=== PATIENT | female | born 1945 | race Caucasian/White ===

== ENCOUNTER 2023-01-18 06:27 | Emergency (ER) | payer MEDICARE, OTHER, SELFPAY ==
[2023-01-18 06:32] VITALS: BP 178/109; PULSE 60; RESP 18; TEMP 36.6; O2SAT 97; BMI 26.5
[2023-01-18 06:35] VITALS: BP 178/109
[2023-01-18 06:49] VITALS: BP 160/70
[2023-01-18] MEDS: ONDANSETRON PF 4 MG/2 ML VIAL IV (07:05)
[2023-01-18] MEDS: MORPHINE SULFATE 4 MG/ML VIAL IV ×2 (07:05→10:03)
--- NOTE | 2023-01-18 07:23 | ED_ITS ---
HPI - General Adult General Chief complaint: Back Pain/Injury Stated complaint: PAIN IN THE BACK RADIATES TO THE FRONT Time Seen by Provider: 01/18/23 06:57 Source: patient Mode of arrival: walk-in History of Present Illness HPI narrative: Patient was as emergency department complaining of low back pain. Patient states the pain starts in her lumbar area and radiates to the front. She states the pain has made her nauseated. She denies any fall or trauma. States she's never had any pain like this before. The pain goes to bilateral sides. She denies any history of kidney stones or gallstones. She denies any fever, or chills. She denies any cough, chest pain, shortness of breath. She denies any hematemesis, melena, hematochezia. She had a normal bowel movement. There is nothing that makes the pain better or worse. There are no sick contacts in the household. Related Data Home Medications Medication Instructions Recorded Confirmed alendronate 70 mg tablet 70 mg PO .every 7 days 01/18/23 01/18/23 allopurinol 100 mg tablet 100 mg PO DAILY 01/18/23 01/18/23 aspirin 81 mg capsule 81 mg PO DAILY 01/18/23 01/18/23 carvedilol 3.125 mg tablet 3.125 mg PO Q12H 01/18/23 01/18/23 cyanocobalamin (vitamin B-12) mcg 01/18/23 1,000 mcg/mL injection solution levothyroxine 75 mcg tablet 75 mcg PO DAILY 01/18/23 01/18/23 magnesium oxide 400 mg (241.3 mg 400 mg PO DAILY 01/18/23 01/18/23 magnesium) tablet Previous Rx's Medication Instructions Recorded cephalexin 500 mg capsule 500 mg PO TID 7 days #21 caps 01/18/23 hydrocodone 5 mg-acetaminophen 325 1 tab PO Q8H PRN pain 3 days #10 01/18/23 mg tablet tabs Allergies Allergy/AdvReac Type Severity Reaction Status Date / Time Penicillins Allergy Unknown Verified 01/18/23 06:36 sulfas Allergy Unknown Uncoded 01/18/23 06:36 Review of Systems ROS Status of ROS 10 or more systems reviewed and unremarkable except as noted in history and below Exam Narrative Exam Narrative: Nurses notes and vital signs reviewed and patient is not hypoxic. General: Nontoxic, Elderly, Well-appearing and in no apparent distress. Skin: Warm, dry, no pallor noted. No Rash Head: Normocephalic, atraumatic. Neck: Supple, non-tender. Eye: Pupils are equal, round and EOMI. No scleral icterus. Ears, Nose, Mouth, and Throat: TM clear, no posterior oropharynx erythema or nasal mucosal hypertrophy, uvula is mid-line Oral mucosa is moist Cardiovascular: Regular Rate and Rhythm without murmur, gallop or rub. Respiratory: No accessory muscle use or respiratory distress. Lungs are clear to auscultation, no wheezing, rales or rhonchi Chest Wall: no tenderness Back: No midline thoracic or lumbar vertebral tenderness.Numbness to bilateral paraspinal lumbars. No CVA tenderness Musculoskeletal: normal ROM, no calf or popliteal tenderness, no lower extremity edema/swelling GI: Abdomen is soft, non-distended. Normal bowel sounds. No masses appreciated.No tenderness to palpation. No rebound, guarding, or rigidity noted. Neurological: A&O x4. No cranial nerve dysfunction observed. No truncal ataxia. Moves all extremities. Sensation intact. Psychiatric: Cooperative and interactive. Normal mood and affect. Constitutional Vital Signs, click to edit/add: Last Vital Signs Temp 97.9 F 01/18/23 06:32 Pulse 55 L 01/18/23 10:12 Resp 18 01/18/23 10:12 BP 154/62 H 01/18/23 10:12 Pulse Ox 95 01/18/23 10:12 O2 Del Method Room Air 01/18/23 06:32 Course Vital Signs Vital signs: Vital Signs Temperature 97.9 F 01/18/23 06:32 Pulse Rate 60 01/18/23 06:32 Respiratory Rate 18 01/18/23 06:32 Blood Pressure 178/109 H 01/18/23 06:32 Pulse Oximetry 97 01/18/23 06:32 Oxygen Delivery Method Room Air 01/18/23 06:32 Temperature 97.9 F 01/18/23 06:32 Pulse Rate 55 L 01/18/23 10:12 Respiratory Rate 18 01/18/23 10:12 Blood Pressure 154/62 H 01/18/23 10:12 Pulse Oximetry 95 01/18/23 10:12 Oxygen Delivery Method Room Air 01/18/23 06:32 Medical Decision Making MDM Narrative Medical decision making narrative: Patient was given IV fluids, Zofran and morphine. Her pain was well controlled while studies were being done. All results were discussed with patient. Patient is not actively having any diarrhea. She complained of pain returning and was given another 4 mg of morphine. With that her symptoms had completely resolved. I advised the patient we would give Rocephin for urinary tract infection give her prescription of an antibiotic and analgesics. She is to follow-up with her primary care doctor. Return to the emergency department if symptoms worsen, she gets fever, pain returns and is not controlled with what we are doing at home or she has any other problems or concerns. No additional indication for emergent studies at this time. I answered all questions. Discussed discharge instructions including standard anticipatory guidance and what should prompt a return to the emergency department, including if they get worse are not getting better or develops any new or concerning symptoms. I've given them specific time frame in which to follow-up, and who to follow-up with. The patient demonstrates understanding. Patient is nontoxic and stable for discharge with outpatient follow-up. This note was created with the assistance of a speech recognition program. Although the intention is to generate documents that actually reflects the content of the visit, no guarantees can be provided that every mistake has been identified and corrected by editing. Lab Data Lab results reviewed: Yes I reviewed the patient's lab results Labs: Lab Results 01/18/23 01/18/23 01/18/23 Range/Units 06:40 08:42 09:47 WBC 10.5 (4.0-11.0) 10^3/uL RBC 3.64 L (4.20-5.40) 10^6/uL Hgb 11.1 L (12.0-16.0) g/dL Hct 32.7 L (36.0-48.0) % MCV 89.8 (81.0-99.0) fL MCH 30.5 (26.7-34.0) pg MCHC 33.9 (29.9-35.2) g/dL RDW 14.5 (11.0-15.0) % Plt Count 192 (150-450) 10^3/uL MPV 11.4 (9.5-13.5) fL Neut % (Auto) 79.0 H (43.0-75.0) % Lymph % (Auto) 12.1 L (20.5-60.0) % [place] % (Auto) 8.5 (1.7-12.0) % Eos % (Auto) 0.0 L (0.9-7.0) % Baso % (Auto) 0.1 L (0.2-2.0) % Neut # (Auto) 8.3 H (1.4-6.5) 10^3/uL Lymph # (Auto) 1.3 (1.2-3.8) 10^3/uL [place] # (Auto) 0.9 H (0.3-0.8) 10^3/uL Eos # (Auto) 0.0 (0.0-0.7) 10^3/uL Baso # (Auto) 0.0 (0.0-0.1) 10^3/uL Abs Immat Gran (auto) 0.03 (0.00-0.03) 10^3/uL Imm/Tot Granulo (auto) 0.3 (0.0-0.5) % Sodium 140 (136-145) mmol/L Potassium 4.7 (3.5-5.1) mmol/L Chloride 106 (98-107) mmol/L Carbon Dioxide 24.9 (21.0-32.0) mmol/L Anion Gap 13.8 BUN 37.0 H (7.0-18.0) mg/dL Creatinine 1.25 H (0.55-1.02) mg/dL Est GFR ( Amer) 50 L (>=60) Est GFR (Non-Af Amer) 41 L (>=60) BUN/Creatinine Ratio 29.6 Glucose 130 H (74-106) mg/dL Lactate 1.7 (0.4-2.0) mmol/L Calcium 9.6 (8.5-10.1) mg/dL Total Bilirubin 0.5 (0.2-1.0) mg/dL AST 16 (15-37) U/L ALT 21 (14-59) U/L Alkaline Phosphatase 83 (46-116) U/L Troponin I High Sens 10.9 10.6 (4.0-51.3) pg/mL Total Protein 6.9 (6.4-8.2) g/dL Albumin 3.6 (3.4-5.0) g/dL Globulin 3.3 g/dL Albumin/Globulin Ratio 1.1 Lipase 175.0 (73.0-393.0) U/L Urine Color Lt. yellow (YELLOW) Urine Clarity Cloudy A (CLEAR) Urine pH 6.0 (5.0-9.0) Ur Specific [place] 1.010 (1.005-1.025) Urine Protein Trace (NEG/TRACE) mg/dL Urine Glucose (UA) Negative (NEGATIVE) mg/dL Urine Ketones Negative (NEGATIVE) mg/dL Urine Occult Blood Small A (NEGATIVE) Urine Nitrite Negative (NEGATIVE) Urine Bilirubin Negative (NEGATIVE) Urine Urobilinogen 0.2 (0.2-1.0) EU/dL Ur Leukocyte Esterase Large A (NEGATIVE) Urine RBC 2-5 A (0-2) #/HPF Urine WBC 75-100 A (NONE SEEN) #/HPF Ur Squamous Epith Cells None seen (NONE/RARE) #/LPF Urine Crystals None seen (None Seen) #/HPF Urine Bacteria Small A (NONE SEEN) #/HPF Urine Casts None seen (NONE SEEN) #/LPF Urine Mucus None seen (NONE SEEN) Ur Culture Indicated? Yes ECG Data Attestation: I personally reviewed and interpreted this ECG as follows: Discharge Plan Discharge Chief Complaint: Back Pain/Injury Clinical Impression: Acute flank pain, Acute UTI, Dehydration Patient Disposition: Home, Self-Care Time of Disposition Decision: 11:16 Condition: Good Mode of Transportation: Private Vehicle Prescriptions / Home Meds: New hydrocodone-acetaminophen 5-325 mg tablet 1 tab PO Q8H PRN (Reason: pain) 3 Days Qty: 10 0RF cephalexin 500 mg capsule 500 mg PO TID 7 Days Qty: 21 0RF No Action alendronate 70 mg tablet 70 mg PO .every 7 days allopurinol 100 mg tablet 100 mg PO DAILY aspirin 81 mg capsule 81 mg PO DAILY carvedilol 3.125 mg tablet 3.125 mg PO Q12H levothyroxine 75 mcg tablet 75 mcg PO DAILY cyanocobalamin (vitamin B-12) 1,000 mcg/mL solution magnesium oxide 400 mg (241.3 mg magnesium) tablet 400 mg PO DAILY Instructions: Dehydration (ED), Urinary Tract Infection in Women (ED), Flank Pain (ED) Stand Alone Forms: Portal Instructions Referrals: Physician,Non-Staff, [Primary Care Provider] - 1 week Discharge Date/Time: 01/18/23 11:30
--- NOTE | 2023-01-18 07:24 | CT_ITS ---
The [address] [address] Patient Name: LUDY MORENO MRN: [id number] date: 1945 Sex: F Assigned Patient Location: ER Current Patient Location: ER Accession/Order Number: [id number] Exam Date: 01/18/2023 07:35 Report Date: 01/18/2023 08:22 At the request of: DENNIS JORDAN Procedure: CT abdomen pelvis wo con CT ABDOMEN AND PELVIS WITHOUT CONTRAST: 01/18/2023 7:35 AM EDT Clinical Data: flank pain Comparison: Enhanced exam 02/15/2022 Unenhanced helically acquired data per protocol. The lack of IV contrast material hampers evaluation of the viscera, for adenopathy, and of the vasculature. The lack of oral contrast medium to some extent hampers evaluation of the bowel. All CT scans at this facility use dose modulation, iterative reconstruction, and/or weight based dosing when appropriate to reduce radiation dose to as low as reasonably achievable. FINDINGS: LOWER THORAX: No change 5 mm nodule at the right base. Areas of slight atelectasis. LIVER: No acute findings. SPLEEN: No acute findings. GB/BILIARY: Again, status post cholecystectomy. Today, there is some air within nondilated biliary tree. Previously demonstrated mild hyperdensity distal CBD is no longer evident. PANCREAS: No acute findings. ADRENALS: No change 18 mm right adrenal mass. This measures 7 Hounsfield units in density. KIDNEYS/URETERS: Symmetric in size and overall density on this unenhanced exam. No perinephric stranding. No hydronephrosis or hydroureter. No ureteral calculi are evident. VESSELS: No AAA ABDOMINAL NODES: No obvious adenopathy. PELVIC NODES: No obvious adenopathy. BLADDER: No acute findings. REPRODUCTIVE: Uterus is absent. If the ovaries are present they are tiny. PERITONEUM: No free air. No free fluid. EXTRAPERITONEUM: No acute finding BOWEL: No acute findings.No GI obstruction. Modest amount stool within aspects of the colon. Several colonic diverticula. Stomach is nearly empty. Small bowel is not dilated. It contains a small amount of debris and fluid. On this study performed without oral contrast medium, no focally thickened loop of bowel is apparent. No peribowel stranding is evident. The appendix is short and contains a mild amount of air. The distal ileum is unremarkable. BODY WALL: Minimal umbilical hernia containing fairly small amount of fat. No change. BONES: No acute findings. OTHER: No acute findings. CT/CT abdomen pelvis wo con IMPRESSION: 1. No GI obstruction. Several colonic diverticula. No focally thickened loop of bowel is evident on this study performed without oral contrast medium. 2. No hydronephrosis or hydroureter. No ureteral calculi are evident. 3. Again, status post cholecystectomy. Interval air in the biliary tree. This is likely postprocedural. Previously demonstrated subtle hyperdensity/calculus in the distal CBD is no longer evident. 4. No interval change right adrenal adenoma.. 5. No change 5 mm nodule right lung base. The lack of interval change is good and favors benignity Electronically authenticated by: RD KEITH Date: 01/18/2023 08:22
[2023-01-18] MEDS: 0.9 % SODIUM CHLORIDE 1,000 ML 1000 ML IV (07:30)
[2023-01-18 07:33] LABS: Basophils Percent Auto 0.1 % (0.2-2.0); Hematocrit 32.7 % (36.0-48.0); Hemoglobin 11.1 g/dL (12.0-16.0); Immature Granulocytes Abs Auto 0.03 10^3/uL (0.00-0.03); Immature Granulocytes Pct Auto 0.3 % (0.0-0.5); Lymphocytes Absolute Auto 1.3 10^3/uL (1.2-3.8); Lymphocytes Percent Auto 12.1 % (20.5-60.0); Mean Corpuscular HGB Conc 33.9 g/dL (29.9-35.2); Mean Corpuscular Hemoglobin 30.5 pg (26.7-34.0); Mean Corpuscular Volume 89.8 fL (81.0-99.0); Mean Platelet Volume 11.4 fL (9.5-13.5); Monocytes Absolute Auto 0.9 10^3/uL (0.3-0.8); Monocytes Percent Auto 8.5 % (1.7-12.0); Neutrophils Absolute Auto 8.3 10^3/uL (1.4-6.5); Platelet Count 192 10^3/uL (150-450); Red Blood Count 3.64 10^6/uL (4.20-5.40); Red Cell Distribution Width 14.5 % (11.0-15.0); White Blood Count 10.5 10^3/uL (4.0-11.0)
[2023-01-18 07:46] LABS: Alanine Aminotransferase 21 U/L (14-59); Albumin Globulin Ratio 1.1; Albumin Level 3.6 g/dL (3.4-5.0); Alkaline Phosphatase 83 U/L (46-116); Anion Gap 13.8; Aspartate Amino Transferase 16 U/L (15-37); BUN Creatinine Ratio 29.6; Bilirubin Total 0.5 mg/dL (0.2-1.0); Calcium 9.6 mg/dL (8.5-10.1); Carbon Dioxide 24.9 mmol/L (21.0-32.0); Chloride 106 mmol/L (98-107); Estimated GFR (African America 50 (>=60); Estimated GFR (Non-African Ame 41 (>=60); Globulin 3.3 g/dL; Glucose 130 mg/dL (74-106); Potassium 4.7 mmol/L (3.5-5.1); Sodium 140 mmol/L (136-145); Total Protein 6.9 g/dL (6.4-8.2); Troponin I High Sensitivity 10.9 pg/mL (4.0-51.3)
[2023-01-18 07:47] LABS: Lactate/Lactic Acid 1.7 mmol/L (0.4-2.0)
[2023-01-18 09:16] LABS: Bilirubin Urine NEGATIVE (NEGATIVE); Blood Urine SMALL (NEGATIVE); Clarity Urine CLOUDY (CLEAR); Color Urine LT. YELLOW (YELLOW); Glucose Urine UA NEGATIVE (NEGATIVE); Ketones Urine NEGATIVE (NEGATIVE); Leukocyte Esterase Urine LARGE (NEGATIVE); Nitrite Urine NEGATIVE (NEGATIVE); Protein Urine TRACE mg/dL (NEG/TRACE); Urine Microscopic Indicated YES; Urobilinogen Urine 0.2 EU/dL (0.2-1.0)
[2023-01-18 09:21] LABS: Bacteria Urine SMALL #/HPF (NONE SEEN); WBC Urine 75-100 #/HPF (NONE SEEN)
[2023-01-18 09:22] LABS: Cast Seen? NONE SEEN #/LPF (NONE SEEN); Crystals Seen? None Seen #/HPF (None Seen); Mucus Urine NONE SEEN (NONE SEEN); Squamous Epithelial Cell Urine NONE SEEN #/LPF (NONE/RARE); Urine Culture Indicated YES
--- NOTE | 2023-01-18 09:31 | ECG_ITS ---
The [facility] Test Date: 2023-01-18 Pat Name: LUDY MORENO Department: Room: - Gender: Female Director Of Assessing: : 1945 Requested By: [id number] Order Number: [id number] Reading MD: KAMILLE PITTMAN Measurements Intervals [place] Rate: 54 P: 51 VT: 168 QRS: 15 QRSD: 70 T: 39 QT: 410 QTc: 395 Interpretive Statements 1100 Sinus rhythm 4068 Nonspecific [place] abnormality 8102 Low QRS voltage in chest leads 9130 borderline ECG No previous ECG available for comparison Electronically Signed On 01-18-2023 18:29:38 EDT by KAMILLE PITTMAN
[2023-01-18] MEDS: CEFTRIAXONE 1,000 MG in 0.9 % SODIUM CHLORIDE 50 ML 100 MG IV (10:03)
[2023-01-18 10:10] VITALS: PULSE 55; RESP 18
[2023-01-18 10:12] VITALS: BP 154/62; PULSE 55; RESP 18; O2SAT 95
[2023-01-18 10:25] LABS: Troponin I High Sensitivity 10.6 pg/mL (4.0-51.3)
== END 2023-01-18 11:30 | disposition home or self-care (01) ==
PROVIDERS: Emergency Provider Emergency Medicine
DX: N39.0 Urinary tract infection, site not specified (principal); R10.9 Unspecified abdominal pain; E86.0 Dehydration; Z79.899 Other long term (current) drug therapy; Z79.890 Hormone replacement therapy; Z79.82 Long term (current) use of aspirin
CPT/HCPCS: 36415; 74176; 80053; 81001; 81003; 83605; 83690; 84484; 85025; 87086; 87150; 87186; 93005; 96365; 96375; 96376; 99285

== ENCOUNTER 2023-06-25 11:30 | Emergency (ER) | payer MEDICARE, OTHER, SELFPAY ==
[2023-06-25 11:41] VITALS: BP 142/118; PULSE 66; RESP 18; TEMP 36.6; O2SAT 100; BMI 26.1
--- NOTE | 2023-06-25 12:15 | ED.ABDPAIN1 ---
HPI - Abdominal Pain General Chief Complaint: Urogenital-Female Stated Complaint: UROGENITAL-FEMALE Time Seen by Provider: 06/25/23 11:48 Source: patient Mode of arrival: Wheelchair Limitations: no limitations History of Present Illness HPI narrative: 78-year-old female presents for suprapubic abdominal pain and the concern that she has a urinary tract infection. Her symptom started today and it's continuous. The pain is severe. No flank pain or gross hematuria. Related Data Home Medications Medication Instructions Recorded Confirmed alendronate 70 mg tablet 70 mg PO .every 7 days 01/18/23 01/18/23 allopurinol 100 mg tablet 100 mg PO DAILY 01/18/23 01/18/23 aspirin 81 mg capsule 81 mg PO DAILY 01/18/23 01/18/23 carvedilol 3.125 mg tablet 3.125 mg PO Q12H 01/18/23 01/18/23 cyanocobalamin (vitamin B-12) mcg 01/18/23 1,000 mcg/mL injection solution levothyroxine 75 mcg tablet 75 mcg PO DAILY 01/18/23 01/18/23 magnesium oxide 400 mg (241.3 mg 400 mg PO DAILY 01/18/23 01/18/23 magnesium) tablet Previous Rx's Medication Instructions Recorded cephalexin 500 mg capsule 500 mg PO TID 7 days #21 caps 01/18/23 hydrocodone 5 mg-acetaminophen 325 1 tab PO Q8H PRN pain 3 days #10 01/18/23 mg tablet tabs cephalexin 500 mg capsule 500 mg PO QID 10 days #40 caps 06/25/23 phenazopyridine 200 mg tablet 200 mg PO Q8H PRN pain #15 tabs 06/25/23 (Pyridium) Allergies Allergy/AdvReac Type Severity Reaction Status Date / Time Penicillins Allergy Unknown Verified 06/25/23 11:41 Sulfa (Sulfonamide Allergy Unknown Verified 06/25/23 11:45 Antibiotics) Review of Systems ROS Narrative A ten point review of systems is negative except as noted above. Exam Narrative Exam Narrative: Nurses note and vital signs reviewed and patient is not hypoxic. General: The patient appears quite uncomfortable Skin: Warm, dry, no pallor noted. There is no rash noted. Head: Normocephalic, atraumatic Eye: Normal conjunctiva, no drainage Ears, Nose, Mouth, and Throat: oral mucosa is moist. Nares patent. Cardiovascular: Regular Rate and Rhythm Respiratory: Patient is in no distress, no accessory muscle use, lungs are clear to auscultation, no wheezing, rales or rhonchi Back: non-tender GI: soft and nondistended. Suprapubic tenderness present. Musculoskeletal: The patient has no evidence of calf tenderness, no pitting edema, symmetrical pulses noted bilaterally Neurological: A&O, normal speech Psychiatric: Cooperative Constitutional Vital Signs, click to edit/add: Last Vital Signs Temp 97.9 F 06/25/23 11:41 Pulse 66 06/25/23 11:41 Resp 18 06/25/23 11:41 BP 142/118 H 06/25/23 11:41 Pulse Ox 100 06/25/23 11:41 O2 Del Method Room Air 06/25/23 11:41 Course Vital Signs Vital signs: Vital Signs Temperature 97.9 F 06/25/23 11:41 Pulse Rate 66 06/25/23 11:41 Respiratory Rate 18 06/25/23 11:41 Blood Pressure 142/118 H 06/25/23 11:41 Pulse Oximetry 100 06/25/23 11:41 Oxygen Delivery Method Room Air 06/25/23 11:41 Temperature 97.9 F 06/25/23 11:41 Pulse Rate 66 06/25/23 11:41 Respiratory Rate 18 06/25/23 11:41 Blood Pressure 142/118 H 06/25/23 11:41 Pulse Oximetry 100 06/25/23 11:41 Oxygen Delivery Method Room Air 06/25/23 11:41 MDM - Abdominal Pain MDM Narrative Medical decision making narrative: urinalysis shows presence of urinary tract infection. She is started on Pyridium and Keflex here and a culture was ordered. Treatment diagnosis and follow-up were discussed with the patient. Differential Diagnosis Differential diagnosis: Likely abdominal pain, constipation and other (urinary tract infection) Lab Data Attestation: I reviewed the patient's lab results. Labs: Lab Results 06/25/23 Range/Units 12:05 Urine Color Yellow (YELLOW) Urine Clarity Cloudy A (CLEAR) Urine pH 5.5 (5.0-9.0) Ur Specific [place] 1.020 (1.005-1.025) Urine Protein 100 A (NEG/TRACE) mg/dL Urine Glucose (UA) Negative (NEGATIVE) mg/dL Urine Ketones Trace A (NEGATIVE) mg/dL Urine Occult Blood Large A (NEGATIVE) Urine Nitrite Negative (NEGATIVE) Urine Bilirubin Negative (NEGATIVE) Urine Urobilinogen 0.2 (0.2-1.0) EU/dL Ur Leukocyte Esterase Small A (NEGATIVE) Urine RBC 75-100 A (0-2) #/HPF Urine WBC 10-20 A (NONE SEEN) #/HPF Ur Squamous Epith Cells Moderate A (NONE/RARE) #/LPF Urine Bacteria Large A (NONE SEEN) #/HPF Urine Mucus None seen (NONE SEEN) Discharge Plan Discharge Chief Complaint: Urogenital-Female Clinical Impression: Acute UTI Patient Disposition: Home, Self-Care Time of Disposition Decision: 12:37 Condition: Good Mode of Transportation: Private Vehicle Prescriptions / Home Meds: New cephalexin 500 mg capsule 500 mg PO QID 10 Days Qty: 40 0RF phenazopyridine [Pyridium] 200 mg tablet 200 mg PO Q8H PRN (Reason: pain) Qty: 15 0RF No Action alendronate 70 mg tablet 70 mg PO .every 7 days allopurinol 100 mg tablet 100 mg PO DAILY aspirin 81 mg capsule 81 mg PO DAILY carvedilol 3.125 mg tablet 3.125 mg PO Q12H levothyroxine 75 mcg tablet 75 mcg PO DAILY cyanocobalamin (vitamin B-12) 1,000 mcg/mL solution magnesium oxide 400 mg (241.3 mg magnesium) tablet 400 mg PO DAILY hydrocodone-acetaminophen 5-325 mg tablet 1 tab PO Q8H PRN (Reason: pain) 3 Days Qty: 10 0RF cephalexin 500 mg capsule 500 mg PO TID 7 Days Qty: 21 0RF Instructions: Urinary Tract Infection in Older Adults (ED) Stand Alone Forms: Portal Instructions Referrals: Livan Agudelo DO [Primary Care Provider] - 1 week
[2023-06-25 12:17] LABS: Bilirubin Urine NEGATIVE (NEGATIVE); Blood Urine LARGE (NEGATIVE); Color Urine YELLOW (YELLOW); Glucose Urine UA NEGATIVE (NEGATIVE); Ketones Urine TRACE mg/dL (NEGATIVE); Leukocyte Esterase Urine SMALL (NEGATIVE); Nitrite Urine NEGATIVE (NEGATIVE); Protein Urine 100 mg/dL (NEG/TRACE); Urobilinogen Urine 0.2 EU/dL (0.2-1.0); pH Urine 5.5 (5.0-9.0)
[2023-06-25 12:21] LABS: Clarity Urine CLOUDY (CLEAR)
[2023-06-25 12:29] LABS: Bacteria Urine LARGE #/HPF (NONE SEEN); Mucus Urine NONE SEEN (NONE SEEN); RBC Urine 75-100 #/HPF (0-2); Squamous Epithelial Cell Urine MODERATE #/LPF (NONE/RARE)
[2023-06-25] MEDS: PHENAZOPYRIDINE 100 MG TABLET PO (12:45)
[2023-06-25] MEDS: CEPHALEXIN 500 MG CAPSULE PO (12:45)
--- NOTE | 2023-06-28 15:28 | PC.NURSE ---
06/28/23 1528 c+s reviewed by Yazan stoll at this time. Adonay Mccann RN
== END 2023-06-25 12:48 | disposition home or self-care (01) ==
PROVIDERS: Emergency Provider Emergency Medicine; PCP Family Medicine
DX: N39.0 Urinary tract infection, site not specified (principal); Z79.82 Long term (current) use of aspirin; Z79.899 Other long term (current) drug therapy; Z79.890 Hormone replacement therapy
CPT/HCPCS: 81001; 87086; 87150; 87186; 99283

== ENCOUNTER 2023-07-03 07:23 | Outpatient (RCR) | payer MEDICARE, OTHER, SELFPAY ==
[2023-06-24 13:05] VITALS: BP 149/79; PULSE 74; RESP 18; O2SAT 98
[2023-06-24] MEDS: IRON SUCROSE COMPLEX 200 MG in 0.9 % SODIUM CHLORIDE 100 ML 220 MG IV (13:21)
--- NOTE | 2023-06-24 13:26 | PC.NURSE ---
Patient is here for Venofer infusion, she denies any complains at this time. IV started with good blood return, she is tolerating infusion well, we will continue to monitor.
--- NOTE | 2023-06-24 13:58 | PC.NURSE ---
Patient tolerated Venofer infusion well without any complaints. She was discharged home ambulatory.
[2023-06-26] MEDS: IRON SUCROSE COMPLEX 200 MG in 0.9 % SODIUM CHLORIDE 100 ML 220 MG IV (13:36)
[2023-06-26 13:40] VITALS: BP 119/76; PULSE 80; RESP 18; TEMP 36.3; O2SAT 97
--- NOTE | 2023-06-26 13:51 | PC.NURSE ---
1315 Arrival ambulatory to chair 4. alert oriented, offers no concerns. #24 IV initiated left ac on 1st attempt,patient tolerated well. 1345 tolerating infusion without difficulty.1405 infusion complete, flushed with NSS, iv dc'd catheter intact. site clear. bandaid and coban applied. Released ambulatory
[2023-06-29 13:05] VITALS: BP 154/81; PULSE 75; RESP 16; TEMP 36.4; O2SAT 98
[2023-06-29] MEDS: IRON SUCROSE COMPLEX 200 MG in 0.9 % SODIUM CHLORIDE 100 ML 220 MG IV (13:18)
--- NOTE | 2023-06-29 13:53 | PC.NURSE ---
Patient is here for venofer infusion, IV started with good blood return, she tolerated infusion well without any isssues. She was discharged home ambulatory.
[2023-07-01] MEDS: IRON SUCROSE COMPLEX 200 MG in 0.9 % SODIUM CHLORIDE 100 ML 220 MG IV (13:26)
[2023-07-01 13:27] VITALS: BP 132/74; PULSE 72; RESP 18; TEMP 36.3; O2SAT 98
--- NOTE | 2023-07-01 14:16 | PC.NURSE ---
1356 infusion completed. tolerated well. IV dc'd catheter intact. Released ambulatory
[2023-07-03] MEDS: IRON SUCROSE COMPLEX 200 MG in 0.9 % SODIUM CHLORIDE 100 ML 220 MG IV (13:21)
[2023-07-03 13:33] VITALS: BP 130/70; BP 130/82; PULSE 70; RESP 16; TEMP 36.9; O2SAT 97
--- NOTE | 2023-07-03 14:16 | PC.NURSE ---
1400 iron infused, flushed line with nss. IV site dc'd catheter intact site clear. cottonball to venipunture site secured with coban, no bleeding noted. 1410 released ambulatory
== END 2023-07-22 23:59 | disposition home or self-care (01) ==
LOC: INF 07:23
PROVIDERS: Visit Provider Internal Medicine
DX: D64.9 Anemia, unspecified (principal); N18.30 Chronic kidney disease, stage 3 unspecified
CPT/HCPCS: 96365; 96366; J1756

== ENCOUNTER 2024-06-09 09:57 | Outpatient (OUT) | payer MEDICARE, OTHER, SELFPAY ==
--- NOTE | 2024-06-09 10:05 | XR_ITS ---
The [address] [address] Patient Name: LUDY MORENO MRN: [id number] date: 1945 Sex: F Assigned Patient Location: [facility] Current Patient Location: Accession/Order Number: [id number] Exam Date: 06/09/2024 10:20 Report Date: 06/10/2024 11:50 At the request of: DEBORA ATKINS Procedure: XR DEXA axial skeleton EXAMINATION: XR DEXA axial skeleton, 06/09/2024 10:20 AM EST HISTORY: Age Related Osteoporosis COMPARISON: None. TECHNIQUE: Dual-energy X-ray absorptiometry (DEXA) bone density study performed for the axial skeleton. FINDINGS: Bone mineral density AP spine L1-L4 measures 1.081 g/sq cm. T score -0.8. Normal. Lowest bone mineral density right femoral neck measures 0.65 g/sq cm. T score -2.7. Osteoporosis XR/XR DEXA axial skeleton IMPRESSION: Osteoporosis. High fracture risk 10 year fracture is not reported because T score below -2.5 Pharmacologic treatment recommendations * No uniform recommendation applies to all patients. Management plans must be individualized. * Consider initiating pharmacologic treatment in postmenopausal women and men >= 50 years of age who have the following: Primary fracture prevention: * T-score <= - 2.5 at the femoral neck, total hip, lumbar spine, 33% radius (some uncertainty with existing data) by DXA. * Low bone mass (osteopenia: T-score between - 1.0 and - 2.5) at the femoral neck or total hip by DXA with a 10-year hip fracture risk >= 3% or a 10-year major osteoporosis-related fracture risk >= 20% (i.e., clinical vertebral, hip, forearm, or proximal humerus) based on the [place]-adapted FRAXregistered model. Secondary fracture prevention: * Fracture of the hip or vertebra regardless of BMD [4, 5]. * Fracture of proximal humerus, pelvis, or distal forearm in persons with low bone mass (osteopenia: T-score between - 1.0 and - 2.5). The decision to treat should be individualized in persons with a fracture of the proximal humerus, pelvis, or distal forearm who do not have osteopenia or low BMD [12, 13]. Pool MS, Anirudh SL, Josh KL, Katelyn EM, Kala KG, Wilcox AJ, Diogenes ES. The clinician's guide to prevention and treatment of osteoporosis. Osteoporos Int. 2021;33(10):4245-7627. doi: 10.1007/e79297-087-76668-v. Epub 2021Oct 17. Erratum in: Osteoporos Int. 2021Jan 16;: PMID: [id number]; PMCID: [id number]. Electronically authenticated by: MARIE PLUMMER Date: 06/10/2024 11:50
--- OUTSIDE RECORDS SUMMARY | 2024-06-09 10:17 | XMS_ITS | CCD ---
Author Organization [facility] CliniSynd Care Team Providers Care Rn Practitioner Name Role Phone ISIDRO SY Attending Unavailable LIVAN ARGUELLO Primary Care Unavailable Unavailable Unavailable Livan Arguello Unavailable Unavailable Unavailable LIVAN ARGUELLO Primary Care Physician [phone] Livan Arguello Unavailable Huy Tierney Unavailable Williams Matta Unavailable [phone] DO Livan Arguello Primary Care Provider MD Williams Matta Attending Provider [phone] Saundra, DO [place] Attending Provider DO Livan Arguello Primary Care Provider MD iWlliams Matta Attending Provider Saundra, DO [place] Attending Provider [phone] MD Huy Tierney Attending Provider DR DEANNA SY Consulting Unavailable TAMI, DR DEANNA Dobbs Attending Unavailable TAMI, DR DEANNA Dobbs Admitting Unavailable SAUNDRA, DR LICONA Primary Care Unavailable SIMA, DR WILLIAM Dobbs Consulting Unavailable BOZENA WESLEY Consulting Unavailable SAUNDRA, DR LICONA Primary Care Unavailable DENNIS JORDAN Admitting Unavailable DENNIS JORDAN Consulting Unavailable DENNIS JORDAN Attending Unavailable SAUNDRA, DR LICONA Primary Care Unavailable TAMI, DR DEANNA Dobbs Consulting Unavailable TAMI, DR DEANNA Dobbs Attending Unavailable TAMI, DR DEANNA Dobbs Admitting Unavailable SAUNDRA, DR LICONA Primary Care Unavailable TAMI, DR DEANNA Dobbs Consulting Unavailable ELVIS, DR CHIQUITA Wray Admitting Unavailable ELVIS, DR CHIQUITA Wray Attending Unavailable ELVIS, DR CHIQUITA Wray Consulting Unavailable SIMA, DR WILLIAM Dobbs Consulting Unavailable USMAN VIGIL Consulting Unavailable LUPIS MINER Consulting Unavaildi wray MISC, DOCTOR Admitting Unavailable MISC, DR ROBERTSON Consulting Unavailable MISC, DOCTOR Attending Unavailable SAUNDRA, DR LICONA Primary Care Unavailable Saundra, DO [place] Primary Care Provider [phone] Saundra, DO [place] Attending Provider Miya Ellitot Attending Unavailable Miya Elliott Referring Unavailable Saundra, Dr. Livan Andrew Primary Care Unavaila Miya Flores Admitting Unavailable MD Ivan Moore Attending Provider [phone] Deon Mckeon Referring Unavailable Mike, Deon Attending Unavailable Saundra, Dr. Livan Andrew Primary Care Unavaila tracy Sy, Ms. Isidro Ward Attending Cynthia Sy, Ms. Isidro Ward Referring Cynthia Arguello, Dr. Livan Andrew Primary Care Unavaila ble Deon Mckeon Referring Unavailable Saundra, Dr. Livan Andrew Primary [facility] Unavaila ble Deon Mckeon Attending Unavailable Saundra, Dr. Livan Andrew Primary Care Unavaila tracy Sy, MsQian Ward Referring Cynthia Sy, Ms. Isidro Ward Attending Cynthia Arguello, Dr. Livan Andrew Primary Care Unavaila tracy Sy, Ms. Isidro Ward Referring Cynthia Sy, Ms. Isidro Ward Attending Cynthia Sy, Ms. Isidro Ward Referring Cynthia Sy, Ms. Isidro Ward Attending Cynthia Arguello, Dr. Livan Andrew Primary Care Unavaila ble Deon Mckeon Referring Unavailable Deon Mckeon Attending Unavailable Saundra, Dr. Livan Andrew Primary Care Unavaila Deon Kirkpatrick Referring Unavailable Deon Mckeon Attending Unavailable Saundra, Dr. Livan Andrew Primary Care Unavaila tracy Arguello, DO [place] Primary Care Provider [phone] MD Huy Tierney Attending Provider [phone] Saundra, DO [place] Attending Provider Kuns, DO Livan Referring Provider MD Chriss Voss Other Provider Chriss Voss Unavailable Kuns, DO Livan Primary Care Provider [phone] Kuns, DO Livan Attending Provider DEON MCKEON Attending Unavailable KUNS, LIVAN KAMRAN Primary Care Unavailable DEON MCKEON Attending Unavailable KUNS, LIVAN KAMRAN Primary Care Unavailable KUNS, LIVAN KAMRAN Primary Care Unavailable DEON MCKEON Referring Unavailable Kuns, DO Livan Primary Care Provider Kuns, DO Livan Attending Provider Cyndi, DO Kerns M Emergency Provider [phone] DO Freddie Nascimento Emergency Provider Unavai greciale Jonathans, DO Livan Primary Care Provider [phone] Kuns, DO Livan Attending Provider Cyndi, DO Arevaloed M Emergency Provider DO Freddie Nascimento M Emergency Provider Unavai lable Kuns DO, Livan Primary Care Provider Livan Arguello DO Attending Provider Cyndi DOLuis F M Emergency Provider Freddie Nascimento DO Emergency Provider Unavai lable Kuns, Livan Primary Care Unavailable Luis F Hanna M Admitting Unavailable Luis F Hanna M Attending Unavailable Freddie Nascimento Admitting Unavailable Freddie Nascimento Attending Unavailable Kuns, Livan Primary Care Unavailable Kuns, Livan Primary Care Unavailable [place]ial[place]i, Jose N Admitting Unavailable [place], Jose N Attending Unavailable Kuns, Livan Primary Care Unavailable Kuns, Livan Attending Unavailable Kuns, Livan Admitting Unavailable Kuns, Livan Primary Care Unavailable Kuns, Livan Attending Unavailable Kuns, Livan Admitting Unavailable Kuns, Livan Attending Unavailable Kuns, Livan Admitting Unavailable Kuns, Livan Primary Care Unavailable Kuns, Livan Attending Unavailable Kuns, Livan Admitting Unavailable Kuns, Livan Primary Care Unavailable Livan Arguello Attending Unavailable Livan Arguello Admitting Unavailable Livan Arguello Primary Care Unavailable Chriss Voss Attending Unavailable Livan Arguello Primary Care Unavailable Chriss Voss Admitting Unavailable Allergies Allergy Classification Reported Allergen(s) Allergy Type Date of Onset Reaction(s) Facility (13 sources) carvedilol; Translations: [Coreg] Drug Allergy Bradycardia [facility] 250 DO Work Phone: (20 sources) Hmg-Coa Reductase Inhibitors (Statins); Translations: [Statins] Allergy to drug (finding) Nausea and vomiting (disorder) [facility] [employer] Other (20 sources) Penicillins; Translations: [Penicillins] Allergy to drug (finding) 021 Hives [facility] (14 sources) Sulfamethoxazole ; Translations: [sulfa] Drug Allergy Rash [facility] 250 DO Work Phone: (20 sources) Acetaminophen / Codeine; Translations: [acetaminophen-c odeine] Drug Allergy Vomiting (disorder) [facility] [employer] Other (20 sources) Penicillins (Antibiotic) Propensity to adverse reactions Unknown [facility] [employer] Other (20 sources) Sulfonamides (Antibiotic) Propensity to adverse reactions vomiting/ rash [facility] [employer] [facility] Other (20 sources) Codeine; Translations: [codeine] Drug Allergy 021 Gastrointestinal Upset, Gastrointestinal Upset, vomiting [facility] (20 sources) Sulfonamides (Antibiotic); Translations: [SULFA (SULFONAMIDE ANTIBIOTICS)] Allergy to substance 021 Rash [facility] (20 sources) Busmyzb-CER-WeL Reductase Inhibitor; Translations: [Freljff-BWC-UuH Reductase Inhibitor] Allergy to substance 021 Vomiting [facility] (1 source) Penicillins Drug allergy (disorder) 017 [facility] (1 source) Sulfonamides (Antibiotic) Drug allergy (disorder) [facility] (13 sources) Acetaminophen / Codeine Drug Allergy vomiting [facility] Other (13 sources) HMG-CoA reductase inhibitor Drug allergy Unknown [facility] Other (13 sources) Penicillin Drug Allergy Unknown [facility] Other (13 sources) Substance with sulfonamide structure and antibacterial mechanism of action (substance) Drug allergy Unknown [facility] Other (1 source) carvedilol; Translations: [CARVEDILOL] Drug Allergy 023 [facility] Repository (1 source) Hmg-Coa Reductase Inhibitors (Statins); Translations: [[id number] REDUCTASE INHIBITORS] Propensity to adverse reactions to drug (disorder) [facility] Repository (2 sources) Acetaminophen; Translations: [acetaminophen] Drug Allergy 023 vomiting [facility] (1 source) Penicillins Drug allergy (disorder) 024 [facility] Repository Medications Current Medications Medication Drug Class(es) Dates Sig (Normalized) Sig (Original) ALPRAZolam 0.5 mg oral tablet (20 sources) Benzodiazepine Start: 03-19-2024 End: 04-04-2024 take 1 tablet by mouth once daily as needed for anxiety Alprazolam (Xanax) 0.5 mg tablet Active 0.5 MG PO Daily as needed for anxiety April 04, 2024 2:07pm Start: 03-09-2023 take 1-2 tablets by mouth ever y hour amitriptyline hydrochloride 10 mg oral tablet (18 sources) Tricyclic Antidepressant Start: 11-21-2021 take 1 tablet by mouth once daily at bedtime amitriptyline 10 mg Tab 10 mg = 1 tab(s), Oral, Once a day (at bedtime), # 30 tab(s), Refills(s) 5 Start Date: 11/21/21 Status: Ordered amLODIPine 5 mg oral tablet (20 sources) Dihydropyridine Calcium Channel Sophia Start: 04-14-2024 take 1 tablet by mouth once daily Amlodipine 5 mg tablet Active 5 MG PO Daily April 13, 2024 11:00pm Start: 11-20-2021 amLODIPine 5 m g Tab Oral, Refills(s) 0 Start Date: 11/20/21 Status: Ordered Start: 08-26-2017 End: 07-12-2018 take 1 tablet by mouth once daily Amlodipine 5 mg Tablet Discontinued 5 MG PO Daily 60 August 26, 2017 12:00am July 12, 2018 2:26pm aspirin 81 mg delayed release oral tablet (20 sources) Platelet Aggregation Inhibitor, Nonsteroidal Anti-inflammatory Drug Start: 09-23-2023 take 1 tablet by mouth once daily Aspirin 81 mg tablet,delayed release (DR/EC) Active 81 MG PO Daily September 22, 2023 11:00pm take 1 tablet by [facility] twenty-four hours Aspirin 81 MG 1 tablet Orally Once a day Active betamethasone 1 mg/ml topical cream (9 sources) Corticosteroid Start: 12-01-2022 Betamethasone Valerate 0.1 % 1 application Externally Once a day Nov, Active chlordiazePOXIDE hydrochloride 5 mg / clidinium bromide 2.5 mg oral capsule (20 sources) Anticholinergic, Benzodiazepine Start: 11-20-2021 Librax 5 mg-2.5 mg Cap cap(s), Oral, QIDACHS, Refill(s) 0 Start Date: 11/20/21 Status: Ordered Start: 11-20-2021 Start: 08-08-2021 take 1 capsule by mo [facility] twice daily as needed chlordiazePOXIDE -Clidinium CAPS Take 1 capsule twice daily Quantity: 0 Refills: 0 Ordered: 04-Sep-2021 DO Active cyanocobalamin 1000 mcg/mL Inj (1 source) Start: 11-20-2021 inject 1 ug by intramuscular injection every month cyanocobalamin 1000 mcg/mL Inj mcg, IntraMuscular, qMonth, Refills(s) 0 Start Date: 11/20/21 Status: Ordered cyclobenzaprine hydrochloride 5 mg oral tablet (20 sources) Muscle Relaxant Start: 04-21-2024 End: 04-26-2024 take 1 tablet by mouth twice daily as needed for muscle spasms Cyclobenzaprine 5 mg tablet Active 5 MG PO Twice daily as needed for muscle spasm 60 April 26, 2024 10:15am Start: 09-23-2023 End: 03-19-2024 take 1 tablet by mouth once daily at bedtime Cyclobenzaprine 5 mg tablet Discontinued 5 MG PO Daily at bedtime September 22, 2023 11:00pm March 19, 2024 7:40am FreeTextSi tablet at bedtime as needed Orally Once a day; Note: Source Status: Start; Provider: Shanika Ruff Start: 04-27-2023 [facility]four [facility] Cyclobenzaprine HCl 5 MG 1 tablet at bedtime as needed Orally Once a day for 30 day(s) Apr, Active Start: 01-06-2020 End: 09-23-2023 take 1 tablet by mouth twice daily as needed for muscle spasms Cyclobenzaprine 10 mg Tablet Discontinued 10 MG PO Twice daily as needed for Muscle Spasm January 05, 2020 11:00pm September 23, 2023 11:36am dicyclomine hydrochloride 20 mg oral tablet (4 sources) Anticholinergic Start: 06-03-2021 take 1 tablet by mouth three times daily at bedtime Dicyclomine HCl 20 MG 1 tablet Orally 3 TIMES A DAY BEFORE MEALS AND AT BEDTIME May, Active fluconazole 150 mg oral tablet (11 sources) Azole Antifungal Start: 03-13-2023 take 1 tablet by mouth once gabapentin 300 mg oral capsule (20 sources) Anti-epileptic Agent Start: 05-09-2024 take 1 capsule by mouth twice daily Gabapentin 300 mg capsule Active 300 MG PO Twice daily May 09, 2024 12:00am Start: 09-23-2023 End: 03-19-2024 Gabapentin 100 mg capsule Discontinued 100 MG PO September 22, 2023 11:00pm March 19, 2024 7:40am Start: 03-26-2023 take 1 capsule by [facility] twice daily Gabapentin 300 MG 1 capsule Orally two times daily for 30 days Mar, Active take 1 capsule by [facility] once daily at bedtime Gabapentin 100 MG 1 capsule Orally Once a day at bedtime for 30 days Active IBgard 90 MG (13 sources) take 90 mg by mouth twice daily take 90 mg by mouth twice daily IBgard 90 MG as directed Orally BID Active meloxicam 15 mg oral tablet (20 sources) Nonsteroidal Anti-inflammatory Drug Start: 04-21-2024 take 1 tablet by mouth once daily Meloxicam 15 mg tablet Active 15 MG PO Daily April 20, 2024 11:00pm Start: 09-23-2023 End: 03-19-2024 take 1 tablet by mouth once daily Meloxicam 15 mg tablet Discontinued 15 MG PO Daily September 23, 2023 11:49am October 26, 2023 1:54pm Start: 01-27-2023 take 1 tablet [facility] every twenty-four hours Meloxicam 15 MG 1 tablet Orally Once a day Jan, Active metFORMIN hydrochloride 500 mg oral tablet (20 sources) Biguanide Start: 04-21-2024 take 1 tablet by mouth twice daily Metformin 500 mg tablet Active 500 MG PO Twice daily April 20, 2024 11:00pm Start: 09-23-2023 End: 03-19-2024 take 1 tablet by mouth twice daily Metformin 500 mg tablet Discontinued 500 MG PO Twice daily January 05, 2024 4:04pm March 19, 2024 7:39am Start: 12-17-2022 take 1 tablet by [facility] every twelve hours metFORMIN HCl 500 MG 1 tablet with a meal Orally Twice a day for 90 days Nov, Active Start: 07-12-2018 End: 01-09-2020 take 1 tablet by mouth twice daily Metformin 500 mg tablet Discontinued 500 MG PO Twice daily July 12, 2018 12:00am January 09, 2020 12:30pm metroNIDAZOLE 250 mg oral tablet (13 sources) Nitroimidazole Antimicrobial Start: 11-21-2021 End: 12-01-2021 take 1 tablet by mouth three times daily Flagyl 250 mg Tab 250 mg = 1 tab(s), Oral, TID, X 10 day(s), # 30 tab(s), Refills(s) 0 Start Date: 11/21/21 Stop Date: 12/01/21 Status: Ordered take 1 tablet by mouth once laurie y metroNIDAZOLE 250 MG Oral Tablet Take 1 tablet daily Quantity: 0 Refills: 0 Ordered: 26-Dec-2021 DO Active mirtazapine 15 mg oral tablet (3 sources) Start: 09-16-2021 take 1 tablet by mouth every twenty-four hours Mirtazapine 15 MG 1 tablet at bedtime Orally Once a day for 30 day(s) Aug, Active olmesartan medoxomil 20 mg oral tablet (10 sources) Angiotensin 2 Receptor Sophia Start: 04-14-2024 take 1 tablet by mouth once daily Olmesartan 20 mg tablet Active 20 MG PO Daily April 13, 2024 11:00pm ondansetron 4 mg oral tablet (20 sources) Serotonin-3 Receptor Antagonist Start: 04-21-2024 take 1 tablet by mouth twice daily as needed for nausea and vomiting Ondansetron Hcl 4 mg tablet Active 4 MG PO Twice daily as needed for nausea and vomiting 6 April 20, 2024 11:00pm Start: 02-06-2021 take 1 tablet by [facility] three times daily as needed Zofran ODT 4 MG 1 tablet on the tongue and allow to dissolve Orally THREE TIMES A DAY NEEDED PRN Jan, Active Start: 10-04-2019 End: 09-23-2023 Ondansetron 4 mg Tablet,Disintegrating Discontinued 4 MG PO every 6 to 8 hours as needed for Nausea October 03, 2019 11:00pm September 23, 2023 11:36am oxyCODONE hydrochloride 5 mg oral tablet (19 sources) Opioid Agonist Start: 05-12-2024 take 1 tablet by mouth twice daily as needed for pain Oxycodone 5 mg tablet Active 5 MG PO Twice daily as needed for severe pain (scale score 7-10) 60 May 12, 2024 Start: 05-02-2024 End: 05-12-2024 take 1 tablet by mouth twice daily as needed for pain Oxycodone 5 mg tablet Discontinued 5 MG PO Twice daily as needed for severe pain (scale score 7-10) 6 May 02, 2024 May 12, 2024 1:43pm Start: 04-21-2024 End: 05-02-2024 take 1 tablet by mouth once daily as needed for pain Oxycodone 5 mg tablet Discontinued 5 MG PO Daily as needed for severe pain (scale score 7-10) 6 April 29, 2024 May 02, 2024 12:08pm probiotic (4 sources) rosuvastatin calcium 5 mg oral tablet (20 sources) HMG-CoA Reductase Inhibitor Start: take 1 tablet by mouth once daily Rosuvastatin 5 mg tablet Active 5 MG PO Daily September 22, 2023 11:00pm take 1 tablet [facility] every twenty-four hours Rosuvastatin Calcium 5 MG 1 tablet Orall y Once a day Active Syringe 22G X 1 3 ML (20 sources) Start: 05-13-2021 Syringe 22G X 1 3 ML as directed as directed monthly Apr, Active Start: 05-13-2021 Start: 05-13-2021 Syringe 22G X 1 3 ML as directed Apr, Not-Taking Start: 05-13-2021 Syringe 22G X 1 3 ML as directed Apr, Active Start: 07-07-2018 Syringe 22G X 1 3 ML once a month for b12 injection IM once a month Jun, Not-Taking Start: 07-07-2018 Syringe 22G X 1 3 ML once a month for b12 injection IM once a month Jun, Active traMADol hydrochloride 50 mg oral tablet (20 sources) Opioid Agonist Start: 04-26-2021 take 1 tablet by mouth every six hours traMADol HCl 50 MG 1 tablet as needed Orally QID Apr, Active Start: 01-06-2020 End: 09-23-2023 take 1 tablet by mouth twice daily as needed for pain Tramadol 50 mg Tablet Discontinued 50 MG PO Twice daily as needed for Pain January 05, 2020 11:00pm September 23, 2023 11:36am Completed/Discontinued Medications Medication Drug Class(es) Dates Sig (Normalized) Sig (Original) alendronic acid 70 mg oral tablet (20 sources) Bisphosphonate Start: 09-23-2023 End: 04-21-2024 Alendronate 70 mg tablet Discontinued 70 MG PO .once a week September 22, 2023 11:00pm April 21, 2024 6:27am FreeTextSi tablet 30 minutes before the first food, beverage or medicine of the day with plain water Orally ONCE A WEEK Start: 12-08-2018 End: 09-23-2023 take 1 tablet by mouth every week Alendronate 70 mg tablet Discontinued 70 MG PO every week December 07, 2018 11:00pm September 23, 2023 11:36am on sundays Alendronate Sodi um 70 MG 1 tablet 30 minutes before the first food, beverage or medicine of the day with plain water Orally ONCE A WEEK Active allopurinol 100 mg oral tablet (20 sources) Xanthine Oxidase Inhibitor Start: 09-23-2023 End: 10-26-2023 take 1 tablet by mouth once daily Allopurinol 100 mg tablet Discontinued 100 MG PO Daily October 26, 2023 1:52pm October 26, 2023 1:54pm Start: 09-20-2020 take 1 tablet by mouth every t wenty-four hours atorvastatin 40 mg oral tablet (20 sources) HMG-CoA Reductase Inhibitor Start: 08-25-2017 End: 12-08-2018 take 1 tablet by mouth at bedtime Atorvastatin 40 mg tablet Discontinued 40 MG PO Bedtime August 25, 2017 12:00am December 08, 2018 1:33pm Start: 03-11-2017 End: 04-10-2017 take 1 tablet by mouth once daily Atorvastatin 40 mg tablet Discontinued 40 MG PO Daily March 10, 2017 11:00pm April 08, 2017 11:00pm April 09, 2017 11:03pm azithromycin 250 mg oral tablet (20 sources) Macrolide Antimicrobial Start: 09-25-2023 End: 03-19-2024 Azithromycin (Zithromax) 250 mg tablet Discontinued 0 PO .COMPLEX September 24, 2023 11:00pm March 19, 2024 7:40am take as directed Start: 02-05-2023 Zithromax Z-Pa k 250 MG as directed Orally Jan, Active Start: 04-14-2022 Zithromax Z-Pa k 250 MG as directed Orally Mar, Active Start: 12-12-2021 Zithromax Z-Pa k 250 MG 2 tablet on the first day, then 1 tablet daily for 4 days Orally Once a day for 5 day(s) Nov, Not-Taking Start: 07-03-2021 Zithromax Z-Pa k 250 MG 2 tablet on the first day, then 1 tablet daily for 4 days Orally DIRECTED for 5 day(s) Jun, Active balsalazide disodium 750 mg oral capsule (11 sources) Aminosalicylate Start: 02-06-2021 take 1 capsule by mouth every eight hours Balsalazide Disodium 750 MG 1 CAPSULE Orally THREE TIMES A DAY Jan, Not-Taking betamethasone 0.5 mg/ml / clotrimazole 10 mg/ml topical cream (20 sources) Azole Antifungal, Corticosteroid Start: 12-31-2023 End: 03-19-2024 Clotrimazole-Beta methasone 1-0.05 % cream Discontinued 1 APPLIC TOPICAL Twice daily February 02, 2024 11:00pm March 19, 2024 7:40am calcium carbonate 1250 mg oral tablet (20 sources) Start: 09-23-2023 End: 03-19-2024 take 1 tablet by mouth once daily at mealtime Calcium Carbonate 500 mg calcium (1,250 mg) tablet Discontinued 1500 MG PO Daily September 22, 2023 11:00pm March 19, 2024 7:40am FreeTextSi tablet with meals Orally Once a day; Note: Source Status: Taking; Provider: Shanika Banerjee ( ) take 1 tablet [facility] every twenty-four hours Calcium 500 MG 1 tablet with meals Orally Once a day Active take 1 tablet [facility] every twenty-four hours Calcium 500 MG 1 tablet with meals Orally Once a day Active calcium carbonate 600 mg / cholecalciferol 0.01 mg oral tablet (20 sources) Vitamin D Start: 12-08-2018 End: 09-23-2023 take 1 tablet by mouth once daily Calcium Carbonate-Vit D3-Min (Calcium 600 + Minerals) 600 mg calcium- 400 unit Tablet Discontinued 1 TAB PO Daily December 07, 2018 11:00pm September 23, 2023 11:36am carvedilol 3.125 mg oral tablet (20 sources) alpha-Adrenerg ic Sophia, beta-Adrenergi c Sophia Start: 09-09-2022 take 1 tablet by mouth twice daily Carvedilol 3.125 MG Oral Tablet take 1 tablet by mouth twice a day Quantity: 180 Refills: 3 Ordered: 09-Sep-2022 Deon Mckeon DO Start : 09-Sep-2022 Active decrease dose Start: 03-11-2017 End: 08-25-2017 take 1 tablet by mouth twice daily at mealtime Carvedilol 3.125 mg Tablet Discontinued 3.125 MG PO Twice daily with meals 60 30 March 10, 2017 11:00pm August 25, 2017 4:22pm take 1 tablet by [facility] every twelve hours Carvedilol 6.25 MG 1 tablet with food Orally Twice a day Active ciprofloxacin 500 mg oral tablet (12 sources) Quinolone Antimicrobial Start: 03-17-2024 End: 03-19-2024 take 1 tablet by mouth twice daily Ciprofloxacin Hcl 500 mg tablet Discontinued 500 MG PO Twice daily March 16, 2024 11:00pm March 19, 2024 7:40am citalopram 10 mg oral tablet (20 sources) Serotonin Reuptake Inhibitor Start: 08-25-2017 End: 07-12-2018 take 1 tablet by mouth once daily Citalopram 10 mg Tablet Discontinued 10 MG PO Daily August 25, 2017 12:00am July 12, 2018 2:29pm cloNIDine hydrochloride 0.1 mg oral tablet (9 sources) Central alpha-2 Adrenergic Agonist Start: 03-31-2022 take 1 tablet by mouth at bedtime cloNIDine HCl - 0.1 MG Oral Tablet TAKE 1 TABLET AT BEDTIME. Quantity: 90 Refills: 1 Ordered: 09-Jun-2022 Isidro Reno Start : 31-Mar-2022 Active Cyanocobalamin 100 MCG/ML SOLN (12 sources) Cyanocobalamin 1 00 MCG/ML SOLN injection once a month Quantity: 0 Refills: 0 Ordered: 04-Sep-2021 DO Active hydroCHLOROthiazide 25 mg oral tablet (20 sources) Thiazide Diuretic Start: 03-25-2022 take 0.5 tablet by mouth once daily hydroCHLOROthiazide 25 MG Oral Tablet TAKE 1/2 TABLET DAILY. Quantity: 15 Refills: 6 Ordered: 25-Mar-2022 Isidro Reno Start : 25-Mar-2022 Active Start: 11-20-2021 hydrochlorothi azide 12.5 mg Cap Oral, Refills(s) 0 Start Date: 11/20/21 Status: Ordered Start: 12-06-2020 [facility]four hours hydroCHLOROthiazide 12.5 MG 1 tablet in the morning Orally Once a day for 90 days Nov, Active Start: 07-12-2018 End: 01-09-2020 take 3 tablets by mouth once daily Hydrochlorothiazide 25 mg Tablet Discontinued 75 MG PO Daily July 12, 2018 12:00am January 09, 2020 12:29pm Start: 07-12-2018 End: 01-09-2020 take 75 mg by mouth once daily Hydrochlorothiazide Discontinued 75 MG PO Daily July 12, 2018 12:00am January 09, 2020 12:29pm take 1 capsule by mo [facility] every other day in the morning hydroCHLOROthiazide 12.5 MG 1 capsule in the morning Orally every other day for 90 day(s) Active hydroCHLOROthiazide 12.5 mg / losartan potassium 50 mg oral tablet (20 sources) Thiazide Diuretic, Angiotensin 2 Receptor Sophia Start: 03-10-2017 End: 03-11-2017 take 1 tablet by mouth once daily Losartan-Hydrochlorothiazide 50-12.5 mg Tablet Discontinued 1 TAB PO Daily March 09, 2017 11:00pm March 11, 2017 2:23pm hydroxychloroquine sulfate 200 mg oral tablet (13 sources) Antimalarial, Antirheumatic Agent Start: 09-23-2023 End: 03-19-2024 take 1 tablet by mouth once daily Hydroxychloroquine 200 mg tablet Discontinued 200 MG PO Daily September 22, 2023 11:00pm March 19, 2024 7:40am ibuprofen 600 mg oral tablet (20 sources) Nonsteroidal Anti-inflammato ry Drug Start: 10-04-2019 End: 09-23-2023 take 4 tablets by mouth every twenty-f our hours for pain Ibuprofen 600 mg Tablet Discontinued 600 MG PO Every 6 hours as needed for Pain October 03, 2019 11:00pm September 23, 2023 11:36am do not exceed 4 doses in a 24 hour period irbesartan 300 mg oral tablet (20 sources) Angiotensin 2 Receptor Sophia Start: 09-23-2023 End: 04-14-2024 take 1 tablet by mouth once daily Irbesartan 300 mg tablet Discontinued 300 MG PO Daily September 22, 2023 11:00pm April 14, 2024 12:44pm Start: 12-26-2021 take 1 tablet by [facility] once daily Irbesartan 150 MG Oral Tablet TAKE 1 TABLET DAILY. Quantity: 90 Refills: 3 Ordered: 26-Dec-2021 Deon Mckeon DO Start : 26-Dec-2021 Active dose decrease Start: 11-20-2021 take 1 tablet by [facility] once daily Irbesartan 300 MG Oral Tablet TAKE 1 TABLET DAILY. Quantity: 90 Refills: 1 Ordered: 25-Mar-2022 Isidro Reno Start : 25-Mar-2022 Active levothyroxine sodium 0.075 mg oral tablet (20 sources) l-Thyroxine Start: 09-23-2023 End: 10-26-2023 take 1 tablet by mouth once daily in the morning Levothyroxine 75 mcg tablet Discontinued 75 MCG PO Daily September 23, 2023 11:49am October 26, 2023 1:54pm 1 tablet in the morning on an empty stomach Orally Once a day Start: 11-20-2021 levothyroxine 75 mcg (0.075 mg) Tab Oral, Refills(s) 0 Start Date: 11/20/21 Status: Ordered Start: 07-12-2018 End: 09-23-2023 Levothyroxine 50 mcg tablet Discontinued 75 MCG PO Daily July 12, 2018 2:28pm September 23, 2023 11:36am Start: 07-12-2018 End: 09-23-2023 take 75 ug by mouth once daily Levothyroxine Discontin ued 75 MCG PO Daily July 12, 2018 2:28pm September 23, 2023 11:36am Start: 04-07-2018 End: 07-12-2018 take 1 tablet by mouth once daily Levothyroxine (Synthroid) 100 mcg Tablet Discontinued 1 TAB PO Daily April 06, 2018 11:00pm July 12, 2018 2:28pm Start: 08-26-2017 End: 07-12-2018 take 1 tablet by mouth once daily Levothyroxine 50 mcg tablet Discontinued 50 MCG PO Daily August 26, 2017 12:00am July 12, 2018 2:29pm Start: 03-10-2017 End: 08-26-2017 take 1 tablet by mouth once daily Levothyroxine (Synthroid) 100 mcg Tablet Discontinued 100 MCG PO Daily at 0730 0 March 10, 2017 11:00pm August 26, 2017 2:59pm take 1 tablet by [facility] once daily in the morning Levothyroxine Sodium 75 MCG 1 tablet in the morning on an empty stomach Orally Once a day Active take 1 tablet by [facility] once daily in the morning Levothyroxine Sodium 75 MCG 1 tablet in the morning on an empty stomach Orally Once a day Active lidocaine 0.05 mg/mg medicated patch (7 sources) Antiarrhythmic, Amide Local Anesthetic Start: 05-13-2021 Lidocaine 5 % 1 patch remove after 12 hours Externally Once a day Apr, Not-Taking lisinopril 10 mg oral tablet (20 sources) Angiotensin Converting Enzyme Inhibitor Start: 08-26-2017 End: 08-26-2017 take 1 tablet by mouth once daily Lisinopril 10 mg tablet Discontinued 10 MG PO Daily August 26, 2017 12:00am August 26, 2017 2:59pm Start: 08-26-2017 End: 09-23-2023 take 1 tablet by mouth twice daily Lisinopril 20 mg tablet Discontinued 20 MG PO Twice daily 60 August 26, 2017 12:00am September 23, 2023 11:36am Start: 03-11-2017 End: 05-10-2017 take 1 tablet by mouth once daily Lisinopril 10 mg tablet Discontinued 10 MG PO Daily 60 60 March 10, 2017 11:00pm May 09, 2017 12:00am May 10, 2017 12:04am losartan potassium 50 mg oral tablet (20 sources) Angiotensin 2 Receptor Sophia Start: 03-10-2017 End: 03-10-2017 take 1 tablet by mouth once daily Losartan (Cozaar) 50 mg Tablet Discontinued 50 MG PO Daily March 09, 2017 11:00pm March 10, 2017 1:43pm lovastatin 20 mg oral tablet (20 sources) HMG-CoA Reductase Inhibitor Start: 03-10-2017 End: 03-11-2017 take 1 tablet by mouth once daily Lovastatin 20 mg Tablet Discontinued 20 MG PO Daily March 09, 2017 11:00pm March 11, 2017 2:23pm magnesium oxide 400 mg oral tablet (20 sources) Start: 09-23-2023 End: 03-19-2024 take 1 tablet by mouth once daily Magnesium Oxide 400 mg (241.3 mg magnesium) tablet Discontinued 400 MG PO Daily September 22, 2023 11:00pm March 19, 2024 7:39am Start: 01-13-2022 take 1 tablet by [facility] once daily Magnesium Oxide 400 MG Oral Tablet TAKE 1 TABLET DAILY. Quantity: 90 Refills: 3 Ordered: 09-Jun-2022 Isidro Reno Start : 13-Jan-2022 Active methylPREDNISolone (20 sources) Corticosteroid Start: 11-29-2012 SOLU-MEDROL UP TO 40 mg Nov, 40 mg metoprolol tartrate 25 mg oral tablet (20 sources) beta-Adrenergic Sophia Start: 01-13-2022 take 0.5 tablet by mouth twice daily Metoprolol Tartrate 25 MG Oral Tablet TAKE 0.5 TABLET Twice daily Quantity: 90 Refills: 3 Ordered: 13-Jan-2022 Deon Mckeon DO Start : 13-Jan-2022 Active Start: 10-16-2017 End: 04-07-2018 take 1 tablet by mouth once daily Metoprolol Succinate 25 mg Tablet Extended Release 24 Hr Discontinued 25 MG PO Daily October 15, 2017 11:00pm April 07, 2018 1:41pm Start: 08-26-2017 End: 09-25-2017 take 2 tablets by mouth once daily Metoprolol Succinate 25 mg tablet extended release 24 hr Discontinued 12.5 MG PO Daily August 26, 2017 12:00am September 23, 2017 11:00pm September 24, 2017 11:01pm Start: 08-26-2017 End: 09-25-2017 take 12.5 mg by mouth once daily Metoprolol Succinate Discontinued 12.5 MG PO Daily August 26, 2017 12:00am September 24, 2017 11:01pm Start: 08-25-2017 End: 08-26-2017 take 1 tablet by mouth once daily Metoprolol Succinate 25 mg tablet extended release 24 hr Discontinued 25 MG PO Daily August 25, 2017 12:00am August 26, 2017 3:00pm Multivitamin preparation (20 sources) Start: 01-06-2020 End: 09-23-2023 take 1 tablet by mouth once daily Multivitamin Discontinued 1 TAB PO Daily January 05, 2020 11:00pm September 23, 2023 11:36am Start: 01-06-2020 End: 09-23-2023 take 1 tablet by mouth once daily Multivitamin Discontinued 1 TAB PO Daily January 06, 2020 12:00am September 23, 2023 12:36pm Start: 01-06-2020 take 1 tablet by [facility] once daily Multivitamin Active 1 TAB PO Daily January 05, 2020 11:00pm Start: 01-06-2020 take 1 tablet by [facility] once daily Multivitamin Active 1 TAB PO Daily January 06, 2020 12:00am take 1 tablet by [facility] once daily Multi Vitamin - 1 tablet Orally Once a day Not-Taking take 1 tablet by [facility] once daily Multi Vitamin - 1 tablet Orally Once a day Active Multivitamin Tablet (5 sources) Start: 01-06-2020 End: 09-23-2023 take 1 tablet by mouth once daily Multivitamin Tablet Discontinued 1 TAB PO Daily January 05, 2020 11:00pm September 23, 2023 11:36am nitroglycerin 0.4 mg sublingual tablet (20 sources) Nitrate Vasodilator Start: 12-08-2018 End: 09-23-2023 Nitroglycerin 0.4 mg tablet, sublingual Discontinued 1 TAB SUBLINGUAL EVERY 5 MINUTES as needed for Chest Pain December 07, 2018 11:00pm September 23, 2023 11:36am Start: 03-11-2017 End: 04-07-2018 Nitroglycerin 0.4 mg Tablet, Sublingual Discontinued 0.4 MG SUBLINGUAL Q5M as needed for Chest Pain March 10, 2017 11:00pm April 07, 2018 1:41pm omeprazole 20 mg delayed release oral capsule (20 sources) Proton Pump Inhibitor Start: 04-07-2018 End: 07-12-2018 take 1 tablet by mouth once daily Omeprazole 20 mg Capsule,Delayed Release(Dr/Ec) Discontinued 1 TAB PO Daily April 06, 2018 11:00pm July 12, 2018 2:29pm pantoprazole 40 mg delayed release oral tablet (12 sources) Proton Pump Inhibitor Start: 03-19-2024 End: 04-21-2024 take 1 tablet by mouth once daily Pantoprazole (Protonix) 40 mg tablet,delayed release (DR/EC) Discontinued 40 MG PO Daily March 18, 2024 11:00pm April 21, 2024 6:27am predniSONE 20 mg oral tablet (20 sources) Start: 04-12-2024 End: 04-21-2024 Prednisone 20 mg tablet Discontinued 20 MG PO .COMPLEX April 11, 2024 11:00pm April 21, 2024 6:26am 20 mg orally BID x 5 days, QD x 5 days; Start: 02-03-2024 End: 03-19-2024 Prednisone 20 mg tablet Disc ontinued 20 MG PO .COMPLEX February 02, 2024 11:00pm March 19, 2024 7:39am 20 mg orally BID X 7 DAYS, QD X 7 DAYS; Start: 09-23-2023 End: 03-19-2024 Prednisone 5 mg tablet Disco ntinued 5 MG PO September 22, 2023 11:00pm March 19, 2024 7:34am Start: 02-05-2023 take 1 tablet by [facility] at mealtime, then take 1 tablet by mouth twice daily, then take 1 tablet by mouth once daily predniSONE 20 MG 1 tablet with food or milk Orally 1 tab Twice a day x 5 days , 1 tab once a day x 5 days Jan, Active Start: 12-01-2022 predniSONE 20 MG 1 tablet with food or milk Orally 1 tab twice a day x 5 days , 1 tab every day x 5 days for 10 days Nov, Active Probiotic PACK (4 sources) Probiotic PACK T ANTOINETTE DIRECTED. Quantity: 0 Refills: 0 Ordered: 25-Mar-2022 DO Active saccharomyces boulardii 250 mg oral capsule (20 sources) Start: 09-23-2023 End: 04-21-2024 take 1 capsule by mouth once daily Saccharomyces Boulardii 250 mg capsule Discontinued 250 MG PO Daily September 22, 2023 11:00pm April 21, 2024 6:27am FreeTextSig: as directed Orally; Note: Source Status: Taking; Provider: Shanika Banerjee ( ) Saccharomyces tamia ulardii 250 MG as directed Orally Active sucralfate 1000 mg oral tablet (12 sources) Aluminum Complex Start: 03-19-2024 End: 04-21-2024 take 1 tablet by mouth every six hours Sucralfate (Carafate) 1 gram tablet Discontinued 1 GM PO Q6H 56 14 March 18, 2024 11:00pm April 21, 2024 6:27am terconazole 80 mg vaginal insert (13 sources) Azole Antifungal Start: 12-31-2023 End: 03-19-2024 Terconazole 80 mg suppository Discontinued 1 SUPP VAGINAL Daily at bedtime 3 December 30, 2023 11:00pm March 19, 2024 7:34am triamcinolone acetonide 40 mg/ml injectable suspension (6 sources) Corticosteroid Start: 04-27-2023 Kenalog-40 Apr, 40 mg vitamin b12 1 mg/ml injectable solution (20 sources) Vitamin B12 Start: 09-23-2023 End: 10-26-2023 inject 1000 ug by intramuscular injection every month Cyanocobalamin (Vitamin B-12) Discontinued 1000 MCG IM every month September 23, 2023 11:49am October 26, 2023 1:54pm Start: 05-13-2021 Cyanocobalamin 1000 MCG/ML 1 ml Injection Apr, Active Start: 03-10-2017 End: 10-26-2023 inject 1000 ug by intramuscular injection every month Cyanocobalamin (Vitamin B-12) 1,000 mcg/mL solution Discontinued 1000 MCG IM every month September 23, 2023 11:49am October 26, 2023 1:54pm Start: 11-03-2016 Cyanocobalamin 1000 MCG/ML 1 ml Injection monthly once a month Apr, Active Vitamin B12 inje ction once a month Active Vitamin B12 Acti ve Vitamin D (10 sources) Vitamin D (Velvet calciferol) 5000 daily Not-Taking Vitamin D (Velvet calciferol) 5000 daily Active Problems Active Problems Problem Classification Problem Date Documented Date Episodic/Chronic Abdominal hernia (20 sources) Hiatal hernia; Translations: [Diaphragmatic hernia without obstruction or gangrene] 12-08-2018 Episodic Administrative/social admission (20 sources) Bereavement; Translations: [Disappearance and of family member] 04-14-2024 Episodic Anxiety disorders (20 sources) Anxiety disorder; Translations: [Anxiety disorder, unspecified] Onset: 4 Chronic Biliary tract disease (20 sources) Biliary calculus; Translations: [Other cholelithiasis without obstruction] Onset: 2 Resolved: 2 Episodic Cardiac dysrhythmias (20 sources) Ventricular premature beats; Translations: [Ventricular premature depolarization] Chronic Cardiac dysrhythmias (13 sources) Sinus bradycardia; Translations: [Other specified cardiac dysrhythmias] 11-20-2021 Episodic Chronic kidney disease (20 sources) Chronic kidney disease stage 3; Translations: [Chronic kidney disease, stage 3 (moderate)] Onset: 1 Resolved: 1 Chronic Chronic kidney disease (20 sources) Chronic kidney disease; Translations: [Chronic kidney disease, stage III (moderate)] Onset: 1 Resolved: 1 Chronic obstructive pulmonary disease and bronchiectasis (1 source) Bronchitis, not specified as acute or chronic; Translations: [BRONCHITIS NOT SPEC ACUTE/CHRON] Onset: 2 Episodic Conditions associated with dizziness or vertigo (11 sources) Dizziness; Translations: [Dizziness and giddiness] Episodic Coronary atherosclerosis and other heart disease (20 sources) Acute coronary syndrome; Translations: [Acute ischemic heart disease, unspecified] 08-26-2017 Chronic Deficiency and other anemia (20 sources) Anemia of renal disease; Translations: [Anemia in chronic kidney disease] 05-05-2024 Chronic Deficiency and other anemia (3 sources) Anemia in chronic kidney disease; Translations: [Anemia in chronic kidney disease] Onset: 1 Resolved: 1 Chronic Deficiency and other anemia (1 source) Anemia, unspecified Episodic Diabetes mellitus with complications (20 sources) Renal disorder due to type 2 diabetes mellitus; Translations: [Type 2 diabetes mellitus with diabetic nephropathy] Onset: 1 Resolved: 2 Chronic Diabetes mellitus without complication (20 sources) Diabetes mellitus; Translations: [Diabetes mellitus without mention of complication, type II or unspecified type, not stated as uncontrolled] Onset: 0 Chronic Diabetes mellitus without complication (11 sources) Prediabetes; Translations: [Prediabetes] Onset: 4 08-26-2017 Episodic Disorders of lipid metabolism (20 sources) Hyperlipidemia, unspecified; Translations: [Hyperlipidemia] Onset: 9 Resolved: 1 11-20-2021 Chronic Diverticulosis and diverticulitis (20 sources) Diverticulitis; Translations: [Diverticular disease of colon] Onset: 0 Resolved: 1 11-20-2021 Chronic Esophageal disorders (20 sources) Diffuse spasm of esophagus; Translations: [Dyskinesia of esophagus] Onset: 2 12-08-2018 Chronic Essential hypertension (20 sources) Essential (primary) hypertension; Translations: [Essential hypertension] Onset: 9 Resolved: 2 11-20-2021 Chronic Fever of unknown origin (1 source) Fever, unspecified; Translations: [FEVER UNSPECIFIED] Onset: 2 Episodic Genitourinary symptoms and ill-defined conditions (5 sources) Hematuria, unspecified; Translations: [Retention of urine, unspecified] Onset: 2 Episodic Gout and other crystal arthropathies (20 sources) Chronic gout without tophus; Translations: [Chronic gout, unspecified, without tophus (tophi)] Onset: 2 Resolved: 2 Chronic Heart valve disorders (1 source) Nonrheumatic tricuspid (valve) insufficiency Onset: 9 Chronic Hypertension with complications and secondary hypertension (20 sources) Hypertensive heart disease without heart failure; Translations: [Chronic kidney disease due to hypertension] Onset: 9 Resolved: 1 Chronic Intestinal infection (1 source) Small bowel bacterial overgrowth syndrome 11-21-2021 Episodic Menopausal disorders (1 source) Menopausal and female climacteric states; Translations: [Menopausal state] Chronic Nausea and vomiting (20 sources) Vomiting; Translations: [Nausea and vomiting] Onset: 1 Resolved: 2 11-20-2021 Episodic Neoplasms of unspecified nature or uncertain behavior (20 sources) Neoplasm of uncertain behavior of skin; Translations: [Neoplasm of uncertain behavior of skin] Onset: 1 Resolved: 1 Episodic Nonspecific chest pain (20 sources) Chest pain; Translations: [Chest pain, unspecified] 08-26-2017 Episodic Nutritional deficiencies (20 sources) Deficiency of other specified B group vitamins; Translations: [Iron deficiency] Onset: 1 Resolved: 1 Episodic Osteoarthritis (20 sources) Arthritis; Translations: [Unspecified osteoarthritis, unspecified site] Onset: 1 Resolved: 1 Chronic Osteoporosis (20 sources) Primary osteoporosis; Translations: [Age-related osteoporosis without current pathological fracture] Onset: 1 Resolved: 2 Chronic Other aftercare (1 source) Other terminal supervisor (current) drug therapy; Translations: [OTH PERFORMANCE IMPROVEMENT COORDINATOR CURRENT DRUG THERAPY] Onset: 2 Episodic Other and ill-defined heart disease (14 sources) Takotsubo cardiomyopathy; Translations: [Takotsubo syndrome] Onset: 4 Chronic Other and ill-defined heart disease (1 source) Takotsubo syndrome; Translations: [Takotsubo syndrome] Onset: 3 Chronic Other diseases of kidney and ureters (20 sources) Secondary hyperparathyroidism; Translations: [Secondary hyperparathyroidism of renal origin] 05-05-2024 Chronic Other diseases of kidney and ureters (9 sources) Secondary hyperparathyroidism of renal origin; Translations: [Secondary hyperparathyroidism (of renal origin)] Onset: 1 Resolved: 1 Chronic Other disorders of stomach and duodenum (20 sources) Disorder of stomach; Translations: [Other diseases of stomach and duodenum] Episodic Other disorders of stomach and duodenum (20 sources) Nonulcer dyspepsia; Translations: [Functional dyspepsia] Episodic Other disorders of stomach and duodenum (20 sources) Indigestion; Translations: [Functional dyspepsia] Episodic Other disorders of stomach and duodenum (3 sources) Functional dyspepsia Onset: 2 Resolved: 2 Episodic Other endocrine disorders (20 sources) Adrenal mass; Translations: [Other specified disorders of adrenal gland] Chronic Other endocrine disorders (20 sources) Disorder of adrenal gland; Translations: [Disorder of adrenal gland, unspecified] Chronic Other endocrine disorders (1 source) Disorder of adrenal gland, unspecified Onset: 1 Resolved: 1 Chronic Other endocrine disorders (20 sources) Hyperparathyroidism; Translations: [Hyperparathyroidism, unspecified] Chronic Other endocrine disorders (1 source) Hyperparathyroidism, unspecified Chronic Other gastrointestinal disorders (1 source) Disorder of intestine; Translations: [Other specified diseases of intestine] Onset: 2 Episodic Other gastrointestinal disorders (20 sources) Dysphagia; Translations: [Dysphagia, unspecified] Episodic Other gastrointestinal disorders (20 sources) Incontinence of feces; Translations: [Full incontinence of feces] Episodic Other gastrointestinal disorders (1 source) Full incontinence of feces Episodic Other gastrointestinal disorders (13 sources) Diarrhea; Translations: [Diarrhea, unspecified] 02-17-2024 Episodic Other hereditary and degenerative nervous system conditions (20 sources) Restless legs; Translations: [Restless legs syndrome] Chronic Other liver diseases (20 sources) Elevated liver enzymes level; Translations: [Abnormal levels of other serum enzymes] Episodic Other nervous system disorders (20 sources) Chronic pain; Translations: [Other chronic pain] 05-09-2024 Chronic Other nervous system disorders (6 sources) Other chronic pain; Translations: [Other chronic pain] Onset: 4 Chronic Other non-traumatic joint disorders (1 source) Pain in unspecified joint Episodic Other non-traumatic joint disorders (20 sources) Hip pain; Translations: [Pain in left hip] 04-18-2024 Episodic Other non-traumatic joint disorders (13 sources) Pain in right hip joint; Translations: [Pain in right hip] Episodic Other non-traumatic joint disorders (2 sources) Pain in left hip Episodic Other non-traumatic joint disorders (2 sources) Pain in right hip Episodic Other nutritional; endocrine; and metabolic disorders (1 source) Overweight Onset: 9 Chronic Other nutritional; endocrine; and metabolic disorders (11 sources) Hypomagnesemia; Translations: [Hypomagnesemia] 05-05-2024 Chronic Other nutritional; endocrine; and metabolic disorders (6 sources) Hypomagnesemia; Translations: [Disorders of magnesium metabolism] Chronic Other nutritional; endocrine; and metabolic disorders (16 sources) Overweight in adulthood with body mass index of 25 or more but less than 30; Translations: [Overweight] Episodic Other nutritional; endocrine; and metabolic disorders (20 sources) Hyperuricemia without signs of inflammatory arthritis and tophaceous disease; Translations: [Hyperuricemia without signs of inflammatory arthritis and tophaceous disease] Episodic Other nutritional; endocrine; and metabolic disorders (13 sources) Hyperuricemia without signs of inflammatory arthritis and tophaceous disease; Translations: [Other abnormal blood chemistry] Onset: 1 Resolved: 2 Episodic Other nutritional; endocrine; and metabolic disorders (20 sources) Hyperuricemia; Translations: [Hyperuricemia without signs of inflammatory arthritis and tophaceous disease] 05-05-2024 Episodic Other nutritional; endocrine; and metabolic disorders (1 source) Abnormal weight loss Episodic Other nutritional; endocrine; and metabolic disorders (2 sources) Body mass index (BMI) 25.0-25.9, adult; Translations: [Body mass index (BMI) 25.0-25.9, adult] Onset: 4 Episodic Other screening for suspected conditions (not mental disorders or infectious disease) (20 sources) Other specified abnormal findings of blood chemistry; Translations: [Abnormal findings on diagnostic imaging of other abdominal regions, including retroperitoneum] Onset: 1 Resolved: 2 Episodic Other skin disorders (15 sources) Actinic keratosis; Translations: [Actinic keratosis] Episodic Other upper respiratory disease (20 sources) Seasonal allergy; Translations: [Other seasonal allergic rhinitis] Chronic Residual codes; unclassified (12 sources) Other specified health status; Translations: [Statin intolerance] Episodic Spondylosis; intervertebral disc disorders; other back problems (20 sources) Solitary sacroiliitis; Translations: [Sacroiliitis, not elsewhere classified] Onset: 4 Chronic Spondylosis; intervertebral disc disorders; other back problems (20 sources) Thoracic back pain; Translations: [Pain in thoracic spine] Onset: 1 Resolved: 1 Episodic Thyroid disorders (20 sources) Hypothyroidism; Translations: [Unspecified acquired hypothyroidism] Onset: 0 Resolved: 2 11-20-2021 Chronic Unclassified (2 sources) COUGH, UNSPECIFIED; Translations: [COUGH, UNSPECIFIED] Onset: 2 Unclassified (1 source) CONTACT W/AND (SUSP) EXPOS COVID-19; Translations: [CONTACT W/AND (SUSP) EXPOS COVID-19] Onset: 2 Viral infection (1 source) Disease caused by 2019-nCoV; Translations: [COVID-19] Past or Other Problems Problem Classification Problem Date Documented Da te Episodic/Chronic Abdominal pain (20 sources) Abdominal pain; Translations: [Unspecified abdominal pain] Onset: 05-21-2021 Resolved: 02-19-2022 Episodic Noninfectious gastroenteritis (1 source) Acute gastroenteritis; Translations: [Noninfective gastroenteritis and colitis, unspecified] Episodic Other bone disease and musculoskeletal deformities (1 source) Osteopenia; Translations: [Other specified disorders of bone density and structure, unspecified site] Episodic Other gastrointestinal disorders (2 sources) Diarrhea, unspecified; Translations: [Diarrhea, unspecified] Onset: 02-24-2024 Episodic Other liver diseases (7 sources) Abnormal levels of other serum enzymes; Translations: [ABNORMAL LEVELS OTHER SERUM ENZYMES] Onset: 04-24-2021 Resolved: 08-08-2021 Episodic Other nutritional; endocrine; and metabolic disorders (1 source) Loss of appetite; Translations: [Anorexia] Episodic Other skin disorders (1 source) Eruption; Translations: [Rash and other nonspecific skin eruption] Episodic Other skin disorders (1 source) Dry skin; Translations: [Xerosis cutis] Episodic Residual codes; unclassified (1 source) Asymptomatic menopausal state Onset: 04-26-2021 Resolved: 04-26-2021 Episodic Residual codes; unclassified (1 source) Acquired absence of other specified parts of digestive tract; Translations: [ACQ ABSENCE OTH PART DIGESTV TRACT] Onset: 02-19-2022 Episodic Unclassified (12 sources) Never smoked tobacco; Translations: [Never a smoker] Unclassified (1 source) Transaminitis R74.01 Onset: 04-23-2021 Resolved: 04-23-2021 Unclassified (1 source) COUGH, UNSPECIFIED; Translations: [COUGH, UNSPECIFIED] Onset: 04-15-2022 Results Test Name Value Interpretation Reference Range Facility XR lumbar spine 6V w bending on 06-06-2024 XR lumbar spine 6V w bending [facility] [place] [address] [place] [address] XRay Report Signed Patient: Ludy Willis MR#: [id number] : 1945 Acct:[id number] Age/Sex: 79 / F ADM Date: 06/06/24 Loc: XD Room: Type: [facility] Attending Dr: Jose De Souza DO Copies to: Jose De Souza DO Ordering Provider: Jose De Souza DO Date of Service: 06/06/24 XR/XR lumbar spine 6V w bending: M47.26 - Other spondylosis with radiculopathy, lumbar region LUMBAR SPINE WITH FLEXION, EXTENSION AND BENDING VIEWS - 6 views: CLINICAL HISTORY: Low back pain on the left with radiation down the leg. COMPARISON: 04/21/2024 Weightbearing AP neutral, right left bending and lateral views in neutral, flexion and extension were obtained. There is osteopenia. Slight levoscoliotic curvature is again noted. No acute compression fractures are identified. There is still a couple millimeters of anterolisthesis of L4 and L5 and approximately 9 mm anterolisthesis of L5 on S1. Alignment does not change significantly with flexion or extension. There is disc space narrowing at L4-5 and the lumbosacral junction. There are tiny endplate spurs. There is mid and lower lumbar facet hypertrophy. The SI joints are intact. There is atherosclerotic disease. XR/XR lumbar spine 6V w bending IMPRESSION: OSTEOPENIA, SCOLIOSIS AND DEGENERATIVE CHANGES, GREATER DISTALLY. Impression dictated by: Madison Maldonado M.D.06/06/2024 7:10 PM Dictation Location: [place] [address] Transcribed By: [facility] 06/06/241909 Dictated By: Madison Maldonado MD 06/06/241906 Signed By: 06/06/241909 [facility] MR lumbar spine wo conon MR lumbar spine wo con [facility] Main [place] [address] [place] [address] MRI Report Signed Patient: Ludy Willis MR#: [id number] : 1945 Acct:[id number] Age/Sex: 79 / F ADM Date: 05/02/24 Loc: MR Room: Type: [facility] Attending Dr: Livan Arguello DO Copies to: Livan Arguello DO Ordering Provider: Livan Arguello DO Date of Service: 05/02/24 MR/MR lumbar spine wo con: M54.9 MRI Lumbar Spine withoutcontrast TECHNIQUE: Multiplanar T1 and T2-weighted imaging of lumbar spine obtained without contrast. HISTORY: Severe low back pain. RIGHT leg pain COMPARISON: 03/24/23 The last fully segmented vertebral pair is operationally defined as L5/S1. POST SURGERY CHANGES: None BONE MARROW INFILTRATION: None BONE MARROW EDEMA: None BONY ALIGNMENT: Adequate bony alignment identified. SPINAL CANAL: No significant central canal narrowing. LUMBAR FRACTURE: None BONY LESIONS: None KIDNEYS: No hydronephrosis is identified. AORTA: No aortic aneurysm is seen. CONUS MEDULLARIS : The distal spinal cord is in adequate position without abnormality. Additional findings CONJOINED NERVE ROOT: None Lower thoracic level: Unremarkable L1-2 :Unremarkable L2-3: Spondylosis with diffuse disc bulge. Mild anterolisthesis. Mild central canal stenosis. Posterior element hypertrophy. Moderate RIGHT and mild LEFT neural foraminal narrowing L3-4: Mild spondylosis. Diffuse disc bulge. Mild central canal stenosis. Posterior element hypertrophy. Moderate bilateral neural foraminal narrowing L4-5: Advanced spondylosis. Diffuse disc bulge. Mild central canal stenosis. Posterior element hypertrophy. Marked bilateral neural foraminal narrowing L5-S1: Moderate spondylosis. Mild anterolisthesis. Diffuse disc bulge. Mild central canal stenosis. Posterior element hypertrophy. Facet diastases. Moderate bilateral neural foraminal narrowing MR/MR lumbar spine wo con IMPRESSION: Similar Multilevel discovertebral degenerative changes. Similar Mild to moderate central canal stenoses. Neural foraminal narrowing as above. No new findings. Pre-MRI plain film assessment: None Impression dictated by: Saroj Arcos M.D.05/02/2024 11:24 PM Dictation Location: [place] [address] Transcribed By: [facility] 05/02/242323 Dictated By: Saroj Arcos DO 05/02/242319 Signed By: 05/02/242323 Normal [facility] Magnetic resonance imaging r eportOrdered By: Saroj Arcos on 05-02-2024 Study report [facility] Main [place] [address] [place] [address] MRI Report Signed Patient: Ludy Willis MR#: [id number] : 1945 Acct:[id number] Age/Sex: 79 / F ADM Date: 4 Loc: MR Room: Type: [facility] Attending Dr: Livan Arguello DO Copies to: Livan Arguello DO~ Ordering Provider: Livan Arguello DO Date of Service: 05/02/24 MR/MR lumbar spine wo con: M54.9 MRI Lumbar Spine withoutcontrast TECHNIQUE: Multiplanar T1 and T2-weighted imaging of lumbar spine obtained without contrast. HISTORY: Severe low back pain. RIGHT leg pain COMPARISON: 03/24/23 The last fully segmented vertebral pair is operationally defined as L5/S1. POST SURGERY CHANGES: None BONE MARROW INFILTRATION: None BONE MARROW EDEMA: None BONY ALIGNMENT: Adequate bony alignment identified. SPINAL CANAL: No significant central canal narrowing. LUMBAR FRACTURE: None BONY LESIONS: None KIDNEYS: No hydronephrosis is identified. AORTA: No aortic aneurysm is seen. CONUS MEDULLARIS : The distal spinal cord is in adequate position without abnormality. Additional findings CONJOINED NERVE ROOT: None Lower thoracic level: Unremarkable L1-2 :Unremarkable L2-3: Spondylosis with diffuse disc bulge. Mild anterolisthesis. Mild centralcanal stenosis. Posterior element hypertrophy. Moderate RIGHT and mild LEFT neural foraminal narrowing L3-4: Mild spondylosis. Diffuse disc bulge. Mild central canal stenosis. Posterior element hypertrophy. Moderate bilateral neural foraminal narrowing L4-5: Advanced spondylosis. Diffuse disc bulge. Mild central canal stenosis. Posterior element hypertrophy. Marked bilateral neural foraminal narrowing L5-S1: Moderate spondylosis. Mild anterolisthesis. Diffuse disc bulge. Mild central canal stenosis. Posterior element hypertrophy. Facet diastases. Moderate bilateral neural foraminal narrowing MR/MR lumbar spine wo con IMPRESSION: Similar Multilevel discovertebral degenerative changes. Similar Mild to moderate central canal stenoses. Neural foraminal narrowing as above. No new findings. Pre-MRI plain film assessment: None Impression dictated by: Saroj Arcos M.D.05/02/2024 11:24 PM Dictation Location: [place] [address] Transcribed By: [facility] 05/02/242323 Dictated By: Saroj Arcos DO 05/02/242319 Signed By: 05/02/242323 [facility] A1C with Estimated Average G delvis 04-26-2024 Glucose [Mass/Vol] 126 mg/dL Normal [facility] Comment on above: Result Comment: PERF ORMED BY: [place] [address] PATHOLOGIST REPAIR WEAVER SHAI OREILLY M.D. Performed By: #### C BC, HEPATIC, BMP, LIPASE #### [address] HbA1c (Bld) [Mass fraction] 6.0 % High 4.3-5.6 [facility] Comment on above: Result Comment: Incr eased risk for diabetes: 5.7 - 6.4 diabetes: >6.4 glycemic control for adults with diabetes: <7.0 Performed By: #### C BC, HEPATIC, BMP, LIPASE #### [address] Alanine aminotransferase [En zymatic activity/volume] in Serum or PlasmaOrdered By: Livan Arguello on 04-26-2024 ALT [Catalytic activity/Vol] 13 U/L Normal [facility] Comment on above: Performed By: #### C BC, HEPATIC, BMP, LIPASE #### [address] ALT [Catalytic activity/Vol] Alanine aminotransferase [Enzymatic activity/volume] in Serum or Plasma [facility] Albumin [Mass/volume] in Ser um or Plasma by Bromocresol green (BCG) dye binding methoOrdered By: Livan Arguello on 04-26-2024 Albumin BCG dye [Mass/Vol] 4.1 g/dL 3.5-5.7 [facility] Albumin BCG dye [Mass/Vol] Albumin [Mass/volume] in Serum or Plasma by Bromocresol green (BCG) dye binding metho 3.5-5.7 [facility] Alkaline phosphatase [Enzyma tic activity/volume] in Serum or PlasmaOrdered By: Livan Arguello on 04-26-2024 ALP [Catalytic activity/Vol] 57 U/L Normal 34-104 [facility] Comment on above: Result Comment: PERF ORMED BY: [place] [address] PATHOLOGIST REPAIR WEAVER SHAI OREILLY M.D. Performed By: #### C BC, HEPATIC, BMP, LIPASE #### [address] ALP [Catalytic activity/Vol] Alkaline phosphatase [Enzymatic activity/volume] in Serum or Plasma 34- [facility] Aspartate aminotransferase [ Enzymatic activity/volume] in Serum or PlasmaOrdered By: Livan Arguello on 04-26-2024 AST [Catalytic activity/Vol] 15 U/L Normal 13-39 [facility] Comment on above: Performed By: #### C BC, HEPATIC, BMP, LIPASE #### [address] AST [Catalytic activity/Vol] Aspartate aminotransferase [Enzymatic activity/volume] in Serum or Plasma 13- [facility] Automated basophil %Ordered By: Livan Arguello on 04-26-2024 Basophils/100 WBC (Bld) 0.2 % Normal . [facility] Comment on above: Performed By: #### C BC, HEPATIC, BMP, LIPASE #### [facility] [address] [place] [address] Automated basophil countOrde red By: Livan Arguello on 04-26-2024 Basophils (Bld) [#/Vol] 0.0 10*3/uL Normal 0.0-0.2 [facility] Comment on above: Result Comment: PERF ORMED BY: [place] [address] PATHOLOGIST REPAIR WEAVER SHAI OREILLY M.D. Performed By: #### C BC, HEPATIC, BMP, LIPASE #### [address] Automated blood monocyte cou ntOrdered By: Livan Arguello on 04-26-2024 Monocytes (Bld) [#/Vol] 0.8 10*3/uL Normal 0.0-0.8 [facility] Comment on above: Performed By: #### C BC, HEPATIC, BMP, LIPASE #### [address] Automated eosinophil %Ordere d By: Livan Arguello on 04-26-2024 Eosinophils/100 WBC (Bld) 0.0 % Normal . [facility] Comment on above: Performed By: #### C BC, HEPATIC, BMP, LIPASE #### [address] Automated eosinophil countOr dered By: Livan Arguello on 04-26-2024 Eosinophils (Bld) [#/Vol] 0.0 10*3/uL Normal 0.0-0.45 [facility] Comment on above: Performed By: #### C BC, HEPATIC, BMP, LIPASE #### [address] Automated monocyte %Ordered By: Livan Arguello on 04-26-2024 Monocytes/100 WBC (Bld) 7.7 % Normal . [facility] Comment on above: Performed By: #### C BC, HEPATIC, BMP, LIPASE #### [address] Automated neutrophil %Ordere d By: Livan Arguello on 04-26-2024 Neutrophils/100 WBC (Bld) 78.6 % Normal . [facility] Comment on above: Performed By: #### C BC, HEPATIC, BMP, LIPASE #### [address] Basophils Auto (Bld) [#/Vol] Ordered By: Livan Arguello on 04-26-2024 Basophils (Bld) [#/Vol] Automated basophil count 0.0-0.2 [facility] Basophils/100 WBC Auto (Bld) Ordered By: Livan Arguello on 04-26-2024 Basophils/100 WBC (Bld) Automated basophil % . [facility] Bilirubin.total [Mass/volume ] in Serum or PlasmaOrdered By: Livan Arguello on 04-26-2024 Bilirubin [Mass/Vol] 0.6 mg/dL Normal 0.3-1.0 [facility] Comment on above: Performed By: #### C BC, HEPATIC, BMP, LIPASE #### [facility] [address] Bilirubin [Mass/Vol] Bilirubin.total [Mass/volume] in Serum or Plasma 0.3-1.0 [facility] Blood estimated average gluc ose determination by estimation from glycated hemoglobinOrdered By: Livan Arguello on 04-26-2024 Average glucose Estimated from glycated hemoglobin (Bld) [Mass/Vol] Glucose mean value [Mass/volume] in Blood Estimated from glycated hemoglobin [facility] Calcium [Mass/volume] in Ser um or PlasmaOrdered By: Livan Arguello on 04-26-2024 Calcium [Mass/Vol] 9.3 mg/dL Normal 8.6-10.3 [facility] Comment on above: Performed By: #### C BC, HEPATIC, BMP, LIPASE #### [facility] [address] [place] [address] [place] Calcium [Mass/Vol] Calcium [Mass/volume ] in Serum or Plasma 8.6-10.3 [facility] Carbon dioxide, total [Moles /volume] in Serum or PlasmaOrdered By: Livan Arguello on 04-26-2024 CO2 [Moles/Vol] 27.4 mmol/L Normal 21.0-31.0 [facility] Comment on above: Performed By: #### C BC, HEPATIC, BMP, LIPASE #### [facility] [address] [place] [address] [place] CO2 [Moles/Vol] Carbon dioxide, tota l [Moles/volume] in Serum or Plasma 21.0-31.0 [facility] Chloride [Moles/volume] in S sandip or PlasmaOrdered By: Livan Arguello on 04-26-2024 Chloride [Moles/Vol] 107 mmol/L Normal 98-107 [facility] Comment on above: Performed By: #### C BC, HEPATIC, BMP, LIPASE #### [facility] [address] [place] [id number] [facility] Chloride [Moles/Vol] Chloride [Moles/vol ume] in Serum or Plasma 98-107 [facility] Cholesterol [Mass/volume] in Serum or PlasmaOrdered By: Livan Arguello on 04-26-2024 Cholesterol [Mass/Vol] 143 mg/dL Normal 140-200 [facility] Comment on above: Chol less than 200 m g/dl low riskChol 201-239 mg/dl borderline riskChol 240 mg/dl and greater high risk Result Comment: Chol less than 200 mg/dl low risk Chol 201-239 mg/dl borderline risk Chol 240 mg/dl and greater high risk Performed By: #### C BC, HEPATIC, BMP, LIPASE #### [facility] [address] Cholesterol [Mass/Vol] Cholesterol [Mass /volume] in Serum or Plasma 140-200 [facility] Comment on above: Chol less than 200 m g/dl low riskChol 201-239 mg/dl borderline riskChol 240 mg/dl and greater high risk Cholesterol in HDL [Mass/vol ume] in Serum or PlasmaOrdered By: Livan Arguello on 04-26-2024 Cholesterol in HDL [Mass/Vol] Serum or plasma high density lipoprotein (HDL) cholesterol measurement 23-92 [facility] Comment on above: HDL CHOL ATP-III CLA SSIFICATION Cardiovascular RiskHDL > or equal to 60 mg/dL LOWHDL < 40 mg/dL HIGH Cholesterol in LDL Calc [Mas s/Vol]Ordered By: Livan Arguello on 04-26-2024 Cholesterol in LDL [Mass/Vol] 65 mg/dL 0-100 [facility] Comment on above: LDL ATP III CLASSIFI CATIONLDL less than 100 mg/dL OptimalLDL 100-129 mg/dL Near or above optimalLDL 130-159 mg/dL Borderline highLDL 160-189 mg/dL HighLDL greater than 189 mg/dL Very high Cholesterol in LDL [Mass/Vol] Cholesterol in LDL [Mass/volume] in Serum or Plasma by calculation 0-100 [facility] Comment on above: LDL ATP III CLASSIFI CATIONLDL less than 100 mg/dL OptimalLDL 100-129 mg/dL Near or above optimalLDL 130-159 mg/dL Borderline highLDL 160-189 mg/dL HighLDL greater than 189 mg/dL Very high Cholesterol in VLDL Calc [Ma ss/Vol]Ordered By: Livan Arguello on 04-26-2024 Cholesterol in VLDL [Mass/Vol] 23 mg/dL [facility] Cholesterol in VLDL [Mass/Vol] Cholesterol in VLDL [Mass/volume] in Serum or Plasma by calculation [facility] Complete Blood Count Auto Di ffon 04-26-2024 Mean Corpuscular HGB Conc 33.2 g/dL Normal 32.0-35.0 [facility] Comment on above: Performed By: #### C BC, HEPATIC, BMP, LIPASE #### [facility] [address] [place] [address] NRBC% 0.1 /100{WBC} Normal 0-0.5 [facility] Comment on above: Performed By: #### C BC, HEPATIC, BMP, LIPASE #### [facility] [address] [place] [address] Comprehensive Metabolic Pane derek 04-26-2024 Albumin [Mass/Vol] 4.1 g/dL Normal 3.5-5.7 [facility] Comment on above: Performed By: #### C BC, HEPATIC, BMP, LIPASE #### [address] GFR/1.73 sq M.predicted MDRD (S/P/Bld) [Vol rate/Area] 41.312 mL/min/{1.73_m2} Normal [facility] Comment on above: Performed By: #### C BC, HEPATIC, BMP, LIPASE #### [address] Creatinine [Mass/volume] in Serum or PlasmaOrdered By: Livan Arguello on 04-26-2024 Creatinine [Mass/Vol] 1.30 mg/dL High 0.60-1.20 [facility] Comment on above: Performed By: #### C BC, HEPATIC, BMP, LIPASE #### [facility] [address] Creatinine [Mass/Vol] Creatinine [Mass/v olume] in Serum or Plasma High 0.60-1.20 [facility] Creatinine [Mass/volume] in UrineOrdered By: Huy Tierney on 04-26-2024 Creatinine (U) [Mass/Vol] 160.00 mg/dL [facility] Comment on above: No reference range e stablished Creatinine (U) [Mass/Vol] Creatinine [Mass/volume] in Urine [facility] Comment on above: No reference range e stablished Eosinophils Auto (Bld) [#/Vo l]Ordered By: Livan Arguello on 04-26-2024 Eosinophils (Bld) [#/Vol] Automated eosinophil count 0.0-0.45 [facility] Eosinophils/100 WBC Auto (Bl d)Ordered By: Livan Arguello on 04-26-2024 Eosinophils/100 WBC (Bld) Automated eosinophil % . [facility] Erythrocyte distribution wid th Auto (RBC) [Ratio]Ordered By: Livan Arguello on 04-26-2024 Erythrocyte distribution width (RBC) [Ratio] Erythrocyte distribution width [Ratio] by Automated count 11.9-15.3 [facility] Erythrocyte distribution wid th [Ratio] by Automated countOrdered By: Livan Arguello on 04-26-2024 Erythrocyte distribution width (RBC) [Ratio] 15.2 % Normal 11.9-15.3 [facility] Comment on above: Performed By: #### C BC, HEPATIC, BMP, LIPASE #### [facility] [address] Erythrocytes [#/volume] in B lood by Automated countOrdered By: Livan Arguello on 04-26-2024 RBC (Bld) [#/Vol] 3.98 10*6/uL Normal 3.60-5.00 [facility] Comment on above: Performed By: #### C BC, HEPATIC, BMP, LIPASE #### [facility] [address] [place] [address] [facility] Ferritin [Mass/volume] in Se rum or PlasmaOrdered By: Huy Tierney on 04-26-2024 Ferritin [Mass/Vol] 92.8 ng/mL Normal 11.0-306.8 [facility] Comment on above: Performed By: #### C BC, HEPATIC, BMP, LIPASE #### [facility] [address] [place] [id number] [facility] Ferritin [Mass/Vol] Ferritin [Mass/volum e] in Serum or Plasma 11.0-306.8 [facility] Globulin Calc (S) [Mass/Vol] Ordered By: Livan Arguello on 04-26-2024 Globulin (S) [Mass/Vol] Serum globulin measurement by calculation (mass/volume) [facility] Glucose [Mass/volume] in Ser um or PlasmaOrdered By: Livan Arguello on 04-26-2024 Glucose [Mass/Vol] 91 mg/dL Normal 70-100 [facility] Comment on above: ADA recommended refe rence rangeRandom Glucose Reference Range is dependent on time and content of last meal. Glucose of more than 200 mg/dL in a nonstressed, ambulatory subject supports the diagnosis of Diabetes Mellitus. Result Comment: [place] Glucose Reference Range is dependent on time and content of last meal. Glucose of more than 200 mg/dL in a nonstressed, ambulatory subject supports the diagnosis of Diabetes Mellitus. ADA recommended reference range Performed By: #### C BC, HEPATIC, BMP, LIPASE #### [facility] [address] [place] [id number] [facility] Glucose [Mass/Vol] Glucose [Mass/volume ] in Serum or Plasma 70-100 [facility] Comment on above: ADA recommended refe rence rangeRandom Glucose Reference Range is dependent on time and content of last meal. Glucose of more than 200 mg/dL in a nonstressed, ambulatory subject supports the diagnosis of Diabetes Mellitus. Hematocrit Auto (Bld) [Volum e fraction]Ordered By: Livan Arguello on 04-26-2024 Hematocrit (Bld) [Volume fraction] Hematocrit [Volume Fraction] of Blood by Automated count 34.0-46.4 [facility] Hematocrit [Volume Fraction] of Blood by Automated countOrdered By: Livan Arguello on 04-26-2024 Hematocrit (Bld) [Volume fraction] 37.2 % Normal 34.0-46.4 [facility] Comment on above: Performed By: #### C BC, HEPATIC, BMP, LIPASE #### [facility] [address] [place] [id number] [facility] Hemoglobin A1c/Hemoglobin.to david in BloodOrdered By: Livan Arguello on 04-26-2024 HbA1c (Bld) [Mass fraction] Hemoglobin A1c percentage High 4.3-5.6 [facility] Comment on above: Increased risk for d iabetes: 5.7 - 6.4diabetes: >6.4glycemic control for adults with diabetes: <7.0 Hemoglobin [Mass/volume] in BloodOrdered By: Livan Arguello on 04-26-2024 Hemoglobin (Bld) [Mass/Vol] 12.4 g/dL Normal 11.8-15.4 [facility] Comment on above: Performed By: #### C BC, HEPATIC, BMP, LIPASE #### [facility] [address] [place] [address] Hemoglobin (Bld) [Mass/Vol] Hemoglobin [Mass/volume] in Blood 11.8-15.4 [facility] Iron [Mass/volume] in Serum or PlasmaOrdered By: Huy Tierney on 04-26-2024 Iron [Mass/Vol] 74 ug/dL Normal 50-212 [facility] Comment on above: Performed By: #### C BC, HEPATIC, BMP, LIPASE #### [facility] [address] [place], [place] [id number] [facility] Iron [Mass/Vol] Iron [Mass/volume] i n Serum or Plasma 50-212 [facility] Iron and TIBC Profileon % Iron Saturation 22.8 % Normal 20-50 [facility] Comment on above: Performed By: #### C BC, HEPATIC, BMP, LIPASE #### [facility] [address] [place] [id number] [facility] Total Iron Binding Capacity 325 ug/dL Normal 255-450 [facility] Comment on above: Performed By: #### C BC, HEPATIC, BMP, LIPASE #### [facility] [address] Iron binding capacity [Mass/ volume] in Serum or PlasmaOrdered By: Huy Tierney on 04-26-2024 Iron binding capacity [Mass/Vol] 325 ug/dL 255-450 [facility] Iron saturation [Mass Fracti on] in Serum or PlasmaOrdered By: Huy Tierney on 04-26-2024 Iron saturation [Mass fraction] 22.8 % 20-50 [facility] Leukocytes [#/volume] correc adri for nucleated erythrocytes in Blood by Automated counOrdered By: Livan Arguello on 04-26-2024 WBC corrected for nucl RBC Auto (Bld) [#/Vol] 10.8 10*3/uL 3.8-11.6 [facility] WBC corrected for nucl RBC Auto (Bld) [#/Vol] Leukocytes [#/volume] corrected for nucleated erythrocytes in Blood by Automated coun 3.8-11.6 [facility] Leukocytes [#/volume] in Blo od by Automated countOrdered By: Livan Arguello on 04-26-2024 WBC (Bld) [#/Vol] 10.8 10*3/uL Normal 3.8-11.6 [facility] Comment on above: Performed By: #### C BC, HEPATIC, BMP, LIPASE #### [facility] [address] Lipid Panelon 04-26-2024 LDL Cholesterol,Calculated 65 mg/dL Normal 0-100 [facility] Comment on above: Result Comment: LDL ATP III CLASSIFICATION LDL less than 100 mg/dL Optimal LDL 100-129 mg/dL Near or above optimal LDL 130-159 mg/dL Borderline high LDL 160-189 mg/dL High LDL greater than 189 mg/dL Very high Performed By: #### C BC, HEPATIC, BMP, LIPASE #### [facility] [address] Triglyceride w/Reflex 119 mg/dL Normal 0-149 [facility] Comment on above: Result Comment: TRIG ATP III CLASSIFICATION TRIG less than 150 mg/dL Normal TRIG 150-199 mg/dL Borderline high TRIG 200-500 mg/dL High TRIG greater than 500 mg/dL Very high Standard traceable to the Center for Disease Conrtrol and Prevention (CDC) test method. Performed By: #### C BC, HEPATIC, BMP, LIPASE #### [address] VLDL CHOLESTEROL 23 mg/dL Normal [facility] Comment on above: Performed By: #### C BC, HEPATIC, BMP, LIPASE #### [address] Lymphocytes Auto (Bld) [#/Vo l]Ordered By: Livan Arguello on 04-26-2024 Lymphocytes (Bld) [#/Vol] Lymphocytes [#/volume] in Blood by Automated count 1.00-4.8 [facility] Lymphocytes [#/volume] in Bl ood by Automated countOrdered By: Livan Arguello on 04-26-2024 Lymphocytes (Bld) [#/Vol] 1.4 10*3/uL Normal 1.00-4.8 [facility] Comment on above: Performed By: #### C BC, HEPATIC, BMP, LIPASE #### [address] Lymphocytes/100 WBC Auto (Bl d)Ordered By: Livan Arguello on 04-26-2024 Lymphocytes/100 WBC (Bld) Lymphocytes/100 leukocytes in Blood by Automated count . [facility] Lymphocytes/100 leukocytes i n Blood by Automated countOrdered By: Livan Arguello on 04-26-2024 Lymphocytes/100 WBC (Bld) 13.5 % Normal . [facility] Comment on above: Performed By: #### C BC, HEPATIC, BMP, LIPASE #### [address] MCH Auto (RBC) [Entitic mass ]Ordered By: Livan Arguello on 04-26-2024 MCH (RBC) [Entitic mass] MCH [Entitic mass] by Automated count 24.7-34.3 [facility] MCH [Entitic mass] by Automa adri countOrdered By: Livan Arguello on 04-26-2024 MCH (RBC) [Entitic mass] 31.0 pg Normal 24.7-34.3 [facility] Comment on above: Performed By: #### C BC, HEPATIC, BMP, LIPASE #### [facility] [address] [place] [address] MCHC Auto (RBC) [Mass/Vol]Or dered By: Livan Arguello on 04-26-2024 MCHC (RBC) [Mass/Vol] 33.2 g/dL 32.0-35.0 [facility] [facility] MCHC (RBC) [Mass/Vol] MCHC [Mass/volume] by Automated count 32.0-35.0 [facility] MCV Auto (RBC) [Entitic vol] Ordered By: Livan Arguello on 04-26-2024 MCV (RBC) [Entitic vol] MCV [Entitic volume] by Automated count 80-100 [facility] MCV [Entitic volume] by Auto mated countOrdered By: Livan Arguello on 04-26-2024 MCV (RBC) [Entitic vol] 93.4 fL Normal 80-100 [facility] Comment on above: Performed By: #### C BC, HEPATIC, BMP, LIPASE #### [facility] [address] [place] [address] Magnesium [Mass/volume] in S sandip or PlasmaOrdered By: Huy Tierney on 04-26-2024 Magnesium [Mass/Vol] 1.5 mg/dL Low 1.9-2.7 [facility] [place] Comment on above: Performed By: #### C BC, HEPATIC, BMP, LIPASE #### [facility] [address] [place] [address] Magnesium [Mass/Vol] Magnesium [Mass/vol ume] in Serum or Plasma Low 1.9-2.7 [facility] Monocytes Auto (Bld) [#/Vol] Ordered By: Livan Arguello on 04-26-2024 Monocytes (Bld) [#/Vol] Automated blood monocyte count 0.0-0.8 [facility] Monocytes/100 WBC Auto (Bld) Ordered By: Livan Arguello on 04-26-2024 Monocytes/100 WBC (Bld) Automated monocyte % . [facility] Neutrophils Auto (Bld) [#/Vo l]Ordered By: Livan Arguello on 04-26-2024 Neutrophils (Bld) [#/Vol] Neutrophils [#/volume] in Blood by Automated count High 1.8-7.7 [facility] Neutrophils [#/volume] in Bl ood by Automated countOrdered By: Livan Arguello on 04-26-2024 Neutrophils (Bld) [#/Vol] 8.5 10*3/uL High 1.8-7.7 [facility] Comment on above: Performed By: #### C BC, HEPATIC, BMP, LIPASE #### [facility] [address] Neutrophils/100 WBC Auto (Bl d)Ordered By: Livan Arguello on 04-26-2024 Neutrophils/100 WBC (Bld) Automated neutrophil % . [facility] No Panel InformationOrdered By: Livan Arguello on 04-26-2024 Estimated GFR (CKD-EPI) 41.312 mL/Min [facility] Creatinine Clearance (Chem N/A [facility] Nucleated erythrocytes [Pres ence] in Blood by Automated countOrdered By: Livan Arguello on 04-26-2024 Nucleated RBC Auto Ql (Bld) 0.1 /100{WBC} 0-0.5 [facility] Nucleated RBC Auto Ql (Bld) Nucleated erythrocytes [Presence] in Blood by Automated count 0-0.5 [facility] Parathyrin.intact [Mass/volu me] in Serum or PlasmaOrdered By: Huy Tierney on 04-26-2024 Parathyrin.intact [Mass/Vol] 79.2 pg/mL [facility] Parathyrin.intact [Mass/Vol] Parathyrin.intact [Mass/volume] in Serum or Plasma [facility] Parathyroid Hormone Intacton 04-26-2024 Parathyroid Hormone Intact 79.2 pg/mL Normal [facility] Comment on above: Result Comment: PERF ORMED BY: [facility] [address] [place] [address] PATHOLOGIST REPAIR WEAVER JIANLAN SUN M.D. Performed By: #### P HOS, MG, URIC, FE and TIBC, HAKEEM, [id number], PROCRERAT, PTH #### [facility] [address] [place] [address] [place] Phosphate [Mass/volume] in S sandip or PlasmaOrdered By: Huy Tierney on 04-26-2024 Phosphate [Mass/Vol] 3.7 mg/dL Normal 2.5-4.5 [facility] [place] Comment on above: Performed By: #### C BC, HEPATIC, BMP, LIPASE #### [facility] [address] [place] [address] [place] Phosphate [Mass/Vol] Phosphate [Mass/vol ume] in Serum or Plasma 2.5-4.5 [facility] Platelet mean volume Auto (B ld) [Entitic vol]Ordered By: Livan Arguello on 04-26-2024 Platelet mean volume (Bld) [Entitic vol] Platelet mean volume [Entitic volume] in Blood by Automated count 6.3-10.7 [facility] Platelet mean volume [Entiti c volume] in Blood by Automated countOrdered By: Livan Arguello on 04-26-2024 Platelet mean volume (Bld) [Entitic vol] 9.7 fL Normal 6.3-10.7 [facility] Comment on above: Performed By: #### C BC, HEPATIC, BMP, LIPASE #### [facility] [address] [place] [address] [place] Platelets Auto (Bld) [#/Vol] Ordered By: Livan Arguello on 04-26-2024 Platelets (Bld) [#/Vol] Platelets [#/volume] in Blood by Automated count 150-450 [facility] Platelets [#/volume] in Bloo d by Automated countOrdered By: Livan Arguello on 04-26-2024 Platelets (Bld) [#/Vol] 196 10*3/uL Normal 150-450 [facility] Comment on above: Performed By: #### C BC, HEPATIC, BMP, LIPASE #### [facility] [address] [place] [address] [place] Potassium [Moles/volume] in Serum or PlasmaOrdered By: Livan Arguello on 04-26-2024 Potassium [Moles/Vol] 4.4 mmol/L Normal 3.5-5.1 [facility] Comment on above: Performed By: #### C BC, HEPATIC, BMP, LIPASE #### [address] Potassium [Moles/Vol] Potassium [Moles/v olume] in Serum or Plasma 3.5-5.1 [facility] Protein Creat Ratio Ur Rando mon 04-26-2024 Creatinine, Urine (Random) 160.00 mg/dL Normal [facility] Comment on above: Result Comment: No r eference range established Performed By: #### P HOS, MG, URIC, FE and TIBC, HAKEEM, [id number], PROCRERAT, PTH #### [address] Urine Protein/Creatinine Ratio 188 mg/g{Cre} Normal 0-200 [facility] Comment on above: Result Comment: PERF ORMED BY: [place] [address] PATHOLOGIST REPAIR WEAVER SHAI OREILLY M.D. Performed By: #### P HOS, MG, URIC, FE and TIBC, HAKEEM, [id number], PROCRERAT, PTH #### [address] Protein [Mass/volume] in Ser um or PlasmaOrdered By: Livan Arguello on 04-26-2024 Protein [Mass/Vol] 6.0 g/dL Low 6.4-8.9 [facility] Comment on above: Performed By: #### C BC, HEPATIC, BMP, LIPASE #### [facility] [address] [place] [address] [place] Protein [Mass/Vol] Protein [Mass/volume ] in Serum or Plasma Low 6.4-8.9 [facility] Protein [Mass/volume] in Uri neOrdered By: Huy Tierney on 04-26-2024 Protein (U) [Mass/Vol] 30 mg/dL High 0-9 [facility] Comment on above: Performed By: #### P HOS, MG, URIC, FE and TIBC, HAKEEM, [id number], PROCRERAT, PTH #### [address] Protein (U) [Mass/Vol] Protein [Mass/vol ume] in Urine High 0-9 [facility] RBC Auto (Bld) [#/Vol]Ordere d By: Livan Arguello on 04-26-2024 RBC (Bld) [#/Vol] Erythrocytes [#/volu me] in Blood by Automated count 3.60-5.00 [facility] Serum globulin measurement b y calculation (mass/volume)Ordered By: Livan Arguello on 04-26-2024 Globulin (S) [Mass/Vol] 1.9 g/dL Normal [facility] Comment on above: Performed By: #### C BC, HEPATIC, BMP, LIPASE #### [address] Serum or plasma albumin/glob ulin mass ratioOrdered By: Livan Arguello on 04-26-2024 Albumin/Globulin [Mass ratio] 2.2 {ratio} Normal [facility] Comment on above: Performed By: #### C BC, HEPATIC, BMP, LIPASE #### [address] Albumin/Globulin [Mass ratio] Serum or plasma albumin/globulin mass ratio [facility] Serum or plasma anion gap de terminationOrdered By: Livan Arguello on 04-26-2024 Anion gap [Moles/Vol] 12.0 mmol/L Normal 6.0-15.0 [facility] Comment on above: Performed By: #### C BC, HEPATIC, BMP, LIPASE #### [address] Anion gap [Moles/Vol] Serum or plasma an ion gap determination 6.0-15.0 [facility] Serum or plasma high density lipoprotein (HDL) cholesterol measurementOrdered By: Livan Arguello on 04-26-2024 Cholesterol in HDL [Mass/Vol] 54 mg/dL Normal 23-92 [facility] Comment on above: HDL CHOL ATP-III CLA SSIFICATION Cardiovascular RiskHDL > or equal to 60 mg/dL LOWHDL < 40 mg/dL HIGH Result Comment: HDL CHOL ATP-III CLASSIFICATION Cardiovascular Risk HDL > or equal to 60 mg/dL LOW HDL < 40 mg/dL HIGH Performed By: #### C BC, HEPATIC, BMP, LIPASE #### [facility] [address] Serum or plasma iron binding capacity measurement (mass/volume)Ordered By: Huy Tierney on 04-26-2024 Iron binding capacity [Mass/Vol] Iron binding capacity [Mass/volume] in Serum or Plasma 255-450 [facility] Serum or plasma iron saturat ion measurement (mass fraction)Ordered By: Huy Tierney on 04-26-2024 Iron saturation [Mass fraction] Iron saturation [Mass Fraction] in Serum or Plasma 20-50 [facility] Serum or plasma total choles terol/high density lipoprotein (HDL) cholesterol mass ratOrdered By: Livan Arguello on 04-26-2024 Cholesterol.total/Chol esterol in HDL [Mass ratio] 2.6 {ratio} Normal <5.0 [facility] Comment on above: Performed By: #### C BC, HEPATIC, BMP, LIPASE #### [facility] [address] Cholesterol.total/Chol esterol in HDL [Mass ratio] Serum or plasma total cholesterol/high density lipoprotein (HDL) cholesterol mass rat <5.0 [facility] Sodium [Moles/volume] in Ser um or PlasmaOrdered By: Livan Arguello on 04-26-2024 Sodium [Moles/Vol] 142 mmol/L Normal 136-145 [facility] Comment on above: Performed By: #### C BC, HEPATIC, BMP, LIPASE #### [facility] [address] Sodium [Moles/Vol] Sodium [Moles/volume ] in Serum or Plasma 136-145 [facility] Thyrotropin [Units/volume] i n Serum or PlasmaOrdered By: Livan Arguello on 04-26-2024 TSH Qn 8.29 m[IU]/L High 0.45-5.33 [facility] Comment on above: Result Comment: PERF ORMED BY: [place] [address] PATHOLOGIST REPAIR WEAVER SHAI OREILLY M.D. Performed By: #### C BC, HEPATIC, BMP, LIPASE #### [facility] [address] TSH Qn Thyrotropin [Units/volume] in Serum or Plasma High 0.45-5.33 [facility] Transferrin [Mass/volume] in Serum or PlasmaOrdered By: Huy Tierney on 04-26-2024 Transferrin [Mass/Vol] 232 mg/dL Normal 203-362 [facility] Comment on above: Performed By: #### C BC, HEPATIC, BMP, LIPASE #### [address] Transferrin [Mass/Vol] Transferrin [Mass /volume] in Serum or Plasma 203-362 [facility] Triglyceride [Mass/volume] i n Serum or PlasmaOrdered By: Livan Arguello on 04-26-2024 Triglyceride [Mass/Vol] 119 mg/dL 0-149 [facility] Comment on above: TRIG ATP III CLASSIF ICATIONTRIG less than 150 mg/dL NormalTRIG 150-199 mg/dL Borderline highTRIG 200-500 mg/dL High TRIG greater than 500 mg/dL Very highStandard traceable to the Center for Disease Conrtrol and Prevention (CDC) test method. Triglyceride [Mass/Vol] Triglyceride [Mass/volume] in Serum or Plasma 0-149 [facility] Comment on above: TRIG ATP III CLASSIF ICATIONTRIG less than 150 mg/dL NormalTRIG 150-199 mg/dL Borderline highTRIG 200-500 mg/dL High TRIG greater than 500 mg/dL Very highStandard traceable to the Center for Disease Conrtrol and Prevention (CDC) test method. Urate [Mass/volume] in Serum or PlasmaOrdered By: Huy Kelsy on 04-26-2024 Urate [Mass/Vol] 5.2 mg/dL Normal 2.3-6.6 [facility] Comment on above: Performed By: #### C BC, HEPATIC, BMP, LIPASE #### [facility] [address] [place] [address] [facility] Urate [Mass/Vol] Urate [Mass/volume] in Serum or Plasma 2.3-6.6 [facility] Urea nitrogen [Mass/volume] in Serum or PlasmaOrdered By: Livan Arguello on 04-26-2024 Urea nitrogen [Mass/Vol] 34 mg/dL [facility] Comment on above: Performed By: #### C BC, HEPATIC, BMP, LIPASE #### [facility] [address] [place] [address] [facility] Urea nitrogen [Mass/Vol] Urea nitrogen [Mass/volume] in Serum or Plasma [facility] Urine protein/creatinine rat ioOrdered By: Huy Tierney on 04-26-2024 Protein/Creatinine (U) [Ratio] 188 mg/g{Cre} 0-200 [facility] Protein/Creatinine (U) [Ratio] Urine protein/creatinine ratio 0-200 [facility] Vitamin D 25 Hydroxy Totalon 04-26-2024 Vitamin D 25 Hydroxy Total 30.8 ng/mL Normal 30-100 [facility] Comment on above: Result Comment: DAX MIN D STATUS 25([place])VITAMIN D RANGE (ng/mL) Deficient <20 Insufficient 20 to <30 Sufficient 30 to 100 Reference: Marito MF,Chris NC, [place] BAINS, et al. Evaluation,treatment, and prevention of vitamin D deficiency; an Endocrine Society clinical practice guideline. JCEM. 2010; 96(7):1911-30. PERFORMED BY: [place] [id number] PATHOLOGIST REPAIR WEAVER SHAI OREILLY M.D. Performed By: #### C BC, HEPATIC, BMP, LIPASE #### [facility] [address] [place] [id number] [facility] Vitamin D+Metabolites [Mass/ volume] in Serum or PlasmaOrdered By: Huy Teirney on 04-26-2024 Vitamin D+Metabolites [Mass/Vol] 30.8 ng/mL 30-100 [facility] Comment on above: VITAMIN D STATUS 25( [place])VITAMIN D RANGE (ng/mL) Deficient <20 Insufficient 20 to <30Sufficient 30 to 100Reference: Chris Ornelas, [place] BAINS, et al. Evaluation,treatment, and prevention of vitamin D deficiency; an Endocrine Society clinical practice guideline. EM. 2010; 96(7):1911-30. Vitamin D+Metabolites [Mass/Vol] Vitamin D+Metabolites [Mass/volume] in Serum or Plasma 30-100 [facility] Comment on above: VITAMIN D STATUS 25( [place])VITAMIN D RANGE (ng/mL) Deficient <20 Insufficient 20 to <30Sufficient 30 to 100Reference: Chris Ornelas, [place] BAINS, et al. Evaluation,treatment, and prevention of vitamin D deficiency; an Endocrine Society clinical practice guideline. EM. 2010; 96(7):1911-30. WBC Auto (Bld) [#/Vol]Ordere d By: Livan Arguello on 04-26-2024 WBC (Bld) [#/Vol] Leukocytes [#/volume ] in Blood by Automated count 3.8-11.6 [facility] Basic Metabolic Panelon 03-24 Creatinine Clr Calc Pharmacy 28.12 Normal [facility] Comment on above: Result Comment: PERF ORMED BY: [place] [address] PATHOLOGIST REPAIR WEAVER SHAI OREILLY M.D. Performed By: #### C BC, HEPATIC, BMP, LIPASE #### [facility] [address] [place] [address] GFR/1.73 sq M.predicted MDRD (S/P/Bld) [Vol rate/Area] 42.087 mL/min/{1.73_m2} Normal [facility] Comment on above: Performed By: #### C BC, HEPATIC, BMP, LIPASE #### [facility] [address] [place], [place] [id number] [facility] Calcium [Mass/volume] in Ser um or PlasmaOrdered By: Freddie Nascimento on 04-21-2024 Calcium [Mass/Vol] 9.2 mg/dL Normal 8.6-10.3 [facility] Comment on above: Performed By: #### C BC, HEPATIC, BMP, LIPASE #### [facility] [address] Calcium [Mass/Vol] Calcium [Mass/volume ] in Serum or Plasma 8.6-10.3 [facility] Carbon dioxide, total [Moles /volume] in Serum or PlasmaOrdered By: Freddie Nascimento on 04-21-2024 CO2 [Moles/Vol] 25.1 mmol/L Normal 21.0-31.0 [facility] Comment on above: Performed By: #### C BC, HEPATIC, BMP, LIPASE #### [facility] [address] CO2 [Moles/Vol] Carbon dioxide, tota l [Moles/volume] in Serum or Plasma 21.0-31.0 [facility] Chloride [Moles/volume] in S sandip or PlasmaOrdered By: Freddie Nascimento on 04-21-2024 Chloride [Moles/Vol] 107 mmol/L Normal 98-107 [facility] Comment on above: Performed By: #### C BC, HEPATIC, BMP, LIPASE #### [facility] [address] [place] [id number] [facility] Chloride [Moles/Vol] Chloride [Moles/vol ume] in Serum or Plasma 98-107 [facility] Creatinine [Mass/volume] in Serum or PlasmaOrdered By: Freddie Nascimento on 04-21-2024 Creatinine [Mass/Vol] 1.28 mg/dL High 0.60-1.20 [facility] Comment on above: Performed By: #### C BC, HEPATIC, BMP, LIPASE #### [facility] [address] [place] [address] [place] Creatinine [Mass/Vol] Creatinine [Mass/v olume] in Serum or Plasma High 0.60-1.20 [facility] Glucose [Mass/volume] in Ser um or PlasmaOrdered By: Freddie Nascimento on 04-21-2024 Glucose [Mass/Vol] 83 mg/dL Normal 70-100 [facility] Comment on above: ADA recommended refe rence rangeRandom Glucose Reference Range is dependent on time and content of last meal. Glucose of more than 200 mg/dL in a nonstressed, ambulatory subject supports the diagnosis of Diabetes Mellitus. Result Comment: [place] Glucose Reference Range is dependent on time and content of last meal. Glucose of more than 200 mg/dL in a nonstressed, ambulatory subject supports the diagnosis of Diabetes Mellitus. ADA recommended reference range Performed By: #### C BC, HEPATIC, BMP, LIPASE #### [facility] [address] Glucose [Mass/Vol] Glucose [Mass/volume ] in Serum or Plasma 70-100 [facility] Comment on above: ADA recommended refe rence rangeRandom Glucose Reference Range is dependent on time and content of last meal. Glucose of more than 200 mg/dL in a nonstressed, ambulatory subject supports the diagnosis of Diabetes Mellitus. No Panel InformationOrdered By: Freddie Nascimento on 04-21-2024 Estimated GFR (CKD-EPI) 42.087 mL/Min [facility] Creatinine Clearance (Chem 28.12 [facility] Potassium [Moles/volume] in Serum or PlasmaOrdered By: Freddie Nascimento on 04-21-2024 Potassium [Moles/Vol] 4.2 mmol/L Normal 3.5-5.1 [facility] Comment on above: Performed By: #### C BC, HEPATIC, BMP, LIPASE #### [facility] [address] Potassium [Moles/Vol] Potassium [Moles/v olume] in Serum or Plasma 3.5-5.1 [facility] Serum or plasma anion gap de terminationOrdered By: Freddie Nascimento on 04-21-2024 Anion gap [Moles/Vol] 12.1 mmol/L Normal 6.0-15.0 [facility] Comment on above: Performed By: #### C BC, HEPATIC, BMP, LIPASE #### [facility] [address] [place] [id number] [facility] Anion gap [Moles/Vol] Serum or plasma an ion gap determination 6.0-15.0 [facility] Sodium [Moles/volume] in Ser um or PlasmaOrdered By: Freddie Nascimento on 04-21-2024 Sodium [Moles/Vol] 140 mmol/L Normal 136-145 [facility] Comment on above: Performed By: #### C BC, HEPATIC, BMP, LIPASE #### [address] Sodium [Moles/Vol] Sodium [Moles/volume ] in Serum or Plasma 136-145 [facility] Urea nitrogen [Mass/volume] in Serum or PlasmaOrdered By: Freddie Nascimento on 04-21-2024 Urea nitrogen [Mass/Vol] 42 mg/dL High 725 [facility] Comment on above: Performed By: #### C BC, HEPATIC, BMP, LIPASE #### [facility] [address] [place], [place] [phone] [facility] Urea nitrogen [Mass/Vol] Urea nitrogen [Mass/volume] in Serum or Plasma [address] XR hip LT min 2V(w/wo pelvis )*on 04-21-2024 XR hip LT min 2V(w/wo pelvis)* [facility] [place] [address] [place] [address] XRay Report Signed Patient: Ludy Willis MR#: [id number] : 1945 Acct:[id number] Age/Sex: 79 / F ADM Date: 04/21/24 Loc: ER Room: Type: [facility] ER Attending Dr: Copies to: Freddie Nascimento DO Ordering Provider: Freddie Nascimento DO Date of Service: 04/21/24 XR/XR lumbar spine 2-3V*: Extremity Injury, Lower ([id number]) XR/XR hip LT min 2V(w/wo pelvis)*: Extremity Injury, Lower CLINICAL DATA: Low back pain this week radiating to the left hip and leg. No injury. LUMBAR SPINE - 3 views COMPARISON: 05/02/2021 and MRI 03/24/2023 Recumbent AP and lateral lumbar and lumbosacral views were obtained. There is subtle levoscoliotic curvature. There are no acute compression fractures. There is subtle anterolisthesis of L4 and L5 and approximately 4 mm of anterolisthesis of L5 on S1, similar to the comparison. There is moderate to severe disc space narrowing at L4-5. There is also mild disc space narrowing at the lumbosacral junction. There is endplate spurring, most prominent the lower thoracic spine. There is mid and lower lumbar facet hypertrophy, greatest at the lumbosacral junction. The SI joints are intact. There is mild atherosclerotic plaque at the aorta. XR/XR lumbar spine 2-3V* IMPRESSION: DISCOVERTEBRAL DEGENERATIVE CHANGES, GREATEST AT L4-5. LEFT HIP WITH AP PELVIS - 3 views COMPARISON: 11/27/2022 AP view of the pelvis as well as AP and frog-lateral views of the left hip were obtained. No fracture or dislocation is identified. The hip joint spaces are maintained. There is no significant arthritic disease. No soft tissue abnormalities are present. IMPRESSION: NO ACUTE BONY FINDINGS. Impression dictated by: Madison Maldonado M.D.04/21/2024 9:55 AM Dictation Location: [place] [address] Transcribed By: [facility] 04/21/24 0955 Dictated By: Madison Maldonado MD 04/21/24 0932 Signed By: 04/21/24 0955 Normal [facility] Laboratory - Chemistry and C hemistry - challengeon 04-15-2024 Bilirubin Ql (U) Negative [facility] Glucose (U) [Mass/Vol] [facility] Ketones Ql (U) trace [facility] pH (U) 5.5 [pH] [facility] Specific gravity (U) [Rel density] 1.020 [facility] Urobilinogen (U) [Mass/Vol] 0.2 mg/dL [facility] - Microbiology an d Antimicrobial susceptibilityOrdered By: Livan Arguello on 04-15-2024 Bacteria identified Cx Nom (U) Escherichia coli Abnormal [facility] Bacteria identified Cx Nom (U) Escherichia coli Abnormal [facility] - Urinalysison Leukocyte esterase Test strip Ql (U) Negative [facility] Nitrite Ql (U) Negative [facility] Protein Ql (U) trace [facility] No Panel Informationon 04-15 Urine Occult Blood Negative [facility] Urine Cultureon 04-15-2024 Bacteria identified Cx Nom (U) ORGANISM: Escherichia coli (O:ESCCOL) [place] Count 40,000 Aerobic PARI Charge ([id number]) SUSCEPTIBILITY ORGANISM: O:ESCCOL ANTIBIOTIC INTERPRETATION PARI Amikacin S <16 Amoxacillin/K Clavulanate S <8 Ampicillin S <8 Ampicillin/Sulbactam S <4 Aztreonam S <4 Cefazolin S <2 Cefepime S <2 Ceftazidime S <1 Ceftazidime/Avibactam S <4 Ceftolozane/Tazobactam S <2 Ceftriaxone S <1 Cefuroxime S <4 Ciprofloxacin S <0.25 Ertapenem S <0.5 Gentamicin S <2 Levofloxacin S <0.5 Meropenem S <1 Meropenem/Vaborbactam S <2 Nitrofurantoin S <32 Piperacillin/Tazobactam S <8 Tetracycline S <4 Tigecycline S <2 Tobramycin S <2 Trimethoprim/Sulfamethoxa zole S <0.5 S = SUSCEPTIBLE I = INTERMEDIATE R = RESISTANT BLANK = DATA NOT AVAILABLE, OR DRUG NOT ADVISABLE OR TESTED R* = RESISTANCE DUE TO EXTENDED SPECTRUM BETA-LACTAMASES ESBL = EXTENDED SPECTRUM BETA-LACTAMASE TFG = THYMIDINE-DEPENDENT STRAIN RADHA = BETA-LACTAMASE POSITIVE IB = INDUCIBLE BETA-LACTAMASE. APPEARS IN PLACE OF 'S' WITH SPECIES KNOWN TO POSSESS INDUCIBLE BETA-LACTAMASES. POTENTIALLY THEY MAY BECOME RESISTANT TO ALL B-LACTAM DRUGS. PERFORMED BY: [place] [address] PATHOLOGIST REPAIR WEAVER SHAI OREILLY M.D. Normal [facility] Comment on above: Performed By: #### C UU #### [address] Urine cultureOrdered By: Jose Arguello on 04-15-2024 Bacteria identified Cx Nom (U) Escherichia coli Abnormal [facility] Alanine aminotransferase [En zymatic activity/volume] in Serum or PlasmaOrdered By: Luis F Hanna on 03-19-2024 ALT [Catalytic activity/Vol] 15 U/L Normal [facility] Comment on above: Performed By: #### C BC, HEPATIC, BMP, LIPASE #### [facility] [facility] [address] ALT [Catalytic activity/Vol] Alanine aminotransferase [Enzymatic activity/volume] in Serum or Plasma [facility] Albumin [Mass/volume] in Ser um or Plasma by Bromocresol green (BCG) dye binding methoOrdered By: Luis F Hanna on 03-19-2024 Albumin BCG dye [Mass/Vol] 3.8 g/dL 3.5-5.7 [facility] Albumin BCG dye [Mass/Vol] Albumin [Mass/volume] in Serum or Plasma by Bromocresol green (BCG) dye binding metho 3.5-5.7 [facility] Alkaline phosphatase [Enzyma tic activity/volume] in Serum or PlasmaOrdered By: Luis F Hanna on 03-19-2024 ALP [Catalytic activity/Vol] 53 U/L Normal [facility] Comment on above: Performed By: #### C BC, HEPATIC, BMP, LIPASE #### [facility] [address] [place] [address] ALP [Catalytic activity/Vol] Alkaline phosphatase [Enzymatic activity/volume] in Serum or Plasma [facility] Appearance of UrineOrdered B y: Luis F Hanna on 03-19-2024 Appearance (U) Urine appearance Clear [facility] Aspartate aminotransferase [ Enzymatic activity/volume] in Serum or PlasmaOrdered By: Luis F Hanna on 03-19-2024 AST [Catalytic activity/Vol] 15 U/L Normal [facility] Comment on above: Performed By: #### C BC, HEPATIC, BMP, LIPASE #### [facility] [address] [place], [place] [id number] [facility] AST [Catalytic activity/Vol] Aspartate aminotransferase [Enzymatic activity/volume] in Serum or Plasma [facility] Automated basophil %Ordered By: Luis F Hanna on 03-19-2024 Basophils/100 WBC (Bld) 0.4 % Normal . [facility] Comment on above: Performed By: #### C BC, HEPATIC, BMP, LIPASE #### [address] Automated basophil countOrde red By: Luis F Hanna on 03-19-2024 Basophils (Bld) [#/Vol] 0.0 10*3/uL Normal 0.0-0.2 [facility] Comment on above: Result Comment: PERF ORMED BY: [place] [address] PATHOLOGIST REPAIR WEAVER SHAI OREILLY M.D. Performed By: #### C BC, HEPATIC, BMP, LIPASE #### [address] Automated blood monocyte cou ntOrdered By: Luis F Hanna on 03-19-2024 Monocytes (Bld) [#/Vol] 0.6 10*3/uL Normal 0.0-0.8 [facility] Comment on above: Performed By: #### C BC, HEPATIC, BMP, LIPASE #### [address] Automated eosinophil %Ordere d By: Luis F Hanna on 03-19-2024 Eosinophils/100 WBC (Bld) 0.0 % Normal . [facility] Comment on above: Performed By: #### C BC, HEPATIC, BMP, LIPASE #### [address] Automated eosinophil countOr dered By: Luis F Hanna on 03-19-2024 Eosinophils (Bld) [#/Vol] 0.0 10*3/uL Normal 0.0-0.45 [facility] Comment on above: Performed By: #### C BC, HEPATIC, BMP, LIPASE #### [address] Automated monocyte %Ordered By: Luis F Hanna on 03-19-2024 Monocytes/100 WBC (Bld) 9.5 % Normal . [facility] Comment on above: Performed By: #### C BC, HEPATIC, BMP, LIPASE #### [address] Automated neutrophil %Ordere d By: Luis F Hanna on 03-19-2024 Neutrophils/100 WBC (Bld) 69.6 % Normal . [facility] Comment on above: Performed By: #### C BC, HEPATIC, BMP, LIPASE #### [address] BNP ser/plasOrdered By: Christiana Hanna on 03-19-2024 Natriuretic peptide B (Bld) [Mass/Vol] 111.0 pg/mL High 5-100 [facility] Comment on above: Result Comment: PERF ORMED BY: [place] [address] PATHOLOGIST REPAIR WEAVER SHAI OREILLY M.D. Performed By: #### C BC, HEPATIC, BMP, LIPASE #### [address] Basic Metabolic Panelon 02-21 Creatinine Clr Calc Pharmacy 30.23 Normal [facility] Comment on above: Performed By: #### C BC, HEPATIC, BMP, LIPASE #### [address] GFR/1.73 sq M.predicted MDRD (S/P/Bld) [Vol rate/Area] 49.710 mL/min/{1.73_m2} Normal [facility] Comment on above: Performed By: #### C BC, HEPATIC, BMP, LIPASE #### [address] Basophils Auto (Bld) [#/Vol] Ordered By: Luis F Hanna on 03-19-2024 Basophils (Bld) [#/Vol] Automated basophil count 0.0-0.2 [facility] Basophils/100 WBC Auto (Bld) Ordered By: Luis F Hanna on 03-19-2024 Basophils/100 WBC (Bld) Automated basophil % . [facility] Bilirubin Test strip Ql (U)O rdered By: Luis F Hanna on 03-19-2024 Bilirubin Ql (U) Negative Negative [facility] Bilirubin Ql (U) Bilirubin.total [Presence] in Urine by Test strip Negative [facility] Bilirubin.direct [Mass/volum e] in Serum or PlasmaOrdered By: Luis F Hanna on 03-19-2024 Bilirubin.direct [Mass/Vol] 0.10 mg/dL 0.03-0.18 [facility] Bilirubin.direct [Mass/Vol] Bilirubin.direct [Mass/volume] in Serum or Plasma 0.03-0.18 [facility] Bilirubin.total [Mass/volume ] in Serum or PlasmaOrdered By: Luis F Hanna on 03-19-2024 Bilirubin [Mass/Vol] 0.7 mg/dL Normal 0.3-1.0 [facility] Comment on above: Performed By: #### C BC, HEPATIC, BMP, LIPASE #### [address] Bilirubin [Mass/Vol] Bilirubin.total [Mass/volume] in Serum or Plasma 0.3-1.[address] [facility] [address] abdomen pelvis w conon CT abdomen pelvis w con [facility] [place] [address] [place] [address] CT Scan Report Signed Patient: Ludy Willis MR#: [id number] : 1945 Acct:[id number] Age/Sex: 78 / F ADM Date: 03/19/24 Loc: ER Room: Type: [facility] ER Attending Dr: Copies to: Luis F Hanna DO Ordering Provider: Luis F Hanna DO Date of Service: 03/19/24 CT/CT abdomen pelvis w con: abd pain CT Abdomen and Pelvis withcontrast TECHNIQUE: Axial imaging with 2-D reconstruction.90 cc of Isovue-300. The CT exam was performed using one or more the following dose reduction techniques: Automated exposure control, adjustment of the MA and/or Kv according to patient size, or use of the iterative reconstruction technique. COMPARISON: 02/24/24 History: Upper abdominal pain. Possible UTI. LIMITATIONS: None LOWER THORAX mild atelectasis. LIVER: Unremarkable GALLBLADDER: Cholecystectomy clips identified. BILE DUCTS: No dilatation subtle pneumobilia. SPLEEN: Unremarkable PANCREAS: Unremarkable ADRENAL GLANDS: Stable 14 mm RIGHT adrenal nodule. KIDNEYS:Unremarkable AORTA: No abdominal aortic aneurysm identified. RETROPERITONEUM: No significant retroperitoneal abnormalities identified. MESENTERY:Unremarkable SMALL BOWEL: The small bowel loops are nondistended. APPENDIX: The appendix is normal. COLON: Similar diverticulosis. URINARY BLADDER: Urinary bladder is unremarkable. REPRODUCTIVE SYSTEM: The uterus is absent. PNEUMOPERITONEUM: None PERITONEAL FLUID:None BONY STRUCTURES: Similar degenerative changes. ABDOMINAL WALL: Unremarkable CT/CT abdomen pelvis w con IMPRESSION: No acute findings. Stable RIGHT adrenal gland nodule. Colonic diverticulosis. No obstructive uropathy. Impression dictated by: Saroj Arcos M.D.03/19/2024 9:57 AM Dictation Location: [place] [address] Transcribed By: [facility] 03/19/24956 Dictated By: aSroj Arcos DO 03/19/24 0950 Signed By: 03/19/2457 Normal [facility] Calcium [Mass/volume] in Ser um or PlasmaOrdered By: Luis F Hanna on 03-19-2024 Calcium [Mass/Vol] 9.4 mg/dL Normal 8.6-10.3 [facility] Comment on above: Performed By: #### C BC, HEPATIC, BMP, LIPASE #### [facility] [address] [place] [address] Calcium [Mass/Vol] Calcium [Mass/volume ] in Serum or Plasma 8.6-10.3 [facility] Carbon dioxide, total [Moles /volume] in Serum or PlasmaOrdered By: Luis F Hanna on 03-19-2024 CO2 [Moles/Vol] 23.2 mmol/L Normal 21.0-31.0 [facility] Comment on above: Performed By: #### C BC, HEPATIC, BMP, LIPASE #### [facility] [address] CO2 [Moles/Vol] Carbon dioxide, tota l [Moles/volume] in Serum or Plasma 21.0-31.0 [facility] Chloride [Moles/volume] in S sandip or PlasmaOrdered By: Luis F Hanna on 03-19-2024 Chloride [Moles/Vol] 108 mmol/L High 98-107 [facility] Comment on above: Performed By: #### C BC, HEPATIC, BMP, LIPASE #### [address] Chloride [Moles/Vol] Chloride [Moles/vol ume] in Serum or Plasma High 98-107 [facility] Color Auto (U)Ordered By: Michael Hanna on 03-19-2024 Color (U) Color of Urine by Auto Yellow [facility] Color of Urine by AutoOrdere d By: Luis F Hanna on 03-19-2024 Color (U) Light-yellow Normal Yellow [facility] Comment on above: Order Comment: Name Collection Type:: Clean-Voided Midstream Performed By: #### C BC, HEPATIC, BMP, LIPASE #### [address] Complete Blood Count Auto Di ffon 03-19-2024 Mean Corpuscular HGB Conc 34.0 g/dL Normal 32.0-35.0 [facility] Comment on above: Performed By: #### C BC, HEPATIC, BMP, LIPASE #### [place] [address] [place] Monocytes/100 WBC (Bld) 21.44 % High 0.00-20.00 [facility] Comment on above: Result Comment: For adults in ED, MDW > 20.0 may be associated with a higher risk of sepsis during the first 12 hrs of hospital admission Performed By: #### C BC, HEPATIC, BMP, LIPASE #### [address] NRBC% 0.2 /100{WBC} Normal 0-0.5 [facility] Comment on above: Performed By: #### C BC, HEPATIC, BMP, LIPASE #### [place] [address] [place] Creatinine [Mass/volume] in Serum or PlasmaOrdered By: Luis F Hanna on 03-19-2024 Creatinine [Mass/Vol] 1.12 mg/dL Normal 0.60-1.20 [facility] Comment on above: Performed By: #### C BC, HEPATIC, BMP, LIPASE #### [address] Creatinine [Mass/Vol] Creatinine [Mass/v olume] in Serum or Plasma 0.60-1.20 [facility] ECG 12 lead ECGon 03-19-2024 ECG 12 lead ECG [facility] [place] [address] [place] [address] Electrocardiograph Report Signed Patient: Ludy Willis MR#: [id number] : 1945 Acct:[id number] Age/Sex: 78 / F ADM Date: 03/19/24 Loc: ER Room: Type: [facility] ER Attending Dr: Ordering Provider: Luis F Hanna DO Date of Service: 03/19/24 ECG/ECG 12 lead ECG: Abdominal Pain Copies to: Test Reason : Blood Pressure : 224/89 mmHG Vent. Rate : 55 BPM Atrial Rate : 55 BPM P-R Int : 174 ms QRS Dur : 74 ms QT Int : 452 ms P-R-T Axes : 66 25 26 degrees QTcB Int : 432 ms Sinus bradycardia Low voltage QRS Borderline ECG When compared with ECG of 08-Dec-2018 14:04, premature ventricular complexes are no longer present premature atrial complexes are no longer present Minimal criteria for Anteroseptal infarct are no longer present Nonspecific T wave abnormality no longer evident in Anterior leads Confirmed by Luis F Hanna DO ([id number]) on 03/19/2024 1:26:57 PM Referred By: Electronically Signed By: Luis F Hanna DO Transcribed By: MUS Signed By Luis F Hanna DO 4 1327 Normal [facility] Eosinophils Auto (Bld) [#/Vo l]Ordered By: Lius F Hanna on 03-19-2024 Eosinophils (Bld) [#/Vol] Automated eosinophil count 0.0-0.45 [facility] Eosinophils/100 WBC Auto (Bl d)Ordered By: Luis F Hanna on 03-19-2024 Eosinophils/100 WBC (Bld) Automated eosinophil % . [facility] Erythrocyte distribution wid th Auto (RBC) [Ratio]Ordered By: Luis F Hanna on 03-19-2024 Erythrocyte distribution width (RBC) [Ratio] Erythrocyte distribution width [Ratio] by Automated count 11.9-15.3 [facility] Erythrocyte distribution wid th [Ratio] by Automated countOrdered By: Luis F Hanna on 03-19-2024 Erythrocyte distribution width (RBC) [Ratio] 14.6 % Normal 11.9-15.3 [facility] Comment on above: Performed By: #### C BC, HEPATIC, BMP, LIPASE #### [facility] [address] Erythrocytes [#/volume] in B lood by Automated countOrdered By: Luis F Hanna on 03-19-2024 RBC (Bld) [#/Vol] 3.98 10*6/uL Normal 3.60-5.00 [facility] Comment on above: Performed By: #### C BC, HEPATIC, BMP, LIPASE #### [facility] [address] Globulin Calc (S) [Mass/Vol] Ordered By: Luis F Hanna on 03-19-2024 Globulin (S) [Mass/Vol] Serum globulin measurement by calculation (mass/volume) [facility] Glucose [Mass/volume] in Ser um or PlasmaOrdered By: Luis F Hanna on 03-19-2024 Glucose [Mass/Vol] 102 mg/dL High 70-100 [facility] Comment on above: ADA recommended refe rence rangeRandom Glucose Reference Range is dependent on time and content of last meal. Glucose of more than 200 mg/dL in a nonstressed, ambulatory subject supports the diagnosis of Diabetes Mellitus. Result Comment: [place] om Glucose Reference Range is dependent on time and content of last meal. Glucose of more than 200 mg/dL in a nonstressed, ambulatory subject supports the diagnosis of Diabetes Mellitus. ADA recommended reference range Performed By: #### C BC, HEPATIC, BMP, LIPASE #### [facility] [address] Glucose [Mass/Vol] Glucose [Mass/volume ] in Serum or Plasma High 70-100 [facility] Comment on above: ADA recommended refe rence rangeRandom Glucose Reference Range is dependent on time and content of last meal. Glucose of more than 200 mg/dL in a nonstressed, ambulatory subject supports the diagnosis of Diabetes Mellitus. Glucose [Mass/volume] in Uri ne by Test stripOrdered By: Luis F Hanna on 03-19-2024 Glucose Test strip (U) [Mass/Vol] Normal mg/dL Normal [facility] Glucose Test strip (U) [Mass/Vol] Glucose [Mass/volume] in Urine by Test strip Normal [facility] Hematocrit Auto (Bld) [Volum e fraction]Ordered By: Luis F Hanna on 03-19-2024 Hematocrit (Bld) [Volume fraction] Hematocrit [Volume Fraction] of Blood by Automated count 34.0-46.4 [facility] Hematocrit [Volume Fraction] of Blood by Automated countOrdered By: Luis F Hanna on 03-19-2024 Hematocrit (Bld) [Volume fraction] 35.4 % Normal 34.0-46.4 [facility] Comment on above: Performed By: #### C BC, HEPATIC, BMP, LIPASE #### [facility] [address] Hemoglobin Test strip Ql (U) Ordered By: Luis F Hanna on 03-19-2024 Hemoglobin Ql (U) Negative Negative [facility] Hemoglobin Ql (U) Hemoglobin [Presence ] in Urine by Test strip Negative [facility] Hemoglobin [Mass/volume] in BloodOrdered By: Luis F Hanna on 03-19-2024 Hemoglobin (Bld) [Mass/Vol] 12.0 g/dL Normal 11.8-15.4 [facility] Comment on above: Performed By: #### C BC, HEPATIC, BMP, LIPASE #### [facility] [address] Hemoglobin (Bld) [Mass/Vol] Hemoglobin [Mass/volume] in Blood 11.8-15.4 [facility] Hepatic Panelon 03-19-2024 Albumin [Mass/Vol] 3.8 g/dL Normal 3.5-5.7 [facility] Comment on above: Performed By: #### C BC, HEPATIC, BMP, LIPASE #### [facility] [address] Bilirubin,Indirect 0.6 mg/dL Normal [facility] Comment on above: Performed By: #### C BC, HEPATIC, BMP, LIPASE #### [facility] [address] Bilirubin.indirect [Mass/Vol] 0.10 mg/dL Normal 0.03-0.18 [facility] Comment on above: Performed By: #### C BC, HEPATIC, BMP, LIPASE #### [address] Ketones Test strip Ql (U)Ord ered By: Luis F Hanna on 03-19-2024 Ketones Ql (U) Ketones [Presence] i n Urine by Test strip Negative [facility] Ketones [Presence] in Urine by Test stripOrdered By: Luis F Hanna on 03-19-2024 Ketones Ql (U) Negative Normal Negative [facility] Comment on above: Order Comment: Name Collection Type:: Clean-Voided Midstream Performed By: #### C BC, HEPATIC, BMP, LIPASE #### [facility] [address] [place] [address] Leukocyte esterase [Presence ] in Urine by Test stripOrdered By: Luis F Hanna on 03-19-2024 Leukocyte esterase Test strip Ql (U) Negative Normal Negative [facility] Comment on above: Order Comment: Name Collection Type:: Clean-Voided Midstream Performed By: #### C BC, HEPATIC, BMP, LIPASE #### [facility] [address] [place] [address] Leukocyte esterase Test strip Ql (U) Leukocyte esterase [Presence] in Urine by Test strip Negative [facility] Leukocytes [#/volume] correc adri for nucleated erythrocytes in Blood by Automated counOrdered By: Luis F Hanna on 03-19-2024 WBC corrected for nucl RBC Auto (Bld) [#/Vol] 6.0 10*3/uL 3.8-11.6 [facility] WBC corrected for nucl RBC Auto (Bld) [#/Vol] Leukocytes [#/volume] corrected for nucleated erythrocytes in Blood by Automated coun 3.8-11.6 [facility] Leukocytes [#/volume] in Blo od by Automated countOrdered By: Luis F Hanna on 03-19-2024 WBC (Bld) [#/Vol] 6.0 10*3/uL Normal 3.8-11.6 [facility] Comment on above: Performed By: #### C BC, HEPATIC, BMP, LIPASE #### [facility] [address] [place] [address] Lipase [Enzymatic activity/v olume] in Serum or PlasmaOrdered By: Luis F Hanna on 03-19-2024 Lipase [Catalytic activity/Vol] 45.0 U/L Normal 11.0-82.0 [facility] Comment on above: Result Comment: PERF ORMED BY: [place] [address] PATHOLOGIST REPAIR WEAVER SHAI OREILLY M.D. Performed By: #### C BC, HEPATIC, BMP, LIPASE #### [address] Lipase [Catalytic activity/Vol] Lipase [Enzymatic activity/volume] in Serum or Plasma 11.0-82.0 [facility] Lymphocytes Auto (Bld) [#/Vo l]Ordered By: Luis F Hanna on 03-19-2024 Lymphocytes (Bld) [#/Vol] Lymphocytes [#/volume] in Blood by Automated count 1.00-4.8 [facility] Lymphocytes [#/volume] in Bl ood by Automated countOrdered By: Luis F Hanna on 03-19-2024 Lymphocytes (Bld) [#/Vol] 1.2 10*3/uL Normal 1.00-4.8 [facility] Comment on above: Performed By: #### C BC, HEPATIC, BMP, LIPASE #### [address] Lymphocytes/100 WBC Auto (Bl d)Ordered By: Luis F Hanna on 03-19-2024 Lymphocytes/100 WBC (Bld) Lymphocytes/100 leukocytes in Blood by Automated count . [facility] Lymphocytes/100 leukocytes i n Blood by Automated countOrdered By: Luis F Hanna on 03-19-2024 Lymphocytes/100 WBC (Bld) 20.5 % Normal . [facility] Comment on above: Performed By: #### C BC, HEPATIC, BMP, LIPASE #### [address] MCH Auto (RBC) [Entitic mass ]Ordered By: Luis F Hanna on 03-19-2024 MCH (RBC) [Entitic mass] MCH [Entitic mass] by Automated count 24.7-34.3 [facility] MCH [Entitic mass] by Automa adri countOrdered By: Luis F Hanna on 03-19-2024 MCH (RBC) [Entitic mass] 30.2 pg Normal 24.7-34.3 [facility] Comment on above: Performed By: #### C BC, HEPATIC, BMP, LIPASE #### [facility] [address] [place] [address] MCHC Auto (RBC) [Mass/Vol]Or dered By: Luis F Hanna on 03-19-2024 MCHC (RBC) [Mass/Vol] 34.0 g/dL 32.0-35.0 [facility] MCHC (RBC) [Mass/Vol] MCHC [Mass/volume] by Automated count 32.0-35.0 [facility] MCV Auto (RBC) [Entitic vol] Ordered By: Luis F Hanna on 03-19-2024 MCV (RBC) [Entitic vol] MCV [Entitic volume] by Automated count 80-100 [facility] MCV [Entitic volume] by Auto mated countOrdered By: Luis F Hanna on 03-19-2024 MCV (RBC) [Entitic vol] 88.8 fL Normal 80-100 [facility] Comment on above: Performed By: #### C BC, HEPATIC, BMP, LIPASE #### [facility] [address] [place] [address] Monocyte distribution width [Entitic volume] in Blood by AutomatedOrdered By: Luis F Hanna on 03-19-2024 Monocyte distribution width Auto (Bld) [Entitic vol] 21.44 % High 0.00-20.00 [facility] Comment on above: For adults in ED, MD W > 20.0 may be associated with a higher risk of sepsis during the first 12 hrs of hospital admission Monocyte distribution width Auto (Bld) [Entitic vol] Monocyte distribution width [Entitic volume] in Blood by Automated High 0.00-20.00 [facility] Comment on above: For adults in ED, MD W > 20.0 may be associated with a higher risk of sepsis during the first 12 hrs of hospital admission Monocytes Auto (Bld) [#/Vol] Ordered By: Luis F Hanna on 03-19-2024 Monocytes (Bld) [#/Vol] Automated blood monocyte count 0.0-0.8 [facility] Monocytes/100 WBC Auto (Bld) Ordered By: Luis F Hanna on 03-19-2024 Monocytes/100 WBC (Bld) Automated monocyte % . [facility] Natriuretic peptide B [Mass/ Vol]Ordered By: Luis F Hanna on 03-19-2024 Natriuretic peptide B (Bld) [Mass/Vol] BNP ser/plas High 5-100 [facility] Neutrophils Auto (Bld) [#/Vo l]Ordered By: Luis F Hanna on 03-19-2024 Neutrophils (Bld) [#/Vol] Neutrophils [#/volume] in Blood by Automated count 1.8-7.7 [facility] Neutrophils [#/volume] in Bl ood by Automated countOrdered By: Luis F Hanna on 03-19-2024 Neutrophils (Bld) [#/Vol] 4.2 10*3/uL Normal 1.8-7.7 [facility] Comment on above: Performed By: #### C BC, HEPATIC, BMP, LIPASE #### [facility] [address] Neutrophils/100 WBC Auto (Bl d)Ordered By: Luis F Hanna on 03-19-2024 Neutrophils/100 WBC (Bld) Automated neutrophil % . [facility] Nitrite Test strip Ql (U)Ord ered By: Luis F Hanna on 03-19-2024 Nitrite Ql (U) Negative Negative [facility] Nitrite Ql (U) Nitrite [Presence] i n Urine by Test strip Negative [facility] No Panel InformationOrdered By: Luis F Hanna on 03-19-2024 Estimated GFR (CKD-EPI) 49.710 mL/Min [facility] Creatinine Clearance (Chem 30.23 [facility] Nucleated erythrocytes [Pres ence] in Blood by Automated countOrdered By: Luis F Hanna on 03-19-2024 Nucleated RBC Auto Ql (Bld) 0.2 /100{WBC} 0-0.5 [facility] Nucleated RBC Auto Ql (Bld) Nucleated erythrocytes [Presence] in Blood by Automated count 0-0.5 [facility] Platelet mean volume Auto (B ld) [Entitic vol]Ordered By: Luis F Hanna on 03-19-2024 Platelet mean volume (Bld) [Entitic vol] Platelet mean volume [Entitic volume] in Blood by Automated count 6.3-10.7 [facility] Platelet mean volume [Entiti c volume] in Blood by Automated countOrdered By: Luis F Hanna on 03-19-2024 Platelet mean volume (Bld) [Entitic vol] 8.9 fL Normal 6.3-10.7 [facility] Comment on above: Performed By: #### C BC, HEPATIC, BMP, LIPASE #### [facility] [address] [place] [address] [place] Platelets Auto (Bld) [#/Vol] Ordered By: Luis F Hanna on 03-19-2024 Platelets (Bld) [#/Vol] Platelets [#/volume] in Blood by Automated count 150-450 [facility] Platelets [#/volume] in Bloo d by Automated countOrdered By: Luis F Hanna on 03-19-2024 Platelets (Bld) [#/Vol] 183 10*3/uL Normal 150-450 [facility] Comment on above: Performed By: #### C BC, HEPATIC, BMP, LIPASE #### [facility] [address] [place] [address] [place] Potassium [Moles/volume] in Serum or PlasmaOrdered By: Luis F Hanna on 03-19-2024 Potassium [Moles/Vol] 4.1 mmol/L Normal 3.5-5.1 [facility] Comment on above: Performed By: #### C BC, HEPATIC, BMP, LIPASE #### [facility] [address] Potassium [Moles/Vol] Potassium [Moles/v olume] in Serum or Plasma 3.5-5.1 [facility] Protein Test strip (U) [Mass /Vol]Ordered By: Luis F Hanna on 03-19-2024 Protein (U) [Mass/Vol] Negative Negative [facility] Protein (U) [Mass/Vol] Protein [Mass/vol ume] in Urine by Test strip Negative [facility] Protein [Mass/volume] in Ser um or PlasmaOrdered By: Luis F Hanna on 03-19-2024 Protein [Mass/Vol] 5.8 g/dL Low 6.4-8.9 [facility] Comment on above: Performed By: #### C BC, HEPATIC, BMP, LIPASE #### [address] Protein [Mass/Vol] Protein [Mass/volume ] in Serum or Plasma Low 6.4-8.9 [facility] RBC Auto (Bld) [#/Vol]Ordere d By: Luis F Hanna on 03-19-2024 RBC (Bld) [#/Vol] Erythrocytes [#/volu me] in Blood by Automated count 3.60-5.00 [facility] Serum globulin measurement b y calculation (mass/volume)Ordered By: Luis F Hanna on 03-19-2024 Globulin (S) [Mass/Vol] 2.0 g/dL Normal [facility] Comment on above: Performed By: #### C BC, HEPATIC, BMP, LIPASE #### [facility] [address] [place] [address] Serum or plasma albumin/glob ulin mass ratioOrdered By: Luis F Hanna on 03-19-2024 Albumin/Globulin [Mass ratio] 1.9 {ratio} Normal [facility] Comment on above: Performed By: #### C BC, HEPATIC, BMP, LIPASE #### [facility] [address] [place] [address] Albumin/Globulin [Mass ratio] Serum or plasma albumin/globulin mass ratio [facility] Serum or plasma anion gap de terminationOrdered By: Luis F Hanna on 03-19-2024 Anion gap [Moles/Vol] 11.9 mmol/L Normal 6.0-15.0 [facility] Comment on above: Performed By: #### C BC, HEPATIC, BMP, LIPASE #### [facility] [address] Anion gap [Moles/Vol] Serum or plasma an ion gap determination 6.0-15.0 [facility] Serum or plasma non-glucuron idated bilirubin measurement (mass/volume)Ordered By: Luis F Hanna on 03-19-2024 Bilirubin.indirect [Mass/Vol] 0.6 mg/dL [facility] Bilirubin.indirect [Mass/Vol] Serum or plasma non-glucuronidated bilirubin measurement (mass/volume) [facility] Sodium [Moles/volume] in Ser um or PlasmaOrdered By: Luis F Hanna on 03-19-2024 Sodium [Moles/Vol] 139 mmol/L Normal 136-145 [facility] Comment on above: Performed By: #### C BC, HEPATIC, BMP, LIPASE #### [address] Sodium [Moles/Vol] Sodium [Moles/volume ] in Serum or Plasma 136-145 [facility] Specific gravity Test strip (U) [Rel density]Ordered By: Luis F Hanna on 03-19-2024 Specific gravity (U) [Rel density] 1.013 1.001-1.03 0 [facility] Specific gravity (U) [Rel density] Specific gravity of Urine by Test strip 1.001-1.03 0 [facility] Troponin I High Sensitivityo n 03-19-2024 Troponin I High Sensitivity 9.7 pg/mL Normal 0.0-15.0 [facility] Comment on above: Result Comment: PERF ORMED BY: [place] [address] PATHOLOGIST REPAIR WEAVER SHAI OREILLY M.D. Performed By: #### C BC, HEPATIC, BMP, LIPASE #### [address] Troponin I.cardiac [Mass/vol ume] in Serum or Plasma by Detection limit <= 0.01 ng/Ordered By: Luis F Hanna on 03-19-2024 Troponin I.cardiac DL <= 0.01 ng/mL [Mass/Vol] 9.7 pg/mL 0.0-15.0 [facility] Troponin I.cardiac DL <= 0.01 ng/mL [Mass/Vol] Troponin I.cardiac [Mass/volume] in Serum or Plasma by Detection limit <= 0.01 ng/ 0.0-15.0 [facility] Urea nitrogen [Mass/volume] in Serum or PlasmaOrdered By: Luis F Hanna on 03-19-2024 Urea nitrogen [Mass/Vol] 22 mg/dL Normal 01-13 [facility] Comment on above: Performed By: #### C BC, HEPATIC, BMP, LIPASE #### [facility] [address] Urea nitrogen [Mass/Vol] Urea nitrogen [Mass/volume] in Serum or Plasma 01-13 [facility] Urinalysison 03-19-2024 Bilirubin,Urine Negative Normal Negative [facility] Comment on above: Order Comment: Name Collection Type:: Clean-Voided Midstream Performed By: #### C BC, HEPATIC, BMP, LIPASE #### [facility] [address] Glucose Ql (U) Normal Normal Normal [facility] Comment on above: Order Comment: Name Collection Type:: Clean-Voided Midstream Performed By: #### C BC, HEPATIC, BMP, LIPASE #### [facility] [address] [place] [id number] [place] Nitrite,Urine Negative Normal Negative [facility] Comment on above: Order Comment: Name Collection Type:: Clean-Voided Midstream Performed By: #### C BC, HEPATIC, BMP, LIPASE #### [facility] [address] [place] [id number] [place] Occult Blood,Urine Negative Normal Negative [facility] Comment on above: Order Comment: Name Collection Type:: Clean-Voided Midstream Result Comment: PERF ORMED BY: [place] [address] PATHOLOGIST REPAIR WEAVER SHAI OREILLY M.D. Performed By: #### C BC, HEPATIC, BMP, LIPASE #### [address] Protein,Urine Negative Normal Negative [facility] Comment on above: Order Comment: Name Collection Type:: Clean-Voided Midstream Performed By: #### C BC, HEPATIC, BMP, LIPASE #### [address] Specificy [place],Urine 1.013 Normal 1.001-1.03 0 [facility] Comment on above: Order Comment: Name Collection Type:: Clean-Voided Midstream Performed By: #### C BC, HEPATIC, BMP, LIPASE #### [address] Urobilinogen,Urine Normal Normal Normal [facility] Comment on above: Order Comment: Name Collection Type:: Clean-Voided Midstream Performed By: #### C BC, HEPATIC, BMP, LIPASE #### [address] Urine appearanceOrdered By: Luis F Hanna on 03-19-2024 Appearance (U) Clear Normal Clear [facility] Comment on above: Order Comment: Name Collection Type:: Clean-Voided Midstream Performed By: #### C BC, HEPATIC, BMP, LIPASE #### [address] Urobilinogen Test strip (U) [Mass/Vol]Ordered By: Luis F Hanna on 03-19-2024 Urobilinogen (U) [Mass/Vol] Normal mg/dL Normal [facility] Urobilinogen (U) [Mass/Vol] Urobilinogen [Mass/volume] in Urine by Test strip Normal [facility] WBC Auto (Bld) [#/Vol]Ordere d By: Luis F Hanna on 03-19-2024 WBC (Bld) [#/Vol] Leukocytes [#/volume ] in Blood by Automated count 3.8-11.6 [facility] pH Test strip (U)Ordered By: Luis F Hanna on 03-19-2024 pH (U) pH of Urine by Test strip 5.0-9.0 [facility] pH of Urine by Test stripOrd ered By: Luis F Hanna on 03-19-2024 pH (U) 5.5 [pH] Normal 5.0-9.0 [facility] Comment on above: Order Comment: Name Collection Type:: Clean-Voided Midstream Performed By: #### C BC, HEPATIC, BMP, LIPASE #### [address] abdomen pelvis w conon CT abdomen pelvis w [facility] [place] [address] [place] [address] CT Scan Report Signed Patient: Ludy Willis MR#: [id number] : 1945 Acct:[id number] Age/Sex: 78 / F ADM Date: 02/24/24 Loc: CT Room: Type: [facility] Attending Dr: Livan Arguello DO Copies to: Livan Arguello DO Ordering Provider: Livan Arguello DO Date of Service: 02/24/24 CT/CT abdomen pelvis w con: R10.9 - Unspecified abdominal pain CT ABDOMEN AND PELVIS WITH INTRAVENOUS CONTRAST: CLINICAL HISTORY: Generalized abdominal pain for 5 weeks with soft stool. COMPARISON: CT abdomen and pelvis 09/04/2022. TECHNIQUE: Spiral images were obtained through the abdomen and pelvis following the administration of intravenous contrast. This CT exam was performed using one or more following dose reduction techniques: Automated exposure control, adjustment of the mA and/or kV according to patient size, or use of iterative reconstruction technique. FINDINGS: Lung Bases: [Minimal atelectasis/scarring.] Organs:Gallbladder has been removed. Liver portal vein pancreas spleen and left adrenal gland appears unremarkable. Stable nodule right adrenal gland measuring 14 mm. No enhancing renal mass or hydronephrosis. Abdominal aorta appears normal in caliber.[ GI: Stomach is grossly unremarkable. Small bowel appears nondilated. No acute colonic abnormality. Colonic diverticulosis. Appendix is normal.[ Pelvis:[Urinary bladder is grossly unremarkable. Uterus has been removed. No adnexal mass.] Peritoneum/Retroperitoneu m:No free air, free fluid or lymphadenopathy.[ Abd wall/Bones:Abdominal wall demonstrates no acute findings. Osseous structures demonstrate degenerative change.[ CT/CT abdomen pelvis w con IMPRESSION: No acute process. Stable indeterminate nodule right adrenal gland. Colonic diverticulosis. Impression dictated by: Matthew Valero Jr., DQianOQian02/24/2024 2:25 PM Dictation Location: [place] [address] Transcribed By: [facility] 02/24/24 142 Dictated By: Matthew Valero Jr, DO 02/24/24 142 Signed By: 02/24/24 142 Normal [facility] Creatinineon 02-24-2024 GFR/1.73 sq M.predicted MDRD (S/P/Bld) [Vol rate/Area] 56.276 mL/min/{1.73_m2} Normal [facility] Comment on above: Order Comment: STAT FOR CT Result Comment: PERF ORMED BY: [place] [address] PATHOLOGIST REPAIR WEAVER SHAI OREILLY M.D. Performed By: #### B UN, CREAT #### [facility] [address] [place] [address] Creatinine [Mass/volume] in Serum or PlasmaOrdered By: Livan Arguello on 02-24-2024 Creatinine [Mass/Vol] 1.01 mg/dL Normal 0.60-1.20 [facility] Comment on above: Order Comment: STAT FOR CT Performed By: #### B UN, CREAT #### [facility] [address] [place] [address] Creatinine [Mass/Vol] Creatinine [Mass/v olume] in Serum or Plasma 0.60-1.20 [facility] No Panel InformationOrdered By: Livan Arguello on 02-24-2024 Estimated GFR (CKD-EPI) 56.276 mL/Min [facility] Creatinine Clearance (Chem N/A [facility] Urea nitrogen [Mass/volume] in Serum or PlasmaOrdered By: Livan Arguello on 09-04-2024 Urea nitrogen [Mass/Vol] 22 mg/dL Normal 01-13 [facility] Comment on above: Order Comment: STAT FOR CT Performed By: #### B UN, CREAT #### [facility] [address] Urea nitrogen [Mass/Vol] Urea nitrogen [Mass/volume] in Serum or Plasma 01-13 [facility] A1C with Estimated Average G luon 07-29-2023 Glucose [Mass/Vol] 120 mg/dL Normal [facility] Comment on above: Order Comment: 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;Hyperlipidemia Result Comment: Incr eased risk for diabetes: 5.7 - 6.4 diabetes: >6.4 glycemic control for adults with diabetes: <7.0 Performed By: #### A 1C [facility] eA #### [address] Alanine aminotransferase [En zymatic activity/volume] in Serum or PlasmaOrdered By: Livan Arguello on 07-29-2023 ALT [Catalytic activity/Vol] 12 U/L Normal [facility] Comment on above: Order Comment: Reaso n for Exam Diabetes mellitus with chronic kidney disease;Hyperlipidemia Reason for Exam Anemia of renal disease Performed By: #### C BC, HEPATIC, BMP, LIPASE #### [facility] [address] [place] [address] [place] Albumin [Mass/volume] in Ser um or Plasma by Bromocresol green (BCG) dye binding methoOrdered By: Livan Arguello on 07-29-2023 Albumin BCG dye [Mass/Vol] 4.2 g/dL 3.5-5.7 [facility] Alkaline phosphatase [Enzyma tic activity/volume] in Serum or PlasmaOrdered By: Livan Arguello on 07-29-2023 ALP [Catalytic activity/Vol] 71 U/L Normal 34-104 [facility] Comment on above: Order Comment: Reaso n for Exam Diabetes mellitus with chronic kidney disease;Hyperlipidemia Reason for Exam Anemia of renal disease Performed By: #### C BC, HEPATIC, BMP, LIPASE #### [facility] [address] Aspartate aminotransferase [ Enzymatic activity/volume] in Serum or PlasmaOrdered By: Livan Arguello on 07-29-2023 AST [Catalytic activity/Vol] 15 U/L Normal 13-39 [facility] Comment on above: Order Comment: Reaso n for Exam Diabetes mellitus with chronic kidney disease;Hyperlipidemia Reason for Exam Anemia of renal disease Performed By: #### C BC, HEPATIC, BMP, LIPASE #### [facility] [address] [place] [address] Automated basophil %Ordered By: Livan Arguello on 07-29-2023 Basophils/100 WBC (Bld) 0.2 % Normal . [facility] Comment on above: Order Comment: Reaso n for Exam Diabetes mellitus with chronic kidney disease;Hyperlipidemia Performed By: #### C BC, HEPATIC, BMP, LIPASE #### [facility] [address] [place] [address] Automated basophil countOrde red By: Livan Arguello on 07-29-2023 Basophils (Bld) [#/Vol] 0.0 10*3/uL Normal 0.0-0.2 [facility] Comment on above: Order Comment: 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 Performed By: #### C BC, HEPATIC, BMP, LIPASE #### [facility] [address] [place] [address] Automated blood monocyte cou ntOrdered By: Livan Arguello on 07-29-2023 Monocytes (Bld) [#/Vol] 0.5 10*3/uL Normal 0.0-0.8 [facility] Comment on above: Order Comment: Reaso n for Exam Diabetes mellitus with chronic kidney disease;Hyperlipidemia Performed By: #### C BC, HEPATIC, BMP, LIPASE #### [facility] [address] Automated eosinophil %Ordere d By: Livan Arguello on 07-29-2023 Eosinophils/100 WBC (Bld) 0.0 % Normal . [facility] Comment on above: Order Comment: Reaso n for Exam Diabetes mellitus with chronic kidney disease;Hyperlipidemia Performed By: #### C BC, HEPATIC, BMP, LIPASE #### [facility] [address] [place] [address] Automated eosinophil countOr dered By: Livan Arguello on 07-29-2023 Eosinophils (Bld) [#/Vol] 0.0 10*3/uL Normal 0.0-0.45 [facility] Comment on above: Order Comment: Reaso n for Exam Diabetes mellitus with chronic kidney disease;Hyperlipidemia Performed By: #### C BC, HEPATIC, BMP, LIPASE #### [facility] [address] [place] [address] Automated monocyte %Ordered By: Livan Arguello on 07-29-2023 Monocytes/100 WBC (Bld) 9.6 % Normal . [facility] Comment on above: Order Comment: Reaso n for Exam Diabetes mellitus with chronic kidney disease;Hyperlipidemia Performed By: #### C BC, HEPATIC, BMP, LIPASE #### [facility] [address] Automated neutrophil %Ordere d By: Livan Arguello on 07-29-2023 Neutrophils/100 WBC (Bld) 64.9 % Normal . [facility] Comment on above: Order Comment: Reaso n for Exam Diabetes mellitus with chronic kidney disease;Hyperlipidemia Performed By: #### C BC, HEPATIC, BMP, LIPASE #### [facility] [address] [place] [address] Bilirubin.total [Mass/volume ] in Serum or PlasmaOrdered By: Livan Arguello on 07-29-2023 Bilirubin [Mass/Vol] 0.5 mg/dL Normal 0.3-1.0 [facility] Comment on above: Order Comment: Reaso n for Exam Diabetes mellitus with chronic kidney disease;Hyperlipidemia Reason for Exam Anemia of renal disease Performed By: #### C BC, HEPATIC, BMP, LIPASE #### [facility] [address] [place] [address] [place] Calcium [Mass/volume] in Ser um or PlasmaOrdered By: Livan Arguello on 07-29-2023 Calcium [Mass/Vol] 9.6 mg/dL Normal 8.6-10.3 [facility] Comment on above: Order Comment: Reaso n for Exam Diabetes mellitus with chronic kidney disease;Hyperlipidemia Reason for Exam Anemia of renal disease Performed By: #### C BC, HEPATIC, BMP, LIPASE #### [facility] [address] Carbon dioxide, total [Moles /volume] in Serum or PlasmaOrdered By: Livan Arguello on 07-29-2023 CO2 [Moles/Vol] 28.0 mmol/L Normal 21.0-31.0 [facility] Comment on above: Order Comment: Reaso n for Exam Diabetes mellitus with chronic kidney disease;Hyperlipidemia Reason for Exam Anemia of renal disease Performed By: #### C BC, HEPATIC, BMP, LIPASE #### [facility] [address] [place] [address] [place] Chloride [Moles/volume] in S sandip or PlasmaOrdered By: Livan Arguello on 07-29-2023 Chloride [Moles/Vol] 107 mmol/L Normal 98-107 [facility] Comment on above: Order Comment: Reaso n for Exam Diabetes mellitus with chronic kidney disease;Hyperlipidemia Reason for Exam Anemia of renal disease Performed By: #### C BC, HEPATIC, BMP, LIPASE #### [facility] [address] [place] [address] [place] Cholesterol [Mass/volume] in Serum or PlasmaOrdered By: Livan Arguello on 07-29-2023 Cholesterol [Mass/Vol] 134 mg/dL Low 140-200 [facility] Comment on above: Chol less than 200 m g/dl low riskChol 201-239 mg/dl borderline riskChol 240 mg/dl and greater high risk Order Comment: Reaso n for Exam Diabetes mellitus with chronic kidney disease;Hyperlipidemia Reason for Exam Anemia of renal disease Result Comment: Chol less than 200 mg/dl low risk Chol 201-239 mg/dl borderline risk Chol 240 mg/dl and greater high risk Performed By: #### C BC, HEPATIC, BMP, LIPASE #### [facility] [address] Cholesterol in LDL Calc [Mas s/Vol]Ordered By: Livna Arguello on 07-29-2023 Cholesterol in LDL [Mass/Vol] 62 mg/dL 0-100 [facility] Comment on above: LDL ATP III CLASSIFI CATIONLDL less than 100 mg/dL OptimalLDL 100-129 mg/dL Near or above optimalLDL 130-159 mg/dL Borderline highLDL 160-189 mg/dL HighLDL greater than 189 mg/dL Very high Cholesterol in VLDL Calc [Ma ss/Vol]Ordered By: Livan Arguello on 07-29-2023 Cholesterol in VLDL [Mass/Vol] 16 mg/dL [facility] Complete Blood Count Auto Di ffon 07-29-2023 Mean Corpuscular HGB Conc 33.0 g/dL Normal 32.0-35.0 [facility] Comment on above: Order Comment: Reaso n for Exam Diabetes mellitus with chronic kidney disease;Hyperlipidemia Performed By: #### C BC, HEPATIC, BMP, LIPASE #### [address] NRBC% 0.1 /100{WBC} Normal 0-0.5 [facility] Comment on above: Order Comment: Reaso n for Exam Diabetes mellitus with chronic kidney disease;Hyperlipidemia Performed By: #### C BC, HEPATIC, BMP, LIPASE #### [facility] [address] Comprehensive Metabolic Pane derek 07-29-2023 Albumin [Mass/Vol] 4.2 g/dL Normal 3.5-5.7 [facility] Comment on above: Order Comment: Reaso n for Exam Diabetes mellitus with chronic kidney disease;Hyperlipidemia Reason for Exam Anemia of renal disease Performed By: #### C BC, HEPATIC, BMP, LIPASE #### [facility] [address] GFR/1.73 sq M.predicted MDRD (S/P/Bld) [Vol rate/Area] 51.356 mL/min/{1.73_m2} Normal [facility] Comment on above: Order Comment: Reaso n for Exam Diabetes mellitus with chronic kidney disease;Hyperlipidemia Reason for Exam Anemia of renal disease Performed By: #### C BC, HEPATIC, BMP, LIPASE #### [facility] [address] Creatinine [Mass/volume] in Serum or PlasmaOrdered By: Livan Arguello on 07-29-2023 Creatinine [Mass/Vol] 1.09 mg/dL Normal 0.60-1.20 [facility] Comment on above: Order Comment: Reaso n for Exam Diabetes mellitus with chronic kidney disease;Hyperlipidemia Reason for Exam Anemia of renal disease Performed By: #### C BC, HEPATIC, BMP, LIPASE #### [facility] [address] [place] [address] Erythrocyte distribution wid th [Ratio] by Automated countOrdered By: Livan Arguello on 07-29-2023 Erythrocyte distribution width (RBC) [Ratio] 18.6 % High 11.9-15.3 [facility] Comment on above: Order Comment: Reaso n for Exam Diabetes mellitus with chronic kidney disease;Hyperlipidemia Performed By: #### C BC, HEPATIC, BMP, LIPASE #### [address] Erythrocytes [#/volume] in B lood by Automated countOrdered By: Livan Arguello on 07-29-2023 RBC (Bld) [#/Vol] 3.92 10*6/uL Normal 3.60-5.00 [facility] Comment on above: Order Comment: Reaso n for Exam Diabetes mellitus with chronic kidney disease;Hyperlipidemia Performed By: #### C BC, HEPATIC, BMP, LIPASE #### [place] [address] [place] Ferritin [Mass/volume] in Se rum or PlasmaOrdered By: Livan Arguello on 07-29-2023 Ferritin [Mass/Vol] 169.8 ng/mL Normal 11.0-306.8 [facility] Comment on above: Order Comment: Reaso n for Exam Diabetes mellitus with chronic kidney disease;Hyperlipidemia Reason for Exam Anemia of renal disease Performed By: #### C BC, HEPATIC, BMP, LIPASE #### [facility] [address] [place] [address] [place] Glucose [Mass/volume] in Ser um or PlasmaOrdered By: Livan Arguello on 07-29-2023 Glucose [Mass/Vol] 103 mg/dL High 70-100 [facility] Comment on above: ADA recommended refe rence rangeRandom Glucose Reference Range is dependent on time and content of last meal. Glucose of more than 200 mg/dL in a nonstressed, ambulatory subject supports the diagnosis of Diabetes Mellitus. Order Comment: Reaso n for Exam Diabetes mellitus with chronic kidney disease;Hyperlipidemia Reason for Exam Anemia of renal disease Result Comment: [place] om Glucose Reference Range is dependent on time and content of last meal. Glucose of more than 200 mg/dL in a nonstressed, ambulatory subject supports the diagnosis of Diabetes Mellitus. ADA recommended reference range Performed By: #### C BC, HEPATIC, BMP, LIPASE #### [facility] [address] [place] [address] [place] Hematocrit [Volume Fraction] of Blood by Automated countOrdered By: Livan Arguello on 07-29-2023 Hematocrit (Bld) [Volume fraction] 35.1 % Normal 34.0-46.4 [facility] Comment on above: Order Comment: Reaso n for Exam Diabetes mellitus with chronic kidney disease;Hyperlipidemia Performed By: #### C BC, HEPATIC, BMP, LIPASE #### [facility] [address] [place] [address] [place] Hemoglobin [Mass/volume] in BloodOrdered By: Livan Arguello on 07-29-2023 Hemoglobin (Bld) [Mass/Vol] 11.6 g/dL Low 11.8-15.4 [facility] Comment on above: Order Comment: Reaso n for Exam Diabetes mellitus with chronic kidney disease;Hyperlipidemia Performed By: #### C BC, HEPATIC, BMP, LIPASE #### [facility] [address] [place] [address] [place] Iron [Mass/volume] in Serum or PlasmaOrdered By: Livan Arguello on 07-29-2023 Iron [Mass/Vol] 93 ug/dL Normal 50-212 [facility] Comment on above: Order Comment: Reaso n for Exam Diabetes mellitus with chronic kidney disease;Hyperlipidemia Reason for Exam Anemia of renal disease Performed By: #### C BC, HEPATIC, BMP, LIPASE #### [facility] [address] [place] [id number] [facility] Iron and TIBC Profileon % Iron Saturation 33.2 % Normal 20-50 [facility] Comment on above: Order Comment: Reaso n for Exam Diabetes mellitus with chronic kidney disease;Hyperlipidemia Reason for Exam Anemia of renal disease Performed By: #### C BC, HEPATIC, BMP, LIPASE #### [facility] [address] Total Iron Binding Capacity 280 ug/dL Normal 255-450 [facility] Comment on above: Order Comment: Reaso n for Exam Diabetes mellitus with chronic kidney disease;Hyperlipidemia Reason for Exam Anemia of renal disease Performed By: #### C BC, HEPATIC, BMP, LIPASE #### [facility] [address] [id number] [facility] Iron binding capacity [Mass/ volume] in Serum or PlasmaOrdered By: Livan Arguello on 07-29-2023 Iron binding capacity [Mass/Vol] 280 ug/dL 255-450 [facility] Iron saturation [Mass Fracti on] in Serum or PlasmaOrdered By: Livan Arguello on 07-29-2023 Iron saturation [Mass fraction] 33.2 % 20-50 [facility] Leukocytes [#/volume] correc adri for nucleated erythrocytes in Blood by Automated counOrdered By: Livan Arguello on 07-29-2023 WBC corrected for nucl RBC Auto (Bld) [#/Vol] 5.4 10*3/uL 3.8-11.6 [facility] Leukocytes [#/volume] in Blo od by Automated countOrdered By: Livan Arguello on 07-29-2023 WBC (Bld) [#/Vol] 5.4 10*3/uL Normal 3.8-11.6 [facility] Comment on above: Order Comment: Reaso n for Exam Diabetes mellitus with chronic kidney disease;Hyperlipidemia Performed By: #### C BC, HEPATIC, BMP, LIPASE #### [facility] [address] Lipid Panelon 07-29-2023 LDL Cholesterol,Calculated 62 mg/dL Normal 0-100 [facility] Comment on above: Order Comment: Reaso n for Exam Diabetes mellitus with chronic kidney disease;Hyperlipidemia Reason for Exam Anemia of renal disease Result Comment: LDL ATP III CLASSIFICATION LDL less than 100 mg/dL Optimal LDL 100-129 mg/dL Near or above optimal LDL 130-159 mg/dL Borderline high LDL 160-189 mg/dL High LDL greater than 189 mg/dL Very high Performed By: #### C BC, HEPATIC, BMP, LIPASE #### [address] Triglyceride w/Reflex 81 mg/dL Normal 0-149 [facility] Comment on above: Order Comment: Reaso n for Exam Diabetes mellitus with chronic kidney disease;Hyperlipidemia Reason for Exam Anemia of renal disease Result Comment: TRIG ATP III CLASSIFICATION TRIG less than 150 mg/dL Normal TRIG 150-199 mg/dL Borderline high TRIG 200-500 mg/dL High TRIG greater than 500 mg/dL Very high Standard traceable to the Center for Disease Conrtrol and Prevention (CDC) test method. Performed By: #### C BC, HEPATIC, BMP, LIPASE #### [address] VLDL CHOLESTEROL 16 mg/dL Normal [facility] Comment on above: Order Comment: Reaso n for Exam Diabetes mellitus with chronic kidney disease;Hyperlipidemia Reason for Exam Anemia of renal disease Performed By: #### C BC, HEPATIC, BMP, LIPASE #### [address] Lymphocytes [#/volume] in Bl ood by Automated countOrdered By: Livan Arguello on 07-29-2023 Lymphocytes (Bld) [#/Vol] 1.4 10*3/uL Normal 1.00-4.8 [facility] Comment on above: Order Comment: Reaso n for Exam Diabetes mellitus with chronic kidney disease;Hyperlipidemia Performed By: #### C BC, HEPATIC, BMP, LIPASE #### [facility] [address] [place] [address] Lymphocytes/100 leukocytes i n Blood by Automated countOrdered By: Livan Arguello on 07-29-2023 Lymphocytes/100 WBC (Bld) 25.3 % Normal . [facility] Comment on above: Order Comment: Reaso n for Exam Diabetes mellitus with chronic kidney disease;Hyperlipidemia Performed By: #### C BC, HEPATIC, BMP, LIPASE #### [facility] [address] [place] [address] MCH [Entitic mass] by Automa adri countOrdered By: Livan Arguello on 07-29-2023 MCH (RBC) [Entitic mass] 29.6 pg Normal 24.7-34.3 [facility] Comment on above: Order Comment: Reaso n for Exam Diabetes mellitus with chronic kidney disease;Hyperlipidemia Performed By: #### C BC, HEPATIC, BMP, LIPASE #### [address] MCHC Auto (RBC) [Mass/Vol]Or dered By: Livan Arguello on 07-29-2023 MCHC (RBC) [Mass/Vol] 33.0 g/dL 32.0-35.0 [facility] MCV [Entitic volume] by Auto mated countOrdered By: Livan Arguello on 07-29-2023 MCV (RBC) [Entitic vol] 89.7 fL Normal 80-100 [facility] Comment on above: Order Comment: Reaso n for Exam Diabetes mellitus with chronic kidney disease;Hyperlipidemia Performed By: #### C BC, HEPATIC, BMP, LIPASE #### [facility] [address] [place] [address] Neutrophils [#/volume] in Bl ood by Automated countOrdered By: Livan Arguello on 07-29-2023 Neutrophils (Bld) [#/Vol] 3.5 10*3/uL Normal 1.8-7.7 [facility] Comment on above: Order Comment: Reaso n for Exam Diabetes mellitus with chronic kidney disease;Hyperlipidemia Performed By: #### C BC, HEPATIC, BMP, LIPASE #### [facility] [address] [place] [address] No Panel InformationOrdered By: Livan Arguello on 07-29-2023 Estimated GFR (CKD-EPI) 51.356 mL/Min [facility] Creatinine Clearance (Chem N/A [facility] Nucleated erythrocytes [Pres ence] in Blood by Automated countOrdered By: Livan Arguello on 07-29-2023 Nucleated RBC Auto Ql (Bld) 0.1 /100{WBC} 0-0.5 [facility] Platelet mean volume [Entiti c volume] in Blood by Automated countOrdered By: Livan Arguello on 07-29-2023 Platelet mean volume (Bld) [Entitic vol] 10.0 fL Normal 6.3-10.7 [facility] Comment on above: Order Comment: Reaso n for Exam Diabetes mellitus with chronic kidney disease;Hyperlipidemia Performed By: #### C BC, HEPATIC, BMP, LIPASE #### [facility] [address] [place] [address] [place] Platelets [#/volume] in Bloo d by Automated countOrdered By: Livan Arguello on 07-29-2023 Platelets (Bld) [#/Vol] 212 10*3/uL Normal 150-450 [facility] Comment on above: Order Comment: Reaso n for Exam Diabetes mellitus with chronic kidney disease;Hyperlipidemia Performed By: #### C BC, HEPATIC, BMP, LIPASE #### [facility] [address] [id number] [place] Potassium [Moles/volume] in Serum or PlasmaOrdered By: Livan Arguello on 07-29-2023 Potassium [Moles/Vol] 4.5 mmol/L Normal 3.5-5.1 [facility] Comment on above: Order Comment: Reaso n for Exam Diabetes mellitus with chronic kidney disease;Hyperlipidemia Reason for Exam Anemia of renal disease Performed By: #### C BC, HEPATIC, BMP, LIPASE #### [facility] [address] [id number] [place] Protein [Mass/volume] in Ser um or PlasmaOrdered By: Livan Arguello on 07-29-2023 Protein [Mass/Vol] 6.2 g/dL Low 6.4-8.9 [facility] Comment on above: Order Comment: Reaso n for Exam Diabetes mellitus with chronic kidney disease;Hyperlipidemia Reason for Exam Anemia of renal disease Performed By: #### C BC, HEPATIC, BMP, LIPASE #### [facility] [address] Serum globulin measurement b y calculation (mass/volume)Ordered By: Livan Arguello on 07-29-2023 Globulin (S) [Mass/Vol] 2.0 g/dL [facility] Comment on above: Order Comment: Reaso n for Exam Diabetes mellitus with chronic kidney disease;Hyperlipidemia Reason for Exam Anemia of renal disease Performed By: #### C BC, HEPATIC, BMP, LIPASE #### [facility] [address] [place] [address] Serum or plasma albumin/glob ulin mass ratioOrdered By: Livan Arguello on 07-29-2023 Albumin/Globulin [Mass ratio] 2.1 {ratio} [facility] Comment on above: Order Comment: Reaso n for Exam Diabetes mellitus with chronic kidney disease;Hyperlipidemia Reason for Exam Anemia of renal disease Performed By: #### C BC, HEPATIC, BMP, LIPASE #### [facility] [address] [place] [address] Serum or plasma anion gap de terminationOrdered By: Livan Arguello on 07-29-2023 Anion gap [Moles/Vol] 11.5 mmol/L Normal 6.0-15.0 [facility] Comment on above: Order Comment: Reaso n for Exam Diabetes mellitus with chronic kidney disease;Hyperlipidemia Reason for Exam Anemia of renal disease Performed By: #### C BC, HEPATIC, BMP, LIPASE #### [facility] [address] [place] [address] Serum or plasma high density lipoprotein (HDL) cholesterol measurementOrdered By: Livan Arguello on 07-29-2023 Cholesterol in HDL [Mass/Vol] 56 mg/dL Normal 23-92 [facility] Comment on above: HDL CHOL ATP-III CLA SSIFICATION Cardiovascular RiskHDL > or equal to 60 mg/dL LOWHDL < 40 mg/dL HIGH Order Comment: Reaso n for Exam Diabetes mellitus with chronic kidney disease;Hyperlipidemia Reason for Exam Anemia of renal disease Result Comment: HDL CHOL ATP-III CLASSIFICATION Cardiovascular Risk HDL > or equal to 60 mg/dL LOW HDL < 40 mg/dL HIGH Performed By: #### C BC, HEPATIC, BMP, LIPASE #### [facility] [address] Serum or plasma total choles terol/high density lipoprotein (HDL) cholesterol mass ratOrdered By: Livan Arguello on 07-29-2023 Cholesterol.total/Chol esterol in HDL [Mass ratio] 2.4 {ratio} Normal <5.0 [facility] Comment on above: Order Comment: Reaso n for Exam Diabetes mellitus with chronic kidney disease;Hyperlipidemia Reason for Exam Anemia of renal disease Performed By: #### C BC, HEPATIC, BMP, LIPASE #### [facility] [address] [place] [address] Sodium [Moles/volume] in Ser um or PlasmaOrdered By: Livan Arguello on 07-29-2023 Sodium [Moles/Vol] 142 mmol/L Normal 136-145 [facility] Comment on above: Order Comment: Reaso n for Exam Diabetes mellitus with chronic kidney disease;Hyperlipidemia Reason for Exam Anemia of renal disease Performed By: #### C BC, HEPATIC, BMP, LIPASE #### [facility] [address] [place] [address] Thyrotropin [Units/volume] i n Serum or PlasmaOrdered By: Livan Arguello on 07-29-2023 TSH Qn 2.89 m[IU]/L Normal 0.45-5.33 [facility] Comment on above: Order Comment: Reaso n for Exam Diabetes mellitus with chronic kidney disease;Hyperlipidemia Reason for Exam Anemia of renal disease Result Comment: PERF ORMED BY: [place] [address] PATHOLOGIST [employer] SHAI OREILLY M.D. Performed By: #### C BC, HEPATIC, BMP, LIPASE #### [facility] [address] [place] [address] Thyroxine (T4) free [Mass/vo lume] in Serum or PlasmaOrdered By: Livan Arguello on 07-29-2023 Free T4 [Mass/Vol] 0.98 ng/dL Normal 0.61-1.12 [facility] Comment on above: Order Comment: Reaso n for Exam Diabetes mellitus with chronic kidney disease;Hyperlipidemia Reason for Exam Anemia of renal disease Performed By: #### C BC, HEPATIC, BMP, LIPASE #### [facility] [address] [place] [address] [place] Transferrin [Mass/volume] in Serum or PlasmaOrdered By: Livan Arguello on 07-29-2023 Transferrin [Mass/Vol] 200 mg/dL Low 203-362 [facility] Comment on above: Order Comment: Reaso n for Exam Diabetes mellitus with chronic kidney disease;Hyperlipidemia Reason for Exam Anemia of renal disease Performed By: #### C BC, HEPATIC, BMP, LIPASE #### [facility] [address] Triglyceride [Mass/volume] i n Serum or PlasmaOrdered By: Livan Arguello on 07-29-2023 Triglyceride [Mass/Vol] 81 mg/dL 0-149 [facility] Comment on above: TRIG ATP III CLASSIF ICATIONTRIG less than 150 mg/dL NormalTRIG 150-199 mg/dL Borderline highTRIG 200-500 mg/dL High TRIG greater than 500 mg/dL Very highStandard traceable to the Center for Disease Conrtrol and Prevention (CDC) test method. Urea nitrogen [Mass/volume] in Serum or PlasmaOrdered By: Livan Arguello on 07-29-2023 Urea nitrogen [Mass/Vol] 22 mg/dL Normal 7-25 [facility] Comment on above: Order Comment: Reaso n for Exam Diabetes mellitus with chronic kidney disease;Hyperlipidemia Reason for Exam Anemia of renal disease Performed By: #### C BC, HEPATIC, BMP, LIPASE #### [facility] [address] [place] [address] [place] Albumin [Mass/volume] in Ser um or Plasma by Bromocresol green (BCG) dye binding methoOrdered By: Huy Tierney on 03-20-2023 Albumin BCG dye [Mass/Vol] 3.7 g/dL 3.5-5.7 [facility] Automated erythrocytes count in urine sediment (number/area)Ordered By: Huy Tierney on 03-20-2023 RBC Auto (Urine sed) [#/Area] None seen [HPF] 0-4 [facility] Automated leukocytes count i n urine sediment (number/area)Ordered By: Huy Tierney on 03-20-2023 WBC Auto (Urine sed) [#/Area] 20-49 [HPF] 0-4 [facility] Bilirubin Test strip Ql (U)O rdered By: Huy Tierney on 03-20-2023 Bilirubin Ql (U) Negative Negative [facility] Calcium [Mass/volume] in Ser um or PlasmaOrdered By: Huy Tierney on 03-20-2023 Calcium [Mass/Vol] 8.9 mg/dL 8.6-10.3 [facility] Carbon dioxide, total [Moles /volume] in Serum or PlasmaOrdered By: Huy Tierney on 03-20-2023 CO2 [Moles/Vol] 22.9 mmol/L 21.0-31.0 [facility] Chloride [Moles/volume] in S sandip or PlasmaOrdered By: Huy Tierney on 03-20-2023 Chloride [Moles/Vol] 110 mmol/L 98-107 [facility] Color Auto (U)Ordered By: Ab luis Tierney on 03-20-2023 Color (U) Yellow Yellow [facility] Creatinine [Mass/volume] in Serum or PlasmaOrdered By: Huy Tierney on 03-20-2023 Creatinine [Mass/Vol] 1.19 mg/dL 0.60-1.20 [facility] Creatinine [Mass/volume] in UrineOrdered By: Huy Tierney on 03-20-2023 Creatinine (U) [Mass/Vol] 63.0 mg/dL 11.0-20.0 [facility] Erythrocyte distribution wid th Auto (RBC) [Ratio]Ordered By: Huy Tierney on 03-20-2023 Erythrocyte distribution width (RBC) [Ratio] 15.8 % 11.9-15.3 [facility] Glucose [Mass/volume] in Ser um or PlasmaOrdered By: Huy Tierney on 03-20-2023 Glucose [Mass/Vol] 106 mg/dL 70-100 [facility] Comment on above: ADA recommended refe rence rangeRandom Glucose Reference Range is dependent on time and content of last meal. Glucose of more than 200 mg/dL in a nonstressed, ambulatory subject supports the diagnosis of Diabetes Mellitus. Hematocrit Auto (Bld) [Volum e fraction]Ordered By: Huy Tierney on 03-20-2023 Hematocrit (Bld) [Volume fraction] 29.5 % 34.0-46.4 [facility] Hemoglobin [Mass/volume] in BloodOrdered By: Huy Tierney on 03-20-2023 Hemoglobin (Bld) [Mass/Vol] 9.9 g/dL 11.8-15.4 [facility] Ketones Auto test strip (U) [Mass/Vol]Ordered By: Huy Tierney on 03-20-2023 Ketones (U) [Mass/Vol] Negative Negative [facility] - UrinalysisOrder ed By: Huy Tierney on 03-20-2023 Hyaline casts LM Ql (Urine sed) 0-8 [LPF] 0-8 [facility] Leukocytes [#/volume] correc adri for nucleated erythrocytes in Blood by Automated counOrdered By: Huy Tierney on 03-20-2023 WBC corrected for nucl RBC Auto (Bld) [#/Vol] 4.5 10*3/uL 3.8-11.6 [facility] MCH Auto (RBC) [Entitic mass ]Ordered By: Huy Tierney on 03-20-2023 MCH (RBC) [Entitic mass] 30.2 pg 24.7-34.3 [facility] MCHC Auto (RBC) [Mass/Vol]Or dered By: Huy Tierney on 03-20-2023 MCHC (RBC) [Mass/Vol] 33.5 g/dL 32.0-35.0 [facility] MCV Auto (RBC) [Entitic vol] Ordered By: Huy Tierney on 03-20-2023 MCV (RBC) [Entitic vol] 90.3 fL 80-100 [facility] Magnesium [Mass/volume] in S sandip or PlasmaOrdered By: Huy Tierney on 03-20-2023 Magnesium [Mass/Vol] 1.5 mg/dL 1.9-2.7 [facility] Nitrite Test strip Ql (U)Ord ered By: Huy Tierney on 03-20-2023 Nitrite Ql (U) Positive Negative [facility] No Panel InformationOrdered By: Huy Tierney on 03-20-2023 Estimated GFR (CKD-EPI) 46.511 mL/Min [facility] Creatinine Clearance (Chem N/A [facility] Phosphate [Mass/volume] in S sandip or PlasmaOrdered By: Huy Tierney on 03-20-2023 Phosphate [Mass/Vol] 3.4 mg/dL 3.7-7.2 [facility] Platelet mean volume Auto (B ld) [Entitic vol]Ordered By: Huy Tierney on 03-20-2023 Platelet mean volume (Bld) [Entitic vol] 9.1 fL 6.3-10.7 [facility] Platelets Auto (Bld) [#/Vol] Ordered By: Huy Tierney on 03-20-2023 Platelets (Bld) [#/Vol] 214 10*3/uL 150-450 [facility] Potassium [Moles/volume] in Serum or PlasmaOrdered By: Huy Tierney on 03-20-2023 Potassium [Moles/Vol] 4.6 mmol/L 3.5-5.1 [facility] Protein Auto test strip (U) [Mass/Vol]Ordered By: Huy Tierney on 03-20-2023 Protein (U) [Mass/Vol] Negative Negative [facility] Protein [Mass/volume] in Uri neOrdered By: Huy Tierney on 03-20-2023 Protein (U) [Mass/Vol] 9 mg/dL 0-9 [facility] RBC Auto (Bld) [#/Vol]Ordere d By: Huy Tierney on 03-20-2023 RBC (Bld) [#/Vol] 3.27 10*6/uL 3.60-5.00 [facility] Serum or plasma anion gap de terminationOrdered By: Huy Tierney on 03-20-2023 Anion gap [Moles/Vol] 11.7 mmol/L 6.0-15.0 [facility] Sodium [Moles/volume] in Ser um or PlasmaOrdered By: Huy Tierney on 03-20-2023 Sodium [Moles/Vol] 140 mmol/L 136-145 [facility] Specific gravity Auto test s trip (U) [Rel density]Ordered By: Huy Tierney on 03-20-2023 Specific gravity (U) [Rel density] 1.012 1.001-1.03 0 [facility] Squamous epithelial cells de tection in urine sediment by light microscopyOrdered By: Huy Tierney on 03-20-2023 Epithelial cells.squamous LM Ql (Urine sed) None seen [HPF] 0-2 [facility] Urate [Mass/volume] in Serum or PlasmaOrdered By: Huy Tierney on 03-20-2023 Urate [Mass/Vol] 5.2 mg/dL 2.3-6.6 [facility] Urea nitrogen [Mass/volume] in Serum or PlasmaOrdered By: Huy Tierney on 03-20-2023 Urea nitrogen [Mass/Vol] 26 mg/dL 7-25 [facility] Urine bacteria detection by automated methodOrdered By: Huy Tierney on 03-20-2023 Bacteria Auto Ql (U) 3+ None Seen [facility] Urine clarity by refractomet ry automatedOrdered By: Huy Tierney on 03-20-2023 Clarity Refractometry automated (U) Clear Clear [facility] Urine culture routineOrdered By: Huy Tierney on 03-20-2023 Bacteria identified Cx Nom (U) Klebsiella pneumoniae [facility] Urine glucose measurement by automated test strip (mass/volume)Ordered By: Huy Tierney on 03-20-2023 Glucose Auto test strip (U) [Mass/Vol] Normal mg/dL Normal [facility] Urine hemoglobin detection b y automated test stripOrdered By: Huy Teirney on 03-20-2023 Hemoglobin Auto test strip Ql (U) Negative Negative [facility] Urine leukocyte esterase det ection by automated test stripOrdered By: Huy Tierney on 03-20-2023 Leukocyte esterase Auto test strip Ql (U) 3+ Negative [facility] Urine protein/creatinine rat ioOrdered By: Huy Tierney on 03-20-2023 Protein/Creatinine (U) [Ratio] 143 mg/g{Cre} 0-200 [facility] Urobilinogen Auto test strip (U) [Mass/Vol]Ordered By: Huy Tierney on 03-20-2023 Urobilinogen (U) [Mass/Vol] Normal mg/dL Normal [facility] Vitamin D+Metabolites [Mass/ volume] in Serum or PlasmaOrdered By: Huy Tierney on 03-20-2023 Vitamin D+Metabolites [Mass/Vol] 34.5 ng/mL 30-100 [facility] Comment on above: VITAMIN D STATUS 25( [place])VITAMIN D RANGE (ng/mL) Deficient <20 Insufficient 20 to <30Sufficient 30 to 100Reference: Marito MF,Chris LARSON, Philly BAINS, et al. Evaluation,treatment, and prevention of vitamin D deficiency; an Endocrine Society clinical practice guideline. JCEM. 2010; 96(7):1911-30. pH Auto test strip (U)Ordere d By: Huy Tierney on 03-20-2023 pH (U) 5.5 [pH] 5.0-9.0 [facility] Office Visit (Cardiology)on 11-26-2022 Follow-up visit Diagnoses/Problems Assessed Essential hypertension (401.9) (I10) Sinus bradycardia (427.89) (R00.1) PVC (premature ventricular contraction) (427.69) (I49.3) Takotsubo syndrome (429.83) (I51.81) Hyperlipidemia (272.4) (E78.5) Overweight with body mass index (BMI) of 27 to 27.9 in adult (278.02,V85.23) (E66.3,Z68.27) Orders Overweight with body mass index (BMI) of 27 to 27.9 in adult Healthy Weight Tips; Status:Complete; Done: 26Nov2022 Patient Instructions Please bring all medicines, vitamins, and herbal supplements with you when you come to the office. Prescriptions will not be filled unless you are compliant with your follow up appointments or have a follow up appointment scheduled as per instruction of your physician. Refills should be requested at the time of your visit. PLAN: Through informed decision making process incorporating patients unique circumstances, the following treatment plan will be initiated: 1. Prescription drug management of cardiovascular medication for efficacy, adherence to treatment, side effect assessment and polypharmacy. Current treatment clinically warranted and to continue without modifications. 2. Take blood pressure 2 hours after morning medications. Goal is top number below 140 3. Return for follow-up; in the interim, contact the office if new symptoms arise. Dr. Mckeon as scheduled Chief Complaint 1 month f/u for medication change and testing results: 'doing ok' LUDY WILLIS is being seen for a 3 month follow-up of a medication change. Patient presents to the office ambulatory with steady gait, accompanied by her . Last evaluated in clinic Dr. Mckeon August 2022. At that time dose of carvedilol decreased due to bradycardia. Repeat echocardiogram shows normalization of EF and wall motion abnormalities-results reviewed with patient. She presents today were overall reports doing okay . Her heart rate at home remains 45-57 despite reduction in carvedilol. 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 She otherwise remains aerobically active working on the boat, doing yard work and cleaning her house. She denies any type of exertional symptoms. On lower dose of carvedilol blood pressure remained stable. Patient and are both significantly relieved with echocardiogram findings. Otherwise, patient denies any change in overall cardiovascular status since last evaluation in clinic. History of Present Illness The patient states she has been generally doing well since the last visit. Comorbid Illnesses: hypertension and hyperlipidemia. Symptoms: denies chest pain at rest, denies exertional chest pain, denies dyspnea, stable fatigue, denies exercise intolerance, denies palpitations, denies edema, denies orthopnea, denies dizziness and denies orthostatic dizziness. Associated symptoms: no syncope. Her symptoms do not limit her activities. Disease Monitoring: The patient has had a stable weight. Medications: the patient is adherent with her medication regimen. She denies medication side effects. Surgical History Problems History of Bile duct stone removal History of Cardiac catheterization History of Cataract surgery History of Complete colonoscopy History of Esophagogastroduodenoscop y History of Hysterectomy Current Meds Medication NameInstruction Allopurinol 100 MG Oral TabletTAKE 1 TABLET DAILY. Aspirin EC 81 MG TBECTAKE 1 TABLET DAILY. Carvedilol 3.125 MG Oral Tablettake 1 tablet by mouth twice a day Crestor 5 MG Oral TabletTAKE 1 TABLET DAILY. Cyanocobalamin 100 MCG/ML SOLNinjection once a month Florastor 250 MG Oral CapsuleTAKE 1 CAPSULE Daily Irbesartan 300 MG Oral TabletTAKE 1 TABLET DAILY. Levothyroxine Sodium 75 MCG Oral TabletTAKE 1 TABLET DAILY. Magnesium Oxide 400 MG Oral TabletTAKE 1 TABLET DAILY. Nitroglycerin 0.4 MG Sublingual Tablet SublingualPLACE 1 TABLET UNDER THE TONGUE EVERY 5 MINUTES FOR UP TO 3 DOSES NEEDED FOR CHEST PAIN.CALL 911 IF PAIN PERSISTS. Allergies Medication Coreg Adverse Reaction; Bradycardia;; Recorded By: Teagan Sheffield; 07/31/2021 3:57:39 PM Penicillins Allergy; Hives;; Recorded By: Teagan Sheffield; 07/31/2021 3:57:39 PM Statins Adverse Reaction; Nausea; Recorded By: Teagan Sheffield; 07/31/2021 3:57:39 PM sulfa Adverse Reaction; Rash; Recorded By: Teagan Sheffield; 07/31/2021 3:57:39 PM Social History Problems Daily caffeine consumption 1 CUP OF COFFEE DAILY Never a smoker No illicit drug use Occasional alcohol use Wine occasionally Review of Systems Constitutional: not feeling tired. Cardiovascular: no chest pain, no palpitations and no lower extremity edema. Respiratory: no shortness of breath during exertion, no orthopnea and no PND. Vitals Vital Signs Re (more content not included)... Normal [employer] Tobacco Screening.on 023 Adult depression screening assessment No [facility] [employer] y 250 DO Work Phone: Fall risk assessment a) No falls within the last year [facility] [employer] y 250 DO Work Phone: Tobacco use status CPHS b) No [facility] [employer] [address] 250 DO Work Phone: Alanine aminotransferase [En zymatic activity/volume] in Serum or PlasmaOrdered By: Ivan Moore on 04-25-2023 ALT [Catalytic activity/Vol] 11 U/L 7-52 [facility] Albumin [Mass/volume] in Ser um or Plasma by Bromocresol green (BCG) dye binding methoOrdered By: Ivan Moore on 10-14-2022 Albumin BCG dye [Mass/Vol] 4.0 g/dL 3.5-5.7 [facility] Alkaline phosphatase [Enzyma tic activity/volume] in Serum or PlasmaOrdered By: Ivan Moore on 10-14-2022 ALP [Catalytic activity/Vol] 89 U/L 34-104 [facility] Aspartate aminotransferase [ Enzymatic activity/volume] in Serum or PlasmaOrdered By: Ivan Moore on 10-14-2022 AST [Catalytic activity/Vol] 14 U/L 13-39 [facility] Basophils Auto (Bld) [#/Vol] Ordered By: Ivan Moore on 10-14-2022 Basophils (Bld) [#/Vol] 0.0 10*3/uL 0.0-0.2 [facility] Basophils/100 WBC Auto (Bld) Ordered By: Ivan Moore on 10-14-2022 Basophils/100 WBC (Bld) 0.1 % . [facility] Bilirubin.total [Mass/volume ] in Serum or PlasmaOrdered By: Ivan Moore on 10-14-2022 Bilirubin [Mass/Vol] 0.6 mg/dL 0.3-1.0 [facility] C reactive protein [Mass/vol ume] in Serum or PlasmaOrdered By: Ivan Moore on 10-14-2022 CRP [Mass/Vol] < 0.5 mg/dL 0.0-0.5 [facility] Calcium [Mass/volume] in Ser um or PlasmaOrdered By: Ivan Moore on 10-14-2022 Calcium [Mass/Vol] 8.9 mg/dL 8.6-10.3 [facility] Carbon dioxide, total [Moles /volume] in Serum or PlasmaOrdered By: Ivan Moore on 10-14-2022 CO2 [Moles/Vol] 26.1 mmol/L 21.0-31.0 [facility] Chloride [Moles/volume] in S sandip or PlasmaOrdered By: Ivan Moore on 10-14-2022 Chloride [Moles/Vol] 109 mmol/L 98-107 [facility] Creatinine [Mass/volume] in Serum or PlasmaOrdered By: Ivan Moore on 10-14-2022 Creatinine [Mass/Vol] 1.25 mg/dL 0.60-1.20 [facility] Eosinophils Auto (Bld) [#/Vo l]Ordered By: Ivan Moore on 10-14-2022 Eosinophils (Bld) [#/Vol] 0.0 10*3/uL 0.0-0.45 [facility] Eosinophils/100 WBC Auto (Bl d)Ordered By: Ivan Moore on 10-14-2022 Eosinophils/100 WBC (Bld) 0.0 % . [facility] Erythrocyte distribution wid th Auto (RBC) [Ratio]Ordered By: Ivan Moore on 10-14-2022 Erythrocyte distribution width (RBC) [Ratio] 14.4 % 11.9-15.3 [facility] Erythrocyte sedimentation ra te by Photometric methodOrdered By: Ivan Moore on 10-14-2022 ESR Photometric method (Bld) [Velocity] 7 mm/hr 0-29 [facility] Globulin Calc (S) [Mass/Vol] Ordered By: Ivan Moore on 10-14-2022 Globulin (S) [Mass/Vol] 2.4 g/dL [facility] Glucose [Mass/volume] in Ser um or PlasmaOrdered By: Ivan Moore 10-14-2022 Glucose [Mass/Vol] 96 mg/dL 70-100 [facility] Comment on above: ADA recommended refe rence rangeRandom Glucose Reference Range is dependent on time and content of last meal. Glucose of more than 200 mg/dL in a nonstressed, ambulatory subject supports the diagnosis of Diabetes Mellitus. Hematocrit Auto (Bld) [Volum e fraction]Ordered By: Ivan Moore on 10-14-2022 Hematocrit (Bld) [Volume fraction] 34.1 % 34.0-46.4 [facility] Hemoglobin [Mass/volume] in BloodOrdered By: Ivan Moore on 10-14-2022 Hemoglobin (Bld) [Mass/Vol] 11.4 g/dL 11.8-15.4 [facility] Leukocytes [#/volume] correc adri for nucleated erythrocytes in Blood by Automated counOrdered By: Ivan Moore on 10-14-2022 WBC corrected for nucl RBC Auto (Bld) [#/Vol] 5.2 10*3/uL 3.8-11.6 [facility] Lymphocytes Auto (Bld) [#/Vo l]Ordered By: Ivan Moore on 10-14-2022 Lymphocytes (Bld) [#/Vol] 1.4 10*3/uL 1.00-4.8 [facility] Lymphocytes/100 WBC Auto (Bl d)Ordered By: Ivan Moore on 10-14-2022 Lymphocytes/100 WBC (Bld) 27.7 % . [facility] MCH Auto (RBC) [Entitic mass ]Ordered By: Ivan Moore on 10-14-2022 MCH (RBC) [Entitic mass] 30.3 pg 24.7-34.3 [facility] MCHC Auto (RBC) [Mass/Vol]Or dered By: Ivan Moore on 10-14-2022 MCHC (RBC) [Mass/Vol] 33.4 g/dL 32.0-35.0 [facility] MCV Auto (RBC) [Entitic vol] Ordered By: Ivan Moore on 10-14-2022 MCV (RBC) [Entitic vol] 90.8 fL 80-100 [facility] Monocytes Auto (Bld) [#/Vol] Ordered By: Ivan Moore on 10-14-2022 Monocytes (Bld) [#/Vol] 0.5 10*3/uL 0.0-0.8 [facility] Monocytes/100 WBC Auto (Bld) Ordered By: Ivan Moore on 10-14-2022 Monocytes/100 WBC (Bld) 10.4 % . [facility] Neutrophils Auto (Bld) [#/Vo l]Ordered By: Ivan Moore on 10-14-2022 Neutrophils (Bld) [#/Vol] 3.2 10*3/uL 1.8-7.7 [facility] Neutrophils/100 WBC Auto (Bl d)Ordered By: Ivan Moore on 10-14-2022 Neutrophils/100 WBC (Bld) 61.8 % . [facility] No Panel InformationOrdered By: Ivan Moore on 10-14-2022 Estimated GFR (CKD-EPI) 43.844 mL/Min [facility] Creatinine Clearance (Chem N/A [facility] Nucleated erythrocytes [Pres ence] in Blood by Automated countOrdered By: Ivan Moore on 10-14-2022 Nucleated RBC Auto Ql (Bld) 0.2 /100{WBC} 0-0.5 [facility] Platelet mean volume Auto (B ld) [Entitic vol]Ordered By: Ivan Moore on 10-14-2022 Platelet mean volume (Bld) [Entitic vol] 9.3 fL 6.3-10.7 [facility] Platelets Auto (Bld) [#/Vol] Ordered By: Ivan Moore on 10-14-2022 Platelets (Bld) [#/Vol] 176 10*3/uL 150-450 [facility] Potassium [Moles/volume] in Serum or PlasmaOrdered By: Ivan Moore on 10-14-2022 Potassium [Moles/Vol] 4.6 mmol/L 3.5-5.1 [facility] Protein [Mass/volume] in Ser um or PlasmaOrdered By: Ivan Moore on 10-14-2022 Protein [Mass/Vol] 6.4 g/dL 6.4-8.9 [facility] RBC Auto (Bld) [#/Vol]Ordere d By: Ivan Moore on 10-14-2022 RBC (Bld) [#/Vol] 3.76 10*6/uL 3.60-5.00 [facility] Serum nuclear antibody titer Ordered By: Ivan Moore on 10-14-2022 Nuclear Ab (S) [Titer] Negative . [facility] Comment on above: Negative <1:80 Borde rline 1:80 Positive >1:80ICAP nomenclature: AC-0For more information about Hep-2 cell patterns useANApatterns.org, the official website for theInternational Consensus on Antinuclear Antibody (MERCEDES)Patterns (ICAP).Performed at: [facility] [place], [place] [id number] Director: Charlie Rubin PhD, Phone: [phone] Serum or plasma albumin/glob ulin mass ratioOrdered By: Ivan Moore on 10-14-2022 Albumin/Globulin [Mass ratio] 1.7 {ratio} [facility] Serum or plasma anion gap de terminationOrdered By: Ivan Moore on 10-14-2022 Anion gap [Moles/Vol] 11.5 mmol/L 6.0-15.0 [facility] Sodium [Moles/volume] in Ser um or PlasmaOrdered By: Ivan Moore on 10-14-2022 Sodium [Moles/Vol] 142 mmol/L 136-145 [facility] Urea nitrogen [Mass/volume] in Serum or PlasmaOrdered By: Ivan Moore on 10-14-2022 Urea nitrogen [Mass/Vol] 27 mg/dL 7-25 [facility] WBC Auto (Bld) [#/Vol]Ordere d By: Ivan Moore on 10-14-2022 WBC (Bld) [#/Vol] 5.2 10*3/uL 3.8-11.6 [facility] Office Visit (Cardiology)on 09-09-2022 Follow-up visit Diagnoses/Problems Assessed Takotsubo syndrome (429.83) (I51.81) Essential hypertension (401.9) (I10) Sinus bradycardia (427.89) (R00.1) Overweight with body mass index (BMI) of 27 to 27.9 in adult (278.02,V85.23) (E66.3,Z68.27) Never a smoker Orders Essential hypertension Start: Carvedilol 3.125 MG Oral Tablet (Coreg); take 1 tablet by mouth twice a day Essential hypertension, Sinus bradycardia, Takotsubo syndrome Echocardiogram; Status:Hold For - Scheduling,Retrospective Authorization; Requested for:09Sep2022; Overweight with body mass index (BMI) of 27 to 27.9 in adult Healthy Weight Tips; Status:Complete - Retrospective Authorization; Done: 09Sep2022 Some eating tips that can help you lose weight.; Status:Complete - Retrospective Authorization; Done: 09Sep2022 SocHx: Never a smoker Tobacco Use Screening; Status:Complete; Done: 09Sep2022 Unlinked Stop: Carvedilol 6.25 MG Oral Tablet Patient Instructions Please bring all medicines, vitamins, and herbal supplements with you when you come to the office. Prescriptions will not be filled unless you are compliant with your follow up appointments or have a follow up appointment scheduled as per instruction of your physician. Refills should be requested at the time of your visit. Follow up in 8 months Chief Complaint LUDY WILLIS is being seen for chest pain. 77-year-old female who returns from [place] this past June where her sustained cardiac arrest and was hospitalized for 10 days. The , my patient currently sustained another ACS event and was diagnosed with second Takotsubo/stress cardiomyopathy event as evidenced by cardiac CT. The results and report and consultation all reviewed as she provided them. Currently she is doing well with mild bradycardia and normotensive. She has no symptoms of heart failure or angina or recurrent events since June. She has had no follow-up imaging, she remains on appropriate therapies from her initial Takotsubo event in 2016 at that time with normal coronary arteries. Cardiac CT imaging revealed minimal atherosclerosis, preserved basal segment contractility and mild hypokinesis of the anteroapical and inferoapical segments with ejection fraction of 45% Recommendations: Decrease Coreg to 3.125 twice daily, obtain echocardiogram for LV functional assessment, conversation in regards to recurrent Takotsubo cardiomyopathy and education, and follow-up in 6 to 8 months Surgical History Problems History of Bile duct stone removal History of Cardiac catheterization History of Cataract surgery History of Complete colonoscopy History of Esophagogastroduodenoscop y History of Hysterectomy Current Meds Medication NameInstruction Allopurinol 100 MG Oral TabletTAKE 1 TABLET DAILY. Aspirin EC 81 MG Oral Tablet Delayed ReleaseTAKE 1 TABLET DAILY. Carvedilol 6.25 MG Oral TabletTAKE 1 TABLET TWICE DAILY WITH MEALS. Crestor 5 MG Oral TabletTAKE 1 TABLET DAILY. Cyanocobalamin 100 MCG/ML SOLNinjection once a month Florastor 250 MG Oral CapsuleTAKE 1 CAPSULE Daily Fosamax 70 MG Oral TabletTAKE 1 TABLET Weekly Irbesartan 300 MG Oral TabletTAKE 1 TABLET DAILY. Levothyroxine Sodium 75 MCG Oral TabletTAKE 1 TABLET DAILY. Magnesium Oxide 400 MG Oral TabletTAKE 1 TABLET DAILY. Nitroglycerin 0.4 MG Sublingual Tablet SublingualPLACE 1 TABLET UNDER THE TONGUE EVERY 5 MINUTES FOR UP TO 3 DOSES NEEDED FOR CHEST PAIN.CALL 911 IF PAIN PERSISTS. Allergies Medication Coreg Adverse Reaction; Bradycardia;; Recorded By: Teagan Sheffield; 07/31/2021 3:57:39 PM Penicillins Allergy; Hives;; Recorded By: Teagan Sheffield; 07/31/2021 3:57:39 PM Statins Adverse Reaction; Nausea; Recorded By: Teagan Sheffield; 07/31/2021 3:57:39 PM sulfa Adverse Reaction; Rash; Recorded By: Teagan Sheffield; 07/31/2021 3:57:39 PM Social History Problems Daily caffeine consumption 1 CUP OF COFFEE DAILY Never a smoker No illicit drug use Occasional alcohol use Wine occasionally Review of Systems Constitutional: not feeling tired. Cardiovascular: chest pain, but no intermittent leg claudication and as noted in HPI. Respiratory: no cough and no shortness of breath. Gastrointestinal: no change in bowel habits and no blood in stools. Integumentary: no skin rashes. Neurological: no seizures and no frequent falls. All other systems have been reviewed and are negative for complaint. Vitals Vital Signs Recorded: 09Sep2022 10:45AM Heart Rate52, L Radial [id number], LUE, Sitting [id number], LUE, Sitting Height5 ft 1 in Zebfsn481 lb BMI Bzofxdzind96.96 kg/m2 BSA Calculated1.66 Tobacco Useb) No PHQ-2 #1. Over the last 2 weeks have you felt down, depressed or hopeless? (If yes, answer PHQ-9 below)No PHQ-2 #2. Over the last 2 weeks have you felt little interest or pleasure in doing things? (If yes, answer PHQ-9 below)No Falls Screening (Age 18+)a) No falls within the last year Physical Exam Constitutional: (more content not included)... Normal [employer] Tobacco Screening.on 023 Adult depression screening assessment No [facility] y 250 DO Work Phone: Fall risk assessment a) No falls within the last year [facility] y 250 DO Work Phone: Tobacco use status CP b) No [facility] 250 DO Work Phone: A1C with Estimated Average G delvis 09-04-2022 HbA1c (Bld) [Mass fraction] 6.000 % High 4.3-5.6 % [employer] Other HbA1c (Bld) [Mass fraction] 126 mg/dL [facility] Other [facility] Antinuclear Antibodieson 09-04-2022 [facility] Antinuclear Antibodies Negative . [facility] Other Alanine aminotransferase [En zymatic activity/volume] in Serum or PlasmaOrdered By: Livan Arguello on 09-04-2022 ALT [Catalytic activity/Vol] 13 U/L 7-52 [facility] Albumin [Mass/volume] in Ser um or Plasma by Bromocresol green (BCG) dye binding methoOrdered By: Livan Arguello on 09-04-2022 Albumin BCG dye [Mass/Vol] 4.1 g/dL 3.5-5.7 [facility] Alkaline phosphatase [Enzyma tic activity/volume] in Serum or PlasmaOrdered By: Livan Arguello on 09-04-2022 ALP [Catalytic activity/Vol] 83 U/L 34-104 [facility] Aspartate aminotransferase [ Enzymatic activity/volume] in Serum or PlasmaOrdered By: Livan Arguello on 09-04-2022 AST [Catalytic activity/Vol] 16 U/L 13-39 [facility] Basophils Auto (Bld) [#/Vol] Ordered By: Livan Arguello on 09-04-2022 Basophils (Bld) [#/Vol] 0.0 10*3/uL 0.0-0.2 [facility] Basophils/100 WBC Auto (Bld) Ordered By: Livan Arguello on 09-04-2022 Basophils/100 WBC (Bld) 0.3 % . [facility] Bilirubin.total [Mass/volume ] in Serum or PlasmaOrdered By: Livan Arguello on 09-04-2022 Bilirubin [Mass/Vol] 0.6 mg/dL 0.3-1.0 [facility] C reactive protein [Mass/vol ume] in Serum or PlasmaOrdered By: Livan Arguello on 09-04-2022 CRP [Mass/Vol] < 0.5 mg/dL 0.0-0.4 [facility] C-Reactive Proteinon 023 CRP [Mass/Vol] mg/L High 0.0-0.4 [facility] Other CT abdomen pelvis w conon CT abdomen pelvis w con [facility] Other CT abdomen pelvis w con [facility] [employer] Other CT abdomen pelvis w con [address] [facility] Other CT abdomen pelvis w con [place] [id number] [address] abdomen pelvis w con CT Scan Report [facility] Other CT abdomen pelvis w con Signed [facility] Other CT abdomen pelvis w con Patient: Ludy Willis MR#: [id number] [facility] [address] abdomen pelvis w con [id number] [facility] Other CT abdomen pelvis w con : 1945 Acct:[id number] [facility] Other CT abdomen pelvis w con Age/Sex: 77 / F ADM Date: 09/04/[address] [address] abdomen pelvis w con Loc: CT Room: Type: [facility] Other CT abdomen pelvis w con Attending Dr: Livan Arguello DO [facility] Other CT abdomen pelvis w con Copies to: Livan Arguello, [facility] Other CT abdomen pelvis w con Ordering Provider: Livan Arguello DO [facility] Other CT abdomen pelvis w con Date of Service: 09/04/[address] [facility] [address] abdomen pelvis w con CT/CT abdomen pelvis w con: Functional dyspepsia;Bowel [facility] Other CT abdomen pelvis w con incontinence;Diarrhea;Roberto ght loss [facility] Other CT abdomen pelvis w con CT ABDOMEN AND PELVIS WITH INTRAVENOUS CONTRAST: [facility] Other CT abdomen pelvis w con CLINICAL HISTORY: Lower abdominal pain for [address] [facility] [address] abdomen pelvis w con COMPARISON: CT abdomen and pelvis 05/28/[address] [facility] [address] abdomen pelvis w con TECHNIQUE: Spiral images were obtained through the abdomen and pelvis following the administration [facility] Other CT abdomen pelvis w con of intravenous contrast. This CT exam was performed using one or more following dose reduction [facility] Other CT abdomen pelvis w con techniques: Automated exposure control, adjustment of the mA and/or kV according to patient size, or [facility] Other CT abdomen pelvis w con use of iterative reconstruction technique. [facility] Other CT abdomen pelvis w con FINDINGS: [facility] Other CT abdomen pelvis w con Lung Bases: [Minimal atelectasis.] [facility] Other CT abdomen pelvis w con Organs:Gallbladder has been removed. A few droplets of pneumobilia is seen. Portal vein spleen [facility] Other CT abdomen pelvis w con pancreas and left adrenal gland appear unremarkable. 1.8 cm indeterminate nodule right adrenal [facility] Other CT abdomen pelvis w con gland unchanged from prior study. No enhancing renal mass or hydronephrosis. Abdominal aorta is [facility] Other CT abdomen pelvis w con normal in caliber.[ [facility] Other CT abdomen pelvis w con GI: Stomach is grossly remarkable. Small bowel appears nondilated. Colonic diverticulosis. [facility] Other CT abdomen pelvis w con Appendix is normal.[ [facility] Other CT abdomen pelvis w con Pelvis:[Urinary bladder is grossly unremarkable. Uterus has been removed. No adnexal mass.] [facility] Other CT abdomen pelvis w con Peritoneum/Retroperitoneu m:No free air, free fluid or lymphadenopathy.[ [facility] Other CT abdomen pelvis w con Abd wall/Bones:Abdominal wall demonstrates no acute findings. Osseous structures demonstrate [facility] Other CT abdomen pelvis w con degenerative change.[ [employer] Other CT abdomen pelvis w con CT/CT abdomen pelvis w con [facility] Other CT abdomen pelvis w con IMPRESSION: [facility] Other CT abdomen pelvis w con No acute findings. [facility] Other CT abdomen pelvis w con Few droplets of pneumobilia is seen. Finding is nonspecific. [facility] Other CT abdomen pelvis w con Colonic diverticulosis. [employer] Other CT abdomen pelvis w con Stable 1.8 cm indeterminate nodule right adrenal gland. [facility] Other CT abdomen pelvis w con Impression dictated by: Matthew Valero Jr., D.OQian09/04/2022 1:[address] [facility] [address] abdomen pelvis w con Dictation Location: [facility]--[address] [facility] [address] abdomen pelvis w con Transcribed By: PWS 09/04/[address] [address] abdomen pelvis w con Dictated By: Matthew Valero Jr, DO 09/04/[address] [facility] [address] abdomen pelvis w con Signed By: [facility] Other CT abdomen pelvis w con 09/04/22 1351 [facility] Other Calcium [Mass/volume] in Ser um or PlasmaOrdered By: Livan Arguello on 09-04-2022 Calcium [Mass/Vol] 9.3 mg/dL 8.6-10.3 [facility] Carbon dioxide, total [Moles /volume] in Serum or PlasmaOrdered By: Livan Arguello on 09-04-2022 CO2 [Moles/Vol] 26.4 mmol/L 21.0-31.0 [facility] Chloride [Moles/volume] in S sandip or PlasmaOrdered By: Livan Arguello on 09-04-2022 Chloride [Moles/Vol] 109 mmol/L 98-107 [facility] Cholesterol [Mass/volume] in Serum or PlasmaOrdered By: Livan Arguello on 09-04-2022 Cholesterol [Mass/Vol] 136 mg/dL 140-200 [facility] Comment on above: Chol less than 200 m g/dl low riskChol 201-239 mg/dl borderline riskChol 240 mg/dl and greater high risk Cholesterol in LDL Calc [Mas s/Vol]Ordered By: Livan Arguello on 09-04-2022 Cholesterol in LDL [Mass/Vol] 71 mg/dL 0-100 [facility] Comment on above: LDL ATP III CLASSIFI CATIONLDL less than 100 mg/dL OptimalLDL 100-129 mg/dL Near or above optimalLDL 130-159 mg/dL Borderline highLDL 160-189 mg/dL HighLDL greater than 189 mg/dL Very high Cholesterol in VLDL Calc [Ma ss/Vol]Ordered By: Livan Arguello on 09-04-2022 Cholesterol in VLDL [Mass/Vol] 17 mg/dL [facility] Complete Blood Count Auto Di ffon 09-04-2022 Basophils (Bld) [#/Vol] 0.028890146 10*3/uL Normal 0.0-0.2 10*3/uL [facility] Other Basophils/100 WBC (Bld) 0.300 % . % [facility] Other Eosinophils (Bld) [#/Vol] 0.119524281 10*3/uL Normal 0.0-0.45 10*3/uL [facility] Other Eosinophils/100 WBC (Bld) 0.000 % . % [facility] Other Erythrocyte distribution width (RBC) [Ratio] 15.200 % Normal 11.9-15.3 % [facility] Other Hematocrit (Bld) [Volume fraction] 35.200 % Normal 34.0-46.4 % [facility] Other Hemoglobin (Bld) [Mass/Vol] 11.090360 g/dL Normal 11.8-15.4 g/dL [facility] Other Lymphocytes (Bld) [#/Vol] 1.446684572 10*3/uL Normal 1.00-4.8 10*3/uL [facility] Other Lymphocytes/100 WBC (Bld) 21.700 % . % [facility] Other MCH (RBC) [Entitic mass] 30.3000 pg Normal 24.7-34.3 pg [facility] Other MCV (RBC) [Entitic vol] 89.8000 fL Normal 80-100 fL [facility] Other Monocytes (Bld) [#/Vol] 0.757233095 10*3/uL Normal 0.0-0.8 10*3/uL [facility] Other Monocytes/100 WBC (Bld) 9.100 % . % [facility] Other Neutrophils (Bld) [#/Vol] 4.582044524 10*3/uL Normal 1.8-7.7 10*3/uL [facility] Other Neutrophils/100 WBC (Bld) 68.900 % . % [facility] Other Platelet mean volume (Bld) [Entitic vol] 9.0000 fL Normal 6.3-10.7 fL [facility] Other WBC (Bld) [#/Vol] 5.321837602 10*3/uL Normal 3.8 -11.6 10*3/uL [facility] Other Complete Blood Count Auto Diff 5.8 10*3/uL Normal 3.8-11.6 10*3/uL [facility] Other Complete Blood Count Auto Diff 33.7 g/dL Normal 32.0-35.0 g/dL [facility] Other Complete Blood Count Auto Diff 0.1 /100{WBC} Normal 0-0.5 /100{WBC} [facility] Other Comprehensive Metabolic Pane derek 09-04-2022 Albumin [Mass/Vol] 4.371882 g/dL Normal 3.5-5.7 g/dL [facility] Other Bilirubin [Mass/Vol] 0.5926385 mg/dL Normal 0.3- 1.0 mg/dL [facility] Other Calcium [Mass/Vol] 9.6235683 mg/dL Normal 8.6-10 .3 mg/dL [facility] Other CO2 [Moles/Vol] 26.19952422 mmol/L Normal 21.0-3 1.0 mmol/L [facility] Other Creatinine [Mass/Vol] 1.78343318 mg/dL Normal 0. 60-1.20 mg/dL [facility] Other Potassium [Moles/Vol] 4.50194586 mmol/L Normal 3 .5-5.1 mmol/L [facility] Other Protein [Mass/Vol] 6.554952 g/dL Normal 6.4-8.9 g/dL [facility] Other Comprehensive Metabolic Panel 2.4 g/dL [facility] Other Creatinine (Bld) [Mass/Vol]O rdered By: Livan Arguello on 09-04-2022 Creatinine [Mass/Vol] 1.2 mg/dL 0.6-1.3 [facility] Comment on above: ER/ESD physician is notified/shown all ISTAT results.Critical values may be confirmed by laboratory testing ifdeemed necessary by ER attending doctor. Creatinine [Mass/volume] in Serum or PlasmaOrdered By: Livan Arguello on 09-04-2022 Creatinine [Mass/Vol] 1.19 mg/dL 0.60-1.20 [facility] Eosinophils Auto (Bld) [#/Vo l]Ordered By: Livan Arguello on 09-04-2022 Eosinophils (Bld) [#/Vol] 0.0 10*3/uL 0.0-0.45 [facility] Eosinophils/100 WBC Auto (Bl d)Ordered By: Livan Arguello on 09-04-2022 Eosinophils/100 WBC (Bld) 0.0 % . [facility] Erythrocyte Sedimentation Ra jorge 09-04-2022 ESR (Bld) [Velocity] 10 mm/h Normal 0-29 [facility] [employer] Other Erythrocyte distribution wid th Auto (RBC) [Ratio]Ordered By: Livan Arguello on 09-04-2022 Erythrocyte distribution width (RBC) [Ratio] 15.2 % 11.9-15.3 [facility] Erythrocyte sedimentation ra te by Photometric methodOrdered By: Livan Arguello on 09-04-2022 ESR Photometric method (Bld) [Velocity] 10 mm/hr 0-29 [facility] Erythrocytes [#/volume] in B lood by Automated countOrdered By: Livan Arguello on 09-04-2022 RBC (Bld) [#/Vol] 3.92 10*6/uL 3.60-5.00 [facility] Ferritinon 09-04-2022 Ferritin [Mass/Vol] 15.2731425 ng/mL Normal 11.0 -306.8 ng/mL [place] [employer] Other Ferritin [Mass/volume] in Se rum or PlasmaOrdered By: Livan Arguello on 09-04-2022 Ferritin [Mass/Vol] 15.4 ng/mL 11.0-306.8 [facility] Free T4 (Free Thyroxine)on 0 09-04-2022 Free T4 [Mass/Vol] 0.40224270 ng/dL Normal 0.61- 1.12 ng/dL [facility] [employer] Other Globulin Calc (S) [Mass/Vol] Ordered By: Livan Arguello on 09-04-2022 Globulin (S) [Mass/Vol] 2.4 g/dL [facility] Glucose [Mass/volume] in Ser um or PlasmaOrdered By: Livan Arguello on 09-04-2022 Glucose [Mass/Vol] 108 mg/dL 74-109 [facility] Comment on above: ADA recommended refe rence rangeRandom Glucose Reference Range is dependent on time and content of last meal. Glucose of more than 200 mg/dL in a nonstressed, ambulatory subject supports the diagnosis of Diabetes Mellitus. Glucose mean value [Mass/vol ume] in Blood Estimated from glycated hemoglobinOrdered By: Livan Arguello on 09-04-2022 Average glucose Estimated from glycated hemoglobin (Bld) [Mass/Vol] 126 mg/dL [facility] Hematocrit Auto (Bld) [Volum e fraction]Ordered By: Livan Arguello on 09-04-2022 Hematocrit (Bld) [Volume fraction] 35.2 % 34.0-46.4 [facility] Hemoglobin A1c percentageOrd ered By: Livan Arguello on 09-04-2022 HbA1c (Bld) [Mass fraction] 6.0 % 4.3-5.6 [facility] Comment on above: Increased risk for d iabetes: 5.7 - 6.4diabetes: >6.4glycemic control for adults with diabetes: <7.0 Hemoglobin [Mass/volume] in BloodOrdered By: Livan Arguello on 09-04-2022 Hemoglobin (Bld) [Mass/Vol] 11.9 g/dL 11.8-15.4 [facility] Iron [Mass/volume] in Serum or PlasmaOrdered By: Livan Arguello on 09-04-2022 Iron [Mass/Vol] 96 ug/dL 50-212 [facility] Iron and TIBC Profileon 08-20 Iron and TIBC Profile 24.3 % Normal 20-50 % [facility] [employer] Other Iron binding capacity [Mass/ volume] in Serum or PlasmaOrdered By: Livan Arguello on 09-04-2022 Iron binding capacity [Mass/Vol] 395 ug/dL 255-450 [facility] Iron saturation [Mass Fracti on] in Serum or PlasmaOrdered By: Livan Arguello on 09-04-2022 Iron saturation [Mass fraction] 24.3 % 20-50 [facility] Laboratory - Chemistry and C hemistry - challengeOrdered By: Livan Arguello on 09-04-2022 GFR/1.73 sq M.predicted MDRD (S/P/Bld) [Vol rate/Area] 46.511 mL/min/{1.73_m2} [facility] Leukocytes [#/volume] correc adri for nucleated erythrocytes in Blood by Automated counOrdered By: Livan Arguello on 09-04-2022 WBC corrected for nucl RBC Auto (Bld) [#/Vol] 5.8 10*3/uL 3.8-11.6 [facility] Lipid Panelon 09-04-2022 Cholesterol in LDL Elph Qn 71 mg/dL Normal 0-100 mg/dL [facility] [employer] Other Lipid Panel 85 mg/dL Normal 0-149 mg/dL [facility] [employer] Other Lipid Panel 17 mg/dL [facility] [employer] Other Lymphocytes Auto (Bld) [#/Vo l]Ordered By: Livan Arguello on 09-04-2022 Lymphocytes (Bld) [#/Vol] 1.3 10*3/uL 1.00-4.8 [facility] Lymphocytes/100 WBC Auto (Bl d)Ordered By: Livan Arguello on 09-04-2022 Lymphocytes/100 WBC (Bld) 21.7 % . [facility] MCH Auto (RBC) [Entitic mass ]Ordered By: Livan Arguello on 09-04-2022 MCH (RBC) [Entitic mass] 30.3 pg 24.7-34.3 [facility] MCHC Auto (RBC) [Mass/Vol]Or dered By: Livan Arguello on 09-04-2022 MCHC (RBC) [Mass/Vol] 33.7 g/dL 32.0-35.0 [facility] MCV Auto (RBC) [Entitic vol] Ordered By: Livan Arguello on 09-04-2022 MCV (RBC) [Entitic vol] 89.8 fL 80-100 [facility] Monocytes Auto (Bld) [#/Vol] Ordered By: Livan Arguello on 09-04-2022 Monocytes (Bld) [#/Vol] 0.5 10*3/uL 0.0-0.8 [facility] Monocytes/100 WBC Auto (Bld) Ordered By: Livan Arguello on 09-04-2022 Monocytes/100 WBC (Bld) 9.1 % . [facility] Neutrophils Auto (Bld) [#/Vo l]Ordered By: Livan Arguello on 09-04-2022 Neutrophils (Bld) [#/Vol] 4.0 10*3/uL 1.8-7.7 [facility] Neutrophils/100 WBC Auto (Bl d)Ordered By: Livan Arguello on 09-04-2022 Neutrophils/100 WBC (Bld) 68.9 % . [facility] No Panel InformationOrdered By: Livan Arguello on 09-04-2022 Pharmacy Creatinine Clearance (Chem N/A [facility] Nucleated erythrocytes [Pres ence] in Blood by Automated countOrdered By: Livan Arguello on 09-04-2022 Nucleated RBC Auto Ql (Bld) 0.1 /100{WBC} 0-0.5 [facility] Parathyrin.intact [Mass/volu me] in Serum or PlasmaOrdered By: Livan Arguello on 09-04-2022 Parathyrin.intact [Mass/Vol] 105.1 pg/mL 12-88 [facility] Parathyroid Hormone [place] 03-16-2023 Parathyroid Hormone Intact 105.1 pg/mL High 12-88 pg/mL [employer] Other Platelet mean volume Auto (B ld) [Entitic vol]Ordered By: Livan Arguello on 09-04-2022 Platelet mean volume (Bld) [Entitic vol] 9.0 fL 6.3-10.7 [facility] Platelets [#/volume] in Bloo d by Automated countOrdered By: Livan Arguello on 09-04-2022 Platelets (Bld) [#/Vol] 184 10*3/uL 150-450 [facility] Potassium [Moles/volume] in Serum or PlasmaOrdered By: Livan Arguello on 09-04-2022 Potassium [Moles/Vol] 4.4 mmol/L 3.5-5.1 [facility] Protein [Mass/volume] in Ser um or PlasmaOrdered By: Livan Arguello on 09-04-2022 Protein [Mass/Vol] 6.5 g/dL 6.4-8.9 [facility] Rheumatoid Factoron 09-05-19 Rheumatoid Factor <10.0 <14.0 [employer] Other Serum homogeneous pattern an tinuclear antibody (MERCEDES) titerOrdered By: Livan Arguello on 09-04-2022 Homogenous nuclear Ab pattern (S) [Titer] N/A [facility] Serum nuclear antibody titer Ordered By: Livan Arguello on 09-04-2022 Nuclear Ab (S) [Titer] Negative . [facility] Comment on above: Negative <1:80 Sybilde terrance 1:80 Positive >1:80ICAP nomenclature: AC-0For more information about Hep-2 cell patterns useANApatterns.org, the official website for theInternational Consensus on Antinuclear Antibody (MERCEDES)Patterns (ICAP).Performed at: [facility] [id number] Director: Charlie Rubin PhD, Phone: [phone] Serum or plasma albumin/glob ulin mass ratioOrdered By: Livan Arguello on 09-04-2022 Albumin/Globulin [Mass ratio] 1.7 {ratio} [facility] Serum or plasma anion gap de terminationOrdered By: Livan Arguello on 09-04-2022 Anion gap [Moles/Vol] 11.0 mmol/L 6.0-15.0 [facility] Serum or plasma high density lipoprotein (HDL) cholesterol measurementOrdered By: Livan Arguello on 09-04-2022 Cholesterol in HDL [Mass/Vol] 48 mg/dL 35-85 [facility] Comment on above: HDL CHOL ATP-III CLA SSIFICATION Cardiovascular RiskHDL > or equal to 60 mg/dL LOWHDL < 40 mg/dL HIGH Serum or plasma rheumatoid f actor measurement (units/volume)Ordered By: Livan Arguello on 09-04-2022 Rheumatoid factor Qn [IU]/mL <14.0 [facility] Comment on above: Performed at: [place] [id number] Director: Charlie Rubin PhD, Phone: [phone] Serum or plasma total choles terol/high density lipoprotein (HDL) cholesterol mass ratOrdered By: Livan Arguello on 09-04-2022 Cholesterol.total/Chol esterol in HDL [Mass ratio] 2.8 {ratio} <5.0 [facility] Sodium [Moles/volume] in Ser um or PlasmaOrdered By: Livan Arguello on 09-04-2022 Sodium [Moles/Vol] 142 mmol/L 136-145 [facility] Thyroid Stimulating Hormoneo n 09-04-2022 TSH Qn 0.20390492360 m[IU]/L Normal 0.45-5 .33 u[iU]/mL [employer] Other Thyrotropin [Units/volume] i n Serum or PlasmaOrdered By: Livan Arguello on 09-04-2022 TSH Qn 0.96 m[IU]/L 0.45-5.33 [facility] Thyroxine (T4) free [Mass/vo lume] in Serum or PlasmaOrdered By: Livan Arguello on 09-04-2022 Free T4 [Mass/Vol] 0.97 ng/dL 0.61-1.12 [facility] Transferrin [Mass/volume] in Serum or PlasmaOrdered By: Livan Arguello on 09-04-2022 Transferrin [Mass/Vol] 282 mg/dL 203-362 [facility] Triglyceride [Mass/volume] i n Serum or PlasmaOrdered By: Livan Arguello on 09-04-2022 Triglyceride [Mass/Vol] 85 mg/dL 0-149 [facility] Comment on above: TRIG ATP III CLASSIF ICATIONTRIG less than 150 mg/dL NormalTRIG 150-199 mg/dL Borderline highTRIG 200-500 mg/dL High TRIG greater than 500 mg/dL Very highStandard traceable to the Center for Disease Conrtrol and Prevention (CDC) test method. Urate [Mass/volume] in Serum or PlasmaOrdered By: Livan Arguello on 09-04-2022 Urate [Mass/Vol] 5.1 mg/dL 2.3-6.6 [facility] Urea nitrogen [Mass/volume] in Serum or PlasmaOrdered By: Livan Arguello on 09-04-2022 Urea nitrogen [Mass/Vol] 29 mg/dL 7-25 [facility] Uric Acidon 09-04-2022 Urate [Mass/Vol] 5.5920726 mg/dL Normal 2.3-6.6 mg/dL [employer] Other WBC Auto (Bld) [#/Vol]Ordere d By: Livan Arguello on 09-04-2022 WBC (Bld) [#/Vol] 5.8 10*3/uL 3.8-11.6 [facility] XR chest 2V*on 09-04-2022 XR chest 2V* XRay Report [employer] Other XR chest 2V* XR/XR chest 2V*: Thoracic spine pain;Chest pain;Joint ache;Weight loss [employer] Other XR chest 2V* Plain film chest2 view [employer] Other XR chest 2V* HISTORY:Mid dorsal s pine pain with radiation of the chest [employer] Other XR chest 2V* COMPARISON:05/08/2020 [employer] Other XR chest 2V* SUPPORT DEVICES: None [facility] [employer] Other XR chest 2V* POSTSURGICAL CHANGES:None [employer] Other XR chest 2V* HEART: Within normal limits [employer] Other XR chest 2V* PULMONARY CHARO:Withi n normal limits [employer] Other XR chest 2V* MEDIASTINUM:Unremarkable [employer] Other XR chest 2V* LUNGS AND PLEURA: No acute lung process, pleural effusion or pneumothorax identified. [employer] Other XR chest 2V* BONY STRUCTURES: The thoracic spondylosis. [employer] Other XR chest 2V* ADDITIONAL FINDINGS None [employer] Other XR chest 2V* X R/XR chest 2V* [employer] Other XR chest 2V* IMPRESSION: No acute process. [employer] Other XR chest 2V* Impression dictated by: Saroj Arcos M.D.09/04/2022 12:23 PM [facility] Other XR chest 2V* Dictation Location: [facility]--03 [employer] Other XR chest 2V* Transcribed By: PWS 09/04/22 [facility] [employer] Other XR chest 2V* Dictated By: Sohail Arcos DO 09/04/22 [facility] [employer] Other XR chest 2V* Signed By: [employer] Other XR chest 2V* 09/04/22 [facility] [employer] Other XR thoracic spine 3V*on 08-20 XR thoracic spine 3V* XR/XR thoracic spine 3V*: Thoracic spine pain;Joint ache [employer] Other XR thoracic spine 3V* 3 views of thoracic spine [employer] Other XR thoracic spine 3V* COMPARISON:05/02/2021 [employer] Other XR thoracic spine 3V* HISTORY:Mid dorsal spine pain with radiation of the chest for one year. Weight loss. [employer] Other XR thoracic spine 3V* The thoracic kypho sis is adequate. [employer] Other XR thoracic spine 3V* The disc spaces ar e maintained. [employer] Other XR thoracic spine 3V* Multilevel thoraci c spondylosis identified. [employer] Other XR thoracic spine 3V* No compression def ormity identified [employer] Other XR thoracic spine 3V* The bony mineraliz ation is adequate. [employer] Other XR thoracic spine 3V* No paraspinal abno rmality seen. [employer] Other XR thoracic spine 3V* XR/XR thoracic spine 3V* [employer] Other XR thoracic spine 3V* IMPRESSION:Multile rosa thoracic spondylosis. No acute bony findings. [employer] Other XR thoracic spine 3V* Impression dictate d by: Saroj Arcos M.D.09/04/2022 12:25 PM [employer] Other XR thoracic spine 3V* Transcribed By: BRITTNEE Durand 09/04/22 1225 [employer] Other XR thoracic spine 3V* Dictated By: Saroj Arcos DO 09/04/22 1223 [employer] Other XR thoracic spine 3V* 09/04/22 1225 [employer] Other Albumin [Mass/volume] in Ser um or PlasmaOrdered By: Huy Tierney on 04-28-2022 Albumin [Mass/Vol] 3.5 g/dL 3.2-5.5 [facility] Automated erythrocytes count in urine sediment (number/area)Ordered By: Huy Tierney on 04-28-2022 RBC Auto (Urine sed) [#/Area] None seen [HPF] 0-4 [facility] Automated leukocytes count i n urine sediment (number/area)Ordered By: Huy Tierney on 04-28-2022 WBC Auto (Urine sed) [#/Area] None seen [HPF] 0-4 [facility] Bilirubin Test strip Ql (U)O rdered By: Huy Tierney on 04-28-2022 Bilirubin Ql (U) Negative Negative [facility] CT biopsyOrdered By: Julian mixon on 04-28-2022 Transferrin [Mass/Vol] 263 mg/dL 180-380 [facility] Color Auto (U)Ordered By: Ab luis Tierney on 04-28-2022 Color (U) Yellow Yellow [facility] Creatinine and Glomerular fi ltration rate.predicted panel (S/P/Bld)Ordered By: Huy Tierney on 04-28-2022 Creatinine [Mass/Vol] 1.32 mg/dL 0.44-1.03 [facility] Erythrocyte distribution wid th Auto (RBC) [Ratio]Ordered By: Huy Tierney on 04-28-2022 Erythrocyte distribution width (RBC) [Ratio] 14.4 % 11.9-15.3 [facility] Estimated glomerular filtrat ion rate (GFR) non- AmericanOrdered By: Huy Tierney on 04-28-2022 GFR/1.73 sq M.predicted among non-blacks MDRD (S/P/Bld) [Vol rate/Area] 39 mL/Min [facility] Ferritin [Mass/volume] in Se rum or PlasmaOrdered By: Huy Tierney on 04-28-2022 Ferritin [Mass/Vol] 16.5 ng/mL 11-306.8 [facility] Hematocrit Auto (Bld) [Volum e fraction]Ordered By: Huy Tierney on 04-28-2022 Hematocrit (Bld) [Volume fraction] 37.6 % 34.0-46.4 [facility] Hemoglobin [Mass/volume] in BloodOrdered By: Huy Tierney on 04-28-2022 Hemoglobin (Bld) [Mass/Vol] 12.4 g/dL 11.8-15.4 [facility] Iron [Mass/volume] in Serum or PlasmaOrdered By: Huy Tierney on 04-28-2022 Iron [Mass/Vol] 70 ug/dL 40-150 [facility] Iron binding capacity [Mass/ volume] in Serum or PlasmaOrdered By: Huy Tierney on 04-28-2022 Iron binding capacity [Mass/Vol] 368 ug/dL 255-450 [facility] Iron saturation [Mass Fracti on] in Serum or PlasmaOrdered By: Huy Tierney on 04-28-2022 Iron saturation [Mass fraction] 19.0 % 20-50 [facility] Ketones Auto test strip (U) [Mass/Vol]Ordered By: Huy Tierney on 04-28-2022 Ketones (U) [Mass/Vol] Negative Negative [facility] Laboratory - Chemistry and C hemistry - challengeOrdered By: Huy Tierney on 04-28-2022 Magnesium [Mass/Vol] 2.0 mg/dL 1.6-2.6 [facility] Laboratory - UrinalysisOrder ed By: Huy Tierney on 04-28-2022 Hyaline casts LM Ql (Urine sed) 0-8 [LPF] 0-8 [facility] MCH Auto (RBC) [Entitic mass ]Ordered By: Huy Tierney on 04-28-2022 MCH (RBC) [Entitic mass] 29.2 pg 24.7-34.3 [facility] MCHC Auto (RBC) [Mass/Vol]Or dered By: Huy Tierney on 04-28-2022 MCHC (RBC) [Mass/Vol] 32.9 g/dL 32.0-35.0 [facility] MCV Auto (RBC) [Entitic vol] Ordered By: Huy Tierney on 04-28-2022 MCV (RBC) [Entitic vol] 88.6 fL 80-100 [facility] Nitrite Test strip Ql (U)Ord ered By: Huy Tierney on 04-28-2022 Nitrite Ql (U) Negative Negative [facility] No Panel InformationOrdered By: Huy Tierney on 04-28-2022 25-Hydroxy Vitamin D Total 56.5 ng/mL 30-100 [facility] Comment on above: VITAMIN D STATUS 25( [place])VITAMIN D RANGE (ng/mL) Deficient <20 Insufficient 20 to <30Sufficient 30 to 100Reference: Marito MF,Chris NC, Philly BAINS, et al. Evaluation,treatment, and prevention of vitamin D deficiency; an Endocrine Society clinical practice guideline. JCEM. 2010; 96(7):1911-30. Estimated GFR () 47 mL/Min [facility] Comment on above: GFR estimated refere nce range: According to KDOQI guidelines, <60 ml/min/1.73m2 is sufficient to diagnose a patient with chronic kidney disease. Pharmacy Creatinine Clearance (Chem N/A [facility] Phosphate [Mass/volume] in S sandip or PlasmaOrdered By: Huy Tierney on 04-28-2022 Phosphate [Mass/Vol] 3.3 mg/dL 2.5-4.6 [facility] Platelet mean volume Auto (B ld) [Entitic vol]Ordered By: Huy Tierney on 04-28-2022 Platelet mean volume (Bld) [Entitic vol] 9.7 fL 6.3-10.7 [facility] Platelets Auto (Bld) [#/Vol] Ordered By: Huy Tierney on 04-28-2022 Platelets (Bld) [#/Vol] 205 10*3/uL 150-450 [facility] Protein Auto test strip (U) [Mass/Vol]Ordered By: Huy Tierney on 04-28-2022 Protein (U) [Mass/Vol] Negative Negative [facility] RBC Auto (Bld) [#/Vol]Ordere d By: Huy Tierney on 04-28-2022 RBC (Bld) [#/Vol] 4.24 10*6/uL 3.60-5.00 [facility] Serum or plasma anion gap de terminationOrdered By: Huy Tierney on 04-28-2022 Anion gap [Moles/Vol] 11.7 mmol/L 6.0-15.0 [facility] Serum or plasma calcium hamida urement (mass/volume)Ordered By: Huy Tierney on 04-28-2022 Calcium [Mass/Vol] 9.0 mg/dL 8.2-10.2 [facility] Serum or plasma chloride naz surement (moles/volume)Ordered By: Huy Tierney on 04-28-2022 Chloride [Moles/Vol] 105 mmol/L 95-114 [facility] Serum or plasma glucose hamida urement (mass/volume)Ordered By: Huy Tierney on 04-28-2022 Glucose [Mass/Vol] 105 mg/dL 70-100 [facility] Comment on above: ADA recommended refe rence rangeRandom Glucose Reference Range is dependent on time and content of last meal. Glucose of more than 200 mg/dL in a nonstressed, ambulatory subject supports the diagnosis of Diabetes Mellitus. Serum or plasma intact parat hyroid hormone measurement (mass/volume)Ordered By: Huy Tierney on 04-28-2022 Parathyrin.intact [Mass/Vol] 89.0 pg/mL 12-88 [facility] Serum or plasma potassium me asurement (moles/volume)Ordered By: Huy Tierney on 04-28-2022 Potassium [Moles/Vol] 4.7 mmol/L 3.5-5.1 [facility] Serum or plasma sodium measu rement (moles/volume)Ordered By: Huy Tierney on 04-28-2022 Sodium [Moles/Vol] 136 mmol/L 136-146 [facility] Serum or plasma total carbon dioxide measurement (moles/volume)Ordered By: Huy Tierney on 04-28-2022 CO2 [Moles/Vol] 24.0 mmol/L 22.0-30.0 [facility] Serum or plasma urea nitroge n measurement (mass/volume)Ordered By: Huy Tierney on 04-28-2022 Urea nitrogen [Mass/Vol] 23 mg/dL 9 [facility] Serum or plasma uric acid me asurement (mass/volume)Ordered By: Huy Tierney on 04-28-2022 Urate [Mass/Vol] 8.4 mg/dL 2.6-7.2 [facility] Specific gravity Auto test s trip (U) [Rel density]Ordered By: Huy Tierney on 04-28-2022 Specific gravity (U) [Rel density] 1.013 1.001-1.03 0 [facility] Squamous epithelial cells de tection in urine sediment by light microscopyOrdered By: Huy Tierney on 04-28-2022 Epithelial cells.squamous LM Ql (Urine sed) 1-2 [HPF] 0-2 [facility] Urine bacteria detection by automated methodOrdered By: Huy Tierney on 04-28-2022 Bacteria Auto Ql (U) None seen None Seen [facility] Urine clarity by refractomet ry automatedOrdered By: Huy Tierney on 04-28-2022 Clarity Refractometry automated (U) Clear Clear [facility] Urine glucose measurement by automated test strip (mass/volume)Ordered By: Huy Tierney on 04-28-2022 Glucose Auto test strip (U) [Mass/Vol] Normal mg/dL Normal [facility] Urine hemoglobin detection b y automated test stripOrdered By: Huy Tierney on 04-28-2022 Hemoglobin Auto test strip Ql (U) Negative Negative [facility] Urine leukocyte esterase det ection by automated test stripOrdered By: Huy Tierney on 04-28-2022 Leukocyte esterase Auto test strip Ql (U) Negative Negative [facility] Urobilinogen Auto test strip (U) [Mass/Vol]Ordered By: Huy Tierney on 04-28-2022 Urobilinogen (U) [Mass/Vol] Normal mg/dL Normal [facility] WBC Auto (Bld) [#/Vol]Ordere d By: Huy Tierney on 04-28-2022 WBC (Bld) [#/Vol] 5.4 10*3/uL 3.8-11.6 [facility] pH Auto test strip (U)Ordere d By: Huy Tierney on 04-28-2022 pH (U) 7.5 [pH] 5.0-9.0 [facility] Office Visit (Cardiology)on 04-23-2022 Follow-up visit Diagnoses/Problems Assessed Essential hypertension (401.9) (I10) PVC (premature ventricular contraction) (427.69) (I49.3) Overweight with body mass index (BMI) of 27 to 27.9 in adult (278.02,V85.23) (E66.3,Z68.27) Orders Overweight with body mass index (BMI) of 27 to 27.9 in adult Healthy Weight Tips; Status:Complete; Done: 23Apr2022 PVC (premature ventricular contraction) IO Holter Monitor up to 48 Hrs; Status:Complete; Done: 23Apr2022 Patient Instructions Please bring all medicines, vitamins, and herbal supplements with you when you come to the office. Prescriptions will not be filled unless you are compliant with your follow up appointments or have a follow up appointment scheduled as per instruction of your physician. Refills should be requested at the time of your visit. PLAN: Through informed decision making process incorporating patients unique circumstances, the following treatment plan will be initiated: 1. Prescription drug management of cardiovascular medication for efficacy, adherence to treatment, side effect assessment and polypharmacy. Current treatment clinically warranted and to continue without modifications. 2. 24 hour holter f/u PVC burden 3. Return for follow-up; in the interim, contact the office if new symptoms arise. Dr. Mckeon as scheduled Chief Complaint Blood pressure management: 'seem to be getting better' LUDY WILLIS is being seen for a 2-3 week follow-up of hypertension. Patient presents to the office today ambulatory with steady gait. Last evaluated in clinic by myself April 02, 2022. At that time discontinued hydrochlorothiazide (no benefit) and Lopressor (complains of extreme fatigue and not feeling well since starting the medication). She presents to the office today were overall she reports doing much better off of the medication . She continues to follow her blood pressure at home, it is occasionally elevated at approximately 9 PM but she is due for her dose of clonidine at that time. She is utilize clonidine at at bedtime and takes her irbesartan in the morning. She otherwise reports remaining aerobically active and feels like I have more energy with increased heart rate . Beta-blockers were initiated due to December 2021 Holter monitor showing 15% PVC burden. She denies any palpitations, no dizziness lightheadedness no syncopal episodes. Prior Takotsubo cardiomyopathy with normalized ejection fraction. At this time, blood pressure remains optimal on current treatment. Will repeat Holter monitor to reassess PVC burden with treatment adjustments if warranted. Patient understands and is in agreement with plan. History of Present Illness The patient presents for follow-up of essential hypertension. The patient states she has been doing well with her blood pressure control since the last visit. Symptoms: denies impaired vision, denies dyspnea, denies chest pain, denies intermittent leg claudication and denies lower extremity edema. Associated symptoms include no headache. Home monitoring: The patient checks her blood pressure regularly. Blood pressure control has been good. Medications: the patient is adherent with her medication regimen. She denies medication side effects. Surgical History Problems History of Bile duct stone removal History of Cardiac catheterization History of Cataract surgery History of Complete colonoscopy History of Esophagogastroduodenoscop y History of Hysterectomy Current Meds Medication NameInstruction cloNIDine HCl - 0.1 MG Oral TabletTAKE 1 TABLET AT BEDTIME. Cyanocobalamin 100 MCG/ML SOLNinjection once a month Fosamax 70 MG Oral TabletTake 1 tablet daily Irbesartan 300 MG Oral TabletTAKE 1 TABLET DAILY. Levothyroxine Sodium 75 MCG Oral TabletTAKE 1 TABLET DAILY. Magnesium Oxide 400 MG Oral TabletTAKE 1 TABLET DAILY. Nitroglycerin 0.4 MG Sublingual Tablet SublingualPLACE 1 TABLET UNDER THE TONGUE EVERY 5 MINUTES FOR UP TO 3 DOSES NEEDED FOR CHEST PAIN.CALL 911 IF PAIN PERSISTS. Probiotic PACKTAKE DIRECTED. Allergies Medication Coreg Adverse Reaction; Bradycardia;; Recorded By: Teagan Sheffield; 07/31/2021 3:57:39 PM Penicillins Allergy; Hives;; Recorded By: Teagan Sheffield; 07/31/2021 3:57:39 PM Statins Adverse Reaction; Nausea; Recorded By: Teagan Sheffield; 07/31/2021 3:57:39 PM sulfa Adverse Reaction; Rash; Recorded By: Teagan Sheffield; 07/31/2021 3:57:39 PM Social History Problems Daily caffeine consumption 1 CUP OF COFFEE DAILY Never a smoker No illicit drug use Occasional alcohol use Wine occasionally Review of Systems Constitutional: not feeling tired. Cardiovascular: no chest pain, no palpitations and no lower extremity edema. Respiratory: no shortness of breath during exertion, no orthopnea and no PND. Vitals Vital Signs Recorded: 23Apr2022 12:37PM Heart Rate60, R Radial [id number], RUE, Sitting [id number], RUE, Sitting Height5 ft 1 in [id number] lb BMI [id number] (more content not included)... Normal [employer] CTA CHEST WO W CONon 022 CTA CHEST WO W CON EXAMINATION: CTA ROEM ST WO W CON HISTORY: Shortness of breath COMPARISON: CT abdomen and pelvis 02/15/2022 and 03/24/2020 TECHNIQUE: CT angiography of the pulmonary arteries following the administration of intravenous contrast. Coronal and sagittal MIP (maximum intensity projection) images were performed. 3-D image processing performed. Dose reduction techniques were achieved by using automated exposure control and/or adjustment of mA and/or kV according to patient size and/or use of iterative reconstruction technique. FINDINGS: The study is technically adequate for the diagnosis of pulmonary embolism, with good contrast bolus to the pulmonary arteries. TUBES AND IMPLANTS: None. CHEST WALL AND LOWER NECK: Unremarkable. BONES: Osteopenia. No suspicious lesions. Multilevel degenerative changes of the spine. UPPER ABDOMEN: Pneumobilia is noted. 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 MEDIASTINUM AND CHARO: Small hiatal hernia. No lymphadenopathy by CT size criteria AORTA: No dissection or aneurysm. PULMONARY ARTERIES: No embolism HEART: Mild cardiomegaly CORONARY ARTERIES: No coronary artery calcifications. LUNG AND AIRWAYS: Stable right lower lobe nodule measuring 4 millimeters compared to 03/24/2020 PLEURA: Unremarkable. IMPRESSION: 1. No evidence for pulmonary embolism. No aortic dissection. 2. New nonspecific pneumobilia which may be related to sphincter of Oddi dysfunction or may be iatrogenic. 3. Other chronic findings as described above. Electronically authenticated by: BOZENA WESLEY Date: 2022-04-16 01:11 Normal [facility] CBC AUTO DIFFon 04-15-2022 BASO # 0.0 103/ul Normal 0.0-0.1 [facility] Comment on above: Performed By: #### A MY LIPA, CMP #### [facility] [address] [place] [address] Dr. Aashish Mckeon Basophils/100 WBC (Bld) 0.1 % Critically low 0.2-2.0 [facility] Comment on above: Performed By: #### A MY LIPA, CMP #### [facility] [address] [place] [address] Dr. Aashish Mckeon EO # 0.0 103/ul Normal 0.0-0.7 [facility] Comment on above: Performed By: #### A ROSALBA LIPA, CMP #### [facility] [address] [place] [address] Dr. Aashish Mckeon Eosinophils/100 WBC (Bld) 0.0 % Critically low 0.9-7.0 [facility] Comment on above: Performed By: #### A ROSALBA LIPA, CMP #### [facility] [address] [place] [address] Dr. Aashish Mckeon Erythrocyte distribution width (RBC) [Ratio] 13.7 % Normal 11.0-15.0 [facility] Comment on above: Performed By: #### A SID NAVARRETEA, CMP #### [facility] [address] [place] [address] Dr. Aashsih Mckeon Hematocrit (Bld) [Volume fraction] 36.5 % Normal 36.0-48.0 [facility] Comment on above: Performed By: #### A ROSALBA LIPA, CMP #### [facility] [address] [place] [address] Dr. Aashish Mckeon Hemoglobin (Bld) [Mass/Vol] 12.1 g/dL Normal 12.0-16.0 [facility] Comment on above: Performed By: #### A MY LIPA, CMP #### [facility] [address] [place] [address] Dr. Aashish Mckeon IG # 0.01 10e3/ul Normal 0.00-0.03 [facility] Comment on above: Performed By: #### A ROSALBA LIPA, CMP #### [facility] [address] [address] [address] Aashish Mckeon IG % 0.1 % Normal 0.0-0.5 [facility] Comment on above: Performed By: #### A MY, LIPA, CMP #### [facility] [address] [address] [address] Aashish Mckeon LYMPH # 1.0 103/ul Critically low 1.2-3.8 [facility] Comment on above: Performed By: #### A MY, LIPA, CMP #### [facility] [address] [address] [address] Aashish Mckeon Lymphocytes/100 WBC (Bld) 14.8 % Critically low 20.5-60.0 [facility] Comment on above: Performed By: #### A MY LIPA, CMP #### [facility] [address] [place] [address] Dr. Aashish Mckeon MANUAL DIFF REQ NO Normal [facility] Comment on above: Performed By: #### A MY, LIPA, CMP #### [facility] [address] [place] [address] Dr. Aashish Mckeon MCH (RBC) [Entitic mass] 29.3 pg Normal 26.7-34.0 [facility] Comment on above: Performed By: #### A MY LIPA, CMP #### [facility] [address] [place] [address] Dr. Aashish Mckeon MCHC (RBC) [Mass/Vol] 33.2 g/dL Normal 29.9-35.2 [facility] Comment on above: Performed By: #### A MY LIPA, CMP #### [facility] [address] [address] [address] Aashish Mckeon MCV (RBC) [Entitic vol] 88.4 fL Normal 81.0-99.0 [facility] Comment on above: Performed By: #### A MY, LIPA, CMP #### [facility] [address] [address] [address] Aashish Mckeon MONO # 0.8 103/ul Normal 0.3-0.8 [facility] Comment on above: Performed By: #### A ROSALBA LIPA, CMP #### [facility] [address] [place] [address] Dr. Aashish Mckeon Monocytes/100 WBC (Bld) 10.9 % Normal 1.7-12.0 [facility] Comment on above: Performed By: #### A MY LIPA, CMP #### [facility] [address] [place] [address] Dr. Aashish Mckeon NEUT # 5.1 103/ul Normal 1.4-6.5 [facility] Comment on above: Performed By: #### A ROSALBA LIPA, CMP #### [facility] [address] [place] [address] Dr. Aashish Mckeon Neutrophils/100 WBC (Bld) 74.1 % Normal 43.0-75.0 [facility] Comment on above: Performed By: #### A ROSALBA LIPA, CMP #### [facility] [address] [place] [address] Dr. Aashish Mckeon Platelet mean volume (Bld) [Entitic vol] 11.4 fL Normal 9.5-13.5 [facility] Comment on above: Performed By: #### A ROSALBA LIPA, CMP #### [facility] [address] [place] [address] Dr. Aashish Mckeon PLT 163 103/ul Normal 150-450 [facility] Comment on above: Performed By: #### A ROSALBA LIPA, CMP #### [facility] [address] [place] [address] Dr. Aashish Mckeon RBC 4.13 106/ul Critically low 4.20-5.[address] [facility] Comment on above: Performed By: #### A MY LIPA, CMP #### [facility] [address] [place] [address] Dr. Aashish Mckeon WBC 7.0 103/ul Normal 4.0-11.0 [facility] Comment on above: Performed By: #### A MY LIPA, CMP #### [facility] [address] [place] [address] Dr. Aashish Mckeon CULTURE BLOODon 04-15-2022 Microscopic examination of blood, culture Culture Observations: NO GROWTH AT 5 DAYS Isolate 1 [id number] Normal [facility] Comment on above: Performed By: #### C BC #### [facility] [address] [address] [address] Aashish Mckeon Microscopic examination of blood, culture Culture Observations: NO GROWTH AT 5 DAYS Normal [facility] Comment on above: Performed By: #### C BC #### [facility] [address] [address] [address] Aashish Mckeon Covid-19 PCR (CVDTB)on 03-23 SARS-CoV-2 (COVID-19) RNA AMBREEN+probe Ql (Unsp spec) Not detected Normal NOT DETECTED [facility] Comment on above: Result Comment: When diagnostic testing is negative, the possibility of a false negative should be considered in the context of a patient's recent exposures and the presence of clinical signs and symptoms consistent with SARS-CoV-2. This test is not yet approved or cleared by the [place] FDA. When there are no FDA-approved or cleared tests available, and other criteria are met, FDA can make tests available under an emergency access mechanism called an Emergency Use Authorization (EUA). The EUA for this test is supported by the [place] Supervisor of Health and Human Service's declaration that circumstances exist to justify the emergency use of in vitro diagnostics for the detection and/or diagnosis of the virus that causes COVID-19. This EUA will remain in effect for the duration of the COVID-19 declaration justifying emergency of IVDs, unless it is terminated or revoked by the FDA (after which the test may no longer be used). Performed By: #### C VDTBH #### [facility] [address] [address] [address] Aashish Mckeon D-DIMERon 04-15-2022 D-DIMER 2.22 mg/L FEU Critically high <=0.59 [facility] Comment on above: Performed By: #### C BC #### [facility] [address] [address] [address] Aashish Mckeon D-DIMER COMMENTS SEE BELOW Normal [facility] Comment on above: Result Comment: Incr eases in D-Dimer concentration observed with thromboembolic events can be variable due to localization, size, and age of the thrombus. Therefore, a thromboembolic event cannot be diagnosed with certainty on the basis of the reference range. D-Dimers may also be elevated for a variety of disorders including: advanced age, , coronary disease, cancer, liver disease, infection, inflammation, hematoma, DIC, trauma, post-surgery, diabetes, thrombolytic or anticoagulant therapy, stress, and generalized hospitalization. Performed By: #### C BC #### [facility] [address] [place] [address] Dr. Aashish Mckeon INFLUENZA A AND B AGon 03-23 [facility] SEE BELOW Normal [facility] Comment on above: Result Comment: Nega tive for Flu B protein antigen. Infection due to Flu B cannot be ruled out. Flu B antigen in the sample may be below the detection limit of the test. Performed By: #### I NFLUAB #### [facility] [address] [place] [address] Dr. Aashish Mckeon INFLUENZA A AG Negative Normal NEGATIVE SEE COMMENT [facility] Comment on above: Performed By: #### I NFLUAB #### [facility] [address] [place] [address] Dr. Aashish Mckeon INFLUENZA B AG Negative Normal NEGATIVE SEE COMMENT [facility] Comment on above: Performed By: #### I NFLUAB #### [facility] [address] [place] [address] Dr. Aashish Mckeon INTERNAL CONTROLS Within Normal Limits Normal Wi thin Normal Limits [facility] Comment on above: Performed By: #### I NFLUAB #### [facility] [address] [place] [address] Dr. Aashish Mckeon LACTATE/LACTIC ACIDon 2021 Lactate [Moles/Vol] 1.8 mmol/L Normal 0.4-1.9 [facility] Comment on above: Performed By: #### A MY, LIPA, CMP #### [facility] [address] [place] [address] Dr. Aashish Mckeon PROF 14(COMP METB)on 022 Albumin [Mass/Vol] 3.5 g/dL Normal 3.4-5.0 [facility] Comment on above: Performed By: #### C MP #### [facility] [address] [place] [address] Dr. Aashish Mckeon Albumin/Globulin [Mass ratio] 1.1 {ratio} Normal [facility] Comment on above: Performed By: #### C MP #### [facility] [address] [place] [address] Dr. Aashish Mckeon ALP [Catalytic activity/Vol] 112 U/L Normal 46-116 [facility] Comment on above: Performed By: #### C MP #### [facility] [address] [place] [address] Dr. Aashish Mckeon ALT [Catalytic activity/Vol] 17 U/L Normal 14-59 [facility] Comment on above: Performed By: #### C MP #### [facility] [address] [place] [address] Dr. Aashish Mckeon Anion gap [Moles/Vol] 12.8 mmol/L Normal [facility] Comment on above: Performed By: #### C MP #### [facility] [address] [place] [address] Dr. Aashish Mckeon AST [Catalytic activity/Vol] 15 U/L Normal 15-37 [facility] Comment on above: Performed By: #### C MP #### [facility] [address] [place] [address] Dr. Aashish Mckeon Bilirubin [Mass/Vol] 0.6 mg/dL Normal 0.2-1.0 [facility] Comment on above: Performed By: #### C MP #### [facility] [address] [place] [address] Dr. Aashish Mckeon Calcium [Mass/Vol] 8.6 mg/dL Normal 8.5-10.1 [facility] Comment on above: Performed By: #### C MP #### [facility] [address] [place] [address] Dr. Aashish Mckeon Chloride [Moles/Vol] 102 mmol/L Normal 98-107 [facility] Comment on above: Performed By: #### C MP #### [facility] [address] [address] [address] Aashish Mckeon CO2 [Moles/Vol] 22.2 mmol/L Normal 21.0-32.0 [facility] Comment on above: Performed By: #### C MP #### [facility] [address] [address] [address] Aashish Mckeon Creatinine [Mass/Vol] 1.35 mg/dL Critically high 0.55-1.02 [facility] Comment on above: Performed By: #### C MP #### [facility] [address] [address] [address] Aashish Mckeon EGFR-AF MONTENEGRIN 46 mL/min/1.73m2 Critically low >=60 [facility] Comment on above: Performed By: #### C MP #### [facility] [address] [address] [address] Aashish Mckeon EGFR-NON AF MONTENEGRIN 38 mL/min/1.73m2 Critically low >=60 [facility] Comment on above: Performed By: #### C MP #### [facility] [address] [place] [address] Dr. Aashish Mckeon Globulin (S) [Mass/Vol] 3.3 g/dL Normal [facility] Comment on above: Performed By: #### C MP #### [facility] [address] [address] [address] Aashish Mckeon Glucose [Mass/Vol] 144 mg/dL Critically high 74-106 [facility] Comment on above: Performed By: #### C MP #### [facility] [address] [address] [address] Aashish Mckeon Potassium [Moles/Vol] 4.0 mmol/L Normal 3.5-5.1 [facility] Comment on above: Performed By: #### C MP #### [facility] [address] [address] [address] Aashish Mckeon Protein [Mass/Vol] 6.8 g/dL Normal 6.4-8.2 [facility] Comment on above: Performed By: #### C MP #### [facility] [address] [address] [address] Aashish Mckeon Sodium [Moles/Vol] 133 mmol/L Critically low 136-145 [facility] Comment on above: Performed By: #### C MP #### [facility] [address] [address] [address] Aashish Mckeon Urea nitrogen [Mass/Vol] 24.0 mg/dL Critically high 7.0-18.0 [facility] Comment on above: Performed By: #### C MP #### [facility] [address] [address] [address] Aashish Mckeon Urea nitrogen/Creatinine [Mass ratio] 17.8 mg/mg Normal [facility] Comment on above: Performed By: #### C MP #### [facility] [address] [address] [address] Aashish Mckeon XR CHEST 1 Von 04-15-2022 XR CHEST 1 V EXAMINATION: XR CHES T 1 V HISTORY: COUGH COMPARISON: XR abdomen with PA chest 04/18/2019 FINDINGS: LUNGS: No significant pulmonary parenchymal abnormalities. VASCULATURE: No increased pulmonary vasculature. PLEURA: No pneumothorax, effusion, or pleural thickening. CARDIAC: No cardiomegaly or cardiac silhouette abnormality. MEDIASTINUM: No visible mass or adenopathy. BONES: No fracture or visible bone lesion. OTHER: Negative. IMPRESSION: 1. Low lung volume examination. No acute cardiopulmonary process. Electronically authenticated by: WILLIAM GAO Date: 2022-04-15 20:55 Normal [facility] Office Visit (Cardiology)on 04-02-2022 Follow-up visit Diagnoses/Problems Assessed Essential hypertension (401.9) (I10) Overweight with body mass index (BMI) of 27 to 27.9 in adult (278.02,V85.23) (E66.3,Z68.27) Orders Overweight with body mass index (BMI) of 27 to 27.9 in adult Healthy Weight Tips; Status:Complete; Done: 02Apr2022 Patient Instructions Please bring all medicines, vitamins, and herbal supplements with you when you come to the office. Prescriptions will not be filled unless you are compliant with your follow up appointments or have a follow up appointment scheduled as per instruction of your physician. Refills should be requested at the time of your visit. PLAN: Through informed decision making process incorporating patients unique circumstances, the following treatment plan will be initiated: 1. Prescription drug management of cardiovascular medication for efficacy, adherence to treatment, side effect assessment and polypharmacy. Current treatment clinically warranted and to continue with following modifications: - Stop lopressor and HCTZ (not helping blood pressure and you are not feeling good on them) 2. Give clonidine 0.1mg at bedtime one more week if after that time blood pressure remains > 140 2 hours after morning medications will add additional clonidine 0.1mg at noon 3. Return for follow-up; in the interim, contact the office if new symptoms arise. 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 Presents today ambulatory with steady gait, is accompanied by her . Last evaluated by myself 2 weeks ago. At that time resumed prior dose of hydrochlorothiazide. She called into the office earlier this week with continued systolic blood pressures greater than 160, clonidine 0.1 mg added at bedtime she is taken approximately 2 doses. She has noted benefit from clonidine. She presents today with multiple complaints of simply not feeling right . Lopressor was added in December 2021 due to 15% PVC burden on Holter monitor. Since that time she has complained of fatigue, is worried about bradycardia. Denies any dizziness or lightheadedness. She also complains of mild headaches, not necessarily noted with elevated systolic blood pressure. She is concerned about restless leg syndrome. Both she and are concerned that she is taking too much medication . At December 2021 follow-up with Dr. Mckeon she was mildly hypotensive - Norvasc and hydrochlorothiazide were discontinued and irbesartan was reduced. A December 2021 Holter showed 50% PVC burden and she was initiated on Lopressor 12.5 mg twice daily. March 25, 2022 I placed her back on her prior dose of irbesartan 300 and hydrochlorothiazide 12.5 and combination with Lopressor 12.5 mg twice daily. These changes have not made any significant impact on her hypertension. Last blood pressure control was on irbesartan 300, hydrochlorothiazide 12.5 and amlodipine 5 mg daily. Repeat labs potassium 4.5, creatinine 1.2. She is tearful in the office and very anxious. 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 Nonetheless, she continues to have multiple complaints most notably with initiation of Lopressor. Today we will try to simplify polypharmacy. Will stop Lopressor to see if complaints of fatigue improve; likely will need Cardizem to suppress PVCs with repeat Holter monitor. Addition of hydrochlorothiazide had no impact on blood pressure, she has resulted in restless leg syndrome. We will discontinue. She is taken 2 doses of clonidine and blood pressure starting to come down nicely. Plan at this time will be to continue with clonidine, Lopressor and hydrochlorothiazide. Continue to monitor blood pressure. History of Present Illness The patient presents for follow-up of essential hypertension. The patient states she has been stable with her blood pressure control since the last visit. Symptoms: denies impaired vision, denies dyspnea, denies chest pain, denies intermittent leg claudication and denies lower extremity edema. Associated symptoms include no headache. Home monitoring: The patient checks her blood pressure regularly. Blood pressure control has been poor. Medications: the patient is adherent with her medication regimen. She denies medication side effects. Surgical History Problems History of Bile duct stone removal History of Cardiac catheterization History of Cataract surgery History of Complete colonoscopy History of Esophagogastroduodenoscop y History of Hysterectomy Current Meds Medication NameInstruction Allopurinol 100 MG Oral TabletTAKE 1 TABLET DAILY. cloNIDine HCl - 0.1 MG Oral TabletTAKE 1 TABLET AT BEDTIME. Cyanocobalamin 100 MCG/ML SOLNinjection once a month Fosamax 70 MG Oral TabletTake 1 tablet daily hydroCHLOROthiazide 25 MG Oral Table (more content not included)... [facility] Pres[facility] 1 Office Visit Presurgical Diagnoses/Problems Assessed Essential hypertension (401.9) (I10) Overweight with body mass index (BMI) of 27 to 27.9 in adult (278.02,V85.23) (E66.3,Z68.27) Orders Overweight with body mass index (BMI) of 27 to 27.9 in adult Healthy Weight Tips; Status:Complete; Done: 02Apr2022 Patient Instructions Please bring all medicines, vitamins, and herbal supplements with you when you come to the office. Prescriptions will not be filled unless you are compliant with your follow up appointments or have a follow up appointment scheduled as per instruction of your physician. Refills should be requested at the time of your visit. PLAN: Through informed decision making process incorporating patients unique circumstances, the following treatment plan will be initiated: 1. Prescription drug management of cardiovascular medication for efficacy, adherence to treatment, side effect assessment and polypharmacy. Current treatment clinically warranted and to continue with following modifications: - Stop lopressor and HCTZ (not helping blood pressure and you are not feeling good on them) 2. Give clonidine 0.1mg at bedtime one more week if after that time blood pressure remains > 140 2 hours after morning medications will add additional clonidine 0.1mg at noon 3. Return for follow-up; in the interim, contact the office if new symptoms arise. 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 Presents today ambulatory with steady gait, is accompanied by her . Last evaluated by myself 2 weeks ago. At that time resumed prior dose of hydrochlorothiazide. She called into the office earlier this week with continued systolic blood pressures greater than 160, clonidine 0.1 mg added at bedtime she is taken approximately 2 doses. She has noted benefit from clonidine. She presents today with multiple complaints of simply not feeling right . Lopressor was added in December 2021 due to 15% PVC burden on Holter monitor. Since that time she has complained of fatigue, is worried about bradycardia. Denies any dizziness or lightheadedness. She also complains of mild headaches, not necessarily noted with elevated systolic blood pressure. She is concerned about restless leg syndrome. Both she and are concerned that she is taking too much medication . At December 2021 follow-up with Dr. Mckeon she was mildly hypotensive - Norvasc and hydrochlorothiazide were discontinued and irbesartan was reduced. A December 2021 Holter showed 50% PVC burden and she was initiated on Lopressor 12.5 mg twice daily. March 25, 2022 I placed her back on her prior dose of irbesartan 300 and hydrochlorothiazide 12.5 and combination with Lopressor 12.5 mg twice daily. These changes have not made any significant impact on her hypertension. Last blood pressure control was on irbesartan 300, hydrochlorothiazide 12.5 and amlodipine 5 mg daily. Repeat labs potassium 4.5, creatinine 1.2. She is tearful in the office and very anxious. 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 Nonetheless, she continues to have multiple complaints most notably with initiation of Lopressor. Today we will try to simplify polypharmacy. Will stop Lopressor to see if complaints of fatigue improve; likely will need Cardizem to suppress PVCs with repeat Holter monitor. Addition of hydrochlorothiazide had no impact on blood pressure, she has resulted in restless leg syndrome. We will discontinue. She is taken 2 doses of clonidine and blood pressure starting to come down nicely. Plan at this time will be to continue with clonidine, Lopressor and hydrochlorothiazide. Continue to monitor blood pressure. History of Present Illness The patient presents for follow-up of essential hypertension. The patient states she has been stable with her blood pressure control since the last visit. Symptoms: denies impaired vision, denies dyspnea, denies chest pain, denies intermittent leg claudication and denies lower extremity edema. Associated symptoms include no headache. Home monitoring: The patient checks her blood pressure regularly. Blood pressure control has been poor. Medications: the patient is adherent with her medication regimen. She denies medication side effects. Surgical History Problems History of Bile duct stone removal History of Cardiac catheterization History of Cataract surgery History of Complete colonoscopy History of Esophagogastroduodenoscop y History of Hysterectomy Current Meds Medication NameInstruction Allopurinol 100 MG Oral TabletTAKE 1 TABLET DAILY. cloNIDine HCl - 0.1 MG Oral TabletTAKE 1 TABLET AT BEDTIME. Cyanocobalamin 100 MCG/ML SOLNinjection once a month Fosamax 70 MG Oral TabletTake 1 tablet daily hydroCHLOROthiazide 25 MG Oral Table (more content not included)... Normal [employer] Tobacco Screening.on 022 Fall risk assessment a) No falls within the last year [facility] DO Work Phone: Tobacco use status CP b) No [facility] 250 DO Work Phone: Tobacco Screening. Yes [facility] 250 DO Work Phone: Basophils Auto (Bld) [#/Vol] Ordered By: Livan Arguello on 03-31-2022 Basophils (Bld) [#/Vol] 0.0 10*3/uL 0.0-0.2 [facility] Basophils/100 WBC Auto (Bld) Ordered By: Livan Arguello on 03-31-2022 Basophils/100 WBC (Bld) 0.2 % . [facility] Blood hemoglobin measurement (mass/volume)Ordered By: Livan Arguello on 03-31-2022 Hemoglobin (Bld) [Mass/Vol] 12.4 g/dL 11.8-15.4 [facility] Blood leukocytes automated c ount (number/volume)Ordered By: Livan Arguello on 03-31-2022 WBC (Bld) [#/Vol] 5.2 10*3/uL 4.5-11.0 [facility] Body fluid albumin measureme nt (mass/volume)Ordered By: Livan Arguello on 03-31-2022 Albumin (Body fld) [Mass/Vol] 3.7 g/dL 3.2-5.5 [facility] Cholesterol [Mass/volume] in Serum or PlasmaOrdered By: Livan Arguello on 03-31-2022 Cholesterol [Mass/Vol] 231 mg/dL 140-200 [facility] Comment on above: Chol less than 200 m g/dl low riskChol 201-239 mg/dl borderline riskChol 240 mg/dl and greater high risk Cholesterol in LDL Calc [Mas s/Vol]Ordered By: Livan Arguello on 03-31-2022 Cholesterol in LDL [Mass/Vol] 159 mg/dL 0-100 [facility] Comment on above: LDL ATP III CLASSIFI CATIONLDL less than 100 mg/dL OptimalLDL 100-129 mg/dL Near or above optimalLDL 130-159 mg/dL Borderline highLDL 160-189 mg/dL HighLDL greater than 189 mg/dL Very high Cholesterol in VLDL Calc [Ma ss/Vol]Ordered By: Livan Arguello on 03-31-2022 Cholesterol in VLDL [Mass/Vol] 24 mg/dL [facility] Creatinine and Glomerular fi ltration rate.predicted panel (S/P/Bld)Ordered By: Livan Arguello on 03-31-2022 Creatinine [Mass/Vol] 1.21 mg/dL 0.44-1.03 [facility] Eosinophils Auto (Bld) [#/Vo l]Ordered By: Livan Arguello on 03-31-2022 Eosinophils (Bld) [#/Vol] 0.0 10*3/uL 0.0-0.45 [facility] Eosinophils/100 WBC Auto (Bl d)Ordered By: Livan Arguello on 03-31-2022 Eosinophils/100 WBC (Bld) 0.0 % . [facility] Erythrocyte distribution wid th Auto (RBC) [Ratio]Ordered By: Livan Arguello on 03-31-2022 Erythrocyte distribution width (RBC) [Ratio] 14.9 % 11.9-15.3 [facility] Estimated glomerular filtrat ion rate (GFR) non- AmericanOrdered By: Livan Arguello on 03-31-2022 GFR/1.73 sq M.predicted among non-blacks MDRD (S/P/Bld) [Vol rate/Area] 43 mL/Min [facility] Globulin Calc (S) [Mass/Vol] Ordered By: Livan Arguello on 03-31-2022 Globulin (S) [Mass/Vol] 2.1 g/dL [facility] Glucose mean value [Mass/vol ume] in Blood Estimated from glycated hemoglobinOrdered By: Livan Arguello on 03-31-2022 Average glucose Estimated from glycated hemoglobin (Bld) [Mass/Vol] 134 mg/dL [facility] Hematocrit Auto (Bld) [Volum e fraction]Ordered By: Livan Arguello on 03-31-2022 Hematocrit (Bld) [Volume fraction] 37.2 % 34.0-46.4 [facility] Hemoglobin A1c percentageOrd ered By: Livan Arguello on 03-31-2022 HbA1c (Bld) [Mass fraction] 6.3 % 4.3-5.6 [facility] Comment on above: Increased risk for d iabetes: 5.7 - 6.4diabetes: >6.4glycemic control for adults with diabetes: <7.0 Laboratory - Hematology and Cell countsOrdered By: Livan Arguello on 03-31-2022 Nucleated RBC/100 WBC (Bld) [Ratio] 0.0 % 0-0.5 [facility] Lymphocytes Auto (Bld) [#/Vo l]Ordered By: Livan Arguello on 03-31-2022 Lymphocytes (Bld) [#/Vol] 1.5 10*3/uL 1.00-4.8 [facility] Lymphocytes/100 WBC Auto (Bl d)Ordered By: Livan Arguello on 03-31-2022 Lymphocytes/100 WBC (Bld) 28.5 % . [facility] MCH Auto (RBC) [Entitic mass ]Ordered By: Livan Arguello on 03-31-2022 MCH (RBC) [Entitic mass] 29.7 pg 24.7-34.3 [facility] MCHC Auto (RBC) [Mass/Vol]Or dered By: Livan Arguello on 03-31-2022 MCHC (RBC) [Mass/Vol] 33.3 g/dL 32.0-35.0 [facility] MCV Auto (RBC) [Entitic vol] Ordered By: Livan Arguello on 03-31-2022 MCV (RBC) [Entitic vol] 89.2 fL 80-100 [facility] Monocytes Auto (Bld) [#/Vol] Ordered By: Livan Arguello on 03-31-2022 Monocytes (Bld) [#/Vol] 0.5 10*3/uL 0.0-0.8 [facility] Monocytes/100 WBC Auto (Bld) Ordered By: Livan Arguello on 03-31-2022 Monocytes/100 WBC (Bld) 8.7 % . [facility] Neutrophils Auto (Bld) [#/Vo l]Ordered By: Livan Arguello on 03-31-2022 Neutrophils (Bld) [#/Vol] 3.3 10*3/uL 1.8-7.7 [facility] Neutrophils/100 WBC Auto (Bl d)Ordered By: Livan Arguello on 03-31-2022 Neutrophils/100 WBC (Bld) 62.6 % . [facility] No Panel InformationOrdered By: Livan Arguello on 03-31-2022 Estimated GFR () 52 mL/Min [facility] Comment on above: GFR estimated refere nce range: According to KDOQI guidelines, <60 ml/min/1.73m2 is sufficient to diagnose a patient with chronic kidney disease. Pharmacy Creatinine Clearance (Chem N/A [facility] Platelet mean volume Auto (B ld) [Entitic vol]Ordered By: Livan Arguello on 03-31-2022 Platelet mean volume (Bld) [Entitic vol] 9.9 fL 6.3-10.7 [facility] Platelets Auto (Bld) [#/Vol] Ordered By: Livan Arguello on 03-31-2022 Platelets (Bld) [#/Vol] 194 10*3/uL 150-450 [facility] Protein [Mass/volume] in Ser um or PlasmaOrdered By: Livan Arguello on 03-31-2022 Protein [Mass/Vol] 5.8 g/dL 6.1-7.9 [facility] RBC Auto (Bld) [#/Vol]Ordere d By: Livan Arguello on 03-31-2022 RBC (Bld) [#/Vol] 4.16 10*6/uL 3.60-5.00 [facility] Serum or plasma alanine weeks otransferase measurement without P-5'-P (enzymatic activiOrdered By: Livan Arguello on 03-31-2022 ALT No additional P-5'-P [Catalytic activity/Vol] 14 U/L 10-60 [facility] Serum or plasma albumin/glob ulin mass ratioOrdered By: Livan Arguello on 03-31-2022 Albumin/Globulin [Mass ratio] 1.8 {ratio} [facility] Serum or plasma alkaline rodger sphatase measurement (enzymatic activity/volume)Ordered By: Livan Arguello on 03-31-2022 ALP [Catalytic activity/Vol] 92 U/L 32-92 [facility] Serum or plasma anion gap de terminationOrdered By: Livan Arguello on 03-31-2022 Anion gap [Moles/Vol] 17.5 mmol/L 6.0-15.0 [facility] Serum or plasma aspartate am inotransferase measurement (enzymatic activity/volume)Ordered By: Livan Arguello on 03-31-2022 AST [Catalytic activity/Vol] 16 U/L 10-42 [facility] Serum or plasma calcium hamida urement (mass/volume)Ordered By: Livan Arguello on 03-31-2022 Calcium [Mass/Vol] 9.4 mg/dL 8.2-10.2 [facility] Serum or plasma chloride naz surement (moles/volume)Ordered By: Livan Arguello on 03-31-2022 Chloride [Moles/Vol] 103 mmol/L 95-114 [facility] Serum or plasma glucose hamida urement (mass/volume)Ordered By: Livan Arguello on 03-31-2022 Glucose [Mass/Vol] 118 mg/dL 70-100 [facility] Comment on above: ADA recommended refe rence rangeRandom Glucose Reference Range is dependent on time and content of last meal. Glucose of more than 200 mg/dL in a nonstressed, ambulatory subject supports the diagnosis of Diabetes Mellitus. Serum or plasma high density lipoprotein (HDL) cholesterol measurementOrdered By: Livan Arguello on 03-31-2022 Cholesterol in HDL [Mass/Vol] 48 mg/dL 35-85 [facility] Comment on above: HDL CHOL ATP-III CLA SSIFICATION Cardiovascular RiskHDL > or equal to 60 mg/dL LOWHDL < 40 mg/dL HIGH Serum or plasma potassium me asurement (moles/volume)Ordered By: Livan Arguello on 03-31-2022 Potassium [Moles/Vol] 4.5 mmol/L 3.5-5.1 [facility] Serum or plasma sodium measu rement (moles/volume)Ordered By: Livan Arguello on 03-31-2022 Sodium [Moles/Vol] 141 mmol/L 136-146 [facility] Serum or plasma total biliru bin measurement (mass/volume)Ordered By: Livan Arguello on 03-31-2022 Bilirubin [Mass/Vol] 0.7 mg/dL 0.3-1.2 [facility] Serum or plasma total carbon dioxide measurement (moles/volume)Ordered By: Livan Arguello on 03-31-2022 CO2 [Moles/Vol] 25.0 mmol/L 22.0-30.0 [facility] Serum or plasma total choles terol/high density lipoprotein (HDL) cholesterol mass ratOrdered By: Livan Arguello on 03-31-2022 Cholesterol.total/Chol esterol in HDL [Mass ratio] 4.8 {ratio} <5.0 [facility] Serum or plasma urea nitroge n measurement (mass/volume)Ordered By: Livan Arguello on 03-31-2022 Urea nitrogen [Mass/Vol] 22 mg/dL 9-23 [facility] TSH DL <= 0.005 mIU/L QnOrde red By: Livan Arguello on 03-31-2022 TSH Qn 1.58 m[IU]/L 0.45-5.33 [facility] Thyroxine (T4) free [Mass/vo lume] in Serum or PlasmaOrdered By: Livan Arguello on 03-31-2022 Free T4 [Mass/Vol] 1.02 ng/dL 0.61-1.12 [facility] Triglyceride [Mass/volume] i n Serum or PlasmaOrdered By: Livan Arguello on 03-31-2022 Triglyceride [Mass/Vol] 120 mg/dL 35-149 [facility] Comment on above: TRIG ATP III CLASSIF ICATIONTRIG less than 150 mg/dL NormalTRIG 150-199 mg/dL Borderline highTRIG 200-500 mg/dL High TRIG greater than 500 mg/dL Very highStandard traceable to the Center for Disease Conrtrol and Prevention (CDC) test method. Office Visit (Cardiology)on 03-25-2022 Follow-up visit Diagnoses/Problems Assessed Essential hypertension (401.9) (I10) Elevated Dizziness (780.4) (R42) resolved Overweight with body mass index (BMI) of 27 to 27.9 in adult (278.02,V85.23) (E66.3,Z68.27) Reviewed the merits of healthy lifestyle choices on overall cardiovascular health. Orders Essential hypertension Start: hydroCHLOROthiazide 25 MG Oral Tablet; TAKE 1/2 TABLET DAILY Basic Metabolic Panel; Status:Active; Requested for:08Apr2022; Start: Irbesartan 300 MG Oral Tablet; TAKE 1 TABLET DAILY Overweight with body mass index (BMI) of 27 to 27.9 in adult Healthy Weight Tips; Status:Complete; Done: [id number] Patient Instructions Please bring all medicines, vitamins, and herbal supplements with you when you come to the office. Prescriptions will not be filled unless you are compliant with your follow up appointments or have a follow up appointment scheduled as per instruction of your physician. Refills should be requested at the time of your visit. PLAN: Through informed decision making process incorporating patients unique circumstances, the following treatment plan will be initiated: 1. Prescription drug management of cardiovascular medication for efficacy, adherence to treatment, side effect assessment and polypharmacy. Current treatment clinically warranted and to continue with following modifications: - Resume HCTZ 12.5mg daily - Increase irbesartan 300mg daily (can take 2 of what you have at home) 2. Chem6 in 10 days 3. Return for follow-up; in the interim, contact the office if new symptoms arise. [employer]ESS MANAGEMENT ARCHITECT in 2 weeks 4. Please check BP 2 hours after taking morning medications: call me if top number does not start to go down (goal top number below 140) Chief Complaint f/u medication changes: my blood pressure is high LUDY WILLIS is being seen for a 3 month follow-up of dizziness and a medication change. Patient is ambulatory with steady gait, accompanied by . Evaluated in clinic Dr. Mckeon December 2021. At that time, norvasc and HCTZ d/c'd, irbesartan reduced. A subsequent holter with 15% PVC burden - started on Magnesium and lopressor. Presents today with concerns re: elevated blood pressure. Home blood pressure 160-180. She is 'tired and worn out' No dizziness or lightheadedness Home HR mid 40s. In past, difficult time obtaining optimal BP. Will resume HCTZ (recent K+ 4.2, CR 1.17) Reports Mar 03, 2022 ECRP with post-op hypertension. Will need to repeat holter once BP controlled. 2017 negative cath, Takotsubo 2019 Echo EF 60-65%, MR trace/mild, RVSP 18 January 2022 Holter 15.8% PVC burden History of Present Illness The patient presents for follow-up of essential hypertension. The patient states she has been doing poorly with her blood pressure control since the last visit. Symptoms: denies impaired vision, denies dyspnea, denies chest pain, denies intermittent leg claudication and denies lower extremity edema. Associated symptoms include headache. Home monitoring: The patient checks her blood pressure regularly. Blood pressure control has been poor. Medications: the patient is adherent with her medication regimen. She denies medication side effects. Surgical History Problems History of Bile duct stone removal History of Cardiac catheterization History of Cataract surgery History of Complete colonoscopy History of Esophagogastroduodenoscop y History of Hysterectomy Current Meds Medication NameInstruction Allopurinol 100 MG Oral TabletTAKE 1 TABLET DAILY. Cyanocobalamin 100 MCG/ML SOLNinjection once a month Fosamax 70 MG Oral TabletTake 1 tablet daily Irbesartan 150 MG Oral TabletTAKE 1 TABLET DAILY. Levothyroxine Sodium 75 MCG Oral TabletTAKE 1 TABLET DAILY. Magnesium Oxide 400 MG Oral TabletTAKE 1 TABLET DAILY. Metoprolol Tartrate 25 MG Oral TabletTAKE 0.5 TABLET Twice daily Nitroglycerin 0.4 [address] Sub[address] Tablet Subling[address]PL[address] 1 TABLET UNDER THE TONGUE EVERY 5 MINUTES FOR UP TO 3 DOSES NEEDED FOR CHEST PAIN.CALL 911 IF PAIN PERSISTS. Probiotic PACKTAKE DIRECTED. Allergies Medication Coreg Adverse Reaction; Bradycardia;; Recorded By: Teagan Sheffield; 07/31/2021 3:57:39 PM Penicillins Allergy; Hives;; Recorded By: Teagan Sheffield; 07/31/2021 3:57:39 PM Statins Adverse Reaction; Nausea; Recorded By: Teagan Sheffield; 07/31/2021 3:57:39 PM sulfa Adverse Reaction; Rash; Recorded By: Teagan Sheffield; 07/31/2021 3:57:39 PM Social History Problems Daily caffeine consumption 1 CUP OF COFFEE DAILY Never a smoker No illicit drug use Occasional alcohol use Wine occasionally Review of Systems Constitutional: not feeling tired. Cardiovascular: no chest pain, no palpitations and no lower extremity edema. Respiratory: no shortness of breath during exertion, no orthopnea and no PND. Vitals Vital Signs Recorded: 25Mar2022 12:43PMRecorded: [id number] 12:38PM [id number], LUE, Aratign797, RUE, Sitting [id number], LUE, S (more content not included)... Normal [employer] Tobacco Screening.on 022 Fall risk assessment a) No falls within the last year [facility] 250 DO Work Phone: Tobacco use status [facility] b) No [facility] 250 DO Work Phone: Tobacco Screening. Yes [facility] 250 DO Work Phone: Albumin [Mass/volume] in Ser um or PlasmaOrdered By: Williams Matta on 03-24-2022 Albumin [Mass/Vol] 3.4 g/dL 3.2-5.5 [facility] Basophils Auto (Bld) [#/Vol] Ordered By: Williams Matta on 03-24-2022 Basophils (Bld) [#/Vol] 0.0 10*3/uL 0.0-0.2 [facility] Basophils/100 WBC Auto (Bld) Ordered By: Williams Matta on 03-24-2022 Basophils/100 WBC (Bld) 0.2 % . [facility] Blood hemoglobin measurement (mass/volume)Ordered By: Williams Matta on 03-24-2022 Hemoglobin (Bld) [Mass/Vol] 11.9 g/dL 11.8-15.4 [facility] Blood leukocytes automated c ount (number/volume)Ordered By: Williams Matta on 03-24-2022 WBC (Bld) [#/Vol] 5.2 10*3/uL 4.5-11.0 [facility] Creatinine and Glomerular fi ltration rate.predicted panel (S/P/Bld)Ordered By: Williams Matta on 03-24-2022 Creatinine [Mass/Vol] 1.17 mg/dL 0.44-1.03 [facility] Eosinophils Auto (Bld) [#/Vo l]Ordered By: Williams Matta on 03-24-2022 Eosinophils (Bld) [#/Vol] 0.0 10*3/uL 0.0-0.45 [facility] Eosinophils/100 WBC Auto (Bl d)Ordered By: Williams Matta on 03-24-2022 Eosinophils/100 WBC (Bld) 0.0 % . [facility] Erythrocyte distribution wid th Auto (RBC) [Ratio]Ordered By: Williams Matta on 03-24-2022 Erythrocyte distribution width (RBC) [Ratio] 15.1 % 11.9-15.3 [facility] Estimated glomerular filtrat ion rate (GFR) non- AmericanOrdered By: Williams Matta on 03-24-2022 GFR/1.73 sq M.predicted among non-blacks MDRD (S/P/Bld) [Vol rate/Area] 45 mL/Min [facility] Globulin Calc (S) [Mass/Vol] Ordered By: Williams Matta on 03-24-2022 Globulin (S) [Mass/Vol] 2.6 g/dL [facility] Hematocrit Auto (Bld) [Volum e fraction]Ordered By: Williams Matta on 03-24-2022 Hematocrit (Bld) [Volume fraction] 36.2 % 34.0-46.4 [facility] Laboratory - CoagulationOrde red By: Williams Matta on 03-24-2022 PT Coag (PPP) [Time] 11.6 s 9.0-12.9 [facility] Laboratory - Hematology and Cell countsOrdered By: Williams Matta on 03-24-2022 Nucleated RBC/100 WBC (Bld) [Ratio] 0.1 % 0-0.5 [facility] Lymphocytes Auto (Bld) [#/Vo l]Ordered By: Williams Matta on 03-24-2022 Lymphocytes (Bld) [#/Vol] 1.3 10*3/uL 1.00-4.8 [facility] Lymphocytes/100 WBC Auto (Bl d)Ordered By: Williams Matta on 03-24-2022 Lymphocytes/100 WBC (Bld) 24.1 % . [facility] MCH Auto (RBC) [Entitic mass ]Ordered By: Williams Matta on 03-24-2022 MCH (RBC) [Entitic mass] 29.5 pg 24.7-34.3 [facility] MCHC Auto (RBC) [Mass/Vol]Or dered By: Williams Matta on 03-24-2022 MCHC (RBC) [Mass/Vol] 32.9 g/dL 32.0-35.0 [facility] MCV Auto (RBC) [Entitic vol] Ordered By: Williams Matta on 03-24-2022 MCV (RBC) [Entitic vol] 89.9 fL 80-100 [facility] Monocytes Auto (Bld) [#/Vol] Ordered By: Willaims Matta on 03-24-2022 Monocytes (Bld) [#/Vol] 0.5 10*3/uL 0.0-0.8 [facility] Monocytes/100 WBC Auto (Bld) Ordered By: Williams Matta on 03-24-2022 Monocytes/100 WBC (Bld) 9.0 % . [facility] Neutrophils Auto (Bld) [#/Vo l]Ordered By: Williams Matta on 03-24-2022 Neutrophils (Bld) [#/Vol] 3.5 10*3/uL 1.8-7.7 [facility] Neutrophils/100 WBC Auto (Bl d)Ordered By: Williams Matta on 03-24-2022 Neutrophils/100 WBC (Bld) 66.7 % . [facility] No Panel InformationOrdered By: Williams Matta on 03-24-2022 Estimated GFR () 54 mL/Min [facility] Comment on above: GFR estimated refere nce range: According to KDOQI guidelines, <60 ml/min/1.73m2 is sufficient to diagnose a patient with chronic kidney disease. Pharmacy Creatinine Clearance (Chem N/A [facility] Platelet mean volume Auto (B ld) [Entitic vol]Ordered By: Williams Matta on 03-24-2022 Platelet mean volume (Bld) [Entitic vol] 9.9 fL 6.3-10.7 [facility] Platelet poor plasma interna tional normalized ratio (INR) by coagulation assay (relatOrdered By: Williams Matta on 03-24-2022 INR Coag (PPP) [Relative time] 1.0 {INR} [facility] Comment on above: INR Therapeutic Rang e A) Pre- and Peroperative OAT started two weeks before surgery. NOT HIP SURGERY: 1.5 - 2.5 HIP SURGERY: 2 - 3B) Primary and secondary prevention of venous THROMBOSIS: 2 - 3C) Active venous thrombosis, pulmonary embolismand prevention of recurrent venous thrombosis: 2 - 3D) Prevention of arterial thromboembolismincluding patients with mechanical heart valves: 3 - 4.5 Platelets Auto (Bld) [#/Vol] Ordered By: Williams Matta on 03-24-2022 Platelets (Bld) [#/Vol] 187 10*3/uL 150-450 [facility] Protein [Mass/volume] in Ser um or PlasmaOrdered By: Williams Matta on 03-24-2022 Protein [Mass/Vol] 6.0 g/dL 6.1-7.9 [facility] RBC Auto (Bld) [#/Vol]Ordere d By: Williams Matta on 03-24-2022 RBC (Bld) [#/Vol] 4.03 10*6/uL 3.60-5.00 [facility] Serum or plasma alanine weeks otransferase measurement without P-5'-P (enzymatic activiOrdered By: Williams Matta on 03-24-2022 ALT No additional P-5'-P [Catalytic activity/Vol] 14 U/L 1060 [facility] Serum or plasma albumin/glob ulin mass ratioOrdered By: Williams Matta on 03-24-2022 Albumin/Globulin [Mass ratio] 1.3 {ratio} [facility] Serum or plasma alkaline rodger sphatase measurement (enzymatic activity/volume)Ordered By: Williams Matta on 03-24-2022 ALP [Catalytic activity/Vol] 89 U/L 32-92 [facility] Serum or plasma anion gap de terminationOrdered By: Williams Matta on 03-24-2022 Anion gap [Moles/Vol] 12.4 mmol/L 6.0-15.0 [facility] Serum or plasma aspartate am inotransferase measurement (enzymatic activity/volume)Ordered By: Williams Matta on 03-24-2022 AST [Catalytic activity/Vol] 17 U/L 10-42 [facility] Serum or plasma calcium hamida urement (mass/volume)Ordered By: Williams Matta on 03-24-2022 Calcium [Mass/Vol] 8.9 mg/dL 8.2-10.2 [facility] Serum or plasma chloride naz surement (moles/volume)Ordered By: Williams Matta on 03-24-2022 Chloride [Moles/Vol] 107 mmol/L 95-114 [facility] Serum or plasma glucose hamida urement (mass/volume)Ordered By: Williams Matta on 03-24-2022 Glucose [Mass/Vol] 115 mg/dL 70-100 [facility] Comment on above: ADA recommended refe rence rangeRandom Glucose Reference Range is dependent on time and content of last meal. Glucose of more than 200 mg/dL in a nonstressed, ambulatory subject supports the diagnosis of Diabetes Mellitus. Serum or plasma potassium me asurement (moles/volume)Ordered By: Williams Matta on 03-24-2022 Potassium [Moles/Vol] 4.2 mmol/L 3.5-5.1 [facility] Serum or plasma sodium measu rement (moles/volume)Ordered By: Williams Matta on 03-24-2022 Sodium [Moles/Vol] 141 mmol/L 136-146 [facility] Serum or plasma total biliru bin measurement (mass/volume)Ordered By: Williams Matta on 03-24-2022 Bilirubin [Mass/Vol] 0.7 mg/dL 0.3-1.2 [facility] Serum or plasma total carbon dioxide measurement (moles/volume)Ordered By: Williams Matta on 03-24-2022 CO2 [Moles/Vol] 25.8 mmol/L 22.0-30.0 [facility] Serum or plasma urea nitroge n measurement (mass/volume)Ordered By: Williams Matta on 03-24-2022 Urea nitrogen [Mass/Vol] 19 mg/dL 9-23 [facility] ERCPon 03-03-2022 ERCP PATIENTNAME Patient Name: Ludy Willis EXAMDATE Procedure Date: 03/03/2022 8:51 AM PATIENTID PATIENTACCOUNTNUM PATIENTDOB Date of : 1945 ADMITTYPE Admit Type: Outpatient PATIENTROOM Site: [facility] 1 ETHNICITY Ethnicity: Not or RACE Race: White PROVDR Attending MD: Miya Elliott MD ENDOPROCEDURENAME Procedure: ERCP INDICATION Indications: Abdominal pain of suspected biliary origin, Bile duct stone(s), For therapy of bile duct stone(s), Elevated liver enzymes PTPROFILE Patient Profile: This is a 76 year old female. Refer to note in patient chart for documentation of history and physical. PRIMARYPROVIDER Providers: Miya Elliott MD (Doctor), Angelica Alfaro RN (Nurse), Ingris Rodgers, Speed Belt Sander Tender EDREFPROVIDER Referring: Livan Arguello, CURRENT_MEDS Medicines: General Anesthesia, Indomethacin 100 mg TN COMPLIC Complications: No immediate complications. ENDOPROCEDURETEXT Procedure: Pre-Anesthesia Assessment: - Prior to the procedure, a History and Physical was performed, and patient medications and allergies were reviewed. The patient is competent. The risks and benefits of the procedure and the sedation options and risks were discussed with the patient. All questions were answered and informed consent was obtained. Patient identification and proposed procedure were verified by the physician, the nurse, the anesthesiologist, the boiler engineer and the furniture repair technician in the procedure room. Mental Status Examination: alert and oriented. Airway Examination: normal oropharyngeal airway and neck mobility. Respiratory Examination: clear to auscultation. CV Examination: normal. Prophylactic Antibiotics: The patient does not require prophylactic antibiotics. Prior Anticoagulants: The patient has taken no anticoagulant or antiplatelet agents except for aspirin. ASA Grade Assessment: III - A patient with severe systemic disease. After reviewing the risks and benefits, the patient was deemed in satisfactory condition to undergo the procedure. The anesthesia plan was to use general anesthesia. Immediately prior to administration of medications, the patient was re-assessed for adequacy to receive sedatives. The heart rate, respiratory rate, oxygen saturations, blood pressure, adequacy of pulmonary ventilation, and response to care were monitored throughout the procedure. The physical status of the patient was re-assessed after the procedure. After obtaining informed consent, the scope was passed under direct vision. Throughout the procedure, the patient's blood pressure, pulse, and oxygen saturations were monitored continuously. The duodenoscope was introduced through the mouth, and advanced to the duodenum and used to inject contrast into the bile duct. The ERCP was accomplished without difficulty. The patient tolerated the procedure well. FINDING Findings: A furniture repair technician film of the abdomen was obtained. Surgical clips, consistent with a previous cholecystectomy, were seen in the area of the right upper quadrant of the abdomen. The esophagus was successfully intubated under direct vision. The scope was advanced from the mouth to the duodenum. The pharynx, larynx and associated structures, as well as the upper GI tract, were normal. The major papilla was normal. A 0.025 inch x 270 cm angled Visiglide wire was passed into the biliary tree. The Autotome sphincterotome was passed over the guidewire and the bile duct was then deeply cannulated. Contrast was injected. I personally interpreted the bile duct images. Ductal flow of contrast was adequate. Image quality was adequate. Contrast extended to the entire biliary tree. The lower third of the main bile duct contained one stone, which was 6 mm in diameter. A 6 mm biliary sphincterotomy was made with a monofilament Autotome sphincterotome using ERBE electrocautery. There was no post-sphincterotomy bleeding. The biliary tree was swept with an 11.5 mm balloon starting at the bifurcation. One stone was removed. No stones remained. EBL Estimated Blood Loss: Estimated blood loss: none. IMPRESS Impression: - The major papilla appeared normal. - Choledocholithiasis was found. Complete removal was accomplished by biliary sphincterotomy and balloon extraction. - A biliary sphincterotomy was performed. - The biliary tree was swept. ENDORECOMMENDATION Recommendation: - The patient will be observed post-procedure, until all discharge criteria are met. - Patient has a contact number available for emergencies. The signs and symptoms of potential delayed complications were discussed with the patient. Return to normal activities tomorrow. Written discharge instructions were provided to the patient. - Written discharge instructions were provided to the patient. - Resume previous diet. - Co (more content not included)... Normal [facility] No Panel Informationon 03-03 [email or web address] ={[email or web address] [facility] [address] DO Work Phone: -[facility] DO Work Phone: Order Reconciliationon 03-03 Order Reconciliation Page 1 Discharge Reconciliation Document Reconciliation Type: Discharge requested on behalf of Miya Elliott (Physician) done by Miya Elliott () Discharge - Reconciliation: 03-Mar-2022 08:51 by: Miya Ellitot) Home Medications EnteredHOME MEDICATIONS AT DISCHARGE DateReconciliation Comment/ Additional Information ALENDRONATE 70MG TAB TAKE 1 TABLET BY MOUTH ONCE A WEEK 03-Mar-2022 08:16 ALENDRONATE 70MG TAB TAKE 1 TABLET BY MOUTH ONCE A WEEK 03-Mar-2022 08:16 ALENDRONATE 70MG TAB is continued as ALENDRONATE 70MG TAB allopurinol 100 mg tablet TAKE 1 TABLET BY MOUTH ONCE DAILY 03-Mar-2022 08:16 allopurinol 100 mg tablet TAKE 1 TABLET BY MOUTH ONCE DAILY 03-Mar-2022 08:16 allopurinol 100 mg tablet is continued as allopurinol 100 mg tablet amitriptyline 10 mg tablet TAKE 1 TABLET BY MOUTH AT BEDTIME 03-Mar-2022 08:16 amitriptyline 10 mg tablet TAKE 1 TABLET BY MOUTH AT BEDTIME 03-Mar-2022 08:16 amitriptyline 10 mg tablet is continued as amitriptyline 10 mg tablet amlodipine 5 mg tablet TAKE 1 TABLET BY MOUTH ONCE DAILY 03-Mar-2022 08:16 amlodipine 5 mg tablet TAKE 1 TABLET BY MOUTH ONCE DAILY 03-Mar-2022 08:16 amlodipine 5 mg tablet is continued as amlodipine 5 mg tablet chlordiazepoxide-clidiniu m 5 mg-2.5 mg capsule TAKE 1 CAPSULE BY MOUTH TWICE DAILY NEEDED 03-Mar-2022 08:16 chlordiazepoxide-clidiniu m 5 mg-2.5 mg capsule TAKE 1 CAPSULE BY MOUTH TWICE DAILY NEEDED 03-Mar-2022 08:16 chlordiazepoxide-clidiniu m 5 mg-2.5 mg capsule is continued as chlordiazepoxide-clidiniu m 5 mg-2.5 mg capsule cyanocobalamin (vit B-12) 1,000 mcg/mL injection solution INJECT 1 (ONE) ml EVERY month 03-Mar-2022 08:16 cyanocobalamin (vit B-12) 1,000 mcg/mL injection solution INJECT 1 (ONE) ml EVERY month 03-Mar-2022 08:16 cyanocobalamin (vit B-12) 1,000 mcg/mL injection solution is continued as cyanocobalamin (vit B-12) 1,000 mcg/mL injection solution hydrochlorothiazide 12.5 mg tablet TAKE 1 TABLET BY MOUTH IN THE MORNING 03-Mar-2022 08:16 hydrochlorothiazide 12.5 mg tablet TAKE 1 TABLET BY MOUTH IN THE MORNING 03-Mar-2022 08:16 hydrochlorothiazide 12.5 mg tablet is continued as hydrochlorothiazide 12.5 mg tablet hyoscyamine 0.125 mg sublingual tablet TAKE 1 TABLET UNDER THE TONGUE EVERY 4 HOURS NEEDED FOR ABDOMINAL pain 03-Mar-2022 08:16 hyoscyamine 0.125 mg sublingual tablet TAKE 1 TABLET UNDER THE TONGUE EVERY 4 HOURS NEEDED FOR ABDOMINAL pain 03-Mar-2022 08:16 hyoscyamine 0.125 mg sublingual tablet is continued as hyoscyamine 0.125 mg sublingual tablet irbesartan 300 mg tablet TAKE 1 TABLET BY MOUTH ONCE DAILY 03-Mar-2022 08:16 irbesartan 300 mg tablet TAKE 1 TABLET BY MOUTH ONCE DAILY 03-Mar-2022 08:16 irbesartan 300 mg tablet is continued as irbesartan 300 mg tablet levothyroxine 75 mcg tablet TAKE 1 TABLET BY MOUTH IN THE MORNING ON AN EMPTY STOMACH 03-Mar-2022 08:16 levothyroxine 75 mcg tablet TAKE 1 TABLET BY MOUTH IN THE MORNING ON AN EMPTY STOMACH 03-Mar-2022 08:16 levothyroxine 75 mcg tablet is continued as levothyroxine 75 mcg tablet magnesium oxide 400 mg (241.3 mg magnesium) tablet TAKE 1 TABLET BY MOUTH DAILY 03-Mar-2022 08:16 magnesium oxide 400 mg (241.3 mg magnesium) tablet TAKE 1 TABLET BY MOUTH DAILY 03-Mar-2022 08:16 magnesium oxide 400 mg (241.3 mg magnesium) tablet is continued as magnesium oxide 400 mg (241.3 mg magnesium) tablet metoprolol tartrate 25 mg tablet TAKE 1/2 (ONE-HALF) OF A TABLET BY MOUTH TWICE DAILY 03-Mar-2022 08:16 metoprolol tartrate 25 mg tablet TAKE 1/2 (ONE-HALF) OF A TABLET BY MOUTH TWICE DAILY 03-Mar-2022 08:16 metoprolol tartrate 25 mg tablet is continued as metoprolol tartrate 25 mg tablet METRONIDAZOLE 250MG TAB 03-Mar-2022 08:16 METRONIDAZOLE 250MG TAB 03-Mar-2022 08:16 METRONIDAZOLE 250MG TAB is continued as METRONIDAZOLE 250MG TAB MIRTAZAPINE 15MG TAB 03-Mar-2022 08:16 MIRTAZAPINE 15MG TAB 03-Mar-2022 08:16 MIRTAZAPINE 15MG TAB is continued as MIRTAZAPINE 15MG TAB NITROGLYCERIN 0.[address] 1 tablet under the tongue if needed every 5 minutes for rome... (REFER TO PRESCRIPTION NOTES). 03-Mar-2022 08:16 NITROGLYCERIN 0.[address] 1 tablet under the tongue if needed every 5 minutes for rome... (REFER TO PRESCRIPTION NOTES). 03-Mar-2022 08:16 NITROGLYCERIN 0.4 MG TABLET SL is continued as NITROGLYCERIN 0.4 MG TABLET SL TRAMADOL 50MG TAB TAKE 1 TABLET BY MOUTH 4 TIMES DAILY NEEDED 03-Mar-2022 08:16 TRAMADOL 50MG TAB TAKE 1 TABLET BY MOUTH 4 TIMES DAILY NEEDED 03-Mar-2022 08:16 TRAMADOL 50MG TAB is continued as TRAMADOL 50MG TAB All Active Home Medications at time of Discharge Reconciliation: 03-Mar-2022 08:51 ALENDRONATE 70MG TAB TAKE 1 TABLET BY MOUTH ONCE A WEEK allopurinol 100 mg tablet TAKE 1 TABLET BY MOUTH ONCE DAILY amitriptyline 10 mg tablet TAKE 1 TABLET BY MOUTH AT BEDTIME amlodipine 5 mg tablet TAKE 1 TABLET BY MOUTH ONCE DAILY chlordiazepoxide-clidiniu m 5 mg-2.5 mg caps (more content not included)... Normal [facility] Radiologyon 03-03-2022 Fluoroscopy duration Please click on the link to view the study images Normal -[facility] DO Work Phone: Covid-19 PCR (CVDTBH)on SARS-CoV-2 (COVID-19) RNA AMBREEN+probe Ql (Unsp spec) Not detected Normal NOT DETECTED [facility] Comment on above: Result Comment: This test is not yet approved or cleared by the [place] FDA. When there are no FDA-approved or cleared tests available, and other criteria are met, FDA can make tests available under an emergency access mechanism called an Emergency Use Authorization (EUA). The EUA for this test is supported by the [place] of Health and Human Service's (HHS's) declaration that circumstances exist to justify the emergency use of in vitro diagnostics for the detection and/or diagnosis of the virus that causes COVID-19. This EUA will remain in effect (meaning this test can be used) for the duration of the COVID-19 declaration justifying emergency of IVDs, unless it is terminated or revoked by FDA (after which the test may no longer be used). When diagnostic testing is negative, the possibility of a false negative should be considered in the context of a patient's recent exposures and the presence of clinical signs and symptoms consistent with SARS-CoV-2. Performed By: #### A MY, LIPA, CMP #### [facility] [address] [place] [address] Dr. Aashish Mckeon ED Note-Physicianon 02-19-20 ED Note-Physician [id number]:12 7 Normal [facility] Lab Reportson 02-18-2022 Lab Reports [id number]:1 27 Normal [facility] RAD - CT Reporton 02-18-2022 RAD - CT Report [id number]:12 7 Normal [facility] RAD - Ultrasound Reporton RAD - Ultrasound Report [id number]:12 7 Normal [facility] AMYLASEon 02-16-2022 Amylase [Catalytic activity/Vol] 38 U/L Normal 25-115 [facility] Comment on above: Performed By: #### C BC #### [facility] [address] [place] [address] Dr. Aashish Mckeon CBC AUTO DIFFon 02-16-2022 BASO # 0.0 103/ul Normal 0.0-0.1 [facility] Comment on above: Performed By: #### C BC #### [facility] [address] [place] [address] Dr. Aashish Mckeon Basophils/100 WBC (Bld) 0.1 % Critically low 0.2-2.0 [facility] Comment on above: Performed By: #### C BC #### [facility] [address] [place] [address] Dr. Aashish Mckeon EO # 0.0 103/ul Normal 0.0-0.7 [facility] Comment on above: Performed By: #### C BC #### [facility] [address] [place] [address] Dr. Aashish Mckeon Eosinophils/100 WBC (Bld) 0.0 % Critically low 0.9-7.0 [facility] Comment on above: Performed By: #### C BC #### [facility] [address] [place] [address] Dr. Aashish Mckeon Erythrocyte distribution width (RBC) [Ratio] 13.8 % Normal 11.0-15.0 [facility] Comment on above: Performed By: #### C BC #### [facility] [address] [place] [address] Dr. Aashish Mckeon Hematocrit (Bld) [Volume fraction] 38.4 % Normal 36.0-48.0 [facility] Comment on above: Performed By: #### C BC #### [facility] [address] [place] [address] Dr. Aashish Mckeon Hemoglobin (Bld) [Mass/Vol] 13.0 g/dL Normal 12.0-16.0 [facility] Comment on above: Performed By: #### C BC #### [facility] [address] [place] [address] Dr. Aashish Mckeon IG # 0.01 10e3/ul Normal 0.00-0.03 [facility] Comment on above: Performed By: #### C BC #### [facility] [address] [place] [address] Dr. Aashish Mckeon IG % 0.1 % Normal 0.0-0.5 [facility] Comment on above: Performed By: #### C BC #### [facility] [address] [place] [address] Dr. Aashish Mckeon LYMPH # 1.5 103/ul Normal 1.2-3.8 [facility] Comment on above: Performed By: #### C BC #### [facility] [address] [place] [address] Dr. Aashish Mckeon Lymphocytes/100 WBC (Bld) 19.5 % Critically low 20.5-60.0 [facility] Comment on above: Performed By: #### C BC #### [facility] [address] [place] [address] Dr. Aashish Mckeon MANUAL DIFF REQ NO Normal [facility] Comment on above: Performed By: #### C BC #### [facility] [address] [place] [address] Dr. Aashish Mckeon MCH (RBC) [Entitic mass] 29.7 pg Normal 26.7-34.0 [facility] Comment on above: Performed By: #### C BC #### [facility] [address] [place] [address] Dr. Aashish Mckeon MCHC (RBC) [Mass/Vol] 33.9 g/dL Normal 29.9-35.2 [facility] Comment on above: Performed By: #### C BC #### [facility] [address] [place] [address] Dr. Aashish Mckeon MCV (RBC) [Entitic vol] 87.9 fL Normal 81.0-99.0 [facility] Comment on above: Performed By: #### C BC #### [facility] [address] [place] [address] Dr. Aashish Mckeon MONO # 0.7 103/ul Normal 0.3-0.8 [facility] Comment on above: Performed By: #### C BC #### [facility] [address] [place] [address] Dr. Aashish Mckeon Monocytes/100 WBC (Bld) 9.8 % Normal 1.7-12.0 [facility] Comment on above: Performed By: #### C BC #### [facility] [address] [place] [address] Dr. Aashish Mckeon NEUT # 5.3 103/ul Normal 1.4-6.5 [facility] Comment on above: Performed By: #### C BC #### [facility] [address] [place] [address] Dr. Aashish Mckeon Neutrophils/100 WBC (Bld) 70.5 % Normal 43.0-75.0 [facility] Comment on above: Performed By: #### C BC #### [facility] [address] [place] [address] Dr. Aashish Mckeon Platelet mean volume (Bld) [Entitic vol] 11.1 fL Normal 9.5-13.5 [facility] Comment on above: Performed By: #### C BC #### [facility] [address] [place] [address] Dr. aAshish Mckeon PLT 182 103/ul Normal 150-450 [facility] Comment on above: Performed By: #### C BC #### [facility] [address] [place] [address] Dr. Aashish Mckeon RBC 4.37 106/ul Normal 4.20-5.40 [facility] Comment on above: Performed By: #### C BC #### [facility] [address] [place] [address] Dr. Aashish Mckeon WBC 7.5 103/ul Normal 4.0-11.0 [facility] Comment on above: Performed By: #### C BC #### [facility] [address] [place] [address] Dr. Aashish Mckeon LIPASEon 02-16-2022 Lipase [Catalytic activity/Vol] 70.0 U/L Critically low 73.0-393.0 [facility] Comment on above: Performed By: #### C BC #### [facility] [address] [place] [address] Dr. Aashish Mckeon PROF 14(COMP METB)on 022 Albumin [Mass/Vol] 3.6 g/dL Normal 3.4-5.0 [facility] Comment on above: Performed By: #### C BC #### [facility] [address] [place] [address] Dr. Aashish Mckeon Albumin/Globulin [Mass ratio] 1.1 {ratio} Normal [facility] Comment on above: Performed By: #### C BC #### [facility] [address] [address] [address] Aashish Mckeon ALP [Catalytic activity/Vol] 424 U/L Critically high 46-116 [facility] Comment on above: Performed By: #### C BC #### [facility] [address] [address] [address] Aashish Mckeon ALT [Catalytic activity/Vol] 236 U/L Critically high 14-59 [facility] Comment on above: Performed By: #### C BC #### [facility] [address] [address] [address] Aashish Mckeon Anion gap [Moles/Vol] 14.1 mmol/L Normal [facility] Comment on above: Performed By: #### C BC #### [facility] [address] [address] [address] Aashish Mckeon AST [Catalytic activity/Vol] 171 U/L Critically high 15-37 [facility] Comment on above: Performed By: #### C BC #### [facility] [address] [address] [address] Aashish Mckeon Bilirubin [Mass/Vol] 1.6 mg/dL Critically high 0.2-1.0 [facility] Comment on above: Performed By: #### C BC #### [facility] [address] [address] [address] Aashish Mckeon Calcium [Mass/Vol] 9.1 mg/dL Normal 8.5-10.1 [facility] Comment on above: Performed By: #### C BC #### [facility] [address] [address] [address] Aashish Mckeon Chloride [Moles/Vol] 100 mmol/L Normal 98-107 [facility] Comment on above: Performed By: #### C BC #### [facility] [address] [address] [address] Aashish Mckeon CO2 [Moles/Vol] 23.9 mmol/L Normal 21.0-32.0 [facility] Comment on above: Performed By: #### C BC #### [facility] [address] [address] [address] Aashish Mckeon Creatinine [Mass/Vol] 1.21 mg/dL Critically high 0.55-1.02 [facility] Comment on above: Performed By: #### C BC #### [facility] [address] [address] [address] Aashish Mckeon EGFR-AF MONTENEGRIN 52 mL/min/1.73m2 Critically low >=60 [facility] Comment on above: Performed By: #### C BC #### [facility] [address] [address] [address] Aashish Mckeon EGFR-NON AF MONTENEGRIN 43 mL/min/1.73m2 Critically low >=60 [facility] Comment on above: Performed By: #### C BC #### [facility] [address] [address] [address] Aashish Mckeon Globulin (S) [Mass/Vol] 3.3 g/dL Normal [facility] Comment on above: Performed By: #### C BC #### [facility] [address] [address] [address] Aashish Mckeon Glucose [Mass/Vol] 127 mg/dL Critically high 74-106 [facility] Comment on above: Performed By: #### C BC #### [facility] [address] [address] [address] Aashish Mckeon Potassium [Moles/Vol] 4.0 mmol/L Normal 3.5-5.1 [facility] Comment on above: Performed By: #### C BC #### [facility] [address] [address] [address] Aashish Mckeon Protein [Mass/Vol] 6.9 g/dL Normal 6.4-8.2 [facility] Comment on above: Performed By: #### C BC #### [facility] [address] [address] [address] Aashish Mckeon Sodium [Moles/Vol] 134 mmol/L Critically low 136-145 [facility] Comment on above: Performed By: #### C BC #### [facility] [address] [address] [address] Aashish Mckeon Urea nitrogen [Mass/Vol] 14.0 mg/dL Normal 7.0-18.0 [facility] Comment on above: Performed By: #### C BC #### [facility] [address] [place] [address] Dr. Aashish Mckeon Urea nitrogen/Creatinine [Mass ratio] 11.6 mg/mg Normal [facility] Comment on above: Performed By: #### C BC #### [facility] [address] [place] [address] Dr. Aashish Mckeon AMYLASEon 02-15-2022 Amylase [Catalytic activity/Vol] 54 U/L Normal 25-115 [facility] Comment on above: Performed By: #### A MY LIPA, CMP #### [facility] [facility] [address] [place] [address] Dr. Aashish Mckeon CBC AUTO DIFFon 02-15-2022 BASO # 0.0 103/ul Normal 0.0-0.1 [facility] Comment on above: Performed By: #### A MY, LIPA, CMP #### [facility] [address] [place] [address] Dr. Aashish Mckeon Basophils/100 WBC (Bld) 0.2 % Normal 0.2-2.0 [facility] Comment on above: Performed By: #### A MY LIPA, CMP #### [facility] [address] [place] [address] Dr. Aashish Mckeon EO # 0.0 103/ul Normal 0.0-0.7 [facility] Comment on above: Performed By: #### A MY, LIPA, CMP #### [facility] [address] [place] [address] Dr. Aashish Mckeon Eosinophils/100 WBC (Bld) 0.0 % Critically low 0.9-7.0 [facility] Comment on above: Performed By: #### A MY, LIPA, CMP #### [facility] [address] [place] [address] Dr. Aashish Mckeon Erythrocyte distribution width (RBC) [Ratio] 14.4 % Normal 11.0-15.0 [facility] Comment on above: Performed By: #### A MY LIPA, CMP #### [facility] [address] [place] [address] Dr. Aashish Mckeon Hematocrit (Bld) [Volume fraction] 34.2 % Critically low 36.0-48.0 [facility] Comment on above: Performed By: #### A MY LIPA, CMP #### [facility] [address] [place] [address] Dr. Aashish Mckeon Hemoglobin (Bld) [Mass/Vol] 11.0 g/dL Critically low 12.0-16.0 [facility] Comment on above: Performed By: #### A MY LIPA, CMP #### [facility] [address] [place] [address] Dr. Aashish Mckeon IG # 0.01 10e3/ul Normal 0.00-0.03 [facility] Comment on above: Performed By: #### A ROSALBA LIPA, CMP #### [facility] [address] [place] [address] Dr. Aashish Mckeon IG % 0.2 % Normal 0.0-0.5 [facility] Comment on above: Performed By: #### A ROSALBA LIPA, CMP #### [facility] [address] [place] [address] Dr. Aashish Mckeon LYMPH # 1.1 103/ul Critically low 1.2-3.8 [facility] Comment on above: Performed By: #### A MY LIPA, CMP #### [facility] [address] [place] [address] Dr. Aashish Mckeon Lymphocytes/100 WBC (Bld) 24.8 % Normal 20.5-60.0 [facility] Comment on above: Performed By: #### A MY LIPA, CMP #### [facility] [address] [place] [address] Dr. Aashish Mckeon MANUAL DIFF REQ NO Normal [facility] Comment on above: Performed By: #### A MY LIPA, CMP #### [facility] [address] [place] [address] Dr. Aashish Mckeon MCH (RBC) [Entitic mass] 29.3 pg Normal 26.7-34.0 [facility] Comment on above: Performed By: #### A MY LIPA, CMP #### [facility] [address] [place] [address] Dr. Aashish Mckeon MCHC (RBC) [Mass/Vol] 32.2 g/dL Normal 29.9-35.2 [facility] Comment on above: Performed By: #### A MY LIPA, CMP #### [facility] [address] [place] [address] Dr. Aashish Mckeon MCV (RBC) [Entitic vol] 91.0 fL Normal 81.0-99.0 [facility] Comment on above: Performed By: #### A MY, LIPA, CMP #### [facility] [address] [place] [address] Dr. Aashish Mckeon MONO # 0.4 103/ul Normal 0.3-0.8 [facility] Comment on above: Performed By: #### A MY, LIPA, CMP #### [facility] [address] [place] [address] Dr. Aashish Mckeon Monocytes/100 WBC (Bld) 9.3 % Normal 1.7-12.0 [facility] Comment on above: Performed By: #### A MY, LIPA, CMP #### [facility] [address] [place] [address] Dr. Aashish Mckeon NEUT # 2.9 103/ul Normal 1.4-6.5 [facility] Comment on above: Performed By: #### A MY, LIPA, CMP #### [facility] [address] [place] [address] Dr. Aashish Mckeon Neutrophils/100 WBC (Bld) 65.5 % Normal 43.0-75.0 [facility] Comment on above: Performed By: #### A MY, LIPA, CMP #### [facility] [address] [place] [address] Dr. Aashish Mckeon Platelet mean volume (Bld) [Entitic vol] 10.9 fL Normal 9.5-13.5 [facility] Comment on above: Performed By: #### A MY, LIPA, CMP #### [facility] [address] [address] [address] Aashish Mckeon PLT 152 103/ul Normal 150-450 [facility] Comment on above: Performed By: #### A MY, LIPA, CMP #### [facility] [address] [address] [address] Aashish Mckeon RBC 3.76 106/ul Critically low 4.20-5.40 [facility] Comment on above: Performed By: #### A MY, LIPA, CMP #### [facility] [address] [place] [address] Dr. Aashish Mckeon WBC 4.4 103/ul Normal 4.0-11.0 [facility] Comment on above: Performed By: #### A MY, LIPA, CMP #### [facility] [address] [place] [address] Dr. Aashish Mckeon BASO # 0.0 103/ul Normal 0.0-0.1 [facility] Comment on above: Performed By: #### C BC #### [facility] [address] [place] [address] Dr. Aashish Mckeon Basophils/100 WBC (Bld) 0.1 % Critically low 0.2-2.0 [facility] Comment on above: Performed By: #### C BC #### [facility] [address] [place] [address] Dr. Aashish Mckeon EO # 0.0 103/ul Normal 0.0-0.7 [facility] Comment on above: Performed By: #### C BC #### [facility] [address] [place] [address] Dr. Aashish Mckeon Eosinophils/100 WBC (Bld) 0.0 % Critically low 0.9-7.0 [facility] Comment on above: Performed By: #### C BC #### [facility] [address] [place] [address] Dr. Aashish Mckeon Erythrocyte distribution width (RBC) [Ratio] 14.3 % Normal 11.0-15.0 [facility] Comment on above: Performed By: #### C BC #### [facility] [address] [place] [address] Dr. Aashish Mckeon Hematocrit (Bld) [Volume fraction] 36.2 % Normal 36.0-48.0 [facility] Comment on above: Performed By: #### C BC #### [facility] [address] [place] [address] Dr. Aashish Mckeon Hemoglobin (Bld) [Mass/Vol] 12.0 g/dL Normal 12.0-16.0 [facility] Comment on above: Performed By: #### C BC #### [facility] [address] [place] [address] Dr. Aashish Mckeon IG # 0.02 10e3/ul Normal 0.00-0.03 [facility] Comment on above: Performed By: #### C BC #### [facility] [address] [place] [address] Dr. Aashish Mckeon IG % 0.3 % Normal 0.0-0.5 [facility] Comment on above: Performed By: #### C BC #### [facility] [address] [place] [address] Dr. Aashish Mckeon LYMPH # 2.0 103/ul Normal 1.2-3.8 [facility] Comment on above: Performed By: #### C BC #### [facility] [address] [place] [address] Dr. Aashish Mckeon Lymphocytes/100 WBC (Bld) 26.5 % Normal 20.5-60.0 [facility] Comment on above: Performed By: #### C BC #### [facility] [address] [place] [address] Dr. Aashish Mckeon MANUAL DIFF REQ NO Normal [facility] Comment on above: Performed By: #### C BC #### [facility] [address] [place] [address] Dr. Aashish Mckeon MCH (RBC) [Entitic mass] 29.3 pg Normal 26.7-34.0 [facility] Comment on above: Performed By: #### C BC #### [facility] [address] [address] [address] Aashish Mckeon MCHC (RBC) [Mass/Vol] 33.1 g/dL Normal 29.9-35.2 [facility] Comment on above: Performed By: #### C BC #### [facility] [address] [place] [address] Dr. Aashish Mckeon MCV (RBC) [Entitic vol] 88.3 fL Normal 81.0-99.0 [facility] Comment on above: Performed By: #### C BC #### [facility] [address] [place] [address] Dr. Aashish Mckeon MONO # 0.8 103/ul Normal 0.3-0.8 [facility] Comment on above: Performed By: #### C BC #### [facility] [address] [place] [address] Dr. Aashish Mckeon Monocytes/100 WBC (Bld) 10.4 % Normal 1.7-12.0 [facility] Comment on above: Performed By: #### C BC #### [facility] [address] [place] [address] Dr. Aashish Mckeon NEUT # 4.8 103/ul Normal 1.4-6.5 [facility] Comment on above: Performed By: #### C BC #### [facility] [address] [place] [address] Dr. Aashish Mckeon Neutrophils/100 WBC (Bld) 62.7 % Normal 43.0-75.0 [facility] Comment on above: Performed By: #### C BC #### [facility] [address] [place] [address] Dr. Aashish Mckeon Platelet mean volume (Bld) [Entitic vol] 10.8 fL Normal 9.5-13.5 [facility] Comment on above: Performed By: #### C BC #### [facility] [address] [place] [address] Dr. Aashish Mckeon PLT 168 103/ul Normal 150-450 [facility] Comment on above: Performed By: #### C BC #### [facility] [address] [place], [place] [address] Dr. Aashish Mckeon RBC 4.10 106/ul Critically low 4.20-5.[address] [facility] Comment on above: Performed By: #### C BC #### [facility] [address] [place], [place] [address] Dr. Aashish Mckeon WBC 7.7 103/ul Normal 4.0-11.0 [facility] Comment on above: Performed By: #### C BC #### [facility] [address] [place], [place] [address] ABD/PELV W CONon 02-16-20 CT ABD/PELV W CON CT ABD/PELV W CON: 02/14/2022 11:36 PM EDT CLINICAL HISTORY: 76 years old Female with GENERALIZED ABDOMINAL PAIN. TECHNIQUE: Axial CT images through the abdomen and pelvis are obtained after the intravenous administration of contrast. Coronal and sagittal reformations are also obtained. Dose reduction techniques were achieved by using automated exposure control and/or adjustment of mA and/or kV according to patient size and/or use of iterative reconstruction technique. COMPARISON: CT abdomen pelvis performed 04/21/2020. FINDINGS: Mild apparent interstitial infiltrates at the lower lobes bilaterally. Persistent nodule at the right lung base measures 5 mm (series 3 image 5). No basilar effusion. The spleen, pancreas and bilateral adrenal glands are unremarkable. Cholecystectomy clips are present with the gallbladder surgically absent. There is persistent mild intrahepatic and extra hepatic biliary ductal dilatation with the common bile duct measuring 8.7 mm. 6mm calcific density in the distalmost common bile duct (series 3 image 53 and series 5 image 41) suggests possible choledocholithiasis The prior study. The bilateral kidneys demonstrate normal enhancement without hydronephrosis. The bilateral ureters demonstrate no gross abnormality or obstruction. Fluid is present within the distal esophagus suggesting possible reflux. The stomach and small bowel are unremarkable. The appendix is visualized without inflammatory change. Numerous diverticula of the colon are present without focal inflammatory change. The bladder appears unremarkable. There is no evidence of aortic aneurysm present. Calcific atherosclerosis is again present. No enlarged lymph nodes are seen. No free air or free fluid is seen. Uterus is surgically absent. Grade 1 anterolisthesis of L4 relation to L5 is again present with vacuum disc phenomena and lower lumbar facet arthropathy. Additional discogenic degenerative change most significant L4-L5 with loss of intervertebral disc space sclerosis and spurring as well as neural foraminal narrowings. No acute compression fracture deformity or suspicious osseous abnormality identified.1 IMPRESSION: 1. Interval development of interstitial infiltrate versus atelectasis at the dependent lungs bilaterally. 2. 5 mm right lower lobe pulmonary nodule persists. 3. Mild intrahepatic and extrahepatic biliary ductal dilatation with interval development of a 6 mm calcification at the distal common bile duct suggesting choledocholithiasis. ERCP may be of added benefit. 4. Fluid within the distal esophagus suggests gastroesophageal reflux. 5. Diverticulosis without diverticulitis. Electronically authenticated by: USMAN VIGIL Date: 2022-02-15 01:34 Normal [facility]on 01-21 SARS-CoV-2 (COVID-19) RNA AMBREEN+probe Ql (Unsp spec) Not detected Normal NOT DETECTED [facility] Comment on above: Result Comment: When diagnostic testing is negative, the possibility of a false negative should be considered in the context of a patient's recent exposures and the presence of clinical signs and symptoms consistent with SARS-CoV-2. This test is not yet approved or cleared by the [place] FDA. When there are no FDA-approved or cleared tests available, and other criteria are met, FDA can make tests available under an emergency access mechanism called an Emergency Use Authorization (EUA). The EUA for this test is supported by the [place] Supervisor of Health and Human Service's declaration that circumstances exist to justify the emergency use of in vitro diagnostics for the detection and/or diagnosis of the virus that causes COVID-19. This EUA will remain in effect for the duration of the COVID-19 declaration justifying emergency of IVDs, unless it is terminated or revoked by the FDA (after which the test may no longer be used). Performed By: #### C BC #### [facility] [address] [place] [address] Dr. Aashish Mckeon LIPASEon 02-15-2022 Lipase [Catalytic activity/Vol] 256.0 U/L Normal 73.0-393.0 [facility] Comment on above: Performed By: #### A MY, LIPA, CMP #### [facility] [address] [address] [address] Aashish Mckeon PROF 14(COMP METB)on 022 Albumin [Mass/Vol] 3.1 g/dL Critically low 3.4-5.0 [facility] Comment on above: Performed By: #### C MP #### [facility] [address] [address] [address] Aashish Mckeon Albumin/Globulin [Mass ratio] 1.1 {ratio} Normal [facility] Comment on above: Performed By: #### C MP #### [facility] [address] [place] [address] Dr. Aashish Mckeon ALP [Catalytic activity/Vol] 294 U/L Critically high 46-116 [facility] Comment on above: Performed By: #### C MP #### [facility] [address] [place] [address] Dr. Aashish Mckeon ALT [Catalytic activity/Vol] 297 U/L Critically high 14-59 [facility] Comment on above: Performed By: #### C MP #### [facility] [address] [place] [address] Dr. Aashish Mckeon Anion gap [Moles/Vol] 12.8 mmol/L Normal [facility] Comment on above: Performed By: #### C MP #### [facility] [address] [place] [address] Dr. Aashish Mckeon AST [Catalytic activity/Vol] 252 U/L Critically high 15-37 [facility] Comment on above: Performed By: #### C MP #### [facility] [address] [place] [address] Dr. Aashish Mckeon Bilirubin [Mass/Vol] 0.8 mg/dL Normal 0.2-1.0 [facility] Comment on above: Performed By: #### C MP #### [facility] [address] [place] [address] Dr. Aashish Mckeon Calcium [Mass/Vol] 7.9 mg/dL Critically low 8.5-10.1 [facility] Comment on above: Performed By: #### C MP #### [facility] [address] [address] [address] Aashish Mckeon Chloride [Moles/Vol] 107 mmol/L Normal 98-107 [facility] Comment on above: Performed By: #### C MP #### [facility] [address] [address] [address] Aashish Mckeon CO2 [Moles/Vol] 23.7 mmol/L Normal 21.0-32.0 [facility] Comment on above: Performed By: #### C MP #### [facility] [address] [address] [address] Aashish Mckeon Creatinine [Mass/Vol] 1.18 mg/dL Critically high 0.55-1.02 [facility] Comment on above: Performed By: #### C MP #### [facility] [address] [address] [address] Aashish Mckeon EGFR-AF MONTENEGRIN 54 mL/min/1.73m2 Critically low >=60 [facility] Comment on above: Performed By: #### C MP #### [facility] [address] [address] [address] Aashish Mckeon EGFR-NON AF MONTENEGRIN 44 mL/min/1.73m2 Critically low >=60 [facility] Comment on above: Performed By: #### C MP #### [facility] [address] [address] [address] Aashish Mckeon Globulin (S) [Mass/Vol] 2.7 g/dL Normal [facility] Comment on above: Performed By: #### C MP #### [facility] [address] [address] [address] Aashish Mckeon Glucose [Mass/Vol] 141 mg/dL Critically high 74-106 T [facility] Comment on above: Performed By: #### C MP #### [facility] [address] [address] [address] Aashish Mckeon Potassium [Moles/Vol] 4.5 mmol/L Normal 3.5-5.1 [facility] Comment on above: Performed By: #### C MP #### [facility] [address] [address] [address] Aashish Mckeon Protein [Mass/Vol] 5.8 g/dL Critically low 6.4-8.2 [facility] Comment on above: Performed By: #### C MP #### [facility] [address] [address] [address] Aashish Mckeon Sodium [Moles/Vol] 139 mmol/L Normal 136-145 [facility] Comment on above: Performed By: #### C MP #### [facility] [address] [address] [address] Aasihsh Mckeon Urea nitrogen [Mass/Vol] 17.0 mg/dL Normal 7.0-18.0 [facility] Comment on above: Performed By: #### C MP #### [facility] [address] [address] [address] Aashish Mckeon Urea nitrogen/Creatinine [Mass ratio] 14.4 mg/mg Normal [facility] Comment on above: Performed By: #### C MP #### [facility] [address] [address] [address] Aashish Mckeon Albumin [Mass/Vol] 3.5 g/dL Normal 3.4-5.0 [facility] Comment on above: Performed By: #### A CAMPBELL NAVARRETE, CMP #### [facility] [address] [address] [address] Aashish cMkeon Albumin/Globulin [Mass ratio] 1.1 {ratio} Normal [facility] Comment on above: Performed By: #### A ROSALBA LIPA, CMP #### [facility] [address] [address] [address] Aashish Mckeon ALP [Catalytic activity/Vol] 306 U/L Critically high 46-116 [facility] Comment on above: Performed By: #### A ROSALBA LIPA, CMP #### [facility] [address] [address] [address] Aashish Mckeon ALT [Catalytic activity/Vol] 156 U/L Critically high 14-59 [facility] Comment on above: Performed By: #### A ROSALBA LIPA, CMP #### [facility] [address] [address] [address] Aashish Mckeon Anion gap [Moles/Vol] 12.1 mmol/L Normal [facility] Comment on above: Performed By: #### A MY, LIPA, CMP #### [facility] [address] [address] [address] Aashish Mckeon AST [Catalytic activity/Vol] 239 U/L Critically high 15-37 [facility] Comment on above: Performed By: #### A MY, LIPA, CMP #### [facility] [address] [address] [address] Aashish Mckeon Bilirubin [Mass/Vol] 0.8 mg/dL Normal 0.2-1.0 [facility] Comment on above: Performed By: #### A MY, LIPA, CMP #### [facility] [address] [address] [address] Aashish Mckeon Calcium [Mass/Vol] 8.8 mg/dL Normal 8.5-10.1 [facility] Comment on above: Performed By: #### A MY, LIPA, CMP #### [facility] [address] [address] [address] Aashish Mckeon Chloride [Moles/Vol] 105 mmol/L Normal 98-107 [facility] Comment on above: Performed By: #### A MY, LIPA, CMP #### [facility] [address] [address] [address] Aashish Mckeon CO2 [Moles/Vol] 25.2 mmol/L Normal 21.0-32.0 [facility] Comment on above: Performed By: #### A MY, LIPA, CMP #### [facility] [address] [address] [address] Aashish Mckeon Creatinine [Mass/Vol] 1.24 mg/dL Critically high 0.55-1.02 [facility] Comment on above: Performed By: #### A MY, LIPA, CMP #### [facility] [address] [address] [address] Aashish Mckeon EGFR-AF MONTENEGRIN 51 mL/min/1.73m2 Critically low >=60 [facility] Comment on above: Performed By: #### A SID NAVARRETEA, CMP #### [facility] [address] [place] [address] Dr. Aashish Mckeon EGFR-NON AF MONTENEGRIN 42 mL/min/1.73m2 Critically low >=60 [facility] Comment on above: Performed By: #### A ROSALBA LIPA, CMP #### [facility] [address] [place] [address] Dr. Aashish Mckeon Globulin (S) [Mass/Vol] 3.1 g/dL Normal [facility] Comment on above: Performed By: #### A SID NAVARRETEA, CMP #### [facility] [address] [place] [address] Dr. Aashish Mckeon Glucose [Mass/Vol] 128 mg/dL Critically high 74-106 T [facility] Comment on above: Performed By: #### A SID NAVARRETEA, CMP #### [facility] [address] [place] [address] Dr. Aashish Mckeon Potassium [Moles/Vol] 4.3 mmol/L Normal 3.5-5.1 [facility] Comment on above: Performed By: #### A SID NAVARRETEA, CMP #### [facility] [address] [place] [address] Dr. Aashish Mckeon Protein [Mass/Vol] 6.6 g/dL Normal 6.4-8.2 [facility] Comment on above: Performed By: #### A ROSALBA LIPA, CMP #### [facility] [address] [place] [address] Dr. Aashish Mckeon Sodium [Moles/Vol] 138 mmol/L Normal 136-145 [facility] Comment on above: Performed By: #### A SID NAVARRETEA, CMP #### [facility] [address] [place] [address] Dr. Aashish Mckeon Urea nitrogen [Mass/Vol] 23.0 mg/dL Critically high 7.0-18.0 [facility] Comment on above: Performed By: #### A SID NAVARRETEA, CMP #### [facility] [address] [place], [place] [address] Dr. Aashish Mckeon Urea nitrogen/Creatinine [Mass ratio] 18.5 mg/mg Normal [facility] Comment on above: Performed By: #### A CAMPBELL NAVARRETE, CMP #### [facility] [address] [place], [place] [address] Dr. Aashish Mckeon TROPONIN, HIGH SENSITIVITYon 02-15-2022 HSTROP 13.2 pg/mL Normal 4.0-51.3 [facility] Comment on above: Result Comment: CUT- OFF POINTS HAVE BEEN ESTABLISHED BASED ON THE FOURTH UNIVERSAL DEFINITIONS OF MYOCARDIAL INFARCTION. THE UPPER REFERENCE LIMIT (URL) OF TROPONIN, DEFINED THE 99TH PERCENTILE OF cTnI DISTRIBUTION IN A REFERENCE POPULATION, HAS BEEN CONFIRMED THE DECISION THRESHOLD FOR VT DIAGNOSIS. Performed By: #### H STROPN #### [facility] [address], [place] [address] Dr. Aashish Mckeon US SINGLE QUAD RT UPPERon US SINGLE QUAD RT UPPER EXAMINATION: US SINGLE QUAD RT UPPER HISTORY: GENERALIZED ABDOMINAL PAIN COMPARISON:, CT abdomen pelvis 02/15/2022 Ultrasound right upper quadrant 03/24/2020 TECHNIQUE: Transabdominal evaluation of the right upper quadrant. FINDINGS: LIVER: Normal size and echotexture. Color Doppler demonstrates patent hepatic veins. PORTAL VEIN: Duplex Doppler demonstrates normal hepatopetal flow pattern with flow velocity averaging 25 cm/s. GALLBLADDER: Cholecystectomy. No free fluid. BILIARY: No abnormal dilation or stones. Common bile duct diameter is within normal limits for patient age and postcholecystectomy; 6 mm. PANCREASE: Partially obscured by bowel gas. No visible mass, abnormal atrophy, or duct dilation. KIDNEY: No hydronephrosis. No visible mass or stones. Size: 8.0 x 4.5 x 4.5 cm IMPRESSION: 1. No acute or suspicious findings to account for patient's symptoms. 2. Common bile duct is within normal limits in diameter. The calcification seen within the distal common bile duct on today's CT study could not be identified via ultrasound. Electronically authenticated by: WILLIAM GAO Date: 2022-02-15 09:18 Normal [facility] Cardiovasc Arrhythmia Result son 12-30-2021 Cardiovasc Arrhythmia Results Reason For Visit Reason for Visit: Holter Monitor: 24-hour Holter monitor is reviewed with good recording and 1 diary event of shortness of breath that occurred at 1230. A total of 98,703 QRS complexes are evaluable, with a minimum heart rate of 47 and average heart rate 69 and maximum heart rate of 121 beats a minute that occurred at 7:53 PM. There is moderate volume ventricular ectopy, 15,000 1568 events or 15.8% of the time there is rare supraventricular ectopy the longest R-R interval was 1.5 seconds. There were 755 by and 1897 trigeminal events. There was 426 couplets and 9 triplets there were no significant ventricular runs. The baseline rhythm is sinus rhythm. There was no evidence of atrial fibrillation or ventricular arrhythmias LUDY is here for the application of a 24 hour Holter monitor. Ordering Physician: Dr. 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 LUDY understands monitor is to be returned on: 12/31/2021 Monitor number [id number] applied. Holter monitor returned and downloaded. Procedure Holter monitor printed and placed on Dr. Mckeon desk to dictate. Diagnosis/Problems Assessed PVC (premature ventricular contraction) (427.69) (I49.3) Sinus bradycardia (427.89) (R00.1) Future Appointments Date/TimeProviderSpecialt [facility] 03/26/2022 09:30 Isidro Segovia APRN-[id number] [facility] [address] DO Signatures Electronically signed by : Melisa Nath L.P.N.; Jan 01 2022 12:55PM EST (Author) Electronically signed by : Deon Mckeon DO; Jan 07 2022 6:33PM EST (Author) Normal [facility] Office Visit (Cardiology)on 12-26-2021 Follow-up visit Diagnoses/Problems Assessed Dizziness (780.4) (R42) Takotsubo syndrome (429.83) (I51.81) Essential hypertension (401.9) (I10) Hyperlipidemia (272.4) (E78.5) Sinus bradycardia (427.89) (R00.1) Statin intolerance (995.27) (Z78.9) Diabetes mellitus (250.00) (E11.9) Hypothyroidism (244.9) (E03.9) Overweight with body mass index (BMI) of 26 to 26.9 in adult (278.02,V85.22) (E66.3,Z68.26) Never a smoker PVC (premature ventricular contraction) (427.69) (I49.3) Orders Dizziness IO Holter Monitor up to 48 Hrs; Status:Active - Perform Order,Retrospective Authorization; Requested for:[id number]; Essential hypertension Start: Irbesartan 150 MG Oral Tablet; TAKE 1 TABLET DAILY Overweight with body mass index (BMI) of 26 to 26.9 in adult Healthy Weight Tips; Status:Complete - Retrospective Authorization; Done: [id number] Some eating tips that can help you lose weight.; Status:Complete - Retrospective Authorization; Done: [id number] SocHx: Never a smoker Tobacco Use Screening; Status:Complete; Done: [id number] Unlinked Stop: amLODIPine Besylate 5 MG Oral Tablet Stop: hydroCHLOROthiazide 12.5 MG Oral Capsule Patient Instructions By signing my name below, IElvie LPN, Scribe, attest that this documentation has been prepared under the direction and in the presence of Dr. Deon Mckeon DO. Please bring all medicines, vitamins, and herbal supplements with you when you come to the office. Prescriptions will not be filled unless you are compliant with your follow up appointments or have a follow up appointment scheduled as per instruction of your physician. Refills should be requested at the time of your visit. Follow up in 3 months with IDENTITY ACCESS MANAGEMENT ARCHITECT Chief Complaint LUDY WILLIS is being seen for PATIENTS REQUEST DIZZINESS LIGHTHEADED. 76-year-old female who returns with complaints of orthostasis/dizziness that are worsening over the early summer time. Especially with kneeling and arising specifically in her boat. She has had no true syncope. She has a number of other noncardiac related GI issues that GI and primary care are addressing. She is been treated for hypertension and remotely treated for Takotsubo cardiomyopathy with normalized left ventricular function. She also has underlying mild bradycardia her is concerned because he has a cardia gnee and performed brief telemetry on her revealing a PVC and evidence of bradycardia but sinus rhythm. Patient has a history of normal coronary arteries by heart catheterization in 2017 Patient had a 16 mmHg systolic drop in blood pressure in our office today with symptoms of dizziness and orthostasis Recommendations: Discontinue amlodipine and hydrochlorothiazide, drop irbesartan down to 150 mg daily, perform Holter monitoring for 24 hours follow-up with nurse practitioner in 3 months, otherwise follow-up with primary care. Surgical History Problems History of Cardiac catheterization History of Cataract surgery History of Complete colonoscopy History of Esophagogastroduodenoscop y History of Hysterectomy Current Meds Medication NameInstruction Allopurinol 100 MG Oral TabletTAKE 1 TABLET DAILY. Amitriptyline HCl - 10 MG Oral TabletTAKE 1 TABLET AT BEDTIME. amLODIPine Besylate 5 MG Oral TabletTAKE 1 TABLET DAILY. chlordiazePOXIDE-Clidiniu m CAPSTake 1 capsule twice daily Cyanocobalamin 100 MCG/ML SOLNinjection once a month Fosamax 70 MG Oral TabletTake 1 tablet daily hydroCHLOROthiazide 12.5 MG Oral CapsuleTAKE 1 CAPSULE ONCE DAILY. Irbesartan 300 MG Oral TabletTAKE 1 TABLET DAILY. Levothyroxine Sodium 75 MCG Oral TabletTAKE 1 TABLET DAILY. metroNIDAZOLE 250 MG Oral TabletTake 1 tablet daily Nitroglycerin 0.4 MG Sub[address] Tablet SublingualPL[address] 1 TABLET UNDER THE TONGUE EVERY 5 MINUTES FOR UP TO 3 DOSES NEEDED FOR CHEST PAIN.CALL 911 IF PAIN PERSISTS. Allergies Medication Coreg Adverse Reaction; Bradycardia;; Recorded By: Teagan Sheffield; 07/31/2021 3:57:39 PM Penicillins Allergy; Hives;; Recorded By: Teagan Sheffield; 07/31/2021 3:57:39 PM Statins Adverse Reaction; Nausea; Recorded By: Teagan Sheffield; 07/31/2021 3:57:39 PM sulfa Adverse Reaction; Rash; Recorded By: Teagan Sheffield; 07/31/2021 3:57:39 PM Social History Problems Daily caffeine consumption 1 CUP OF COFFEE DAILY Never a smoker No illicit drug use Occasional alcohol use Wine occasionally Review of Systems Constitutional: not feeling tired. Cardiovascular: no intermittent leg claudication and as noted in HPI. Respiratory: shortness of breath, but no cough. Gastrointestinal: no change in bowel habits and no blood in stools. Integumentary: no skin rashes. Neurological: dizziness, but no seizures and no frequent falls. All other systems have been reviewed and are negative for complaint. Vitals Vital Signs Recorded: [id number] 09:28AM Height5 ft 1 in Dekcaz178 lb BMI Ssjvlqpabn18.45 kg/m2 BSA Calculated1.62 Tobacco Useb) No Falls Screening (more content not included)... Normal [facility] Tobacco Screening.on 022 Fall risk assessment a) No falls within the last year [facility] DO Work Phone: Tobacco use status CP b) No -[facility] DO Work Phone: Gastroenterology Office/Clin ic Noteon 11-25-2021 Gastroenterology Office/Clinic Note Chief Complaint IDENTITY ACCESS MANAGEMENT ARCHITECT Abdominal pain HPI Staff IDENTITY ACCESS MANAGEMENT ARCHITECT Ludy is a 76 y.o. female here for abdominal pain. Previously treated by Dr. Padgett. She is having bilateral side pain that wraps around stomach. She then starts to have back ache. She has hx of vomiting due to pain. She was given Mirtazapine at bed time but this is not helping. She had also tried Librium and Remeron without success. She also tried dicyclomine without success. Balsalazine and Zofran History of Present Illness Ludy is a 76-year-old white female who presents today for a second opinion for abdominal pain. She is accompanied by an adult male. The patient reports that she has had abdominal pain for 3 days in a row. She states that the pain starts in the right and left flanks and then progressed to generalized abdominal pain and back pain. She reports that she has had this pain for approximately 2 years. She has gone as long as 2 weeks without the pain and then it will return. There is nothing specific, such as eating, that triggers the pain, although she does admit to being more gassy during the episodes. She notes that she has been under more stress this past year; however, she does not feel that is what causes her to have pain. The adult male reports that he is going through cancer treatments and they may be attributing to her anxiety. She does sleep well most of the times. She does admit to occasional acid reflux. She denies any blood in her stools. She reports that she was told that she has a hiatal hernia. Her last EGD and colonoscopy were done approximately [address] Padgett. She did have her esophagus dilated due to it narrowing but she denies ever having any dysphagia. Her colonoscopy revealed diverticulosis. She reports that she had a normal gastric emptying scan. She has been prescribed Librax for the last 3 months and states that it has been helpful Dr. Matta prescribed her mirtazapine. She reports that she has at least 1 to 3 bowel movements a day. She has had a cholecystectomy in the past. She does still have her appendix. She reports occasional constipation and diarrhea. She reports that she has diabetes. She reports that her last hemoglobin A1c was 5.something percent. Review of Systems PHQ Score Initial Depression Screen Score: 0 Constitutional: no fever, no chills, no sweats, no weakness Skin: no jaundice, no rash, no lesions, no petechiae ENMT: no ear pain, no sore throat, no congestion, no hoarseness Respiratory: no shortness of breath, no cough, no orthopnea, no wheezing Cardiovascular: no chest pain, no palpitations, no edema Gastrointestinal: no nausea, no vomiting, no diarrhea, no constipation, no GI bleeding, no dysphagia, no heartburn. Positive for abdominal pain and bloating. Genitourinary: no dysuria, no hematuria, no discharge, no pain Musculoskeletal: no back pain, no trauma Neurologic: no numbness, no sleeping problems Additional ROS info: Except as noted in the above Review of Systems and in the History of Present Illness all other systems have been reviewed and are negative or noncontributory. Physical Exam Vitals & Measurements HR: 65(Peripheral) BP: 156/79 HT: 154 cm HT: 154.0 cm WT: 65 kg WT: 65.0 kg BMI: 27.41 Constitutional: Appearance: well developed Skin: Inspection: no rashes, ulcers, icterus, or telangiectasias. Eyes: Conjunctivae/lids: normal conjunctivae and lids. ENMT: Hearing: within normal limits. Lips/Teeth/Gums: normal oral mucosa Neck: Neck: normal motion, central trachea Respiratory: Percussion: thorax normoresonant. Auscultation: normal breath sounds; no rubs, wheezes, rale or rhonchi. Cardiovascular: Auscultation: normal rhythm, S1 and S2; no rubs, murmurs or gallop. Peripheral: no edema Gastrointestinal/Abdomen: Abdomen: normal consistency and bowel sounds; no tenderness or masses. Liver/Spleen: normal size and consistency, not palpable. Rectal: deferred Musculoskeletal: Gait/station: normal gait Assessment/Plan 1. 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 She has a history of cholecystectomy. She had a normal gastric emptying scan. She had a normal CBC and CMP. She was diagnosed with irritable bowel syndrome. She continues to report sporadic abdominal pain and bloating. At this point, I will start her on amitriptyline 10 mg by mouth at bedtime. She will continue with Librax as needed. She will add peppermint oil twice daily and add daily probiotics. 2. Small intestinal bacterial overgrowth (SIBO) (K63.89: Other specified diseases of intestine) I recommend she take daily probiotics. I will give her a course of Flagyl for 10 days. 3. Diabetes mellitus (E11.9: Type 2 diabetes mellitus without complications) ATTESTATION: Documentation services were performed after patient or guardian consented to allow Ruel Severo Garcia to record this visit. EVELYNE property management specialist and provider reviewed before sig (more content not included)... Normal [facility] Comment on above: Result Comment: Elec tronically Signed By: Nasrin Amaya\.br\Date and Time Signed: 11/21/21 15:22 EDT\.br\Electronically Co-Signed By: Andrew HERNANDEZ MD\.br\Date and Time Co-Signed: 11/25/21 09:11 EDT Ambulatory Visit Summaryon 0 11-21-2021 Ambulatory Visit Summary LUDY WILLIS :1945 Visit Date:11/21/2021 Ambulatory Visit Instructions Your Diagnosis Functional abdominal pain syndrome Small intestinal bacterial overgrowth (SIBO) Diabetes mellitus Your Care Team Attending Physician - Andrew HERNANDEZ MD Primary Care Physician - LIVAN ARGUELLO DO This Is Your Medications List amitriptyline (amitriptyline 10 mg Tab) metronidazole (Flagyl 250 mg Tab) Contact prescribing physician if questions or concerns alendronate (Fosamax 70 mg Tab) allopurinol (allopurinol 100 mg Tab) amlodipine (amLODIPine 5 mg Tab) chlordiazepoxide-clidiniu m chlordiazepoxide-clidiniu m (Librax 5 mg-2.5 mg Cap) cyanocobalamin (cyanocobalamin 1000 mcg/mL Inj) hydrochlorothiazide (hydrochlorothiazide 12.5 mg Cap) irbesartan (irbesartan 300 mg Tab) levothyroxine (levothyroxine 75 mcg (0.075 mg) Tab) Procedures Performed Colonoscopy (06/01/2017), DELONTE BSO - Total abdominal hysterectomy and bilateral salpingo-oophorectomy. Discharge Vitals Heart Rate (Peripheral) 65 Blood Pressure 156/79 Height 154 cm Height 154.0 cm Weight 65 kg Weight 65.0 kg BMI 27.41 Medications What How Much When Why Instructions New amitriptyline (amitriptyline 10 mg Tab) 1 Tablets By Mouth Once a day (at bedtime) Functional abdominal pain syndrome Refills: 5 Printed Prescription New metronidazole (Flagyl 250 mg Tab) 1 Tablets By Mouth 3 times a day Small intestinal bacterial overgrowth (SIBO) Duration: 10 Days Printed Prescription Unchanged alendronate (Fosamax 70 mg Tab) By Mouth Every week Contact prescribing physician if questions or concerns Unchanged allopurinol (allopurinol 100 mg Tab) Oral Contact prescribing physician if questions or concerns Unchanged amlodipine (amLODIPine 5 mg Tab) Oral Contact prescribing physician if questions or concerns Unchanged chlordiazepoxide-clidiniu m 1 Unknown, Oral Contact prescribing physician if questions or concerns Unchanged chlordiazepoxide-clidiniu m (Librax 5 mg-2.5 mg Cap) By Mouth Four times a day (before meals and at bedtime) Contact prescribing physician if questions or concerns Unchanged cyanocobalamin (cyanocobalamin 1000 mcg/ mL Inj) Intramuscular Once a month Contact prescribing physician if questions or concerns Unchanged hydrochlorothiazide (hydrochlorothiazide 12.5 mg Cap) Oral Contact prescribing physician if questions or concerns Unchanged irbesartan (irbesartan 300 mg Tab) By Mouth Every day Contact prescribing physician if questions or concerns Unchanged levothyroxine (levothyroxine 75 mcg (0.075 mg) Tab) Oral Contact prescribing physician if questions or concerns Allergies Tylenol with Codeine #3 (Vomiting) statins (Nausea and vomiting) sulfamethoxazole (Rash) Problems Ongoing - Any problem that you are currently receiving treatment for. Abdominal pain Diabetes mellitus Diverticulitis Essential hypertension Functional abdominal pain syndrome Hyperlipidemia Hypothyroidism Sinus bradycardia Small intestinal bacterial overgrowth (SIBO) Vomiting Normal [facility] Transfer Inon 10-14-2021 Transfer In [id number]#1.00CD:1 27 [facility] Transfer In [id number]#[id number]:12 7 [facility] Auth for Release of Medical Recordson 10-11-2021 Auth for Release of Medical Records [id number]#1.00CD:12 7 [facility] Tobacco Screening.on 022 Adult depression screening assessment No [facility] [address] 250 DO Work Phone: Fall risk assessment a) No falls within the last year [facility] [facility] 250 DO Work Phone: Tobacco use status [facility] b) No [facility] [address] DO Work Phone: Complete Blood Count Auto Di ffon 05-02-2021 Basophils (Bld) [#/Vol] 0.0 10*3/uL 0.0-0.2 [facility] Other Basophils/100 WBC (Bld) 0.2 % . [facility] Other Eosinophils (Bld) [#/Vol] 0.0 10*3/uL 0.0-0.45 [facility] Other Eosinophils/100 WBC (Bld) 0.0 % . [facility] Other Erythrocyte distribution width (RBC) [Ratio] 14.9 % 11.9-15.3 [facility] Other Hematocrit (Bld) [Volume fraction] 35.2 % 34.0-46.4 [facility] Other Hemoglobin (Bld) [Mass/Vol] 11.6 g/dL 11.8-15.4 [facility] Other Lymphocytes (Bld) [#/Vol] 1.1 10*3/uL 1.00-4.8 [facility] Other Lymphocytes/100 WBC (Bld) 23.1 % . [facility] Other MCH (RBC) [Entitic mass] 29.2 pg 24.7-34.3 [facility] Other MCH (RBC) [Entitic mass] 33.0 pg 32.0-35.0 [facility] Other MCV (RBC) [Entitic vol] 88.3 fL 80-100 [facility] Other Monocytes (Bld) [#/Vol] 0.5 10*3/uL 0.0-0.8 [facility] Other Monocytes/100 WBC (Bld) 11.4 % . [facility] Other Neutrophils (Bld) [#/Vol] 3.1 10*3/uL 1.8-7.7 [facility] Other Neutrophils/100 WBC (Bld) 65.3 % . [facility] Other Platelet mean volume (Bld) [Entitic vol] 9.1 fL 6.3-10.7 [facility] Other Platelets (Bld) [#/Vol] 199 10*3/uL 150-450 [facility] Other RBC (Bld) [#/Vol] 3.99 10*6/uL 3.60-5.00 [facility] Other WBC (Bld) [#/Vol] 4.8 10*3/uL 3.8-11.6 [facility] Other Complete Blood Count Auto Diff 4.8 4.5-11.0 [facility] Other Complete Blood Count Auto Diff 0.0 0-0.5 [facility] Other Vital Signs Date Time Vital Sign Value Performing Clinician Facility 05-12-2024 13:20-0500 Body height 154.94 cm Livan Arguello DO Work Phone: [facility] 05-12-2024 13:20-0500 Body mass index (BMI) [Ratio] 23 kg/m2 Livan Arguello DO Work Phone: [facility] 05-12-2024 13:20-0500 Body weight 55.33 kg Livan Arguello DO Work Phone: [facility] 05-12-2024 13:20-0500 Diastolic blood pressure 82 mm[Hg] Livanrolo Castillos DO Work Phone: [facility] 05-12-2024 13:20-0500 Heart rate 72 /min Livan Arguello DO Work Phone: [facility] 05-12-2024 13:20-0500 Respiratory rate 16 /min Livan Arguello DO Work Phone: [facility] 05-12-2024 13:20-0500 SaO2% (BldA) [Mass fraction] 98 % Livan Arguello DO Work Phone: [facility] 05-12-2024 13:20-0500 Systolic blood pressure 142 mm[Hg] Livan Arguello DO Work Phone: [facility] 05-05-2024 13:00-0500 Body height 154.94 cm Livan Arguello DO Work Phone: [facility] 05-05-2024 13:00-0500 Body mass index (BMI) [Ratio] 23.6 kg/m2 Livanrolo Castillos DO Work Phone: [facility] 05-05-2024 13:00-0500 Body temperature 96.8 [degF] Livanrolo Castillos DO Work Phone: [facility] 05-05-2024 13:00-0500 Body weight 56.69 kg Livan Kuns DO Work Phone: [facility] 05-05-2024 13:00-0500 Diastolic blood pressure 68 mm[Hg] Livan Kuns DO Work Phone: [facility] 05-05-2024 13:00-0500 Heart rate 70 /min Livan Kuns DO Work Phone: [facility] 05-05-2024 13:00-0500 Respiratory rate 16 /min Livan Kuns DO Work Phone: [facility] 05-05-2024 13:00-0500 SaO2% (BldA) [Mass fraction] 98 % Livan Kuns DO Work Phone: [facility] 05-05-2024 13:00-0500 Systolic blood pressure 130 mm[Hg] Livan Kuns DO Work Phone: [facility] 04-21-2024 11:30-0400 Diastolic blood pressure 68 mm[Hg] DO Livan Kuns Work Phone: [facility] 04-21-2024 11:30-0400 Heart rate 68 /min DO Livan Kuns Work Phone: [facility] 04-21-2024 11:30-0400 Respiratory rate 18 /min DO Livan Kuns Work Phone: [facility] 04-21-2024 11:30-0400 SaO2% (BldA) [Mass fraction] 98 % DO Livan Kuns Work Phone: [facility] 04-21-2024 11:30-0400 Systolic blood pressure 161 mm[Hg] DO Livan Kuns Work Phone: [facility] 04-21-2024 07:20-0400 Body temperature 97.7 [degF] DO Livan Kuns Work Phone: [facility] 04-21-2024 07:19-0400 Body height 154.94 cm DO Livan Kuns Work Phone: [facility] 04-21-2024 07:19-0400 Body weight 57.5 kg DO Livan Kuns Work Phone: [facility] 04-14-2024 12:55-0400 Body height 154.94 cm DO Livan Kuns Work Phone: [facility] 04-14-2024 12:55-0400 Body mass index (BMI) [Ratio] 24.1 kg/m2 DO Livan Kuns Work Phone: [facility] 04-14-2024 12:55-0400 Body weight 58 kg DO Livan Kuns Work Phone: [facility] 04-14-2024 12:55-0400 Diastolic blood pressure 90 mm[Hg] DO Livan Kuns Work Phone: [facility] 04-14-2024 12:55-0400 Heart rate 76 /min DO Livan Kuns Work Phone: [facility] 04-14-2024 12:55-0400 Respiratory rate 18 /min DO Livan Kuns Work Phone: [facility] 04-14-2024 12:55-0400 SaO2% (BldA) [Mass fraction] 97 % DO Livan Kuns Work Phone: [facility] 04-14-2024 12:55-0400 Systolic blood pressure 190 mm[Hg] DO Livan Kuns Work Phone: [facility] 03-19-2024 10:11-0400 Diastolic blood pressure 72 mm[Hg] DO Livan Kuns Work Phone: [facility] 03-19-2024 10:11-0400 Heart rate 66 /min DO Livan Kuns Work Phone: [facility] 03-19-2024 10:11-0400 Respiratory rate 16 /min DO Livan Kuns Work Phone: [facility] 03-19-2024 10:11-0400 SaO2% (BldA) [Mass fraction] 98 % DO Livan Arguello Work Phone: [facility] 03-19-2024 10:11-0400 Systolic blood pressure 166 mm[Hg] DO Livan Arguello Work Phone: [facility] 03-19-2024 08:15-0400 Body height 154.94 cm DO Livan Arguello Work Phone: [facility] 03-19-2024 08:15-0400 Body weight 54.43 kg DO Livan Arguello Work Phone: [facility] 03-19-2024 08:14-0400 Body temperature 97.7 [degF] DO Livan Arguello Work Phone: [facility] 04-23-2023 15:00-0400 Body height 157.48 cm Huy Kelsy Other [facility] Other 04-23-2023 15:00-0400 Body mass index (BMI) [Ratio] 26.99 kg/m2 Huy Kelsy Other [facility] Other 04-23-2023 15:00-0400 Body temperature 96.5 [degF] Huy Kelsy Other [facility] Other 04-23-2023 15:00-0400 Body weight 66.95 kg Huy Kelsy Other [facility] Other 04-23-2023 15:00-0400 Diastolic blood pressure 82 mm[Hg] Huy Kelsy Other [facility] Other 04-23-2023 15:00-0400 Respiratory rate 16 /min Huy Kelsy Other [facility] Other 04-23-2023 15:00-0400 SaO2% (BldA) [Mass fraction] 97 % Huy Kelsy Other [facility] Other 04-23-2023 15:00-0400 Systolic blood pressure 144 mm[Hg] Huy Kelsy Other [facility] Other 03-25-2023 10:00-0400 Body height 157.48 cm Livan Arguello Other [facility] Other 03-25-2023 10:00-0400 Body mass index (BMI) [Ratio] 27.43 kg/m2 Livan Arguello Other [facility] Other 03-25-2023 10:00-0400 Body weight 68.04 kg Livan Arguello Other [facility] Other 03-25-2023 10:00-0400 Diastolic blood pressure 66 mm[Hg] Livan Arguello Other [facility] Other 03-25-2023 10:00-0400 Respiratory rate 16 /min Livan Arguello Other [facility] Other 03-25-2023 10:00-0400 SaO2% (BldA) [Mass fraction] 96 % Livan Arguello Other [facility] Other 03-25-2023 10:00-0400 Systolic blood pressure 136 mm[Hg] Livan Arguello Other [facility] Other 03-09-2023 10:30-0400 Body height 157.48 cm Livan Arguello Other [facility] Other 03-09-2023 10:30-0400 Body mass index (BMI) [Ratio] 27.25 kg/m2 Livan Arguello Other [facility] Other 03-09-2023 10:30-0400 Body weight 67.59 kg Livan Arguello Other [facility] Other 03-09-2023 10:30-0400 Diastolic blood pressure 82 mm[Hg] Livan Arguello Other [employer] Other 03-09-2023 10:30-0400 Respiratory rate 16 /min Livan Arguello Other [facility] Other 03-09-2023 10:30-0400 SaO2% (BldA) [Mass fraction] 98 % Livan Arguello Other [facility] Other 03-09-2023 10:30-0400 Systolic blood pressure 142 mm[Hg] Livan Arguello Other [facility] Other 11-26-2022 09:48-0400 Diastolic blood pressure 70 mm[Hg] Livan Arguello Work Phone: [employer] DO Work Phone: 11-26-2022 09:48-0400 Systolic blood pressure 128 mm[Hg] Livan Arguello Work Phone: [employer] [facility] DO Work Phone: 11-26-2022 09:34-0400 Body height 154.94 cm Livan Arguello Work Phone: [facility] DO Work Phone: 11-26-2022 09:34-0400 Body mass index (BMI) [Ratio] 27.96 kg/m2 Livan Arguello Work Phone: [facility] 250 DO Work Phone: 11-26-2022 09:34-0400 Body surface area Derived from formula 1.66 m2 Livan Arguello Work Phone: [facility] 250 DO Work Phone: 11-26-2022 09:34-0400 Body weight 67.13 kg Livan Arguello Work Phone: [facility] 250 DO Work Phone: 11-26-2022 09:34-0400 Diastolic blood pressure 68 mm[Hg] Livan Arguello Work Phone: [facility] 250 DO Work Phone: 11-26-2022 09:34-0400 Heart rate 54 /min Livan Arguello Work Phone: [facility] 250 DO Work Phone: 11-26-2022 09:34-0400 Systolic blood pressure 144 mm[Hg] Livan Arguello Work Phone: [facility] 250 DO Work Phone: 09-09-2022 10:45-0400 Body height 154.94 cm Livan Arguello Work Phone: [facility] 250 DO Work Phone: 09-09-2022 10:45-0400 Body mass index (BMI) [Ratio] 27.96 kg/m2 Livan Arguello Work Phone: [facility] 250 DO Work Phone: 09-09-2022 10:45-0400 Body surface area Derived from formula 1.66 m2 Livan Arguello Work Phone: [facility] 250 DO Work Phone: 09-09-2022 10:45-0400 Body weight 67.13 kg Livan Arguello Work Phone: [facility] 250 DO Work Phone: 09-09-2022 10:45-0400 Diastolic blood pressure 74 mm[Hg] Livan Arguello Work Phone: [facility] 250 DO Work Phone: 09-09-2022 10:45-0400 Heart rate 52 /min Livan Arguello Work Phone: [facility] 250 DO Work Phone: 09-09-2022 10:45-0400 Systolic blood pressure 136 mm[Hg] Livan Arguello Work Phone: [facility] 250 DO Work Phone: 09-02-2022 13:30-0400 Body height 157.48 cm Livan Arguello Other [facility] Other 09-02-2022 13:30-0400 Body mass index (BMI) [Ratio] 26.34 kg/m2 Livan Arguello Other [facility] Other 09-02-2022 13:30-0400 Body weight 65.32 kg Livan Arguello Other [facility] Other 09-02-2022 13:30-0400 Diastolic blood pressure 72 mm[Hg] Livan Arguello Other [employer] Other 09-02-2022 13:30-0400 Respiratory rate 16 /min Livan Arguello Other [facility] Other 09-02-2022 13:30-0400 SaO2% (BldA) [Mass fraction] 93 % Livan Arguello Other [facility] Other 09-02-2022 13:30-0400 Systolic blood pressure 136 mm[Hg] Livan Arguello Other [facility] Other 05-01-2022 11:00-0500 Body height 157.48 cm Huy Kelsy Other [facility] Other 05-01-2022 11:00-0500 Body mass index (BMI) [Ratio] 26.74 kg/m2 Huy Kelsy Other [facility] Other 05-01-2022 11:00-0500 Body temperature 96.3 [degF] Huy Kelsy Other [facility] Other 05-01-2022 11:00-0500 Body weight 66.32 kg Huy Kelsy Other [facility] Other 05-01-2022 11:00-0500 Diastolic blood pressure 70 mm[Hg] Huy Kelsy Other [facility] Other 05-01-2022 11:00-0500 Respiratory rate 16 /min Huy Kesly Other [facility] Other 05-01-2022 11:00-0500 SaO2% (BldA) [Mass fraction] 98 % Huy Kelsy Other [facility] [employer] Other 05-01-2022 11:00-0500 Systolic blood pressure 144 mm[Hg] Huy Tierney Other [facility] [employer] Other 04-02-2022 15:58-0400 Body height 154.94 cm Livan Arguello Work Phone: [facility] 250 DO Work Phone: 04-02-2022 15:58-0400 Body mass index (BMI) [Ratio] 27.78 kg/m2 Livan Arguello Work Phone: [facility] 250 DO Work Phone: 04-02-2022 15:58-0400 Body surface area Derived from formula 1.66 m2 Livan Arguello Work Phone: [facility] 250 DO Work Phone: 04-02-2022 15:58-0400 Body weight 66.68 kg Livan Arguello Work Phone: [facility] 250 DO Work Phone: 04-02-2022 15:58-0400 Diastolic blood pressure 72 mm[Hg] Livan Arguello Work Phone: [facility] 250 DO Work Phone: 04-02-2022 15:58-0400 Heart rate 48 /min Livan Arguello Work Phone: [facility] 250 DO Work Phone: 04-02-2022 15:58-0400 Systolic blood pressure 162 mm[Hg] Livan Arguello Work Phone: [facility] 250 DO Work Phone: 03-25-2022 12:43-0400 Diastolic blood pressure 76 mm[Hg] Livanrolo Arguello Work Phone: [facility] 250 DO Work Phone: 03-25-2022 12:43-0400 Systolic blood pressure 182 mm[Hg] Livan Elzbieta Arguello Work Phone: [facility] 250 DO Work Phone: 03-25-2022 12:38-0400 Body height 154.94 cm Livan Arguello Work Phone: [facility] 250 DO Work Phone: 03-25-2022 12:38-0400 Body mass index (BMI) [Ratio] 27.78 kg/m2 Livanrolo Arguello Work Phone: [facility] 250 DO Work Phone: 03-25-2022 12:38-0400 Body surface area Derived from formula 1.66 m2 Livanrolo Arguello Work Phone: [facility] 250 DO Work Phone: 03-25-2022 12:38-0400 Body weight 66.68 kg Livanrolo Arguello Work Phone: [facility] 250 DO Work Phone: 03-25-2022 12:38-0400 Diastolic blood pressure 78 mm[Hg] Livan Elzbieta Arguello Work Phone: [facility] 250 DO Work Phone: 03-25-2022 12:38-0400 Heart rate 48 /min Livan Castillos Work Phone: [facility] 250 DO Work Phone: 03-25-2022 12:38-0400 Systolic blood pressure 192 mm[Hg] Livan Castillos Work Phone: [facility] 250 DO Work Phone: 03-21-2022 11:45-0400 Body height 157.48 cm Williams Matta Other [employer] Other 03-21-2022 11:45-0400 Body mass index (BMI) [Ratio] 26.7 kg/m2 Williams Matta Other [facility] Other 03-21-2022 11:45-0400 Body weight 66.23 kg Williams Matta Other [facility] Other 02-19-2022 11:30-0400 Body height 157.48 cm Williams Matta Other [facility] Other 02-19-2022 11:30-0400 Diastolic blood pressure 81 mm[Hg] Williams Matta Other [facility] Other 02-19-2022 11:30-0400 Systolic blood pressure 171 mm[Hg] Williams Matta Other [employer] Other 12-26-2021 09:28-0400 Body height 154.94 cm Livan Arguello Work Phone: [facility] [employer] 250 DO Work Phone: 12-26-2021 09:28-0400 Body mass index (BMI) [Ratio] 26.45 kg/m2 Livan Arguello Work Phone: [facility] [employer] 250 DO Work Phone: 12-26-2021 09:28-0400 Body surface area Derived from formula 1.62 m2 Livan Arguello Work Phone: [facility] [employer] 250 DO Work Phone: 12-26-2021 09:28-0400 Body weight 63.5 kg Livan Arguello Work Phone: [facility] 250 DO Work Phone: 12-26-2021 09:28-0400 Diastolic blood pressure 50 mm[Hg] Livan Castillos Work Phone: [facility] 250 DO Work Phone: 12-26-2021 09:28-0400 Diastolic blood pressure 60 mm[Hg] Livan Castillos Work Phone: [facility] 250 DO Work Phone: 12-26-2021 09:28-0400 Diastolic blood pressure 62 mm[Hg] Livan Castillos Work Phone: [facility] 250 DO Work Phone: 12-26-2021 09:28-0400 Systolic blood pressure 116 mm[Hg] Livan Castillos Work Phone: [facility] 250 DO Work Phone: 12-26-2021 09:28-0400 Systolic blood pressure 100 mm[Hg] Livan Castillos Work Phone: [facility] 250 DO Work Phone: 12-26-2021 09:28-0400 50 1 Livanrolo Castillos Work Phone: [facility] 250 DO Work Phone: Comment on above: [employer] 12-17-2021 14:15-0400 Body height 157.48 cm Williams Matta Other [employer] Other 12-17-2021 14:15-0400 Body mass index (BMI) [Ratio] 25.24 kg/m2 Williams Matta Other [facility] Other 12-17-2021 14:15-0400 Body weight 62.6 kg Williams Matta Other [facility] Other 11-21-2021 13:24-0400 Diastolic blood pressure 79 mm[Hg] Morales SALAM [facility] 11-21-2021 13:24-0400 Heart rate 65 /min Morales SALAM [facility] 11-21-2021 13:24-0400 Systolic blood pressure 156 mm[Hg] Morales SALAM [facility] 09-16-2021 11:45-0400 Body height 157.48 cm Williams Lopezack Other [facility] Other 09-16-2021 11:45-0400 Body mass index (BMI) [Ratio] 25.97 kg/m2 Williams Matta Other [facility] Other 09-16-2021 11:45-0400 Body weight 64.41 kg Williams Jurgen Other [facility] Other 09-04-2021 11:10-0400 Body height 154.94 cm Livan Arguello Work Phone: [facility] [employer] 250 DO Work Phone: 09-04-2021 11:10-0400 Body mass index (BMI) [Ratio] 26.83 kg/m2 Livan Arguello Work Phone: [facility] [employer] 250 DO Work Phone: 09-04-2021 11:10-0400 Body surface area Derived from formula 1.63 m2 Livanrolo Arguello Work Phone: [facility] 250 DO Work Phone: 09-04-2021 11:10-0400 Body weight 64.41 kg Livanrolo Castillos Work Phone: [facility] 250 DO Work Phone: 09-04-2021 11:10-0400 Diastolic blood pressure 60 mm[Hg] Livan Elzbieta Arguello Work Phone: [facility] 250 DO Work Phone: 09-04-2021 11:10-0400 Heart rate 52 /min Livan Elzbieta Arguello Work Phone: [facility] 250 DO Work Phone: 09-04-2021 11:10-0400 Systolic blood pressure 131 mm[Hg] Livan Elzbieta Arguello Work Phone: [facility] 250 DO Work Phone: 09-03-2021 14:00-0400 Body height 157.48 cm Livan Arguello Other [facility] Other 09-03-2021 14:00-0400 Body mass index (BMI) [Ratio] 26.15 kg/m2 Livan Arguello Other [facility] Other 09-03-2021 14:00-0400 Body weight 64.86 kg Livan Arguello Other [facility] Other 09-03-2021 14:00-0400 Diastolic blood pressure 70 mm[Hg] Livan Arguello Other [facility] Other 09-03-2021 14:00-0400 Respiratory rate 16 /min Livan Arguello Other [facility] Other 09-03-2021 14:00-0400 SaO2% (BldA) [Mass fraction] 99 % Livan Arguello Other [facility] Other 09-03-2021 14:00-0400 Systolic blood pressure 128 mm[Hg] Livan Arguello Other [facility] Other 08-08-2021 15:30-0500 Body height 157.48 cm Livan Arguello Other [facility] Other 08-08-2021 15:30-0500 Body mass index (BMI) [Ratio] 25.53 kg/m2 Livan Arguello Other [facility] Other 08-08-2021 15:30-0500 Body weight 63.32 kg Livan Arguello Other [facility] Other 08-08-2021 15:30-0500 Diastolic blood pressure 68 mm[Hg] Livan Arguello Other [facility] Other 08-08-2021 15:30-0500 Respiratory rate 17 /min Livan Arguello Other [facility] Other 08-08-2021 15:30-0500 SaO2% (BldA) [Mass fraction] 98 % Livan Arguello Other [facility] Other 08-08-2021 15:30-0500 Systolic blood pressure 132 mm[Hg] Livan Arguello Other [facility] Other 06-06-2021 14:30-0500 Body height 157.48 cm Livan Arguello Other [facility] Other 06-06-2021 14:30-0500 Body mass index (BMI) [Ratio] 25.6 kg/m2 Livan Castillokizzy Other [facility] Other 06-06-2021 14:30-0500 Body weight 63.5 kg Livan Arguello Other [facility] Other 06-06-2021 14:30-0500 Diastolic blood pressure 70 mm[Hg] Livan Castillokizzy Other [facility] Other 06-06-2021 14:30-0500 Respiratory rate 16 /min Livan Castillokizzy Other [facility] Other 06-06-2021 14:30-0500 SaO2% (BldA) [Mass fraction] 95 % Livan Arguello Other [facility] Other 06-06-2021 14:30-0500 Systolic blood pressure 126 mm[Hg] Livan Arguello Other [facility] Other 05-23-2021 14:30-0500 Body height 157.48 cm Williams Matta Other [facility] Other 05-23-2021 14:30-0500 Body mass index (BMI) [Ratio] 24.87 kg/m2 Williams Matta Other [facility] Other 05-23-2021 14:30-0500 Body weight 61.69 kg Williams Matta Other [facility] Other 05-23-2021 14:30-0500 Diastolic blood pressure 77 mm[Hg] Williams Matta Other [facility] Other 05-23-2021 14:30-0500 Respiratory rate 18 /min Williams Matta Other [facility] Other 05-23-2021 14:30-0500 Systolic blood pressure 144 mm[Hg] Williams Matta Other [facility] Other 05-13-2021 14:00-0500 Body height 157.48 cm Livan Arguello Other [facility] Other 05-13-2021 14:00-0500 Body mass index (BMI) [Ratio] 26.08 kg/m2 Livan Arguello Other [facility] Other 05-13-2021 14:00-0500 Body weight 64.68 kg Livan Arguello Other [facility] Other 05-13-2021 14:00-0500 Diastolic blood pressure 72 mm[Hg] Livan Arguello Other [facility] Other 05-13-2021 14:00-0500 Respiratory rate 16 /min Livan Arguello Other [facility] Other 05-13-2021 14:00-0500 SaO2% (BldA) [Mass fraction] 93 % Livan Arguello Other [facility] Other 05-13-2021 14:00-0500 Systolic blood pressure 136 mm[Hg] Livan Arguello Other [facility] Other 04-26-2021 11:30-0400 Body height 157.48 cm Livan Arguello Other [facility] Other 04-26-2021 11:30-0400 Body mass index (BMI) [Ratio] 25.79 kg/m2 Livanrolo Castillokizzy Other [facility] Other 04-26-2021 11:30-0400 Body weight 63.96 kg Liavn Arguello Other [facility] Other 04-26-2021 11:30-0400 Diastolic blood pressure 80 mm[Hg] Livan Arguello Other [facility] Other 04-26-2021 11:30-0400 Respiratory rate 16 /min Livan Castillokizzy Other [facility] Other 04-26-2021 11:30-0400 SaO2% (BldA) [Mass fraction] 97 % Livan Castillokizzy Other [facility] Other 04-26-2021 11:30-0400 Systolic blood pressure 132 mm[Hg] Livan Arguello Other [facility] Other 04-23-2021 14:20-0400 Body height 157.48 cm Huy Kelsy Other [facility] Other 04-23-2021 14:20-0400 Body mass index (BMI) [Ratio] 26.06 kg/m2 Huy Kelsy Other [facility] Other 04-23-2021 14:20-0400 Body temperature 96.2 [degF] Huy Kelsy Other [facility] Other 04-23-2021 14:20-0400 Body weight 64.64 kg Huy Kelsy Other [facility] Other 04-23-2021 14:20-0400 Diastolic blood pressure 60 mm[Hg] Huy Kelsy Other [facility] Other 04-23-2021 14:20-0400 Respiratory rate 18 /min Huy Kelsy Other [facility] Other 04-23-2021 14:20-0400 SaO2% (BldA) [Mass fraction] 96 % Huy Kelsy Other [facility] Other 04-23-2021 14:20-0400 Systolic blood pressure 122 mm[Hg] Huy Kelsy Other [facility] Other Encounters Encounter Date Encounter Type Care Provider Facility Start: 06-06-2024 End: 06-06-2024 ambulatory Livan Arguello Facility:[facility] Start: 05-24-2024 End: 05-24-2024 ambulatory Chriss Voss Facility:[facility] Start: 05-12-2024 End: 05-12-2024 ambulatory Livan Arguello DO Work Phone: [facility] Work Phone: Start: 05-12-2024 End: 05-12-2024 Patient encounter procedure Livan Arguello DO Work Phone: [facility] [place] Work Phone: Start: 05-11-2024 End: 05-11-2024 ambulatory Livan Arguello DO Work Phone: [facility] Work Phone: Start: 05-11-2024 End: 05-11-2024 Patient encounter procedure [facility] DO [facility] Work [facility]: Start: 05-09-2024 End: 05-09-2024 ambulatory Livan Jonathankizzy DO Work Phone: [facility] Work Phone: Start: 05-09-2024 End: 05-09-2024 Patient encounter procedure Livan Arguello DO Work Phone: [facility] Work Phone: Start: 05-05-2024 End: 05-05-2024 ambulatory Livan Arguello DO Work Phone: [facility] Work Phone: Start: 05-05-2024 End: 05-05-2024 Patient encounter procedure Livanrolo Arguello DO Work Phone: [facility] Work Phone: Start: 05-02-2024 End: 05-02-2024 Patient encounter procedure Livanrolo Arguello DO Work Phone: [facility] [place] Work Phone: Start: 05-02-2024 End: 05-02-2024 ambulatory Livan Jonathankizzy DO Work Phone: [facility] Work Phone: Start: 04-26-2024 End: 04-26-2024 ambulatory DO Livan Castillokizzy Work Phone: [facility] Work Phone: Start: 04-26-2024 End: 04-26-2024 Patient encounter procedure DO Livan Arguello Work Phone: [facility] [place] Work Phone: Start: 04-21-2024 End: 04-21-2024 Emergency department patient visit DO Livan Arguello Work Phone: [facility]-Emergency Room Work Phone: Start: 04-15-2024 End: 04-15-2024 Patient encounter procedure DO Livan Arguello Work Phone: [facility] [place] Work Phone: Start: 04-15-2024 End: 04-15-2024 ambulatory Livan Arguello Facility:[facility] Start: 04-15-2024 End: 04-15-2024 ambulatory DO Livanrolo Castillokizzy Work Phone: [facility] Work Phone: Start: 04-15-2024 End: 04-15-2024 Patient encounter procedure DO Livanrolo Castillokizzy Work Phone: [facility] [place] Work Phone: Start: 04-14-2024 End: 04-14-2024 ambulatory DO Livan Arguello Work Phone: [facility] Work Phone: Start: 04-14-2024 End: 04-14-2024 Patient encounter procedure DO Livan Arguello Work Phone: [facility] [place] Work Phone: Start: 04-12-2024 Non-patient / Non-visit DO Jose rolo Arguello Work Phone: [facility] [place] Work Phone: Start: 04-12-2024 End: 04-12-2024 ambulatory DO Livanrolo Castillos Work Phone: [facility] Work Phone: Start: 04-12-2024 End: 04-12-2024 Patient encounter procedure DO Livan Jonathans Work Phone: [facility] [place] Work Phone: Start: 03-19-2024 End: 03-19-2024 Emergency department patient visit DO Livan Arguello Work Phone: [facility]-Emergency Room Work Phone: Start: 02-24-2024 End: 02-24-2024 Patient encounter procedure DO Livan Arguello Work Phone: [facility]-CT Scan [facility] [place] Work Phone: Start: 02-24-2024 End: 02-24-2024 ambulatory DO Livan Arguello Work Phone: [facility] Work Phone: Start: 12-01-2023 End: 12-01-2023 ambulatory LIVAN ANDREW [facility] Start: 10-06-2023 End: 10-06-2023 ambulatory [facility] Ambulatory Start: 07-29-2023 End: 07-29-2023 Patient encounter procedure DO Livan Arguello Work Phone: [facility]-Lab [place] Work Phone: Start: 07-29-2023 End: 07-29-2023 ambulatory DO Livan Arguello Work Phone: [facility] Work Phone: Start: 07-27-2023 End: 07-27-2023 ambulatory Livan Arguello Other [facility] Other Start: 07-27-2023 Telephone encounter Livan Arguello [facility] [place] Start: 06-25-2023 End: 06-25-2023 ambulatory Livan Arguello Other [employer] Other Start: 06-25-2023 Telephone encounter Livan Arguello [facility] [place] Start: 05-27-2023 End: 05-27-2023 ambulatory Livan Arguello Other [employer] Other Start: 05-27-2023 Telephone encounter Livan Arguello [facility] [place] Start: 04-30-2023 End: 04-30-2023 ambulatory Livan Saundra Other [employer] Other Start: 04-30-2023 Telephone encounter Livan Arguello [facility] [place] Start: 04-27-2023 End: 04-27-2023 ambulatory Chriss Voss Other [employer] Other Start: 04-27-2023 Office outpatient vi sit 15 minutes Chriss Voss [facility] [place] Start: 04-24-2023 End: 04-24-2023 ambulatory Huy Kelsy Other [facility] Other Start: 04-24-2023 Telephone encounter Huy Kelsy [facility] Start: 04-23-2023 Office outpatient vi sit 25 minutes Huy Kelsy [facility] Start: 04-23-2023 End: 04-23-2023 ambulatory DEON Durand [facility] [employer] Other Start: 04-08-2023 (Procedure) Short Chriss Voss [facility] Start: 04-08-2023 End: 04-08-2023 ambulatory Chriss Voss Other [employer] Other Start: 03-26-2023 End: 03-26-2023 ambulatory Chriss Voss Other [employer] Other Start: 03-26-2023 Office outpatient ne w 45 minutes Chriss Voss [facility] [place] Start: 03-26-2023 Telephone encounter Chriss Voss [employer] Start: 03-25-2023 End: 03-25-2023 ambulatory Livan Arguello Other [employer] Other Start: 03-25-2023 Office outpatient vi sit 25 minutes Livan Arguello [facility] [place] Start: 03-24-2023 End: 03-24-2023 ambulatory DO Livan Arguello Work Phone: [facility] Work Phone: Start: 03-24-2023 End: 03-24-2023 Patient encounter procedure DO Livan Arguello Work Phone: [facility] C[facility]-MRI [address] Work Phone: Start: 03-20-2023 End: 03-20-2023 ambulatory DO Livan Arguello Work Phone: [facility] Work Phone: Start: 03-20-2023 End: 03-20-2023 Patient encounter procedure DO Livan Arguello Work Phone: [facility]-Lab [place] Work Phone: Start: 03-09-2023 End: 03-09-2023 ambulatory Livan Arguello Other [employer] Other Start: 03-09-2023 Office outpatient vi sit 25 minutes Livan Arguello [facility] [place] Start: 03-09-2023 Telephone encounter Livan Arguello [facility] [place] Start: 02-17-2023 End: 02-17-2023 ambulatory Livan Arguello Other [employer] Other Start: 02-17-2023 Telephone encounter Livan Arguello [facility] [place] Start: 02-05-2023 End: 02-05-2023 ambulatory Livan Arguello Other [employer] Other Start: 02-05-2023 Telephone encounter Livan Arguello [facility] [place] Start: 12-17-2022 End: 12-17-2022 ambulatory Livan Arguello Other [employer] Other Start: 12-17-2022 Telephone encounter Livan Arguello [facility] Start: 11-27-2022 End: 11-27-2022 ambulatory DO Livan Arguello Work Phone: [facility] Work Phone: Start: 11-27-2022 End: 11-27-2022 Patient encounter procedure DO Livan Arguello Work Phone: [facility] C[facility]-XRay [place] Work Phone: Start: 11-26-2022 Patient encounter procedure Livan Arguello Work Phone: [facility] DO Work Phone: Start: 11-26-2022 ambulatory Ms. Isidro Sy Facility: Start: 10-28-2022 End: 10-28-2022 ambulatory DO Livan Arguello Work Phone: [facility] Work Phone: Start: 10-28-2022 End: 10-28-2022 Patient encounter procedure DO Livan Arguello Work Phone: [facility]-XRay [address] Work Phone: Start: 10-14-2022 End: 10-14-2022 ambulatory DO Livan Arguello Work Phone: [facility] Work Phone: Start: 10-14-2022 End: 10-14-2022 Patient encounter procedure DO Livan Arguello Work Phone: [facility]-Lab [address] Work Phone: Start: 09-15-2022 End: 09-15-2022 ambulatory Livan Arguello Other [employer] Other Start: 09-15-2022 Telephone encounter Livan Arguello [facility] Family [facility] [place] Start: 09-09-2022 Office outpatient vi sit 25 minutes Livan Arguello Work Phone: [facility] DO Work Phone: Start: 09-09-2022 ambulatory Deon Garcia y: Start: 09-05-2022 End: 09-05-2022 ambulatory Livan Arguello Other [employer] Other Start: 09-05-2022 Telephone encounter Livan Arguello [facility] [place] Start: 09-04-2022 End: 09-04-2022 ambulatory DO Livan Arguello Work Phone: [facility] Work Phone: Start: 09-04-2022 End: 09-04-2022 Patient encounter procedure DO Livan Arguello Work Phone: [facility] Ctr-CT Scan Main [place] Work Phone: Start: 09-02-2022 End: 09-02-2022 ambulatory Livan Arguello Other [employer] Other Start: 09-02-2022 Office outpatient vi sit 15 minutes Livan Arguello [facility] [place] Start: 08-25-2022 End: 08-25-2022 ambulatory Livan Arguello Other [employer] Other Start: 08-25-2022 Telephone encounter Livan Arguello [facility] [place] Start: 06-09-2022 Rx Renewal Livan Arguello Work Phone: [facility] 250 DO Work Phone: Start: 05-01-2022 End: 05-01-2022 ambulatory Huy Tierney Other [employer] Other Start: 05-01-2022 Office outpatient vi sit 25 minutes Huy Tierney [facility] Nephrology [place] Start: 04-28-2022 End: 04-28-2022 ambulatory DO Livan Agruello Work Phone: [facility] Work Phone: Start: 04-28-2022 End: 04-28-2022 Patient encounter procedure DO Livan Arguello Work Phone: [facility] Ctr-Lab [place] Start: 04-23-[address] Livan Arguello Facility: Start: 04-16-2022 End: 04-16-2022 ambulatory Livan Arguello Other [facility] [employer] Other Start: 04-16-2022 Telephone encounter Livan Arguello [facility] Start: 04-15-2022 End: 04-16-[address] DEANNA SY [facility] [employer] Other Start: 04-15-2022 Telephone encounter Livan Arguello [facility] Start: 04-02-2022 FUV, Provider: Isidro John, Status: Pen, Time: 4:00 PM Livan Arguello Work Phone: [facility] 250 DO Work Phone: Start: 04-02-2022 Office outpatient vi sit 15 minutes Livan Arguello Work Phone: [facility] 250 DO Work Phone: Start: 04-02-[address] Livan Arguello Facility: Start: 03-31-2022 AUDIT Livan Arguello Work Phone: [facility] 250 DO Work Phone: Start: 03-31-2022 End: 03-31-2022 ambulatory DO Liavn Arguello Work Phone: [facility] Work Phone: Start: 03-31-2022 End: 03-31-2022 Patient encounter procedure DO Livan Arguello Work Phone: [facility] C[facility]-Lab [place] Start: 03-25-2022 Office outpatient vi sit 10 minutes Livan Arguello Work Phone: -[facility] 250 DO Work Phone: Start: 03-25-2022 ambulatory Ms. Isidro Sy Facility: Start: 03-24-2022 End: 03-24-2022 ambulatory DO Livan Arguello Work Phone: [facility] Work Phone: Start: 03-24-2022 End: 03-24-2022 Patient encounter procedure DO Livan Arguello Work Phone: [facility] [place] Start: 03-21-2022 End: 03-21-2022 ambulatory Williams Matta Other [facility] [employer] Other Start: 03-21-2022 Office outpatient vi sit 15 minutes Williams Matta [facility] Gastroenterology Start: 03-07-2022 Encounter for preprocedural laboratory examination DR DOCTOR LEÓN [facility] Start: 03-03-2022 End: 03-03-2022 ambulatory Miya Elliott Facility:[id number] Start: 02-28-2022 End: 03-01-[address] DOCTOR LEÓN Facility:H1 Start: 02-28-2022 End: 03-01-2022 Encounter for preprocedural laboratory examination DR DOCTOR LEÓN Facility:H1 Start: 02-21-2022 AUDIT Livan Arguello Work Phone: [facility] [employer] 450 DO Work Phone: Start: 02-19-2022 Office outpatient vi sit 25 minutes Williams Matta [facility] Start: 02-19-2022 End: 02-19-[address] LIVAN ARGUELLO [facility] [employer] Other Start: 02-17-2022 End: 02-17-2022 ambulatory Livan Arguello Other [employer] Other Start: 02-17-2022 Telephone encounter Livan Arguello [facility] Start: 02-16-2022 End: 02-17-[address] LIVAN ARGUELLO Facility:H1 Start: 02-15-2022 End: 02-15-[address] LIVAN ARGUELLO Facility:H1 Start: 01-13-2022 Telephone encounter Livan sanderson Work Phone: [facility] 250 DO Work Phone: Start: 01-09-2022 End: 01-09-2022 ambulatory Livan Arguello Other [employer] Other Start: 01-09-2022 Telephone encounter Livan Arguello [facility] Start: 01-07-2022 ambulatory Deon Mckeon Facilit y: Start: 12-30-2021 Patient encounter procedure Livan Arguello Work Phone: [facility] 250 DO Work Phone: Start: 12-30-2021 ambulatory Deon Garcia y: Start: 12-26-2021 Office outpatient vi sit 25 minutes Livan Arguello Work Phone: [facility] 250 DO Work Phone: Start: 12-26-2021 ambulatory Deon Garcia y: Start: 12-17-2021 End: 12-17-2021 ambulatory Williams Matta Other [employer] Other Start: 12-17-2021 Office outpatient vi sit 25 minutes Williams Matta [facility] Gastroenterology Start: 12-12-2021 End: 12-12-2021 ambulatory Livan Arguello Other [employer] Other Start: 12-12-2021 Telephone encounter Livan Arguello [facility] Family Medicine [place] Start: 12-11-2021 End: 12-11-2021 ambulatory Livan Castillokizzy Other [employer] Other Start: 12-11-2021 Telephone encounter Livan Saundra [facility] [place] Start: 12-02-2021 End: 12-02-2021 ambulatory Livan Arguello Other [employer] Other Start: 12-02-2021 Telephone encounter Livan Saundra [facility] Family Medicine [place] Start: 11-21-2021 End: 11-21-2021 ambulatory Livan Arguello Other [employer] Other Start: 11-21-2021 Telephone encounter Livan Arguello [facility] Family Medicine [place] Start: 11-21-2021 End: 11-21-2021 Patient encounter procedure Morales LUISAM [facility] Start: 10-14-2021 End: 10-14-2021 ambulatory Livan Arguello Other [employer] Other Start: 10-14-2021 Telephone encounter Livan Arguello [facility] Family Medicine [place] Start: 09-16-2021 End: 09-16-2021 ambulatory Williams Matta Other [employer] Other Start: 09-16-2021 Office outpatient vi sit 25 minutes Williams Matta [facility] Gastroenterology Start: 09-04-2021 Office outpatient vi sit 15 minutes Livan Arguello Work Phone: [facility] 250 DO Work Phone: Start: 09-03-2021 End: 09-03-2021 ambulatory Livan Arguello Other [employer] Other Start: 09-03-2021 Office outpatient vi sit 25 minutes Livan Arguello [facility] [place] Start: 08-12-2021 End: 08-12-2021 ambulatory Livan Castillos Other [employer] Other Start: 08-12-2021 Telephone encounter Livan Arguello [facility] [place] Start: 08-08-2021 End: 08-08-2021 ambulatory Livan Arguello Other [employer] Other Start: 08-08-2021 Office outpatient vi sit 25 minutes Livan Arguello [facility] [place] Start: 08-07-2021 End: 08-07-2021 ambulatory Williams Matta Other [employer] Other Start: 08-07-2021 Telephone encounter Williams Gonzalez [facility] Start: 07-31-2021 AUDIT Isidro Ward Smi th SALES DONOR RECRUITMENT REPRESENTATIVE-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 SHEAR 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 Work Phone: [facility] 250 DO Work Phone: Start: 07-03-2021 End: 07-03-2021 ambulatory Livan Arguello Other [employer] Other Start: 07-03-2021 Telephone encounter Livan Arguello [facility] [place] Start: 06-08-2021 End: 06-08-2021 ambulatory Livan Arguello Other [employer] Other Start: 06-08-2021 Telephone encounter Livan Arguello [facility] [place] Start: 06-06-2021 End: 06-06-2021 ambulatory Livan Castillos Other [employer] Other Start: 06-06-2021 Office outpatient vi sit 25 minutes Livan Arguello [facility] [place] Start: 06-03-2021 End: 06-03-2021 ambulatory Williams Matta Other [employer] Other Start: 06-03-2021 Telephone encounter Williams franco [facility] Start: 05-23-2021 End: 05-23-2021 ambulatory Williams Matta Other [employer] Other Start: 05-23-2021 Office outpatient vi sit 25 minutes Williams Matta [facility] Start: 05-21-2021 End: 05-21-2021 ambulatory Williams Matta Other [employer] Other Start: 05-21-2021 Telephone encounter Williams franco [facility] Start: 05-13-2021 End: 05-13-2021 ambulatory Livan Arguello Other [employer] Other Start: 05-13-2021 Office outpatient vi sit 25 minutes Livan Arguello [facility] [place] Start: 05-06-2021 End: 05-06-2021 ambulatory Livan Arguello Other [employer] Other Start: 05-06-2021 Telephone encounter Livan Arguello [facility] [place] Start: 04-26-2021 End: 04-26-2021 ambulatory Livan Arguello Other [employer] Other Start: 04-26-2021 Office outpatient vi sit 25 minutes Livan Arguello [facility] [place] Start: 04-24-2021 End: 04-24-2021 ambulatory Williams Jurgen Other [employer] Other Start: 04-24-2021 Telephone encounter Williams franco [facility] Start: 04-23-2021 End: 04-23-2021 ambulatory Huy Kelsy Other [facility] [employer] Other Start: 04-23-2021 Office outpatient vi sit 25 minutes Huy Kelsy [facility] [place] Start: 07-13-2018 Patient encounter procedure ISIDRO SY Facility:[id number] Procedures Date Procedure Procedure Detail Performing Clinician Start: 05-02-2024 MR lumbar spine wo con Livan Castillos DO Work Phone: Start: 04-21-2024 Plain X-ray of left hip DO Livan [employer] Work Phone: Start: 04-21-2024 X-ray of lumbar spine, two or three views DO Livan [employer] Work Phone: Start: 04-15-2024 Bacteria identified in Urine by Culture DO Livan [employer] Work Phone: Start: 04-15-2024 Urine culture Livan Castillos DO Work Phone: Start: 03-19-2024 Computed tomography of abdomen and pelvis with contrast DO Livan [employer] Work Phone: Start: 02-24-2024 Computed tomography of abdomen and pelvis with contrast DO Livan [employer] Work Phone: Start: 04-23-2023 Follow-up visit Follow-up DEON Durand MIKE Start: 03-24-2023 MR lumbar spine wo con DO Livan [employer] Work Phone: Start: 03-24-2023 XR pre/post mri xray DO Livan [employer] Work Phone: Start: 03-20-2023 Urine culture DO Livan [employer] Work Phone: Start: 11-27-2022 Pelvis X-ray DO Livan [employer] Work Phone: Start: 11-27-2022 Plain X-ray of left femur DO Livan [employer] Work Phone: Start: 10-28-2022 Plain X-ray of bilateral hands DO Livan [employer] Work Phone: Start: 10-28-2022 Echocardiography Livan Arguello Work Phone: Start: 09-04-2022 Computed tomography of abdomen and pelvis with contrast DO Livan Arguello Work Phone: Start: 09-04-2022 Plain chest X-ray DO Livan Arguello Work Phone: Start: 09-04-2022 Radiography of thoracic spine DO Livan Kilgore [employer]es[employer] Work Phone: Start: 06-01-2017 Colonoscopy Moralesnatan HERNANDEZ Bile duct stone removal Debra Arguello Work Phone: Cardiac catheterization Dashawn Sy SALES DONOR RECRUITMENT REPRESENTATIVE-HOT BILLET SHEAR OPERATOR Work Phone: Cataract surgery Livan durand Work Phone: Esophagogastroduodenoscopy B milagros Arguello Work Phone: Hysterectomy Livan Arguello Work Phone: Total abdominal hyst erectomy with bilateral salpingo-oophorectomy Morales SALAM Total colonoscopy Livan sanderson Work Phone: Plan of Treatment Date Care Activity Detail Author Start: 04-26-2024 [facility] Start: 04-23-2023 FUV, Provider: Deon Mckeon, Status: Pen, Time: 10:40 AM FUV, Provider: Deon Mckeon, Status: Pen, Time: 10:40 AM [facility] 250 DO Work Phone: Start: 03-20-2023 Bacteria identified in Urine by Culture [facility] Start: 10-28-2022 ECHO, Provider: ZAC GOOD HHVI ULTRASOUND ,[id number], Status: Pen, Time: 1:30 PM ECHO, Provider: LYN MAI ULTRASOUND ,[id number], Status: Pen, Time: 1:30 PM [facility] 250 DO Work Phone: Start: 10-27-2022 FUV, Provider: Isidro John, Status: Pen, Time: 11:00 AM FUV, Provider: Isidro John, Status: Pen, Time: 11:00 AM -[facility] 250 DO Work Phone: Start: 10-14-2022 [facility] Start: 04-23-2022 FUV, Provider: Isidro John, Status: Pen, Time: 12:30 PM FUV, Provider: Isidro John, Status: Pen, Time: 12:30 PM -[facility] 250 DO Work Phone: Start: 04-02-2022 FUV, Provider: Isidro John, Status: Pen, Time: 4:00 PM FUV, Provider: Isidro John, Status: Pen, Time: 4:00 PM -[facility] 250 DO Work Phone: Start: 03-26-2022 FUV, Provider: Isidro John, Status: Pen, Time: 9:30 AM FUV, Provider: Isidro John, Status: Pen, Time: 9:30 AM -[facility] 250 DO Work Phone: Start: 03-03-2022 ERCPANS, Provider: Miya Elliott, Status: Pen, Time: 1:30 PM ERCPANS, Provider: Miya Elliott, Status: Pen, Time: 1:30 PM [facility] [place] [employer] 450 DO Work Phone: Start: 12-30-2021 HOLTER MON, Provider : LEIDY BLEDSOE ROUNDING AND BACKING MACHINE OPERATOR 1,[id number], Status: Pen, Time: 10:00 AM HOLTER MON, Provider: LEIDY BLEDSOE ROUNDING AND BACKING MACHINE OPERATOR 1,[id number], Status: Pen, Time: 10:00 AM [facility] 250 DO Work Phone: Start: 09-04-2021 FUV, Provider: Deon Mckeon, Status: Pen, Time: 11:00 AM FUV, Provider: Deon Mckeon, Status: Pen, Time: 11:00 AM [facility] 250 DO Work Phone: Comprehensive metabo lic 1999 panel - Serum or Plasma [facility] Glucose measurement estimated from glycated hemoglobin [facility] Work Phone: Glucose measurement estimated from glycated hemoglobin [facility] Glucose measurement estimated from glycated hemoglobin [facility] Hemoglobin A1c/Hemoglobin.total in Blood [facility] Work Phone: Homogenous nuclear A b pattern [Titer] in Serum [facility] Nuclear Ab [Titer] i n Serum [facility] Parathyrin related protein [Moles/volume] in Serum or Plasma [facility] Patient Education [facility] Work Phone: Patient referral [facility] Work Phone: Renal function 1999 panel - Serum or Plasma [facility] Rheumatoid factor [Units/volume] in Serum or Plasma [facility] Urine culture [facility] Immunizations Immunization Date Immunization Notes Care Provider Anastacio demarco 05-28-2022 Fluzone High-Dose Quadrivalent 0.7 ML Intramuscular Suspension Prefilled Syringe Livan Arguello Work Phone: [facility] 250 DO Work Phone: 05-28-2022 Pfizer COVID-19 Vac Bivalent 30 MCG/0.3ML Intramuscular Suspension Livan Arguello Work Phone: [facility] 250 DO Work Phone: 05-28-2022 influenza, seasonal, injectable Livan Arguello Other [facility] 11-26-2020 COVID-19 Vaccine Pfi zer - Documentation Purposes Only Huy Tierney Other [facility] 11-05-2020 COVID-19 Vaccine Pfi zer - Documentation Purposes Only Huy Tierney Other [facility] 03-30-2018 pneumococcal conjuga te vaccine, 13 valent Huybabs Bravor Other [facility] 04-17-2017 pneumococcal conjuga te vaccine, 13 valent Livan Arguello Work Phone: -[facility] 250 DO Work Phone: 06-22-2014 pneumococcal polysaccharide vaccine, 23 valent Livan Arguello Work Phone: -[facility] 250 DO Work Phone: Payers Date Payer Category Payer Self-pay [id number] 1961 Medicare [id number] 1961 Unknown [id number] 1945 Unknown [id number] 2.16.8 [id number] 1943 Unknown [id number] 2.16.84 0.1.998536.3.579.2.593 1943 Unknown [id number] 2.16.84 0.1.084072.3.579.2.593 1943 Unknown [id number] 2.16.84 0.1.286190.3.579.2.593 1943 Unknown [id number] 2.16.84 0.1.573664.3.579.2.593 1943 Unknown [id number] 2.16.84 0.1.428777.3.579.2.593 1943 Unknown [id number] 2.16.8 40.1.720149.3.579.2.1069 1943 Unknown [id number] 2.16. 840.1.616435.3.579.2.356 1943 Unknown [id number] 2.16. 840.1.273777.3.579.2.356 1943 Unknown [id number] 2.16. 840.1.031214.3.579.2.356 1943 Unknown [id number] 2.16. 840.1.799400.3.579.2.356 1943 Unknown [id number] 2.. 840.1.306519.3.579.2.356 1943 Unknown [id number] 2.16. 840.1.334770.3.579.2.356 1943 Unknown [id number] 2.. 840.1.527711.3.579.2.356 1943 Unknown [id number] 2.16. 840.1.945606.3.579.2.356 1943 Unknown [id number] 2..8 40.1.447683.3.579.2.1244 1943 Unknown [id number] 2.16.8 40.1.312462.3.579.2.1244 1943 Unknown [id number] 2.16.8 40.1.270106.3.579.2.1244 Unknown Unknown [id number] 2.16.8 40.1.701162.3.579.2.531 Unknown [id number] 2.16.8 40.1.346345.3.579.2.531 Unknown [id number] 2.16.8 40.1.531843.3.579.2.531 Unknown [id number] 2.16.8 40.1.491748.3.579.2.531 Unknown [id number] 2.16.8 40.1.901725.3.579.2.531 Unknown [id number] 2.16.8 40.1.740267.3.579.2.531 Unknown [id number] 2.16.8 40.1.000466.3.579.2.531 Unknown [id number] 2.16.8 40.1.807617.3.579.2.531 Unknown [id number] 2.16.8 40.1.047460.3.579.2.531 Social History Date Type Detail Facility Occasional alcohol use Occasional alcohol use [facility] [employer] Other Comment on above: Wine occasionally; 1 CUP OF COFFEE LAURIE Y; Start: 11-21-2021 End: 04-21-2024 Tobacco smoking status Never smoked tobacco (finding) [facility] Tobacco smoking status Never Fishe [facility] Sex Assigned At Female [facility] [employer] Other Start: 1945 Sex Assigned At Female F [facility] Start: 05-03-2024 End: 05-12-2024 Sex Female (finding) [facility] Medical Equipment Procedure Code Equipment Code Equipment Origin al Text Equipment Identifier Dates Syringe With Nee dle, Safety (Easy Touch Fliplock Syringe) 3 mL 22 gauge x 1 syringe Start: 10-26-2023 Syringe With Nee dle (Easy Touch) 3 mL 22 gauge x 1 syringe Start: 09-23-2023 End: 09-23-2023 Syringe With Nee dle (Easy Touch) 3 mL 22 gauge x 1 syringe Start: 09-23-2023 End: 09-23-2023 Syringe With Nee dle, Safety (Easy Touch Fliplock Syringe) 3 mL 22 gauge x 1 syringe Start: 09-23-2023 End: 09-23-2023 Syringe With Nee dle, Safety (Easy Touch Fliplock Syringe) 3 mL 22 gauge x 1 syringe Start: 09-23-2023 End: 10-26-2023 Syringe With Nee dle, Safety (Easy Touch Fliplock Syringe) 3 mL 22 gauge x 1 syringe Start: 10-26-2023 Syringe With Nee dle (Easy Touch) 3 mL 22 gauge x 1 syringe Start: 09-23-2023 End: 09-23-2023 Syringe With Nee dle (Easy Touch) 3 mL 22 gauge x 1 syringe Start: 09-23-2023 End: 09-23-2023 Syringe With Nee dle, Safety (Easy Touch Fliplock Syringe) 3 mL 22 gauge x 1 syringe Start: 09-23-2023 End: 09-23-2023 Syringe With Nee dle, Safety (Easy Touch Fliplock Syringe) 3 mL 22 gauge x 1 syringe Start: 09-23-2023 End: 10-26-2023 Syringe With Nee dle, Safety (Easy Touch Fliplock Syringe) 3 mL 22 gauge x 1 syringe Start: 10-26-2023 Syringe With Nee dle (Easy Touch) 3 mL 22 gauge x 1 syringe Start: 09-23-2023 End: 09-23-2023 Syringe With Nee dle (Easy Touch) 3 mL 22 gauge x 1 syringe Start: 09-23-2023 End: 09-23-2023 Syringe With Nee dle, Safety (Easy Touch Fliplock Syringe) 3 mL 22 gauge x 1 syringe Start: 09-23-2023 End: 09-23-2023 Syringe With Nee dle, Safety (Easy Touch Fliplock Syringe) 3 mL 22 gauge x 1 syringe Start: 09-23-2023 End: 10-26-2023 Syringe With Nee dle, Safety (Easy Touch Fliplock Syringe) 3 mL 22 gauge x 1 syringe Start: 10-26-2023 Syringe With Nee dle (Easy Touch) 3 mL 22 gauge x 1 syringe Start: 09-23-2023 End: 09-23-2023 Syringe With Nee dle (Easy Touch) 3 mL 22 gauge x 1 syringe Start: 09-23-2023 End: 09-23-2023 Syringe With Nee dle, Safety (Easy Touch Fliplock Syringe) 3 mL 22 gauge x 1 syringe Start: 09-23-2023 End: 09-23-2023 Syringe With Nee dle, Safety (Easy Touch Fliplock Syringe) 3 mL 22 gauge x 1 syringe Start: 09-23-2023 End: 10-26-2023 Syringe With Nee dle, Safety (Easy Touch Fliplock Syringe) 3 mL 22 gauge x 1 syringe Start: 10-26-2023 Syringe With Nee dle (Easy Touch) 3 mL 22 gauge x 1 syringe Start: 09-23-2023 End: 09-23-2023 Syringe With Nee dle (Easy Touch) 3 mL 22 gauge x 1 syringe Start: 09-23-2023 End: 09-23-2023 Syringe With Nee dle, Safety (Easy Touch Fliplock Syringe) 3 mL 22 gauge x 1 syringe Start: 09-23-2023 End: 09-23-2023 Syringe With Nee dle, Safety (Easy Touch Fliplock Syringe) 3 mL 22 gauge x 1 syringe Start: 09-23-2023 End: 10-26-2023 Syringe With Nee dle, Safety (Easy Touch Fliplock Syringe) 3 mL 22 gauge x 1 syringe Start: 10-26-2023 Syringe With Nee dle (Easy Touch) 3 mL 22 gauge x 1 syringe Start: 09-23-2023 End: 09-23-2023 Syringe With Nee dle (Easy Touch) 3 mL 22 gauge x 1 syringe Start: 09-23-2023 End: 09-23-2023 Syringe With Nee dle, Safety (Easy Touch Fliplock Syringe) 3 mL 22 gauge x 1 syringe Start: 09-23-2023 End: 09-23-2023 Syringe With Nee dle, Safety (Easy Touch Fliplock Syringe) 3 mL 22 gauge x 1 syringe Start: 09-23-2023 End: 10-26-2023 Syringe With Nee dle, Safety (Easy Touch Fliplock Syringe) 3 mL 22 gauge x 1 syringe Start: 10-26-2023 Syringe With Nee dle (Easy Touch) 3 mL 22 gauge x 1 syringe Start: 09-23-2023 End: 09-23-2023 Syringe With Nee dle (Easy Touch) 3 mL 22 gauge x 1 syringe Start: 09-23-2023 End: 09-23-2023 Syringe With Nee dle, Safety (Easy Touch Fliplock Syringe) 3 mL 22 gauge x 1 syringe Start: 09-23-2023 End: 09-23-2023 Syringe With Nee dle, Safety (Easy Touch Fliplock Syringe) 3 mL 22 gauge x 1 syringe Start: 09-23-2023 End: 10-26-2023 Syringe With Nee dle, Safety (Easy Touch Fliplock Syringe) 3 mL 22 gauge x 1 syringe Start: 10-26-2023 Syringe With Nee dle (Easy Touch) 3 mL 22 gauge x 1 syringe Start: 09-23-2023 End: 09-23-2023 Syringe With Nee dle (Easy Touch) 3 mL 22 gauge x 1 syringe Start: 09-23-2023 End: 09-23-2023 Syringe With Nee dle, Safety (Easy Touch Fliplock Syringe) 3 mL 22 gauge x 1 syringe Start: 09-23-2023 End: 09-23-2023 Syringe With Nee dle, Safety (Easy Touch Fliplock Syringe) 3 mL 22 gauge x 1 syringe Start: 09-23-2023 End: 10-26-2023 Syringe With Nee dle, Safety (Easy Touch Fliplock Syringe) 3 mL 22 gauge x 1 syringe Start: 10-26-2023 Syringe With Nee dle (Easy Touch) 3 mL 22 gauge x 1 syringe Start: 09-23-2023 End: 09-23-2023 Syringe With Nee dle (Easy Touch) 3 mL 22 gauge x 1 syringe Start: 09-23-2023 End: 09-23-2023 Syringe With Nee dle, Safety (Easy Touch Fliplock Syringe) 3 mL 22 gauge x 1 syringe Start: 09-23-2023 End: 09-23-2023 Syringe With Nee dle, Safety (Easy Touch Fliplock Syringe) 3 mL 22 gauge x 1 syringe Start: 09-23-2023 End: 10-26-2023 Syringe With Nee dle, Safety (Easy Touch Fliplock Syringe) 3 mL 22 gauge x 1 syringe Start: 10-26-2023 Syringe With Nee dle (Easy Touch) 3 mL 22 gauge x 1 syringe Start: 09-23-2023 End: 09-23-2023 Syringe With Nee dle (Easy Touch) 3 mL 22 gauge x 1 syringe Start: 09-23-2023 End: 09-23-2023 Syringe With Nee dle, Safety (Easy Touch Fliplock Syringe) 3 mL 22 gauge x 1 syringe Start: 09-23-2023 End: 09-23-2023 Syringe With Nee dle, Safety (Easy Touch Fliplock Syringe) 3 mL 22 gauge x 1 syringe Start: 09-23-2023 End: 10-26-2023 Syringe With Nee dle, Safety (Easy Touch Fliplock Syringe) 3 mL 22 gauge x 1 syringe Start: 10-26-2023 Syringe With Nee dle (Easy Touch) 3 mL 22 gauge x 1 syringe Start: 09-23-2023 End: 09-23-2023 Syringe With Nee dle (Easy Touch) 3 mL 22 gauge x 1 syringe Start: 09-23-2023 End: 09-23-2023 Syringe With Nee dle, Safety (Easy Touch Fliplock Syringe) 3 mL 22 gauge x 1 syringe Start: 09-23-2023 End: 09-23-2023 Syringe With Nee dle, Safety (Easy Touch Fliplock Syringe) 3 mL 22 gauge x 1 syringe Start: 09-23-2023 End: 10-26-2023 Syringe With Nee dle, Safety (Easy Touch Fliplock Syringe) 3 mL 22 gauge x 1 syringe Start: 10-26-2023 Syringe With Nee dle (Easy Touch) 3 mL 22 gauge x 1 syringe Start: 09-23-2023 End: 09-23-2023 Syringe With Nee dle (Easy Touch) 3 mL 22 gauge x 1 syringe Start: 09-23-2023 End: 09-23-2023 Syringe With Nee dle, Safety (Easy Touch Fliplock Syringe) 3 mL 22 gauge x 1 syringe Start: 09-23-2023 End: 09-23-2023 Syringe With Nee dle, Safety (Easy Touch Fliplock Syringe) 3 mL 22 gauge x 1 syringe Start: 09-23-2023 End: 10-26-2023 Syringe With Nee dle, Safety (Easy Touch Fliplock Syringe) 3 mL 22 gauge x 1 syringe Start: 10-26-2023 Syringe With Nee dle (Easy Touch) 3 mL 22 gauge x 1 syringe Start: 09-23-2023 End: 09-23-2023 Syringe With Nee dle (Easy Touch) 3 mL 22 gauge x 1 syringe Start: 09-23-2023 End: 09-23-2023 Syringe With Nee dle, Safety (Easy Touch Fliplock Syringe) 3 mL 22 gauge x 1 syringe Start: 09-23-2023 End: 09-23-2023 Syringe With Nee dle, Safety (Easy Touch Fliplock Syringe) 3 mL 22 gauge x 1 syringe Start: 09-23-2023 End: 10-26-2023 Clinical Notes 04-30-2012 to 04-26-2024 Note Date & Type Note Facility 04-26-2024 Evaluation note Authored April 26, 2024 10:22am Nurse visit performed by Meredith Prater LPN Author [facility] Authored April 15, 2024 1 0:24am Vic[facility] Work Phone: [phone]) 209-991711-05-2024 Evaluation note* Author [facility] Authored May 12, 2024 1:34pm The above note written by Shad Blanton Jeyson acting as human recorder, note dictated by Dr. Livan Arguello. Author Betty Prater [facility] Authored April 26, 2024 1 0:22am Nurse visit performed by Meredith Prater LPN Author [facility] Authored April 15, 2024 1 0:24am [facility] Work Phone: 1(695) 630-243810-25-2024 Evaluation note* Author [facility] Authored April 15, 2024 1 1:24am [facility] Work Phone: 1(427) 964-229110-25-2024 Evaluation note* Author [facility] Authored April 15, 2024 1 0:24am [facility] Work Phone: 1(273) 174-272602-05-2024 Evaluation note* Encounter Date Diagnosis Assessment Notes Treatment Notes Treatment Clinical Notes Jul, Anemia of renal disease (ICD-10 - D63.1) [facility] [employer] Other 12-06-2023 Evaluation note* Encounter Date Diagnosis Assessment Notes Treatment Notes Treatment Clinical Notes May, 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 She is experiencing muscle cramps throughout her bilateral lower extremities, most bothersome in the calves. It was discussed this could possibly be coming from her lumbar spine vs a side effects of her current medication regimen. She was instructed to discuss this with her primary care doctor as well. In the meantime, I will decrease her current dose of Gabapentin to 100 MG at bedtime. I will also prescribe Flexeril 5 MG once daily as needed for muscle spasms. Risks and side effects of this medication was discussed in detail with the patient who voiced understanding. Patient was instructed to stop either of these medications should she begin to experience any side effects. Anatomy of spine discussed in detail with patient in regards to patients condition. Apr, Thoracic back pain (ICD-10 - M54.6) Patients primary complaint today is mid back pain. She shows some degree of muscle tenderness on exam and would be a reasonble candidate to try bilateral thoracic paraspinal trigger point injections which we will proceed with today in the office. Risks and benefits of procedure explained to patient; patient verbalizes understanding. Patient tolerated well. Apr, Other chronic pain (ICD-10 - G89.29) Apr, Other Above note writ ten by Jeremiah Sy MA, Accounting Professional. Edited and approved by Dr. Chriss Voss MD. [employer] Other 11-02-2023 Evaluation note* Encounter Date Diagnosis Assessment Notes Treatment Notes Treatment Clinical Notes Apr, Chronic kidney disea se, stage III (moderate) (ICD-10 - N18.30) She has a CKD due to longstanding DM and HTN with baseline creatinine around 1.1-1.2 mg/dL. She has no evidence of hematuria and proteinuria on UA. Her CT scan in March 2020 showed no evidence of hydronephrosis or kidney stones or kidney mass. I discussed with her the importance of good DM and HTN control to slow down the progression of CKD. 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 She appears to be euvolemic. Continue current hypertensive medication. Apr, Secondary hyperparathyroidism (ICD-10 - N25.81) MBD parameters including calcium, phosphorus, PTH and vitamin D are within the goal. Apr, Hyperuricemia (ICD-1 0 - E79.0) She has hyperuricemia due to the CKD but denies any symptoms. We will monitor without any medications. Apr, Anemia (ICD-10 - D64.9) Her hemoglobin is below the goal. We will check iron studies, B12 and folate level. If she has a low iron stores we will arrange IV iron infusion. She reported she cannot tolerate oral iron due to the severe constipation. Apr, Hypomagnesemia (ICD- 10 - E83.42) She has hypomagnesemia possibly due to the poor oral intake. She denies any use of the laxatives or diuretics or PPI. Currently take oral magnesium. Advised to continue taking magnesium. [facility] Other 10-05-2023 Evaluation note* Encounter Date Diagnosis Assessment Notes Treatment Notes Treatment Clinical Notes Mar, Degenerative disc disease, lumbar (ICD-10 - M51.36) Mar, Other spondylosis with radiculopathy, lumbar region (ICD-10 - M47.26) Patients primary complaint today is progressing low lumbar and buttock pain radiating into her bilateral lower extremities, extending into her feet. Recent MRI results show evidence of multilevel disc bulge and stenosis. Based on these results, as well as location of pain and exam findings, patient is a candidate for a lumbar epidural steroid injection which we will proceed with. Risks and benefits of procedure explained to patient; patient verbalizes understanding. Additionally, given her complaints of radiating symptoms and spinal stenosis, it would be reasonable to trial the patient on Gabapentin 300 MG. Patient was instructed to start by taking this at bedtime and increase to twice daily as tolerated. Risks and side effects of this medication was discussed in detail with the patient who voiced understanding. We will follow up with the patient one week following her procedure. Anatomy of spine discussed in detail with patient in regards to patients condition. Mar, Other chronic pain (ICD-10 - G89.29) Mar, Other Above note writ ten by Jeremiah Sy MA, Accounting Professional. Edited and approved by Dr. Chriss Voss MD. [facility] Other 10-04-2023 Evaluation note* Encounter Date Diagnosis Assessment Notes Treatment Notes Treatment Clinical Notes Mar, Left hip pain (ICD-10 - M25.552) I did order Xray of the hip but this was not done. Patient continues to have pain in the left hip. Not certain of this is related to the spinal stenosis found on MRI of the lumbar spine or if there is truly arthritis of the hip joint itself. Patient is scheduled to see Dr. Voss tomorrow for pain management consult. I do want her to follow through with plan of care. She can continue with the meloxicam as ordered Mar, Right hip pain (ICD-10 - M25.551) Mar, Degenerative disc disease, lumbar (ICD-10 - M51.36) MRI of the lumbar spine does reveal moderate spinal stenosis throughout the lumbar spine along with significant DDD which is causing pinching of the nerves and causing the radicular symptoms. I have educated patient and today on the anatomy of the spinal column using visual aides for understanding. Patient is scheduled to see Dr. Voss, Pain management, tomorrow and I have encouraged her to discuss with Dr. Voss if a neurosurgical consult is warranted. She has voiced understanding Mar, Radicular pain of both lower extremities (ICD-10 - M54.10) MRI of the lumbar spine does reveal moderate spinal stenosis throughout the lumbar spine along with significant DDD which is causing pinching of the nerves and causing the radicular symptoms. I have educated patient and today on the anatomy of the spinal column using visual aides for understanding. I have encouraged patient to follow through with pain management consult tomorrow. May need neurosurgical consult Mar, Chronic kidney disease, stage III (moderate) (ICD-10 - N18.30) Patient is following with locker room attendant for her CKD and I have reviewed the lab that she had ordered by him. She is scheduled to see him in April. I do want her to continue with medications as ordered and keep the appointment as scheduled. 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 This does fit clinically to patient's complaints. Patient is scheduled to see pain management tomorrow and encouraged to follow through with plan of care. 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 I do want her to continue with the metformin. Renal function is stable Mar, Hyperlipidemia (ICD-10 - E78.5) Patient is taking a small dose of the Crestor 5 mg daily. She is tolerating the medication well without any ill side effects. Liver enzymes are normal. I do want to have her continue taking it. Mar, Hypothyroidism, unspecified type (ICD-10 - E03.9) Patient is to continue with current meds as ordered. Mar, Hypertension (ICD-10 - I10) Blood pressure is good in office today. Patient does follow with Dr. Mckeon, Training Program Assistant, and is scheduled to see him again in April. Patient does have decreased energy and she feels this could be related to the Coreg and wants to stop it. I have encouraged her to discuss this with Dr. Mckeon at that appointment. I am not comfortable in stopping this medication without his recommendation. Voiced understanding [facility] Other 09-18-2023 Evaluation note* Encounter Date Diagnosis Assessment Notes Treatment Notes Treatment Clinical Notes Feb, Anxiety (ICD-10 - F41.9) [facility] Other 09-18-2023 Evaluation note* Encounter Date Diagnosis Assessment Notes Treatment Notes Treatment Clinical Notes Feb, Left hip pain (ICD-10 - M25.552) The patient continues to complain of bilateral hip and is now reporting bilateral lower extremity pain . Discussion was had this is likely coming from her lumbar spine. I recommend the patient consult with pain management as injections may be a better alternative to NSAIDs due to her chronic kidney disease.The patient does have GI upset with Codeine. The patient did see in 2019, she is agreeable with returning therefore a referral was initiated. I recommend she discuss use of Meloxicam with locker room attendant and reduce use to two or three times a week versus daily. Feb, Right hip pain (ICD-10 - M25.551) Feb, CKD (chronic kidney disease) stage 3, GFR 30-59 ml/min (ICD-10 - N18.3) The patient encourged to continue following with locker room attendant as scheduled next month 04/02/23. Feb, Degenerative disc disease, lumbar (ICD-10 - M51.36) Anatomy and physiology reviewed the patient , visualizations provided. Previous lumbar MRI was in 2018. I recommend an updated MRI, order provided. Feb, Radicular pain of both lower extremities (ICD-10 - M54.10) The patient complains of a deep ache in the bilateral lower extremity pain that wakes her during the night and is finding it difficutl to walk long distances or being up on her feet for long periods of time such as when going to the store. 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 Patient is to keep appointment with Dr. Matta in two weeks. We will order an updated CT. CT OF THE ABDOMEN AND PELVIS WITH CONTRAST HAS BEEN SCHEDULED AT [facility] [place] FOR Thursday09/04/2022 AT 0900. NPO 4 HOURS. PATIENT IS AWARE OF THIS APPOINTMENT DATE, TIME, LOCATION AND PREP. SHE WILL CALL TO PRE-REGISTER Aug, Thoracic spine pain (ICD-10 - M54.6) Patient denies any recent injuries. XR ordered to rule out abnormalities. Aug, Chest pain (ICD-10 - R07.9) Patient admits no recent episodes of chest pain. Patient is needing a follow up appointment with the title checker from her ER visit down in [place]. PATIENT HAS BEEN SCHEDULED TO SEE DR. MCKEON AT [facility] ON SEPTEMBER 09, 2022 AT 10:10 AM AT THE [place] LOCATION. PATIENT IS AWARE OF THIS APPT DATE, TIME AND LOCATION. Aug, Hyperlipidemia (ICD- 10 - E78.5) Patient is to continue with the above medication for now. Aug, Hypertension (ICD-10 - I10) The patients blood pressure was WNL upon check in. Patient is to continue with the above medications. Aug, Bowel incontinence (ICD-10 - R15.9) Upon discussion, patient is reporting this past Thursday she was getting up from the dinner table and lost her bowel continence. The stool was diarrhea. Admits she was very bloated during that time. This has only happened once. Last colonoscopy was 2020 and the patient voiced she never wanted to have a colonoscopy again. Patient voiced pain upon palpation of the lower abdomen.Therefore , I recommend we order another abdomen and pelivc CT due to these new concerns. Aug, Joint ache (ICD-10 - M25.50) Patient reports the main source of the joint aching is in the bilateral arms and hands. Aug, Diarrhea (ICD-10 - R19.7) Abdomen and pelvic CT ordered. Aug, Weight loss (ICD-10 - R63.4) Patient presents in the office with a two pound weight loss from last visit. 14 Aug, 2022 Hypothyroidism, unspecified type (ICD-10 - E03.9) Blood work ordered and patient is to continue with the above medication. Aug, Hyperparathyroidism (ICD-10 - E21.3) Nephrology has been monitoring the elevated parathyroid. Patient is to get blood work done tomorrow morning. Aug, Abdominal pain (ICD- 10 - R10.9) [facility] Other 11-10-2022 Evaluation note* Encounter Date Diagnosis Assessment Notes Treatment Notes Treatment Clinical Notes Apr, Chronic kidney disea se, stage III (moderate) (ICD-10 - N18.30) She has a CKD due to longstanding DM and HTN with baseline creatinine around 1.2 mg/dL. She has no evidence of hematuria and proteinuria on UA. Her CT scan in March 2020 showed no evidence of hydronephrosis or kidney stones or kidney mass. I discussed with her the importance of good DM and HTN control to slow down the progression of CKD. 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 She appears to be hypervolemic. Continue current hypertensive medication. I have advised her to take it HCTZ every other day Apr, Secondary hyperparathyroidism (ICD-10 - N25.81) She has secondary hyperparathyroidism due to the CKD but her calcium, phosphorus and vitamin D are within the goal. Apr, Iron deficiency (ICD -10 - E61.1) Her hemoglobin is within the goal. She has a low iron. Apr, Hyperuricemia (ICD-1 0 - E79.0) She has hyperuricemia due to the CKD but denies any symptoms. We will monitor with doubt any medications. [facility] Other 11-10-2022 Evaluation note* Encounter Date Diagnosis Assessment Notes Treatment Notes Treatment Clinical Notes Apr, Chronic kidney disea se, stage III (moderate) (ICD-10 - N18.30) She has a CKD due to longstanding DM and HTN with baseline creatinine around 1.2 mg/dL. She has no evidence of hematuria and proteinuria on UA. Her CT scan in March 2020 showed no evidence of hydronephrosis or kidney stones or kidney mass. I discussed with her the importance of good DM and HTN control to slow down the progression of CKD. 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 She appears to be hypervolemic. Continue current hypertensive medication. I have advised her to take it HCTZ every other day Apr, Secondary hyperparathyroidism (ICD-10 - N25.81) She has secondary hyperparathyroidism due to the CKD but her calcium, phosphorus and vitamin D are within the goal. Apr, Iron deficiency (ICD -10 - E61.1) Her hemoglobin is within the goal. She has a low iron. Apr, Hyperuricemia (ICD-1 0 - E79.0) She has hyperuricemia due to the CKD but denies any symptoms. We will monitor without any medications. [facility] Other 09-30-2022 Evaluation note* Encounter Date Diagnosis Assessment Notes Treatment Notes Treatment Clinical Notes Feb, Abdominal pain (ICD- 10 - R10.9) Feb, Abnormal abdominal C T scan (ICD-10 - R93.5) Feb, Choledocholithiasis (ICD-10 - K80.50) [facility] Other 08-31-2022 Evaluation note* Encounter Date Diagnosis Assessment Notes Treatment Notes Treatment Clinical Notes Jan, Abdominal pain (ICD- 10 - R10.9) Jan, Abnormal abdominal C T scan (ICD-10 - R93.5) Jan, Choledocholithiasis (ICD-10 - K80.50) Labs as indicated above Referral to Dr. Elliott for EUS/ERCP [facility] Other 07-21-2022 Evaluation note* Encounter Date Diagnosis Assessment Notes Treatment Notes Treatment Clinical Notes Dec, Chronic gout without tophus, unspecified cause, unspecified site (ICD-10 - M1A.9XX0) [facility] Other 06-28-2022 Evaluation note* Encounter Date Diagnosis Assessment Notes Treatment Notes Treatment Clinical Notes Nov, Functional dyspepsia (ICD-10 - K30) CONTINUE LIBRAX WITHOUT CHANGE FU HERE 9 MONTHS [facility] Other 06-13-2022 Evaluation note* Encounter Date Diagnosis Assessment Notes Treatment Notes Treatment Clinical Notes Nov, Hypothyroidism, unspecified type (ICD-10 - E03.9) Nov, Hypertension (ICD-10 - I10) [facility] Other 06-02-2022 Evaluation note* Encounter Date Diagnosis Assessment Notes Treatment Notes Treatment Clinical Notes Nov, Right sided abdominal pain (ICD-10 - R10.9) [facility] Other 04-25-2022 Evaluation note* Encounter Date Diagnosis Assessment Notes Treatment Notes Treatment Clinical Notes Sep, Elevated uric acid in blood (ICD-10 - E79.0) Sep, Age-related osteoporosis without current pathological fracture (ICD-10 - M81.0) [facility] Other 03-28-2022 Evaluation note* Encounter Date Diagnosis Assessment Notes Treatment Notes Treatment Clinical Notes Aug, Vomiting (ICD-10 - R11.10) Aug, Abdominal pain (ICD-10 - R10.9) Aug, Functional dyspepsia (ICD-10 - K30) PATIENT IS ENCOURAGED TO USE FD DANG AND THIS COULD HELP. PATIENT IS ADVISED THIS IS AN OTC MEDICATION. PATIENT IS ADVISED WE WILL START THE ABOVE MEDICATION. [facility] Other 03-15-2022 Evaluation note* Encounter Date Diagnosis Assessment Notes Treatment Notes Treatment Clinical Notes Aug, Right sided abdominal pain (ICD-10 - R10.9) Patient reports improvement in symptoms since taking the above medication. Reports not needing to take it in about one week. Patient presents in the office with a four pound weight gain from last visit. Therefore, I encouraged patient to continue with the above medication as needed along with the zofran for nausea. Aug, Hypertension (ICD-10 - I10) Blood pressure was WNL upon check in. Patient is to continue to follow with Dr Mckeon as scheduled. 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 Advised patient to monitor diet. Printed material provided on foods to avoid. Jul, Elevated liver enzymes (ICD-10 - R74.8) Recent fibroscan done with Dr. Matta. Patients liver enzymes have improved from last check. Jul, Nausea & vomiting (ICD-10 - R11.2) Dr. Matta started patient on dicyclomine with no improvement in symptoms. Patient is to stop the medication. Jul, Right sided abdominal pain (ICD-10 - R10.9) I did discuss other medication options as the dicyclomine has not been improving the patients symptoms. Patient is agreeable to try the librax. We will re-evaluate in one month. Jul, Hypertension (ICD-10 - I10) Patients blood pressure is WNL upon check in. Patient is to continue with the above medication regimen. [facility] Other 12-18-2021 Evaluation note* Encounter Date Diagnosis Assessment Notes Treatment Notes Treatment Clinical Notes May, Hypertension (ICD-10 - I10) [facility] Other 12-16-2021 Evaluation note* Encounter Date Diagnosis Assessment Notes Treatment Notes Treatment Clinical Notes May, Elevated liver function tests (ICD-10 - R79.89) The liver enzymes are now WNL. Therefore I do believe either the allopurionol or balsalazide was causing this. May, Nausea & vomiting (ICD-10 - R11.2) Patient had a recent fibroscan with Dr. Matta 05/29/21. May, Arthritis (ICD-10 - M19.90) We will continue to monitor. May, Adrenal nodule (ICD-10 - E27.9) CT noted right adrenal nodule is stable. May, Elevated uric acid in blood (ICD-10 - E79.0) Patient states she felt better taking the allopurinol. Therefore I did suggest patient go back on the medication and recheck liver levels again to determine if the medication was the cause to elevated liver enzymes. 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 [facility] Other 12-02-2021 Evaluation note* Encounter Date Diagnosis Assessment Notes Treatment Notes Treatment Clinical Notes May, Vomiting (ICD-10 - R11.10) May, Abdominal pain (ICD-10 - R10.9) RTO 2 WEEKS May, Elevated LFTs (ICD-10 - R79.89) [facility] Other 11-30-2021 Evaluation note* Encounter Date Diagnosis Assessment Notes Treatment Notes Treatment Clinical Notes Apr, Abdominal pain (ICD-10 - R10.9) [facility] Other 11-22-2021 Evaluation note* Encounter Date Diagnosis Assessment Notes Treatment Notes Treatment Clinical Notes Apr, Thoracic back pain (ICD-10 - M54.6) The patient has discontinued Tramadol due to side effects of fatigue. Osteopenia and degenerative changes with lumbar disc disease noted upon review of x-ray imaging results. Pain Management options discussed. and the patient will contact office herself. I recommend she try Lidoderm patches , instructions provided. Apr, Elevated liver enzymes (ICD-10 - R74.8) The patient states she stopped Balsalazide approximatly a week ago. I suggest we re-evaluate blood work in three -four weeks. We will continue to monitor. Apr, Elevated uric acid in blood (ICD-10 - E79.0) Uric acid level has returned to normal compared to 08/2020. I advise she stop Allopurinol at this time. The patient voices understanding. 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 At this time I encourage diet moderation and exercise. Apr, Hypertension (ICD-10 - I10) Pt is to continue with the above medication and we will continue to monitor. The patient encourged to continue following with locker room attendant as scheduled. Apr, Vitamin B12 deficiency (ICD-10 - E53.8) I am in agreement with providing the above medication . [facility] Other 11-22-2021 Evaluation note* Encounter Date Diagnosis Assessment Notes Treatment Notes Treatment Clinical Notes Apr, Thoracic back pain (ICD-10 - M54.6) The patient has discontinued Tramadol due to side effects of fatigue. Osteopenia and degenerative changes with lumbar disc disease noted upon review of x-ray imaging results. Pain Management options discussed. and the patient will contact office herself. I recommend she try Lidoderm patches , instructions provided. Apr, Elevated liver enzymes (ICD-10 - R74.8) The patient states she stopped Balsalazide approximatly a week ago. I suggest we re-evaluate blood work in three -four weeks. We will continue to monitor. Apr, Elevated uric acid in blood (ICD-10 - E79.0) Uric acid level has returned to normal compared to 08/2020. I advise she stop Allopurinol at this time. The patient voices understanding. 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 Due to history of diabetes, patient is to monitor diet and exercise as tolerated. We will continue to monitor. Apr, Hypertension (ICD-10 - I10) Pt is to continue with the above medication and we will continue to monitor. The patient encourged to continue following with locker room attendant as scheduled. Apr, Vitamin B12 deficiency (ICD-10 - E53.8) I am in agreement with providing the above medication . [facility] Other 11-15-2021 Evaluation note* Encounter Date Diagnosis Assessment Notes Treatment Notes Treatment Clinical Notes Apr, Elevated liver enzymes (ICD-10 - R74.8) [facility] Other 11-05-2021 Evaluation note* Encounter Date Diagnosis Assessment Notes Treatment Notes Treatment Clinical Notes Apr, CKD (chronic kidney disease) stage 3, GFR 30-59 ml/min (ICD-10 - N18.3) The patient encouraged to continue following with nephrology as scheduled. Apr, Thoracic back pain (ICD-10 - M54.6) Thoracic MRI and xrays obtained 02/01/2020 noting mild to moderate degenerative changes.No compression deformaties noted. The patient states her pain can start first thing in the morning and persist throughout the day with movement. Discussion was had regarding arthrits and osteoporosis. I did order plain film imaging as above to re-evaluate.The patient is to avoid NSAIDS due to kidney functions therefore I suggest she start the above medication, instructions provided. Apr, Elevated liver enzymes (ICD-10 - R74.8) The patient advised by locker room attendant that her liver enzymes were elevated upon recent blood work results. Nephrology suggested it may be due to the medication Balsalazide that was started by budget manager . 01/2021. Per patient she did make a call to 's office and advised the medication was not causing this. I will re-order blood work and if the levels continue to elevated we will discuss possibly contacting regarding medication changes. 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 I suggest the patient have this updated, an order was provided. The patient is to continue the above medication as directed. Vitamin D level is elevated upon review of blood work results, the patient advised to hold vitamin D3 supplement . Apr, Post-menopausal (ICD-10 - Z78.0) Apr, Diverticular disease (ICD-10 - K57.90) As above the patient is to continue following with as scheduled. She may be treated with the diverticular disease she may have an underlying colitis type of issue as well. But there is some concern that this medication may be causing some liver function test abnormalities. We will recheck her liver function within the next week or so. Apr, Nausea & vomiting (ICD-10 - R11.2) The patient complains of frequently experiencing severe stomach pain followed by vomiting that relieves the abdominal pain but exacerbates her back pain. The patient encouraged to continue followig with gastroenteroloigst Dr. Matta as scheduled. Apr, Hyperlipidemia (ICD-10 - E78.5) Encouraged to watch diet and increase exercise regimen; we will continue to monitor. Apr, Elevated uric acid in blood (ICD-10 - E79.0) The above medication was started 09/20/20 with normal liver enzymes obtained three weeks later. At this time I recommend the patient continue the above medication as directed, Blood work ordered to re-evaluate uric acid levels. Apr, Neoplasm of uncertain behavior of skin (ICD-10 - D48.5) Two elevated hyperpigmented scalp lesions noted upon examination both measuring 1 cm located at the vertex and occipital region. The patient state these have changed and become painful per patient .I suggest we remove these by shave biopsy at a later date. Apr, Other She was inst ructed to call sooner if there is any new or different other problems. If there is any major severe pain that is intractable or uncontrollable she will need to report to the emergency room for further evaluation. Otherwise I will see her back in 10 to 14 days. [facility] Other 11-03-2021 Evaluation note* Encounter Date Diagnosis Assessment Notes Treatment Notes Treatment Clinical Notes Apr, Elevated liver enzymes (ICD-10 - R74.8) [facility] Other 11-02-2021 Evaluation note* Encounter Date Diagnosis Assessment Notes Treatment Notes Treatment Clinical Notes Apr, Chronic kidney disea se, stage III (moderate) (ICD-10 - N18.30) She has a CKD due to longstanding DM and HTN with baseline creatinine around 1.2 mg/dL. She has no evidence of hematuria and proteinuria on UA. Her CT scan in March 2020 showed no evidence of hydronephrosis or kidney stones or kidney mass. I discussed with her the importance of good DM and HTN control to slow down the progression of CKD. 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 She appears to be euvolemic. Continue current hypertensive medication. Apr, Anemia of renal dise ase (ICD-10 - D63.1) Hemoglobin is within the goal. Will check iron studies. Apr, Secondary hyperparathyroidism (ICD-10 - N25.81) Her PTH and calcium is within the normal limit. She has a supratherapeutic vitamin D so I have advised her to stop the calcium and vitamin D supplement. Apr, Diabetes mellitus wi th chronic kidney disease (ICD-10 - E11.22) Apr, Transaminitis (ICD-1 0 - R74.01) She has a transaminitis possibly due to the balsalazide. I have advised her to contact Dr. Matta due to her abdominal pain. [facility] Other 11-09-2012 History general Narrative - Reported* Type Description Date Medical History MRI Lumbar spine [facility] [place]12 Medical History Mammogram 05/30 Medical History Stress test 04/29/normal Medical History Colonoscopy 05/27 Medical History EKG 2007 Medical History total hysterectomy/ no recent pa p Medical History DEXA scan 07-08-11 Medical History Bilateral Hand X-Ray 07-08-11 Medical History 06/05/16 Mammogram Medical History 02/2017 Cardiac Cath Medical History Colonoscopy - 06/01/[address] Franklin Medical History 05/2017 Echocardiogram Medical History 08/25/2017 CT , EKG Medical History Upper GI/ Gallbladder US 05/2018 Medical History 09/2018 Dexa Scan Surgical History Hysterectomy Surgical History GALL BLADDER 2020 Hospitalization History [facility] - heart cath 2016 Hospitalization History Hypertension 08/26/19 18 [facility] Other 11-09-2012 History general Narrative - Reported* Type Description Date Medical History MRI Lumbar spine [facility] [place] 04/30/12 Medical History Mammogram 05/30 Medical History Stress test 04/29/normal Medical History Colonoscopy 05/27 Medical History EKG 2007 Medical History total hysterectomy/ no recent pa p Medical History DEXA scan 07-08-11 Medical History Bilateral Hand X-Ray 07-08-11 Medical History 06/05/16 Mammogram Medical History 02/2017 Cardiac Cath Medical History Colonoscopy - 06/01/[address] Franklin Medical History 05/2017 Echocardiogram Medical History 08/25/2017 CT , EKG Medical History Upper GI/ Gallbladder US 05/2018 Medical History 09/2018 Dexa Scan Surgical History Hysterectomy Surgical History Cholecystectomy 2020 Hospitalization History [facility] [place] - heart cath 2016 Hospitalization History Hypertension 08/26/19 18 [facility] Other 11-09-2012 History general Narrative - Reported* Type Description Date Medical History MRI Lumbar spine [facility] [place] 04/30/12 Medical History Mammogram 05/30 Medical History Stress test 04/29/normal Medical History Colonoscopy 05/27 Medical History EKG 2007 Medical History total hysterectomy/ no recent pa p Medical History DEXA scan 07-08-11 Medical History Bilateral Hand X-Ray 07-08-11 Medical History 06/05/16 Mammogram Medical History 02/2017 Cardiac Cath Medical History Colonoscopy - 06/01/[address] Franklin Medical History 05/2017 Echocardiogram Medical History 08/25/2017 CT , EKG Medical History Upper GI/ Gallbladder US 05/2018 Medical History 09/2018 Dexa Scan Surgical History Hysterectomy Surgical History Cholecystectomy 2020 Surgical History ERCP Hospitalization History [facility] [place] heart cath 2016 Hospitalization History Hypertension 08/26/19 18 [facility] Other 11-09-2012 History general Narrative - Reported* Type Description Date Medical History MRI Lumbar spine [facility] [place] 04/30/12 Medical History Mammogram 05/30 Medical History Stress test 04/29/normal Medical History Colonoscopy 05/27 Medical History EKG 2007 Medical History total hysterectomy/ no recent pa p Medical History DEXA scan 07-08-11 Medical History Bilateral Hand X-Ray 07-08-11 Medical History 06/05/16 Mammogram Medical History 02/2017 Cardiac Cath Medical History Colonoscopy - 06/01/[address] Franklin Medical History 05/2017 Echocardiogram Medical History 08/25/2017 CT , EKG Medical History Upper GI/ Gallbladder US 05/2018 Medical History 09/2018 Dexa Scan Medical History ERCP 03/03/2022 Surgical History Hysterectomy Surgical History Cholecystectomy 2020 Surgical History ERCP at 03/03/2022 Hospitalization History [facility] [place] - heart cath 2016 Hospitalization History Hypertension 08/26/19 18 [facility] Other 11-09-2012 History general Narrative - Reported* Type Description Date Medical History MRI Lumbar spine [facility] [place] 04/30/12 Medical History Mammogram 05/30 Medical History Stress test 04/29/normal Medical History Colonoscopy 05/27 Medical History EKG 2007 Medical History total hysterectomy/ no recent pa p Medical History DEXA scan 07-08-11 Medical History Bilateral Hand X-Ray 07-08-11 Medical History 06/05/16 Mammogram Medical History 02/2017 Cardiac Cath Medical History Colonoscopy - 06/01/[address] Franklin Medical History 05/2017 Echocardiogram Medical History 08/25/2017 CT , EKG Medical History Upper GI/ Gallbladder US 05/2018 Medical History 09/2018 Dexa Scan Medical History ERCP 03/03/2022 Surgical History Hysterectomy Surgical History Cholecystectomy 2020 Surgical History ERCP at 03/03/2022 Hospitalization History [facility] [place] - heart cath 2016 Hospitalization History Hypertension 08/26/19 18 Hospitalization History cardiac issues 06/2022 [facility] Other Evaluation + Plan note No data available for this section [facility] Evaluation noteNo [employer] Other Evaluation noteNo assessment information available [facility] Work Phone: Evaluation note* Diagnosis Onset Date Resolution Status Bereavement acute Lumbar radiculopathy acute HTN (hypertension) chronic [facility] Work Phone: Evaluation note* Author Vicenta Blanton [facility] Authored April 15, 2024 1 1:24am Vicenta Blanton RMA [facility] Work Phone: History of Present illness Narrative* The patient presents for follow-up of essential hypertension. The patient states she has been doingpoorly with her blood pressure control since the last visit. * Symptoms: denies impaired vision, denies dyspnea, denies chest pain, denies intermittent leg claudication and denies lower extremity edema. Associated symptoms include headache. * Home monitoring: The patient checks her blood pressure regularly. Blood pressure control has been poor. * Medications: the patient is adherent with her medication regimen. She denies medication side effects. [facility] Work Phone: History of Present illness Narrative* The patient presents for follow-up of essential hypertension. The patient states she has been stable with her blood pressure control since the last visit. * Symptoms: denies impaired vision, denies dyspnea, denies chest pain, denies intermittent leg claudication and denies lower extremity edema. Associated symptoms include no headache. * Home monitoring: The patient checks her blood pressure regularly. Blood pressure control has been poor. * Medications: the patient is adherent with her medication regimen. She denies medication side effects. [facility] Work Phone: history of Present illness Narrative* The patient states she has been generally doing well since the last visit. Comorbid Illnesses: hypertension and hyperlipidemia. * Symptoms: denies chest pain at rest, denies exertional chest pain, denies dyspnea, stable fatigue, denies exercise intolerance, denies palpitations, denies edema, denies orthopnea, denies dizziness and denies orthostatic dizziness. * Associated symptoms: no syncope. * Her symptoms do not limit her activities. * Disease Monitoring: The patient has had a stable weight. * Medications: the patient is adherent with her medication regimen. She denies medication side effects. [facility] DO Work Phone: Hospital Discharge instructions No data available for this section [facility] Hospital Discharge instructions Additional Instructions Follow-up with your primary care doctor [facility] if develop [facility] Work Phone: Hospital Discharge instructions Additional Instructions Take Motrin Tylenol as needed for mild to moderate pain. You can take Flexeril as prescribed muscle spasm. Take oxycodone as prescribed for severe pain. Take Zofran with oxycodone for nausea.[facility] Work Phone: Summary Purpose Family History No Family History Records FoundUnknown Family Member Name Dates Details No pertinent family history: Mother, Father, Sister, Brother(V49.89, Z78.9) Status:Active Unknown Family Member Name Dates Details No pertinent family history: Mother, Father, Sister, Brother(V49.89, Z78.9) Status:Active Unknown Family Member Name Dates Details No pertinent family history: Mother, Father, Sister, Brother(V49.89, Z78.9) Status:Active Unknown Family Member Name Dates Details No pertinent family history: Mother, Father, Sister, Brother(V49.89, Z78.9) Status:Active Unknown Family Member Name Dates Details No pertinent family history: Mother, Father, Sister, Brother(V49.89, Z78.9) Status:Active Relationship Condition Age at Onset Recorded Date/T marlen father Disorder of lung Unknown Not Specified Diabetes mellitus Unknown Malignant neoplasm of breast Unknown natural son Multiple sclerosis Unknown Unknown Family Member Name Dates Details No pertinent family history: Mother, Father, Sister, Brother(V49.89, Z78.9) Status:Active Unknown Family Member Name Dates Details No pertinent family history: Mother, Father, Sister, Brother(V49.89, Z78.9) Status:Active Unknown Family Member Name Dates Details No pertinent family history: Mother, Father, Sister, Brother(V49.89, Z78.9) Status:Active Unknown Family Member Name Dates Details No pertinent family history: Mother, Father, Sister, Brother(V49.89, Z78.9) Status:Active Unknown Family Member Name Dates Details No pertinent family history: Mother, Father, Sister, Brother(V49.89, Z78.9) Status:Active Unknown Family Member Name Dates Details No pertinent family history: Mother, Father, Sister, Brother(V49.89, Z78.9) Status:Active Unknown Family Member Name Dates Details No pertinent family history: Mother, Father, Sister, Brother(V49.89, Z78.9) Status:Active Relationship Condition Age at Onset Recorded Date/T marlen father Disorder of lung Unknown mother Diabetes mellitus Unknown Malignant neoplasm of breast Unknown son Multiple sclerosis Unknown brother Diabetes mellitus Unknown father Unknown Disorder of lung Unknown grandparent Unknown mother Malignant neoplasm Unknown Diabetes mellitus Unknown Unknown Advance Directives No Advanced Directives Records Found Advance Directive Response Recorded Date/ Time Advance Directives No February 1:38pm Advance Directive Response Recorded Date/ Time Advance Directives No February 12:38pm Chief Complaint * LUDY WILLIS is being seen for an annual follow-up of. * Patient is a 76-year-old female who returns for follow-up and is doing well. She has a remote history of Takotsubo cardiomyopathy with normal coronary arteries and otherwise now controlled hypertension. There is a significant amount of psychosocial stress due to her 's cancer diagnosis and tr eatment. * She is otherwise doing well with no recurrent heart failure, hospitalizations, and she has controlled blood pressure on current therapies * Recommendation she can follow-up as needed * LUDY WILLIS is being seen for PATIENTS REQUEST DIZZINESS LIGHTHEADED. * 76-year-old female who returns with complaints of orthostasis/dizziness that are worsening over theearly summer time. Especially with kneeling and arising specifically in her boat. She has had no true syncope. She has a number of other noncardiac related GI issues that GI and primary care are addressing. * She is been treated for hypertension and remotely treated for Takotsubo cardiomyopathy with normalized left ventricular function. She also has underlying mild bradycardia her is concerned because he has a KS12 gene and performed brief telemetry on her revealing a PVC and evidence of bradycardia but sinus rhythm. * Patient has a history of normal coronary arteries by heart catheterization in 2017 * Patient had a 16 mmHg systolic drop in blood pressure in our office today with symptoms of dizziness and orthostasis * Recommendations: Discontinue amlodipine and hydrochlorothiazide, drop irbesartan down to 150 mg daily, perform Holter monitoring for 24 hours follow-up with nurse practitioner in 3 months, otherwise follow-up with primary care. * f/u medication changes: my blood pressure is high * LUDY WILLIS is being seen for a 3 month follow-up of dizziness and a medication change. * Patient is ambulatory with steady gait, accompanied by . * Evaluated in clinic Dr. Mckeon December 2021. At that time, norvasc and HCTZ d/c'd, irbesartan reduced. * A subsequent holter with 15% PVC burden - started on Magnesium and lopressor. * Presents today with concerns re: elevated blood pressure. * Home blood pressure 160-180. * She is 'tired and worn out' * No dizziness or lightheadedness * Home HR mid 40s. * In past, difficult time obtaining optimal BP. * Will resume HCTZ (recent K+ 4.2, CR 1.17) * Reports Mar 03, 2022 ECRP with post-op hypertension. * Will need to repeat holter once BP controlled. * 2017 negative cath, Takotsubo * 2018 Echo EF 60-65%, MR trace/mild, RVSP 30 * December 2021 Holter 15.8% PVC burden * HTN management & blood pressure changes: 'clonidine seemed to be helping' * LUDY WILLIS is being seen for a 1 week follow-up of hypertension. * Presents today ambulatory with steady gait, is accompanied by her . * Last evaluated by myself 2 weeks ago. At that time resumed prior dose of hydrochlorothiazide. * She called into the office earlier this week with continued systolic blood pressures greater than 160, clonidine 0.1 mg added at bedtime she is taken approximately 2 doses. She has noted benefit fromclonidine. * She presents today with multiple complaints of simply not feeling right . Lopressor was added in December 2021 due to 15% PVC burden on Holter monitor. Since that time she has complained of fatigue, is worried about bradycardia. Denies any dizziness or lightheadedness. She also complains of mild headaches, not necessarily noted with elevated systolic blood pressure. She is concerned about restless leg syndrome. Both she and are concerned that she is taking too much medication . * At December 2021 follow-up with Dr. Mckeon she was mildly hypotensive - Norvasc and hydrochlorothiazide were discontinued and irbesartan was reduced. A December 2021 Holter showed 50% PVC burden and she wasinitiated on Lopressor 12.5 mg twice daily. * March 25, 2022 I placed her back on her prior dose of irbesartan 300 and hydrochlorothiazide 12.5 and combination with Lopressor 12.5 mg twice daily. * These changes have not made any significant impact on her hypertension. * Last blood pressure control was on irbesartan 300, hydrochlorothiazide 12.5 and amlodipine 5 mg daily. * Repeat labs potassium 4.5, creatinine 1.2. * She is tearful in the office and very anxious. * Discussed that recorded heart rates likely represent pseudo bradycardia due to PVCs, otherwise asymptomatic heart rate in the 40s is not concerning. * Nonetheless, she continues to have multiple complaints most notably with initiation of Lopressor. * Today we will try to simplify polypharmacy. * Will stop Lopressor to see if complaints of fatigue improve; likely will need Cardizem to suppress PVCs with repeat Holter monitor. * Addition of hydrochlorothiazide had no impact on blood pressure, she has resulted in restless leg syndrome. We will discontinue. * She is taken 2 doses of clonidine and blood pressure starting to come down nicely. Plan at this time will be to continue with clonidine, Lopressor and hydrochlorothiazide. Continue to monitor blood pressure. * LUDY WILLIS is being seen for chest pain. * 77-year-old female who returns from [place] this past June where her sustained cardiac arrest and was hospitalized for 10 days. The , my patient currently sustained another ACS event and was diagnosed with second Takotsubo/stress cardiomyopathy event as evidenced by cardiac CT. The results and report and consultation all reviewed as she provided them. Currently she is doing well with mild bradycardia and normotensive. She has no symptoms of heart failure or angina or recurrent events since June. * She has had no follow-up imaging, she remains on appropriate therapies from her initial Takotsubo event in 2017 at that time with normal coronary arteries. * Cardiac CT imaging revealed minimal atherosclerosis, preserved basal segment contractility and mildhypokinesis of the anteroapical and inferoapical segments with ejection fraction of 45% * Recommendations: Decrease Coreg to 3.125 twice daily, obtain echocardiogram for LV functional assessment, conversation in regards to recurrent Takotsubo cardiomyopathy and education, and follow-up in6 to 8 months * LUDY WILLIS is being seen for chest pain. * 77-year-old female who returns from [place] this past June where her sustained cardiac arrest and was hospitalized for 10 days. The , my patient currently sustained another ACS event and was diagnosed with second Takotsubo/stress cardiomyopathy event as evidenced by cardiac CT. The results and report and consultation all reviewed as she provided them. Currently she is doing well with mild bradycardia and normotensive. She has no symptoms of heart failure or angina or recurrent events since June. * She has had no follow-up imaging, she remains on appropriate therapies from her initial Takotsubo event in 2016 at that time with normal coronary arteries. * Cardiac CT imaging revealed minimal atherosclerosis, preserved basal segment contractility and mildhypokinesis of the anteroapical and inferoapical segments with ejection fraction of 45% * Recommendations: Decrease Coreg to 3.125 twice daily, obtain echocardiogram for LV functional assessment, conversation in regards to recurrent Takotsubo cardiomyopathy and education, and follow-up in6 to 8 months * 1 month f/u for medication change and testing results: 'doing ok' * LUDY WILLIS is being seen for a 3 month follow-up of a medication change. Reason for Referral Reason consult and treat Diagnosis 1 Left hip pain (M25.5 52) Diagnosis 2 Right hip pain (M25. 551) Diagnosis 3 CKD (chronic kidney disease) stage 3, GFR 30-59 ml/min (N18.3) Diagnosis 4 Degenerative disc di sease, lumbar (M51.36) Diagnosis 5 Radicular pain of tamia th lower extremities (M54.10) Referral Organization [facility] Referring Provider First Name Livan Referring Provider Last Name Saundra Referring Provider Specialty Family Prac kei Referred Organization [facility] Referred Provider Chriss Voss Referred Address [address],[place],[phone] Referred Provider [facility] Referral Priority Routine General Notes Yasmine Cheung 023 11:27:57 AM >Received today and sent P2P Reason ERCP/EUS Diagnosis 1 Choledocholithiasis (K80.50) Referral Organization [facility] [facility] Referring Provider First Name Williams Referring Provider Last Name Jurgen Referring Provider Specialty Gastroenter ology Referred Organization [facility] Referred Address [address] [place] [address] ,[place], [place],[address] Referred Provider Specialty Gastroentero logy Referral Priority Routine General Notes Albaro Ordoneza Ruth 0 02/20/2022 03:11:26 PM >Referral faxed and scanned in chart Chief Complaint and Reason for Visit Chief Complaint See order Chief Complaint See order Hyperlipidemia See order Chief Complaint fuctional dyspepsia, weight loss, abdominal pain Chief Complaint fuctional dyspepsia, weight loss, abdominal pain M89.90 M25.50 Z79.899 Chief Complaint fuctional dyspepsia, weight loss, abdominal pain M89.90 M25.50 Z79.899 M79.641 M79.642 m25.552 r10.2 q19.xxxa Chief Complaint N18.30 I12.9 D63.1 N 25.81 E11.22 Chief Complaint N18.30 I12.9 D63.1 N 25.81 E11.22 m25.552 m25.551 m51.36 m54.10 Chief Complaint R10.9 Chief Complaint R10.9 stomach pain Chief Complaint R10.9 stomach pain toradol for sciatica Amb Documentation Chief Complaint R10.9 stomach pain toradol for sciatica Amb Documentation acute sciatic pain Reason for Visit Bereavement Lumbar radiculopathy HTN (hypertension) Chief Complaint R10.9 stomach pain toradol for sciatica Amb Documentation acute sciatic pain toradol shot Reason for Visit Bereavement Lumbar radiculopathy HTN (hypertension) Left sciatic nerve pain Lumbar back pain Chief Complaint R10.9 stomach pain toradol for sciatica Amb Documentation acute sciatic pain toradol shot M54.50 lt hip/leg pain,nki Reason for Visit Bereavement Lumbar radiculopathy HTN (hypertension) Left sciatic nerve pain Lumbar back pain Chief Complaint R10.9 stomach pain toradol for sciatica Amb Documentation acute sciatic pain toradol shot M54.50 lt hip/leg pain,nki toradol shot- hip Reason for Visit Bereavement Lumbar radiculopathy HTN (hypertension) Left sciatic nerve pain Lumbar back pain Chief Complaint R10.9 stomach pain toradol for sciatica Amb Documentation acute sciatic pain toradol shot M54.50 lt hip/leg pain,nki toradol shot- hip Reason for Visit Bereavement Lumbar radiculopathy HTN (hypertension) Left sciatic nerve pain Lumbar back pain Lumbar back pain with radiculopathy affecting left lower extremity Sciatica Chief Complaint Admit Date R10.9 February 24, 2024 12:27pm stomach pain March 19, 2024 8:04am toradol for sciatica April 12, 2024 1:15pm Amb Documentation April 12, 2024 1 :17pm acute sciatic pain April 14, 2024 1 2:52pm toradol shot April 15, 2024 1 1:04am M54.50 April 15, 2024 1 2:38pm lt hip/leg pain,nki April 21, 2024 7 :05am toradol shot- hip April 26, 2024 9 :55am R73.9 I10 N18.30 I12.9 N25.81 E79.0 E61. 1 April 26, 2024 10:08am M54.9 M54.40 M54.16 M25.552 M48.07 Novem 2023 8:29pm Reason for Visit Admit Date Bereavement April 14, 2024 1 2:52pm Lumbar radiculopathy April 14, 2024 12:52pm HTN (hypertension) April 14, 2024 1 2:52pm Left sciatic nerve pain April 15 11:04am Lumbar back pain April 15, 2024 1 1:04am Lumbar back pain with radicu lopathy affecting left lower extremity April 26, 2024 9:55am Sciatica April 26, 2024 9 :55am Chief Complaint Admit Date R10.9 February 24, 2024 12:27pm stomach pain March 19, 2024 8:04am toradol for sciatica April 12, 2024 1:15pm Amb Documentation April 12, 2024 1 :17pm acute sciatic pain April 14, 2024 1 2:52pm toradol shot April 15, 2024 1 1:04am M54.50 April 15, 2024 1 2:38pm lt hip/leg pain,nki April 21, 2024 7 :05am toradol shot- hip April 26, 2024 9 :55am R73.9 I10 N18.30 I12.9 N25.81 E79.0 E61. 1 April 26, 2024 10:08am M54.9 M54.40 M54.16 M25.552 M48.07 2023 8:29pm 1 year follow up May 05, 2024 12:52pm Reason for Visit Admit Date Bereavement April 14, 2024 1 2:52pm Lumbar radiculopathy April 14, 2024 12:52pm HTN (hypertension) April 14, 2024 1 2:52pm Left sciatic nerve pain April 15 11:04am Lumbar back pain April 15, 2024 1 1:04am Lumbar back pain with radicu lopathy affecting left lower extremity April 26, 2024 9:55am Sciatica April 26, 2024 9 :55am Bryant hy kid w cr kid I-IV May 05, 2024 12:52pm CKD (chronic kidney disease) stage 3, GF R 30-59 ml/min May 05, 2024 12:52pm Diabetes mellitus with chronic kidney di sease May 05, 2024 12:52pm Hyperuricemia May 05, 2024 12:52pm Hypomagnesemia May 05, 2024 12:52pm Secondary hyperparathyroidism April 222023 12:52pm Hyperlipidemia May 05, 2024 12:52pm Chief Complaint Admit Date R10.9 February 24, 2024 12:27pm stomach pain March 19, 2024 8:04am toradol for sciatica April 12, 2024 1:15pm Amb Documentation April 12, 2024 1 :17pm acute sciatic pain April 14, 2024 1 2:52pm toradol shot April 15, 2024 1 1:04am M54.50 April 15, 2024 1 2:38pm lt hip/leg pain,nki April 21, 2024 7 :05am toradol shot- hip April 26, 2024 9 :55am R73.9 I10 N18.30 I12.9 N25.81 E79.0 E61. 1 April 26, 2024 10:08am M54.9 M54.40 M54.16 M25.552 M48.07 2023 8:29pm 1 year follow up May 05, 2024 12:52pm LUMBAR PAIN May 09, 2024 7:46am Reason for Visit Admit Date Bereavement April 14, 2024 1 2:52pm Lumbar radiculopathy April 14, 2024 12:52pm HTN (hypertension) April 14, 2024 1 2:52pm Left sciatic nerve pain April 15 11:04am Lumbar back pain April 15, 2024 1 1:04am Lumbar back pain with radicu lopathy affecting left lower extremity April 26, 2024 9:55am Sciatica April 26, 2024 9 :55am Bryant hy kid w cr kid I-IV May 05, 2024 12:52pm CKD (chronic kidney disease) stage 3, GF R 30-59 ml/min May 05, 2024 12:52pm Diabetes mellitus with chronic kidney di sease May 05, 2024 12:52pm Hyperuricemia May 05, 2024 12:52pm Hypomagnesemia May 05, 2024 12:52pm Secondary hyperparathyroidism April 222023 12:52pm Hyperlipidemia May 05, 2024 12:52pm Back pain, thoracic May 09, 2024 7:46am Other spondylosis with radiculopathy, daniel mbar region May 09, 2024 7:46am Chief Complaint Admit Date R10.9 February 24, 2024 12:27pm stomach pain March 19, 2024 8:04am toradol for sciatica April 12, 2024 1:15pm Amb Documentation April 12, 2024 1 :17pm acute sciatic pain April 14, 2024 1 2:52pm toradol shot April 15, 2024 1 1:04am M54.50 April 15, 2024 1 2:38pm lt hip/leg pain,nki April 21, 2024 7 :05am toradol shot- hip April 26, 2024 9 :55am R73.9 I10 N18.30 I12.9 N25.81 E79.0 E61. 1 April 26, 2024 10:08am M54.9 M54.40 M54.16 M25.552 M48.07 [facility] 2023 8:29pm 1 year follow up May 05, 2024 12:52pm LUMBAR PAIN May 09, 2024 7:46am LEFT SI JOINT INJECTION /VW April 232023 2:40pm Reason for Visit Admit Date Bereavement April 14, 2024 1 2:52pm Lumbar radiculopathy April 14, 2024 12:52pm HTN (hypertension) April 14, 2024 1 2:52pm Left sciatic nerve pain April 15 11:04am Lumbar back pain April 15, 2024 1 1:04am Lumbar back pain with radicu lopathy affecting left lower extremity April 26, 2024 9:55am Sciatica April 26, 2024 9 :55am Bryant hy kid w cr kid I-IV May 05, 2024 12:52pm CKD (chronic kidney disease) stage 3, GF R 30-59 ml/min May 05, 2024 12:52pm Diabetes mellitus with chronic kidney di sease May 05, 2024 12:52pm Hyperuricemia May 05, 2024 12:52pm Hypomagnesemia May 05, 2024 12:52pm Secondary hyperparathyroidism April 222023 12:52pm Hyperlipidemia May 05, 2024 12:52pm Chronic pain May 09, 2024 7:46am Other spondylosis with radiculopathy, daniel mbar region May 09, 2024 7:46am Sacroiliitis, not elsewhere classified N ovember 2023 7:46am Chief Complaint Admit Date R10.9 February 24, 2024 12:27pm stomach pain March 19, 2024 8:04am toradol for sciatica April 12, 2024 1:15pm Amb Documentation April 12, 2024 1 :17pm acute sciatic pain April 14, 2024 1 2:52pm toradol shot April 15, 2024 1 1:04am M54.50 April 15, 2024 1 2:38pm lt hip/leg pain,nki April 21, 2024 7 :05am toradol shot- hip April 26, 2024 9 :55am R73.9 I10 N18.30 I12.9 N25.81 E79.0 E61. 1 April 26, 2024 10:08am M54.9 M54.40 M54.16 M25.552 M48.07 Novem 2023 8:29pm 1 year follow up May 05, 2024 12:52pm LUMBAR PAIN May 09, 2024 7:46am LEFT SI JOINT INJECTION /VW April 232023 2:40pm 3-4 week f/u May 12, 2024 12:55pm Reason for Visit Admit Date Bereavement April 14, 2024 1 2:52pm Lumbar radiculopathy April 14, 2024 12:52pm HTN (hypertension) April 14, 2024 1 2:52pm Left sciatic nerve pain April 15 11:04am Lumbar back pain April 15, 2024 1 1:04am Lumbar back pain with radicu lopathy affecting left lower extremity April 26, 2024 9:55am Sciatica April 26, 2024 9 :55am Bryant hy kid w cr kid I-IV May 05, 2024 12:52pm CKD (chronic kidney disease) stage 3, GF R 30-59 ml/min May 05, 2024 12:52pm Diabetes mellitus with chronic kidney di sease May 05, 2024 12:52pm Hyperuricemia May 05, 2024 12:52pm Hypomagnesemia May 05, 2024 12:52pm Secondary hyperparathyroidism April 222023 12:52pm Hyperlipidemia May 05, 2024 12:52pm Chronic pain May 09, 2024 7:46am Other spondylosis with radiculopathy, daniel mbar region May 09, 2024 7:46am Sacroiliitis, not elsewhere classified N ovember 2023 7:46am Chronic pain May 12, 2024 12:55pm Diabetes mellitus with chronic kidney di sease May 12, 2024 12:55pm Hypomagnesemia May 12, 2024 12:55pm Other spondylosis with radiculopathy, daniel mbar region May 12, 2024 12:55pm HTN (hypertension) May 12, 2024 12:55pm Additional Source Comments INFORMATION SOURCE (unrecogn ized section and content) DATE CREATED AUTHOR 07/27/2018 [facility] DATE CREATED AUTHOR AUTHOR'S ORGANIZ ATION 02/22/2022 [facility] DATE CREATED AUTHOR AUTHOR'S ORGANIZ ATION 05/23/2022 [facility] DATE CREATED AUTHOR AUTHOR'S ORGANIZ ATION 09/22/2022 [facility] DATE CREATED AUTHOR AUTHOR'S ORGANIZ ATION 12/03/2022 [facility] DATE CREATED AUTHOR AUTHOR'S ORGANIZ ATION 12/03/2022 [employer] DATE CREATED AUTHOR AUTHOR'S ORGANIZ ATION 12/06/2023 [facility] DATE CREATED AUTHOR AUTHOR'S ORGANIZ ATION 06/08/2024 [facility] REASON FOR VISIT (unrecogniz ed section and content) clinicalClinicalClinical Acu te IllnessCKDclinicalTHORACIC BACK PAINrefillreview labs/x-raysClinical Acute IllnessPATIENT HERE FOR COMPLAINTS OF VOMITING/ADD ON PER DR Prado labs, re-evaluate liver enzymesClinicalreview labs/x-raysclinicalCLINICALClinical Acute IllnessPATIENT HERE FOR FOLLOW UP TO FUNCTIONAL DYSPEPSIA. PATIENT WAS TO START REMERON., SHE HAD A SECOND OPINION WITH DR PACHECOlinical Acute Medicine2 month Follow up1 month Follow upPT HERE FOR 6 MONTH FOLLOW UP TO VOMITING AND ABDOMINAL PAIN. PATIENT WAS TO CONTINUE ON THE ZOFRAN AND DICYCLOMINE., PATIENT IS NOT ON THE DICYCLOMINE AT THIS TIME.refillrefillrefillsReason for Visit:Holter Monitor:LUDY is here for the application of a 24 hour Holter monitor.Ordering Physician: Dr. Deon Mckeon DODiagnosis: Chidi blandon equipment agreement signed. LUDY understands monitor is to be returned on: 12/31/2021Monitor number [id number] applied.refillClinicalPATIENT HERE FOR ER FOLLOW UP ON 02/16 FOR ABDOMINAL PAIN, LABS, ULTRASOUND AND CT SCAN ARE IN CHARTFOLLOW UP VISIT PER DR MATTA for follow up to abdominal pain, abnormal abd ct scan and choledocholithiasis. patient was to have labs and referred to Dr. Elliott.Clinical Acute MedicineclinicalClinical Acute IllnessER notificationCKD and HTNCKD and HTNClinical Acute Illnessstomach issues per bpkClinicalRefillsClinicalClinicalrefillClinical-bpk to send rx4-[address] up[address]erred [address] Dr. Livan Arguello for Radicular pain to BL lower extremities: MRI done 10[facility] management office noteDiagnostic review- f/u hip painLUMBAR EPIDRUAL INJECTION L4 L5/CJCKD and HTNFOLLOW UP AFTER LUMB EPIDURALNo Informationblood work resultsRefillUTI symptomsClinical Care Teams (unrecognized sec tion and content) Team Status: Inactive Member Role Status Dates Livan Arguello DO Primary Care Provider, Attending Provi wolfgang Active Team Status: Inactive Member Role Status Dates Livan Arguello DO Primary Care Provider Active Williams Matta MD Attending Provider Active Team Status: Active Member Role Status Dates Livan Arguello DO Primary Care Provider Active Team Status: Inactive Member Role Status Dates Livan Arguello DO Primary Care Provider Active Huy Tierney MD Attending Provider Active Team Status: Inactive Member Role Status Dates Livan Argeullo DO Primary Care Provider Active Ivan Moore MD Attending Provider Active Team Status: Inactive Member Role Status Dates Livan Arguello DO Primary Care Provide r, Attending Provider, Referring Provider Active Chriss Voss MD Other Provider Active Team Status: Inactive Member Role Status Dates Livan Arguello DO Primary Care Provide r, Attending Provider Active Start: July 29, 2023 End: July 29, 2023 Team Status: Inactive Member Role Status Shiloh Arguello DO Primary Care Provide r, Attending Provider Active Start: February 24, 2024 End: February 24, 2024 Team Status: Inactive Member Role Status Shiloh Arguello DO Primary Care Provider Active Sta rt: March 19, 2024 End: March 19, 2024 Luis F Hanna DO Emergency Provider Active Sta rt: March 19, 2024 End: March 19, 2024 Nena Deng DO RES Active Start : March 19, 2024 End: March 19, 2024 Team Status: Inactive Member Role Status Shiloh Arguello DO Primary Care Provide r, Attending Provider Active Start: April 12, 2024 End: April 12, 2024 Team Status: Active Member Role Status Dates Livan Arguello DO Primary Care Provider Active Sta rt: April 12, 2024 Mandy Hernandez LPN Attending Provider Active Sta rt: April 12, 2024 Team Status: Inactive Member Role Status Dates Livan Arguello DO Primary Care Provide r, Attending Provider Active Start: April 14, 2024 End: April 14, 2024 Team Status: Inactive Member Role Status Dates Livan Arguello DO Primary Care Provide r, Attending Provider Active Start: April 15, 2024 End: April 15, 2024 Team Status: Inactive Member Role Status Dates Livan Arguello DO Primary Care Provider Active Sta rt: April 21, 2024 End: April 21, 2024 Freddie Nascimento , DO Emergency Provider Active Start: April 21, 2024 End: April 21, 2024 Leticia Magana , DO RES Active Sta rt: April 21, 2024 End: April 21, 2024 Team Status: Inactive Member Role Status Dates Livan Arguello DO Primary Care Provide r, Attending Provider Active Start: April 26, 2024 End: April 26, 2024 Team Status: Active Member Role Status Shiloh Arguello DO Primary Care Provide r, Attending Provider Active Start: April 26, 2024 Team Status: Inactive Member Role Status Shiloh Arguello DO Primary Care Provide r, Attending Provider Active Start: May 02, 2024 End: May 02, 2024 Team Status: Inactive Member Role Status Shiloh Arguello DO Primary Care Provider Active Sta rt: May 05, 2024 End: May 05, 2024 Huy Tierney MD Attending Provider Active Start : May 05, 2024 End: May 05, 2024 Team Status: Inactive Member Role Status Shiloh Arguello DO Primary Care Provider Active Sta rt: May 09, 2024 End: May 09, 2024 Chriss Voss MD Attending Provider Active Sta rt: May 09, 2024 End: May 09, 2024 Team Status: Inactive Member Role Status Shiloh Arguello DO Primary Care Provider Active Sta rt: May 11, 2024 End: May 11, 2024 Chriss Voss MD Attending Provider Active Sta rt: May 11, 2024 End: May 11, 2024 Team Status: Inactive Member Role Status Shiloh Arguello DO Primary Care Provide r, Attending Provider Active Start: May 12, 2024 End: May 12, 2024 Goals (unrecognized section and content) Goals may be documented in a n alternate section FOR RECORDS PERTAINING TO PATIENTS WHO ARE OR HAVE BEEN ENROLLED IN A CHEMICAL DEPENDENCY/SUBSTANCEABUSE PROGRAM, SOME INFORMATION MAY BE OMITTED. This clinical summary was aggregated from multiple sources. Caution should be exercised in using it in the provision of clinical care. This summary normalizes information from multiple sources, and as a consequence, information in this document may materially change the coding, format and clinical context of patient data. In addition, data may be omitted in some cases. CLINICAL DECISIONS SHOULD BE BASED ON THE PRIMARY CLINICAL RECORDS. [employer] [facility]. provides no warranty or guarantee of the accuracy or completeness of information in this document.
== END 2024-06-09 09:58 | disposition home or self-care (01) ==
LOC: RAD 09:57
PROVIDERS: PCP Family Medicine; Visit Provider Neurological Surgery
DX: M81.0 Age-related osteoporosis without current pathological fracture (principal)
CPT/HCPCS: 77080